=== PATIENT | female | born 1955 | race African-American/Black ===

== ENCOUNTER 2016-12-08 13:40 | Observation (INO) ==
--- NOTE | 2016-12-08 13:58 | Emergency Department Note ---
Disposition Clinical Impression: Right sided weakness CVA (cerebral vascular accident) Qualifiers: CVA mechanism: unspecified Qualified Code(s): I63.9 - Cerebral infarction, unspecified HTN (hypertension) Qualifiers: Hypertension type: unspecified secondary hypertension Qualified Code(s): I15.9 - Secondary hypertension, unspecified Disposition: Admitted As Inpatient Condition: Fair Neuro HPI - General Chief Complaint: ED Neuro Symptoms/Deficit Stated Complaint: neuro symptoms Source: patient, family Mode of arrival: ambulatory Limitations: no limitations Nursing Notes Reviewed: Yes Vital Signs Reviewed: Yes - History of Present Illness HPI Narrative: 61-year-old female history of CVA in the [place] in the past presents for evaluation of strokelike symptoms. Patient's symptoms in the past right-sided weakness and numbness. Patient presented with recurrent symptoms. Patient states that she was well approximately a couple days ago but has worsening neurologic symptoms over the past several hours. Noted to have right foot numbness two days ago. Notes that she started to have some right sided arm and leg weakness that began about 9:00 in worsened since noon. Patient also notes decreased sensation in the right side. Patient also has some mild dysarthria which is new and facial asymmetry. Patient denies any chest pain or fevers. Patient states the last time she was not given any thrombolytics and was evaluated at [facility]. Patient states that her stroke last time was related to her blood pressure. - Related Data Home Medications: Home Medications Medication Instructions Recorded Confirmed Acetaminophen [Tylenol Arthritis] 650 mg PO Q6H PRN 05/30/16 12/08/16 Albuterol Sulfate [Proair Hfa] 2 puff IH Q4H PRN 05/30/16 12/08/16 Atorvastatin Calcium [Lipitor] 80 mg PO DAILY 05/30/16 12/08/16 Cholecalciferol (D-3) [Vitamin D] 1,000 unit PO DAILY 05/30/16 12/08/16 Citalopram Hydrobromide 40 mg PO DAILY 05/30/16 12/08/16 [Citalopram HBr] Clopidogrel [Plavix] 75 mg PO DAILY 05/30/16 12/08/16 Ergocalciferol (VITAMIN D2) 50,000 unit PO 2XW 05/30/16 12/08/16 [Vitamin D2] Fluticasone Propionate Nasal 2 spray NS DAILY 05/30/16 12/08/16 [Flonase] Hydrocodone/Acetaminophen [[place] 1 tab PO Q6H PRN 05/30/16 12/08/16 5-325 Tablet] Loratadine [Allergy Relief] 10 mg PO DAILY 05/30/16 12/08/16 Montelukast [Singulair] 10 mg PO DAILY 05/30/16 12/08/16 NIFEdipine [Nifedipine ER] 90 mg PO DAILY 05/30/16 12/08/16 Nebivolol [Bystolic] 5 mg PO DAILY 05/30/16 12/08/16 Polyethylene Glycol 3350 [MiraLAX] 17 gm PO DAILY PRN 05/30/16 12/08/16 Amitriptyline [Elavil] 25 mg PO HS 12/08/16 12/08/16 Polyvinyl Alcohol [Artificial 1 drop OP Q4H PRN 12/08/16 12/08/16 Tears] Sennosides/Docusate Sodium [Senna 1 each PO BID PRN 12/08/16 12/08/16 Plus] cloNIDine HCl [CloNIDine HCl] 0.1 mg PO DAILY PRN 12/08/16 12/08/16 traZODone [TraZODone] 50 mg PO HS PRN 12/08/16 12/08/16 Allergies/Adverse Reactions: Allergies Allergy/AdvReac Type Severity Reaction Status Date / Time latex Allergy Rash Verified 12/08/16 14:42 Penicillins Allergy Rash Verified 12/08/16 14:22 prednisone Allergy See Verified 12/08/16 14:22 Comments sulfur dioxide Allergy See Verified 12/08/16 14:22 Comments aspirin AdvReac See Verified 12/08/16 14:42 Comments spironolactone AdvReac Hypertensio Verified 12/08/16 14:42 n Constitutional: Reports: as per HPI. Denies: fever Eyes: Reports: as per HPI ENT ED: Reports: as per HPI Cardiovascular: Reports: as per HPI. Denies: chest pain Respiratory: Reports: as per HPI. Denies: cough Gastrointestinal: Reports: as per HPI. Denies: abdominal pain Genitourinary: Reports: as per HPI Musculoskeletal: Reports: as per HPI Integumentary: Reports: as per HPI Neurological: Reports: as per HPI, weakness, numbness Psychiatric: Reports: as per HPI Endocrine: Reports: as per HPI Hematological/Lymphatic: Reports: as per HPI Past Medical History - Past Medical History Medical history: Reports: TIA Surgical history: Reports: , cholecystectomy, hysterectomy Psychiatric history: Reports: no psych history - Social History Smoking Status: Never smoker Smokeless Tobacco Status: No Alcohol use: Reports: none Drug use: Reports: none Physical Exam - General Limitations: no limitations General appearance: alert, in no apparent distress - Head Head exam: atraumatic, normocephalic, normal inspection - Eye Eye exam: Present: normal appearance, PERRL, EOMI - ENT ENT exam: normal exam, normal oropharynx, mucous membranes moist - Neck Neck exam: Present: normal inspection, full ROM, trachea midline - Chest Chest inspection: Present: normal inspection, symmetric chest wall rise - Respiratory Respiratory exam: Present: normal lung sounds bilaterally. Absent: respiratory distress - Cardiovascular Cardiovascular exam: Present: regular rate, normal rhythm - Abdominal Exam Abdominal exam: Present: soft, Non-Tender. Absent: tenderness, distention, guarding, rebound, rigidity - Extremities Exam Extremities exam: Present: normal inspection. Absent: pedal edema - Back Exam Back exam: Present: normal inspection - Neurological Exam Neurological exam: Present: alert, oriented X3 - Expanded Neurological Exam Patient oriented to: Present: person, place, time Cranial nerves: EOM function (II, III, IV, ): Normal, facial sensation (V): Abnormal Right, facial palsy (VII): Abnormal Right, spinal accessory function ( XI): Normal, tongue deviation (XII): Normal Cerebellar function: finger to nose: Normal Motor strength - LUE: 5/5 Motor strength - RUE: 4/5 Motor strength - LLE: 5/5 Motor strength - RLE: 4/5 Upper motor neuron exam: pronator drift: Present of right Coma Scale Verbal Response: Oriented - Psychiatric Psychiatric exam: Present: normal affect, normal mood Course - Reevaluation(s) Reevaluation #1: Stroke alert called due to the persistent symptoms and worsening symptoms. Time: 13:59 Reevaluation #2: Patient is updated on plan of care. Patient agrees for inpatient admission. He does state that she has a G6PD and does not take NSAIDs. Patient refused the aspirin. Patient states she is on Plavix. Patient states that her symptoms of leg weakness have been improving. Time: 15:22 - Consultations Consultation #1: Spoke with Neurology at [facility]. Dr Mercado States that the patient is not a thrombolytic candidate. Recommended continued workup allow for permissive hypertension. Time: 14:16 Vital Signs Temperature 98.1 F 12/08/16 13:45 Pulse Rate 74 12/08/16 13:45 Respiratory Rate 18 12/08/16 13:45 Blood Pressure 160/93 12/08/16 13:45 O2 Sat by Pulse Oximetry 99 12/08/16 13:45 Temperature 98.1 F 12/08/16 13:45 Pulse Rate 74 12/08/16 15:15 Respiratory Rate 16 12/08/16 15:15 Blood Pressure 179/104 12/08/16 15:15 O2 Sat by Pulse Oximetry 98 12/08/16 15:15 Oxygen Delivery Oxygen Delivery Room Air Neuro Symptoms/Deficit - MDM Narrative Medical decision making narrative: 61-year-old female persons for evaluation of strokelike symptoms. Patient did have a history of CVA with similar presentation. Patient symptoms consist of right arm weakness right leg weakness as well as decreased sensation to her right face and arm and leg. Patient had an age score of 6. Stroke alert was called due to the rapid progression of the patient's symptoms earlier today. Patient states that she was last well couple days ago and since then has had progression of symptoms. Patient's CT scan shows no acute abnormalities. Patient was offered an aspirin but refused to her G6PD. States that she is on Plavix. No other anticoagulation. Patient's last stroke was a couple years ago [facility]. She was also hypertensive upon arrival. Patient's blood pressure gradually improved during her emergency department stay without any intervention. Spoke with the neurology at [facility] who recommended continue stroke workup and allow for permissive hypertension. Patient was updated on plan of care. Patient agrees to inpatient evaluation and treatment. During her ED course the patient noted that her right leg strength was improving. All questions were answered at time of disposition. Patient will be admitted to the hospital service for further intervention and monitoring. - Lab Data Lab results reviewed: Yes I reviewed the patient's lab results. Result diagrams: 12/08/16 14:04 12/08/16 14:04 Lab Results 12/08/16 12/08/16 12/08/16 Range/Units 13:48 14:04 14:04 WBC 10.9 (4.3-11.1) K/mcL RBC 3.55 L (3.82-4.97) M/mcL Hgb 10.5 L (11.5-15.4) g/dL Hct 32.8 L (35.3-44.9) % MCV 92.4 (83.0-100.0) fL MCH 29.6 (28.0-33.3) pg MCHC 32.0 (31.6-35.5) g/dL RDW 12.6 (11.5-14.5) % Plt Count 389 (140-400) K/mcL MPV 9.3 L (9.4-12.4) fL Immature Gran % 0.2 (0-4) % Seg Neutrophils % 58.1 % Lymphocytes % 33.3 % Monocytes % 5.9 % Eosinophils % 2.1 % Basophils % 0.4 % Neutrophils # 6.3 (1.6-8.9) K/mcL Lymphocytes # 3.6 (0.6-4.6) K/mcL Monocytes # 0.6 (0.0-1.3) K/mcL Eosinophils # 0.2 (0.0-0.6) K/mcL Basophils # 0.0 (0.0-0.2) K/mcL PT 10.2 (9.4-12.1) Seconds INR 1.0 APTT 32.6 (26.0-36.0) Seconds Sodium (136-145) mEq/L Potassium (3.5-4.5) mEq/L Chloride (98-109) mEq/L Carbon Dioxide (19-29) mEq/L BUN (7-20) mg/dL Creatinine (0.57-1.11) mg/dL Est GFR ( Amer) (> 60) Est GFR (Non-Af Amer) (> 60) BUN/Creatinine Ratio (6-26) Glucose (70-99) mg/dL POC Glucose 103 H (58-89) Calculated Osmolality (280-300) Calcium (8.6-10.8) mg/dL Troponin I (0-0.03) ng/mL 12/08/16 12/08/16 Range/Units 14:04 14:04 WBC (4.3-11.1) K/mcL RBC (3.82-4.97) M/mcL Hgb (11.5-15.4) g/dL Hct (35.3-44.9) % MCV (83.0-100.0) fL MCH (28.0-33.3) pg MCHC (31.6-35.5) g/dL RDW (11.5-14.5) % Plt Count (140-400) K/mcL MPV (9.4-12.4) fL Immature Gran % (0-4) % Seg Neutrophils % % Lymphocytes % % Monocytes % % Eosinophils % % Basophils % % Neutrophils # (1.6-8.9) K/mcL Lymphocytes # (0.6-4.6) K/mcL Monocytes # (0.0-1.3) K/mcL Eosinophils # (0.0-0.6) K/mcL Basophils # (0.0-0.2) K/mcL PT (9.4-12.1) Seconds INR APTT (26.0-36.0) Seconds Sodium 144 (136-145) mEq/L Potassium 4.7 H (3.5-4.5) mEq/L Chloride 113 H (98-109) mEq/L Carbon Dioxide 24 (19-29) mEq/L BUN 24 H (7-20) mg/dL Creatinine 2.33 H (0.57-1.11) mg/dL Est GFR ( Amer) 26 L (> 60) Est GFR (Non-Af Amer) 21 L (> 60) BUN/Creatinine Ratio 10 (6-26) Glucose 94 (70-99) mg/dL POC Glucose (58-89) Calculated Osmolality 302 H (280-300) Calcium 9.5 (8.6-10.8) mg/dL Troponin I 0.01 (0-0.03) ng/mL - Radiology Data Radiology results reviewed: Yes I reviewed the patient's radiology results. Head CT 12/08/16 13:55 IMPRESSION: No acute intracranial abnormality. Findings were discussed with Dr. Patricio Hernandez of the [facility] emergency department at 2:21 pm on 12/08/2016. D/ / Yamil Orellana MD / Yamil Orellana MD Interpreting Provider: Yamil Orellana MD Chest X-Ray 12/08/16 13:56 IMPRESSION: Cardiomegaly without evidence of acute cardiopulmonary process. D/ / 12/08/2016 15:21:38 Oliver Garvin MD / [facility] Interpreting Provider: Oliver Garvin MD - EKG Data EKG attestation: Yes I reviewed and interpreted this EKG. EKG shows normal: sinus rhythm Rate: normal Rhythm: NSR [place]/QRS: normal P Waves: LAE Q waves: v1 Interpretation: no acute changes NIH Stroke Scale - Level of Consciousness LOC: Alert - LOC Questions LOC Questions: Answers both correctly - LOC Commands LOC Commands: Performs both correctly - Best Gaze Best Gaze: Normal - Visual Visual: No visual loss - Facial Palsy Facial Palsy: Minor asymmetry on smiling, flattened nasolabial fold - Motor Arms Motor Arm-Left: No drift for 10 seconds Motor Arm-Right: Drift, does NOT hit bed - Motor Legs Motor Leg-Left: No drift for 5 seconds Motor Leg-Right: Drift, does NOT hit bed - Limb Ataxia Limb Ataxia: Present in ONE limb - Sensory Sensory: Mild to moderate loss, "not as sharp" - Best Language Best Language: No aphasia - Dysarthria Dysarthria: Mild, slurs some words - Extinction and Inattention Extinction and Inattention: Normal - NIHSS Total Score NIHSS Total Score: 6 TPA Checklist - Source Information Source: Patient - Eligibilty for IV tPA 1. LKW equal to or less than 4.5 hours be before treatment: No 2. Clinical diagnosis of ischemic stroke causing deficit: Yes 3. Age 18 years or older: Yes - LKW: 3-4.5 hrs Add. Contraindications Patient/family understanding: The patient/family members have been counseled and understood the risk, benefit , and alternatives of treatment. Critical Care Time Critical Care Time: Yes Total Critical Care Time: 35 Attestation: Critical care time managing patient's stroke symptoms is 35 minutes. S.B.A.R. - S.B.A.R. Situation: Demographics, MOA Background: Presenting Complaint, Relevant PMH, Meds, & Allergies Assessment: Vital Signs, Course and respsone to treatment, Patient/Family Expectation Recommendation: Barrier(s) to disposition, Recommendation based on pending studies, treatments, or consults Brynn Report Given to: Dr. Sherita Swain Repor Time: 15:38 Attestation Statement - Attestation Attestation: Patient was seen with resident physician. I reviewed the history, physical, assessment and plan, and agree with the findings. I also personally evaluated this patient and had [id number] time with this patient. 61-year-old female presents to the emergency department with worsening neurologic symptoms. Patient was seen by PCP or Center to the emergency department with need for evaluation for potential stroke. Patient and her states symptoms started approximately 2 days ago but at 9 AM the symptoms worsen somewhat progressively. This is approximately 4 hours prior to her arrival in the emergency department. Symptoms include weakness in the right upper and lower extremities some of which is new some of which is from prior stroke. Increasing numbness on the right side and increasing facial droop on the left side. Patient also notes that she has had decreased ability to speak especially since 9 AM today. says this is definitely unusual for her. She denies other symptoms at this time. She did have significant hypertension at her family doctor's office. On examination vital signs were stable without significant hypertension. ENT pupils are equal and reactive. Patient does have some facial droop on the left side but can move that area. Tongue is midline. Some decreased sensation when touching the face on the right side. Heart is regular rhythm and rate. Lungs are clear abdomen is soft and nontender. Extremities unremarkable. Neurologically patient has some drift on the right upper and lower extremities. There is weakness on that side. It is difficult to determine if this is new or old. GCS score of 6 on arrival. ED course a stroke alert was called because of the worsening of her symptoms at [address] of the head revealed no acute abnormalities. Consultation with tele- stroke neurologist confirm that the patient was not a candidate for TPA and suggested admission here at [facility]. Labs also were essentially unremarkable. We will notify hospitalist and need for admission. Agree with resident physician assessment and plan. Critical care time for this patient 35 minutes.
[2016-12-08 14:08] LABS: Basophils % 0.4 %; Eosinophils # 0.2 K/mcL (0.0-0.6); Eosinophils % 2.1 %; Hematocrit 32.8 % (35.3-44.9); Hemoglobin 10.5 g/dL (11.5-15.4); Immature Granulocytes % 0.2 % (0-4); Lymphocytes # 3.6 K/mcL (0.6-4.6); Lymphocytes % 33.3 %; Mean Corpuscular Hemoglobin 29.6 pg (28.0-33.3); Mean Corpuscular Volume 92.4 fL (83.0-100.0); Mean Platelet Volume 9.3 fL (9.4-12.4); Monocytes # 0.6 K/mcL (0.0-1.3); Monocytes % 5.9 %; Neutrophils # 6.3 K/mcL (1.6-8.9); Platelet Count 389 K/mcL (140-400); Red Blood Count 3.55 M/mcL (3.82-4.97); Red Cell Distribution Width 12.6 % (11.5-14.5); Segmented Neutrophils % 58.1 %
[2016-12-08 14:18] LABS: Activated Partial Thrombo Time 32.6 Seconds (26.0-36.0)
[2016-12-08 14:21] LABS: Calcium 9.5 mg/dL (8.6-10.8); Potassium 4.7 mEq/L (3.5-4.5)
[2016-12-08] MEDS ORDERED: Aspirin 81 MG TAB.CHEW PO ONE (14:21)
[2016-12-08 14:31] LABS: Prothrombin Time 10.2 Seconds (9.4-12.1)
[2016-12-08] MEDS ORDERED: Acetaminophen 325 MG TABLET PO PRN (16:57)
[2016-12-08] MEDS ORDERED: Naloxone 0.4 MG/ML INJ IVP PRN (16:57)
[2016-12-08] MEDS ORDERED: traZODone 50 MG TABLET PO PRN (17:00)
[2016-12-08] MEDS ORDERED: *HR* HYDROcodone/Acet 5/325 mg TABLET PO PRN (17:00)
--- NOTE | 2016-12-08 17:18 | Internal Med History&Physical ---
<Jennifer Goldman M - Last Filed: 12/08/16 18:02> Date of Encounter: 12/08/16 Time of Encounter: 17:08 Assessment and Plan (1) CVA (cerebral vascular accident) Current visit: Yes Status: Suspected CVA vs TIA. Patient presented with right sided weakness and numbness, but now reports she is back to her baseline. CT of the head shows no acute intracranial abnormality. EKG shows normal sinus rhythm wiht no acute ischemic changes. Troponin normal at 0.01. Patient reports allergy to aspirin due to G6PD deficiency and so did not take 325mg of aspirin. continuous bus monitor MRI head/brain echocardiogram carotid dopplers Lipid panel in the morning. continue home dose of plavix and statin permissive hypertension Consult to neurology. Qualifiers: CVA mechanism: unspecified Qualified Code(s): I63.9 - Cerebral infarction, unspecified (2) HTN (hypertension) Current visit: Yes Status: Acute Patient's blood pressures have been running 170s-190s/90s-100s. Goal blood pressure 160-190 systolic. She takes nifedipine and Nebivolol at home, with clonidine PRN for blood pressure over 160 systolic. Restart home medications tomorrow. Hydralazine PRN for SBP > 220 or DBP > 120 Qualifiers: Hypertension type: essential hypertension Qualified Code(s): I10 - Essential (primary) hypertension (3) Chronic kidney disease Current visit: Yes Status: Acute Patient's creatinine 2.33, up slightly from previous level of 2.09. She reports her kidney disease is secondary to hypertension and she follows with [facility] [place]. Avoid NSAIDs and nephrotoxins. Qualifiers: Chronic kidney disease stage: stage 4 (severe) Qualified Code(s): N18.4 - Chronic kidney disease, stage 4 (severe) (4) Sleep apnea Current visit: Yes Status: Acute Respiratory therapy consulted for CPAP Qualifiers: Sleep apnea type: unspecified type Qualified Code(s): G47.30 - Sleep apnea , unspecified (5) Upper respiratory infection Current visit: Yes Status: Acute Patient reporting sinus pressure, congestion and cough. Lungs are clear to auscultation and CXR showed no acute cardiopulmonary process. Saline nasal spray PRN Mucinex BID duoneb QID PRN Qualifiers: URI type: unspecified viral URI Qualified Code(s): J06.9 - Acute upper respiratory infection, unspecified; B97.89 - Other viral agents as the cause of diseases classified elsewhere (6) DVT prophylaxis Current visit: Yes Status: Acute anti-embolic stockings heparin 5000u SQ TID Internal Medicine - H&P: HPI Chief complaint: right sided numbness and weakness Admitted From: Emergency Dept Plans for Post Hospital Care: Home History of present illness: Ms. Orellana is a 61 year old female with history of hypertension, hyperlipidemia, lupus, G6PD deficiency, asthma, chronic kidney disease, CVA in 2014 with right- sided residual presented to the emergency department today with complaints of right-sided numbness. She reports that when she woke up this morning at about 9 AM she felt like her right leg was not working in her right arm felt numb, she was able to move them, but not as well as her baseline, she also felt numb and decreased sensation in the right arm and the right leg. In addition to this she had some right-sided facial numbness and her speech was slurred according to her . She denied any headache, lightheadedness, chest pain, palpitations, shortness of breath. Denies any nausea, abdominal pain, diarrhea. She denies any fever, chills, sweats. She reports current upper respiratory infection with sinus pressure and cough. Evaluation in the emergency department included a CT of her head which showed no acute intracranial abnormality. Chest x-ray showed cardiomegaly without acute cardiopulmonary process. EKG showed normal sinus rhythm with no acute ST changes. Troponin was 0.01. BUN and creatinine were elevated at 24 and 2.33 respectively but this is consistent with her baseline CKD. Her symptoms persisted in the emergency department, and they contacted the stroke team at [facility] for consultation, they determined patient was not a candidate for TPA as she was outside of the timeframe. On my assessment, patient reports her symptoms have resolved, and she has returned to her baseline level of function and sensation. Patient was alert and oriented, in no acute distress. Heart had regular rate and rhythm, lungs are clear bilaterally to auscultation. Cranial nerves are intact, tongue was midline, no pronator drift, no leg drift. Patient does have some decreased sensation in her right lower extremity, she reports this is her baseline from her previous stroke. Strength is equal in bilateral upper extremities. Past Med Surg Social Fam HX - Past Medical History Medical history: asthma, CVA, GERD, hyperlipidemia, hypertension, renal disease , TIA, other (lupus) Psychiatric history: no psych history - Past Surgical History Surgical History: , cholecystectomy, hysterectomy, knee replacement, orthopedic, other (shoulder) - Social History Smoking Status: Never smoker Smokeless Tobacco Status: No Alcohol use: none Drug use: none - Family History Mother Living Status: Age at : 77 Cause of : [place], CVA Hx Family Cardiac Disorders: Yes Father Living Status: Age at : 91 Hx Family Cardiac Disorders: Yes Hx Family Endocrine Disorder: Yes (diabetes) Internal Medicine - H&P: Meds Acetaminophen [Tylenol Arthritis] 650 mg PO Q6H PRN 05/30/16 [History] Albuterol Sulfate [Proair Hfa] 2 puff IH Q4H PRN 05/30/16 [History] Atorvastatin Calcium [Lipitor] 80 mg PO DAILY 05/30/16 [History] Cholecalciferol (D-3) [Vitamin D] 1,000 unit PO DAILY 05/30/16 [History] Citalopram Hydrobromide [Citalopram HBr] 40 mg PO DAILY 05/30/16 [History] Clopidogrel [Plavix] 75 mg PO DAILY 05/30/16 [History] Ergocalciferol (VITAMIN D2) [Vitamin D2] 50,000 unit PO 2XW 05/30/16 [History] Fluticasone Propionate Nasal [Flonase] 2 spray NS DAILY 05/30/16 [History] Hydrocodone/Acetaminophen [Coffeen 5-325 Tablet] 1 tab PO Q6H PRN 05/30/16 [ History] Loratadine [Allergy Relief] 10 mg PO DAILY 05/30/16 [History] Montelukast [Singulair] 10 mg PO DAILY 05/30/16 [History] NIFEdipine [Nifedipine ER] 90 mg PO DAILY 05/30/16 [History] Nebivolol [Bystolic] 5 mg PO DAILY 05/30/16 [History] Polyethylene Glycol 3350 [MiraLAX] 17 gm PO DAILY PRN 05/30/16 [History] Amitriptyline [Elavil] 25 mg PO HS 12/08/16 [History] Polyvinyl Alcohol [Artificial Tears] 1 drop OP Q4H PRN 12/08/16 [History] Sennosides/Docusate Sodium [Senna Plus] 1 each PO BID PRN 12/08/16 [History] cloNIDine HCl [CloNIDine HCl] 0.1 mg PO DAILY PRN 12/08/16 [History] traZODone [TraZODone] 50 mg PO HS PRN 12/08/16 [History] Allergies latex Allergy (Verified 12/08/16 14:42) Rash Penicillins Allergy (Verified 12/08/16 14:22) Rash prednisone Allergy (Verified 12/08/16 14:22) See Comments Pt states it "makes me extremely crazy" sulfur dioxide Allergy (Verified 12/08/16 14:22) See Comments Pt stated she is "allergic to sulfur" and that it breaks her out in a rash. aspirin Adverse Reaction (Verified 12/08/16 14:42) See Comments Patient has deficiency spironolactone Adverse Reaction (Verified 12/08/16 14:42) Hypertension All Systems PM: A 10-system review of systems was performed and is negative for pertinent findings except as documented above in the HPI. - Constitutional Constitutional: no chills, no fever(s), no night sweats - EENT Eyes: no change in vision, no discharge, no pain, no photophobia Ears: no ear discharge, no ear pain, no tinnitus Nose, mouth and throat: nasal congestion, sinus pressure, no dysphagia, no nasal discharge, no neck pain, no sore throat - Cardiovascular Cardiovascular ROS IM: no chest pain, no diaphoresis, no dyspnea, no lightheadedness, no palpitations, no syncope - Respiratory Respiratory: cough, no dyspnea, no wheezing, no excessive phlegm production - Gastrointestinal Gastrointestinal: no abdominal pain, no diarrhea, no hematemesis, no hematochezia, no melena, no nausea, no vomiting - Genitourinary Genitourinary: no change in urinary stream, no dysuria, no flank pain, no hematuria - Musculoskeletal Musculoskeletal ROS IM: numbness (Right side), no tingling - Integumentary Integumentary IM: no rash, no unusual bruising - Neurological Neurological ROS: focal weakness (right side), numbness (right side), no confusion, no convulsions, no tingling, no tremor(s) - Hematologic/Lymphatic Hematologic/Lymphatic: no easy bruising - Constitutional Vitals: Temp Pulse Resp BP Pulse Ox 98.0 F 81 18 192/98 99 12/08/16 17:07 12/08/16 17:07 12/08/16 17:07 12/08/16 17:07 12/08/16 17:07 General appearance: Present: A&O X 3, pleasant, no acute distress - Head Head exam: Present: atraumatic, normocephalic - Eye Eye exam: Present: PERRL, conjuntiva pink, sclera anicteric Pupils: Present: PERRL - Neck Neck exam general surgery: Present: supple, trachea midline. Absent: lymphadenopathy - Respiratory Respiratory exam: Present: CTAB. Absent: accessory muscle use, rales, rhonchi, wheezes - Cardiovascular Cardiovascular exam: Present: RRR, +S1, +S2. Absent: diastolic murmur, gallop, rubs, systolic murmur - GI/Abdominal GI/Abdominal exam: Present: normal bowel sounds, soft, no peritoneal signs. Absent: distended, tenderness - Extremities Exam Extremities exam: Present: warm, radial pulses palpable and symetrical. Absent : calf tenderness, cyanotic, pedal edema - Neurological Exam Neurological exam: Present: CN II-XII intact, motor sensory deficit, oriented X3 , facial droop (left sided). Absent: pronater drift, speech deficit - Expanded Neurological Exam Patient oriented to: Present: person, place, time Speech: Present: fluid speech Cranial Nerves: EOM's intact PM: Normal, gag reflex PM: Normal, nystagmus PM: Normal, tongue deviation PM: Normal Cerebellar function: finger to nose: Normal Sensory exam: LE 2 point discrimination: Abnormal Right, lower extremity pin prick: Abnormal Right (decreased sensation in RLE), lower extremity temperature : Normal, UE 2 point discrimination: Normal, upper extremity pin prick: Normal Neuro motor strength exam: LUE: 5, RUE: 5 - Skin Skin exam: Present: dry, intact Internal Med - H&P Results - Labs CBC & Chem 7: 12/08/16 14:04 12/08/16 14:04 Labs: All Lab Results (24 Hours) 12/08/16 12/08/16 12/08/16 Range/Units 13:48 14:04 14:04 WBC 10.9 (4.3-11.1) K/mcL RBC 3.55 L (3.82-4.97) M/mcL Hgb 10.5 L (11.5-15.4) g/dL Hct 32.8 L (35.3-44.9) % MCV 92.4 (83.0-100.0) fL MCH 29.6 (28.0-33.3) pg MCHC 32.0 (31.6-35.5) g/dL RDW 12.6 (11.5-14.5) % Plt Count 389 (140-400) K/mcL MPV 9.3 L (9.4-12.4) fL Immature Gran % 0.2 (0-4) % Seg Neutrophils % 58.1 % Lymphocytes % 33.3 % Monocytes % 5.9 % Eosinophils % 2.1 % Basophils % 0.4 % Neutrophils # 6.3 (1.6-8.9) K/mcL Lymphocytes # 3.6 (0.6-4.6) K/mcL Monocytes # 0.6 (0.0-1.3) K/mcL Eosinophils # 0.2 (0.0-0.6) K/mcL Basophils # 0.0 (0.0-0.2) K/mcL PT 10.2 (9.4-12.1) Seconds INR 1.0 APTT 32.6 (26.0-36.0) Seconds Sodium (136-145) mEq/L Potassium (3.5-4.5) mEq/L Chloride (98-109) mEq/L Carbon Dioxide (19-29) mEq/L BUN (7-20) mg/dL Creatinine (0.57-1.11) mg/dL Est GFR ( Amer) (> 60) Est GFR (Non-Af Amer) (> 60) BUN/Creatinine Ratio (6-26) Glucose (70-99) mg/dL POC Glucose 103 H (58-89) Calculated Osmolality (280-300) Calcium (8.6-10.8) mg/dL Troponin I (0-0.03) ng/mL 12/08/16 12/08/16 Range/Units 14:04 14:04 WBC (4.3-11.1) K/mcL RBC (3.82-4.97) M/mcL Hgb (11.5-15.4) g/dL Hct (35.3-44.9) % MCV (83.0-100.0) fL MCH (28.0-33.3) pg MCHC (31.6-35.5) g/dL RDW (11.5-14.5) % Plt Count (140-400) K/mcL MPV (9.4-12.4) fL Immature Gran % (0-4) % Seg Neutrophils % % Lymphocytes % % Monocytes % % Eosinophils % % Basophils % % Neutrophils # (1.6-8.9) K/mcL Lymphocytes # (0.6-4.6) K/mcL Monocytes # (0.0-1.3) K/mcL Eosinophils # (0.0-0.6) K/mcL Basophils # (0.0-0.2) K/mcL PT (9.4-12.1) Seconds INR APTT (26.0-36.0) Seconds Sodium 144 (136-145) mEq/L Potassium 4.7 H (3.5-4.5) mEq/L Chloride 113 H (98-109) mEq/L Carbon Dioxide 24 (19-29) mEq/L BUN 24 H (7-20) mg/dL Creatinine 2.33 H (0.57-1.11) mg/dL Est GFR ( Amer) 26 L (> 60) Est GFR (Non-Af Amer) 21 L (> 60) BUN/Creatinine Ratio 10 (6-26) Glucose 94 (70-99) mg/dL POC Glucose (58-89) Calculated Osmolality 302 H (280-300) Calcium 9.5 (8.6-10.8) mg/dL Troponin I 0.01 (0-0.03) ng/mL - Diagnostic Studies Chest x-ray Additional comments: Chest X-Ray 12/08/16 13:56 IMPRESSION: Cardiomegaly without evidence of acute cardiopulmonary process. D/ / 12/08/2016 15:21:38 Oliver Garvin MD / bcarter Interpreting Provider: Oliver Garvin MD CT scan - head Additional comments: Head CT 12/08/16 13:55 IMPRESSION: No acute intracranial abnormality. Findings were discussed with Dr. Patricio Hernandez of the [place] emergency department at 2:21 pm on 12/08/2016. D/ / Yamil Orellana MD / Yamil Orellana MD Interpreting Provider: Yamil Orellana MD <Jefe Magallon - Last Filed: 12/08/16 18:41> Date of Encounter: 12/08/16 Internal Medicine - H&P: HPI History of present illness: Ms. Orellana is a 61 year old female All Systems PM: A 10-system review of systems was performed and is negative for pertinent findings except as documented above in the HPI. - Constitutional Vitals: Temp Pulse Resp BP Pulse Ox 98.0 F 81 18 192/98 99 12/08/16 17:07 12/08/16 17:07 12/08/16 17:07 12/08/16 17:07 12/08/16 17:07 Internal Med - H&P Results - Labs CBC & Chem 7: 12/08/16 14:04 12/08/16 14:04 - Attending Attestation I examined this patient and my medical decision-making was reviewed with Ms. Goldman. I agree with the documented findings, disposition and treatment plan as described except to the extent set forth below. Briefly, 61-year-old female with a history of cerebrovascular accident in the past who is on Plavix and not on aspirin due to G6PD deficiency presented to the emergency room due to sudden onset weakness on the right side with drooping of the face. Patient states that since 4 PM today, her symptoms are back to baseline and she only has residual deficits from her prior stroke. On exam, clear without bilaterally. Minimal droop the face. Power 5/5 upper extremities bilaterally. Power 4/5 in the right lower expedient 5/5 in the left lower extremities. Laboratory data reviewed. EKG personally reviewed. 1. CVA versus TIA-placed under observation for now. MRI. Telemetry. Continue Plavix and high-dose statin. Patient may benefit from Crestor. Patient instructed to discuss with primary care physician. Neurology consult. Physical therapy, occupational therapy and speech therapy consults. 2. G6PD deficiency. ROCKY MarroquinBS
[2016-12-08] MEDS ORDERED: Ipratropium/Albuterol Neb 3 ML IH PRN (17:58)
[2016-12-08] MEDS ORDERED: Saline Nasal Spray 44 ML BOTTLE NS PRN (17:58)
[2016-12-09 05:24] LABS: Basophils % 0.4 %; Eosinophils % 2.5 %; Hematocrit 30.5 % (35.3-44.9); Hemoglobin 9.8 g/dL (11.5-15.4); Immature Granulocytes % 0.4 % (0-4); Lymphocytes % 37.6 %; Mean Corpuscular HGB Conc 32.1 g/dL (31.6-35.5); Mean Corpuscular Hemoglobin 29.6 pg (28.0-33.3); Mean Corpuscular Volume 92.1 fL (83.0-100.0); Mean Platelet Volume 10.3 fL (9.4-12.4); Monocytes % 6.7 %; Platelet Count 335 K/mcL (140-400); Red Blood Count 3.31 M/mcL (3.82-4.97); Red Cell Distribution Width 12.8 % (11.5-14.5); Segmented Neutrophils % 52.4 %
[2016-12-09 05:25] LABS: Eosinophils # 0.3 K/mcL (0.0-0.6); Lymphocytes # 4.1 K/mcL (0.6-4.6); Monocytes # 0.7 K/mcL (0.0-1.3); Neutrophils # 5.8 K/mcL (1.6-8.9)
[2016-12-09 05:45] LABS: Calcium 8.9 mg/dL (8.6-10.8); Potassium 4.4 mEq/L (3.5-4.5)
[2016-12-09] MEDS ORDERED: Loratadine 10 MG TABLET PO SCH (09:00)
--- NOTE | 2016-12-09 09:52 | Carotid Imaging Report ---
Carotid Duplex Patient Name:Maggie Orellana Order Number:[id number] Procedure Date:12/08/2016 Date:8Age:61 yrs Gender:Female Lt BP:192 / 98 mmHg Rt.BP:176 / 100 mmHgHeart Rate: Location:[facility] Room #: 3B12 Hand Roller Engraver:Rosmery Nunez Referring MD:Jennifer Goldman CNP food and beverage outlets manager:Matt Dimas MD Reading MD:Mg Wiley MD Primary Indications:TIA Risk Factors Yes/No Hypertension Yes Hypercholesterolemia Yes Hx of TIA Yes Hx of CVA Yes Impressions: Findings: Bilateral carotid system is essentially normal. Recommendations: After imaging the patient returned to their room. Findings Carotid Duplex: Right: The right proximal common carotid artery has a PSV of 94 cm/s and a EDV of 17 cm/s. The right mid common carotid artery has a PSV of 71 cm/s and a EDV of 16 cm/s. The right distal common carotid artery has a PSV of 61 cm/s and a EDV of 14 cm/s. The right bifurcation has a PSV of 66 cm/s and a EDV of 12 cm/s. The right proximal internal carotid artery has a PSV of 49 cm/s and a EDV of 16 cm/s. The right mid internal carotid artery has a PSV of 58 cm/s and a EDV of 17 cm/s. The right distal internal carotid artery has a PSV of 63 cm/s and a EDV of 21 cm/s. The right eca has a PSV of 68 cm/s and a EDV of 9 cm/s. The right vertebral artery has a PSV of 24 cm/s and a EDV of 6 cm/s. Left: The left proximal common carotid artery has a PSV of 110 cm/s and a EDV of 23 cm/s. The left mid common carotid artery has a PSV of 103 cm/s and a EDV of 24 cm/s. The left distal common carotid artery has a PSV of 91 cm/s and a EDV of 18 cm/s. The left bifurcation has a PSV of 52 cm/s and a EDV of 14 cm/s. The left proximal internal carotid artery has a PSV of 41 cm/s and a EDV of 14 cm/s. The left mid internal carotid artery has a PSV of 61 cm/s and a EDV of 23 cm/s. The left distal internal carotid artery has a PSV of 73 cm/s and a EDV of 29 cm/s. The left eca has a PSV of 66 cm/s and a EDV of 18 cm/s. The left vertebral artery has a PSV of 37 cm/s and a EDV of 11 cm/s. Prior Study: No prior study available for comparison. Carotid Results Right PSV EDV Assessment Proximal CCA 94 17 Normal Mid CCA 71 16 Normal Distal CCA 61 14 Normal Bifurcation 66 12 Normal Proximal ICA 49 16 Normal Mid ICA 58 17 Normal Distal ICA 63 21 Normal ECA 68 9 Normal Vertebral Artery 24 6 Normal Left PSV EDV Assessment Proximal CCA 110 23 Normal Mid CCA 103 24 Normal Distal CCA 91 18 Normal Bifurcation 52 14 Normal Proximal ICA 41 14 Normal Mid ICA 61 23 Normal Distal ICA 73 29 Normal ECA 66 18 Normal Vertebral Artery 37 11 Normal Ratio's Right ICA/CCA Ratio: 0.89 ICA/CCA Values: 63/71 Left ICA/CCA Ratio: 0.71 ICA/CCA Values: 73/103 Updated by Mg Wiley MD on 12/09/2016 9:47:04 AM electronically signed on 12/09/2016 9:47:17 AM with status of Final
--- NOTE | 2016-12-09 11:18 | ECHO - Doppler Report ---
Echo with Saline Contrast Name: Maggie Orellana Date of Study: 12/08/2016 Date: 1955 Ht: 67.0 in Medical Record#: [id number] Age: 61 Wt: 253.0 lb Gender: Female BSA: 2.23 Order #: [id number] Location: [facility] Room #: 3B12 Reading Physician: Yanique Mike DO Auger Supervisor: Rosmery Nunez Ordering Physician: Jennifer Goldman CNP Primary Physician: Matt Dimas MD Indications: Transient Ischemic Attack Impressions: LVEF 65%. Moderate concentric hypertrophy of the left ventricle. There is evidence of mild diastolic dysfunction of the left ventricle. Normal right ventricular size and function. No significant valvular dysfunction. No pulmonary hypertension. No PFO with saline contrast. Left Ventricular Wall Motion: Rest Echo Findings All wall segments showed normal motion. Findings: Study Quality * Technically adequate exam. ECG Findings * Normal sinus rhythm. Left Ventricle * Moderate concentric left ventricular hypertrophy. * Mild left ventricular diastolic dysfunction. * LVEF 65%. Aorta * Normally sized aortic root. Left Atrium * Normal left atrial size. Mitral Valve * Normal mitral valve structure. * No mitral stenosis. * Trivial mitral regurgitation. Aortic Valve * Aortic valve not well visualized. * Trace aortic regurgitation. * No aortic stenosis. Tricuspid Valve * Tricuspid valve not well visualized. * No tricuspid regurgitation. * Estimated RA pressure is 3 mmHg. Pulmonic Valve * Pulmonic valve is not well visualized. * No pulmonic stenosis. * No pulmonic regurgitation. Pulmonary Artery * Pulmonary artery not well visualized. Right Ventricle * Normal right ventricular structure and function. Right Atrium * Right atrium is not well visualized. Interatrial Septum * No evidence of PFO with agitated saline contrast. IVC * Normal IVC dimensions and inspiratory collapse. History Hypertension Hypercholesteremia Family History of CAD Measurements: BP: 192/ 98 2D Normal Values RVIDd: 3.20 cm <2.7 cm IVSd: 1.50 cm 0.6 - 1.0 cm LVIDd: 4.70 cm 3.7 - 5.6 cm LVPWd: 1.40 cm 0.6 - 1.1 cm LVIDs: 2.40 cm 1.5 - 3.6 cm AO: 2.70 cm < 4.0 cm LA: 3.90 cm 2.0 - 4.0cm %FS: 48.90 cm >25 % LA volume: 69 Mitral Valve Pressure Time:63.00 msec Valve Area:3.49 cm2 Peak E:.77 m/sec Peak A:1.14 m/sec E/A Ratio:0.7 Peak E' Lat Kamari:8.77 cm/s Peak E' Med Kamari:7.02 cm/s E/E' Lat Ratio:8.8 E/E' Med Ratio:10.9 Updated by Yanique Mike on 12/09/2016 11:12:36 AM electronically signed on 12/09/2016 11:13:42 AM with status of Final Wall Motion Pena: 1=Normal, 2=Hypokinesis, 3=Akinesis, 4=Dyskinesis, 5=Aneurysmal, 6=Hyperkinetic, X=Not Visualized (Blank)=Missing
--- NOTE | 2016-12-09 17:20 | Electrocardiograph Report ---
[place] [address] Test Date: 2016-12-08 Pat Name: Maggie Orellana Department: 104 Room: 3B12 Gender: F Interface Control Officer: : 1955 Requested By: Patricio Hernandez Order Number: [id number] Reading MD: Micaela Lewis Measurements Intervals [place] Rate: 77 P: 14 DE: 207 QRS: 21 QRSD: 109 T: 11 QT: 397 QTc: 428 Interpretive Statements SINUS RHYTHM POSSIBLE LEFT ATRIAL ENLARGEMENT Electronically Signed On 12-09-2016 17:18:53 EDT by Micaela Lewis
--- NOTE | 2016-12-09 17:50 | Internal Med Progress Note ---
Date of Encounter: 12/09/16 Time of Encounter: 09:05 - Subjective Interval history: Patient is alert and oriented this morning. She was seen and assessed at about 9:05 AM. She says she was seeing her primary care physician for URI symptoms. She also reports right foot numbness that began 3 days prior to arrival. She said that her right side became numb and she had right facial droop. Her speech was slurred and she had no other symptoms. - Constitutional Vitals: Temp Pulse Resp BP Pulse Ox 99.0 F 85 14 174/89 94 12/09/16 15:53 12/09/16 15:53 12/09/16 15:53 12/09/16 15:53 12/09/16 15:53 General appearance: Present: A&O X 3, pleasant, no acute distress Internal Medicine: Result - Labs CBC & Chem 7: 12/09/16 03:46 12/09/16 03:46 Labs: Short CBC 12/09/16 Range/Units 03:46 WBC 11.0 (4.3-11.1) K/mcL Hgb 9.8 L (11.5-15.4) g/dL Hct 30.5 L (35.3-44.9) % Plt Count 335 (140-400) K/mcL Neutrophils # 5.8 (1.6-8.9) K/mcL BMP 12/09/16 03:46 Sodium 141 Potassium 4.4 Chloride 111 H Carbon Dioxide 22 BUN 23 H Creatinine 2.36 H Glucose 95 Calcium 8.9 - ABG Interpretation ABG results: PT/INR, D-dimer PT 10.2 Seconds (9.4-12.1) 12/08/16 14:04 - Impressions Impressions Brain MRI 12/08/16 17:04 IMPRESSION: 1. Mild motion artifact. 2. No acute intracranial abnormality. D/ / Mike Fraga MD / Mike Fraga MD Interpreting Provider: Mike Fraga MD Consult Discharge Plan - Plan Referrals: Matt Dimas MD [Primary Care Provider] - 12/16/16 1:15 pm
--- NOTE | 2016-12-09 19:10 | Neurology - Consult Note ---
Date of Encounter: 12/09/16 Time of Encounter: 19:05 Assessment and Plan (1) Transient ischemic attack Current Visit: Yes Status: Acute I believe that she will experienced a transient ischemic attack secondary to malignant hypertension. She likely experienced of vasospasm in the lenticulostriate arteries which caused her symptoms of worsening hypoesthesia and weakness on the right side. Her symptoms now have fully resolved, and her MRI scan reveals no evidence of acute ischemia. 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 Carotid duplex Doppler studies were normal. Echocardiogram was normal. At this juncture the most important factor is to aggressively manage her hypertension. Really she should maintain the "the Plavix as well as ongoing statin therapy. At this point I do not believe that she needs any additional therapeutics or testing. She may be discharged home discretion to follow up with her primary care provider for aggressive management of her stroke risk factors. The documentation in the history of HPI and plan were at least partially created by [employer] voice recognition technology by Dr. Stover. Errors in grammar, wording or other phrases may exist. If errors are found after the documentation signed, they will be addressed individually in the addendum section of this document when appropriate. Qualifiers: Transient cerebral ischemia type: other Qualified Code(s): G45.8 - Other transient cerebral ischemic attacks and related syndromes History of Present Illness HPI: Ms. Orellana is a 61 year old female with a prior history of hypertension hyperlipidemia lupus and chronic kidney disease is being seen for neurologic evaluation secondary to symptoms of transient ischemia. 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 Apparently she awakened on the morning of admission about 9:00 and felt that there was something different about her right arm and leg. She states that she is able to move them however as time went on she felt weakness in this area as well. The weakness persisted for several hours and her strength has returned back to baseline. She denies any speech or swallowing difficulty. Her blood pressure however has been markedly elevated as high as 201/102. 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 Carotid duplex Doppler studies were essentially normal. An echocardiogram revealed some left ventricular hypertrophy but no evidence of valvular disease, PFO or vegetations. She currently takes Plavix at home. She is also on atorvastatin. Apparently she has a long history of refractory hypertension. She was assessed by the [facility]'s stroke team via the robot. She was not deemed a suitable candidate secondary to the time window had elapsed. Past Med Surg Social Fam HX - Past Medical History Medical history: asthma, CVA, GERD, hyperlipidemia, hypertension, renal disease , TIA, other (lupus) Psychiatric history: no psych history - Past Surgical History Surgical History: , cholecystectomy, hysterectomy, knee replacement, orthopedic, other (shoulder) - Social History Smoking Status: Never smoker Smokeless Tobacco Status: No Alcohol use: none Drug use: none - Family History Mother Hx Family Cardiac Disorders: Yes Hx Family Neurologic Disorders: Yes (CVA) Father Hx Family Cardiac Disorders: Yes (HTN, CHF) Hx Family Endocrine Disorder: Yes (DM) Medications and Allergies Acetaminophen [Tylenol Arthritis] 650 mg PO Q6H PRN 05/30/16 [History] Albuterol Sulfate [Proair Hfa] 2 puff IH Q4H PRN 05/30/16 [History] Atorvastatin Calcium [Lipitor] 80 mg PO DAILY 05/30/16 [History] Cholecalciferol (D-3) [Vitamin D] 1,000 unit PO DAILY 05/30/16 [History] Citalopram Hydrobromide [Citalopram HBr] 40 mg PO DAILY 05/30/16 [History] Clopidogrel [Plavix] 75 mg PO DAILY 05/30/16 [History] Ergocalciferol (VITAMIN D2) [Vitamin D2] 50,000 unit PO 2XW 05/30/16 [History] Fluticasone Propionate Nasal [Flonase] 2 spray NS DAILY 05/30/16 [History] Hydrocodone/Acetaminophen [Finley 5-325 Tablet] 1 tab PO Q6H PRN 05/30/16 [ History] Loratadine [Allergy Relief] 10 mg PO DAILY 05/30/16 [History] Montelukast [Singulair] 10 mg PO DAILY 05/30/16 [History] NIFEdipine [Nifedipine ER] 90 mg PO DAILY 05/30/16 [History] Nebivolol [Bystolic] 5 mg PO DAILY 05/30/16 [History] Polyethylene Glycol 3350 [MiraLAX] 17 gm PO DAILY PRN 05/30/16 [History] Amitriptyline [Elavil] 25 mg PO HS 12/08/16 [History] Polyvinyl Alcohol [Artificial Tears] 1 drop OP Q4H PRN 12/08/16 [History] Sennosides/Docusate Sodium [Senna Plus] 1 each PO BID PRN 12/08/16 [History] cloNIDine HCl [CloNIDine HCl] 0.1 mg PO DAILY PRN 12/08/16 [History] traZODone [TraZODone] 50 mg PO HS PRN 12/08/16 [History] Allergies latex Allergy (Verified 12/08/16 14:42) Rash Penicillins Allergy (Verified 12/08/16 14:22) Rash prednisone Allergy (Verified 12/08/16 14:22) See Comments Pt states it "makes me extremely crazy" sulfur dioxide Allergy (Verified 12/08/16 14:22) See Comments Pt stated she is "allergic to sulfur" and that it breaks her out in a rash. aspirin Adverse Reaction (Verified 12/08/16 14:42) See Comments Patient has deficiency spironolactone Adverse Reaction (Verified 12/08/16 14:42) Hypertension All Systems: A 10-system review of systems was performed and is negative for pertinent findings except as documented above in the HPI. Review of Systems: 10 point review of systems is consistent with a history of present illness and otherwise negative. Physical Examination - Vital Signs Vital Signs: Initial Vital Signs Temp Pulse Resp BP Pulse Ox 98.1 F 74 18 160/93 99 12/08/16 13:45 12/08/16 13:45 12/08/16 13:45 12/08/16 13:45 12/08/16 13:45 - Neurologic Sensorimotor examination: other (She does have residual hemihypesthesia of the right arm and leg.) Detailed motor examination: full strength in all major muscle groups Motor examination - right side: 5/5: deltoids, biceps, triceps, wrist flexion, wrist extension, plant changer, hip flexors, tibialis Anterior, quadriceps, toe extension (EHL), plantarflexion Motor examination - left side: 5/5: deltoids, biceps, triceps, wrist flexion, wrist extension, hip flexors, plant changer, quadriceps, tibialis Anterior, toe extension (EHL), plantarflexion Detailed sensory examination: other (Right hemihypesthesia consistent with previous left lateral medullary infarct.) Reflex and gait examination: intact Mental Status Examination: awake, alert, oriented to person, oriented to place, oriented to time, follows commands appropriately, answers questions appropriately, no agnosia, no aphasia, no aproxia Cranial nerve examination: PERRL, EOMI, visual weems intact, corneal reflexes brisk symmetrically, sensory to face intact, mastication intact, no facial asymmetry is present, no dysarthria, hearing is intact symmetrically, soft palate elevates bilaterally upon phonation, gag reflex intact, flexes SCM and trapezius muscles symmetrically with full power, tongue protrudes midline, no atrophy or facial fasiculations present Cerebellar examination: no dysmetria, performs finger to nose and heel to adams symmetrically without ataxia, no gait ataxia, no truncal ataxia, no difficulty with rapid alternating movements Results - Laboratory Findings CBC and BMP: 12/09/16 03:46 12/09/16 03:46 Abnormal lab findings: Abnormal lab results RBC 3.31 M/mcL (3.82-4.97) L 12/09/16 03:46 Hgb 9.8 g/dL (11.5-15.4) L 12/09/16 03:46 Hct 30.5 % (35.3-44.9) L 12/09/16 03:46 Chloride 111 mEq/L (98-109) H 12/09/16 03:46 BUN 23 mg/dL (7-20) H 12/09/16 03:46 Creatinine 2.36 mg/dL (0.57-1.11) H 12/09/16 03:46 Est GFR ( Amer) 26 (> 60) L 12/09/16 03:46 Est GFR (Non-Af Amer) 21 (> 60) L 12/09/16 03:46 POC Glucose 103 (58-89) H 12/08/16 13:48 Triglycerides 194 mg/dL (< 150) H 12/09/16 03:46 VLDL Cholesterol, Calc 39 mg/dL (< 31) H 12/09/16 03:46 HDL Cholesterol 27 mg/dL (40-59) L 12/09/16 03:46 Cholesterol/HDL Ratio 5.0 (0-4.9) H 12/09/16 03:46 Consult Discharge Plan - Plan Referrals: Matt Dimas MD [Primary Care Provider] - 12/16/16 1:15 pm
--- NOTE | 2016-12-09 19:14 | Discharge Summary ---
Date of Encounter: 12/09/16 Time of Encounter: 09:05 - Discharge Diagnosis (1) Transient ischemic attack Priority: Primary Status: Acute Comments: Patient began having right foot numbness 3 days prior to admission. He said that she has had this before, so she did not pay much attention to it. The day of admission she awakened with right sided numbness and hand and arm, right- sided facial droop, and has been reports slurred speech as well. Carotids were essentially negative, as was MRI. She does have uncontrolled hypertension. She is very close to goal, 160s over 90s. Patient was seen by neurology. Symptoms have resolved at this time. 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 Patient will maintain her statin and Plavix. Patient needs more aggressive treatment of hypertension. I will increase her by systolic by 2.5 mg by mouth daily. Qualifiers: Transient cerebral ischemia type: other Qualified Code(s): G45.8 - Other transient cerebral ischemic attacks and related syndromes (2) HTN (hypertension) Priority: Secondary Status: Chronic Comments: Chronic. Uncontrolled. Increasing by systolic by 2.5 mg by mouth daily. Systolic is 170s, diastolic is 90s. Pulse is in the mid 80s. Patient will need medication adjustment and evaluation by primary care. Qualifiers: Hypertension type: essential hypertension Qualified Code(s): I10 - Essential (primary) hypertension (3) Right sided weakness Priority: Secondary Status: Acute Comments: Resolved. Patient states that she has returned to baseline. Clips are strong and equal bilaterally. Foot press/pull also strong and equal bilaterally. (4) Chronic kidney disease Priority: Secondary Status: Chronic Comments: Creatinine 2.36, BUN 23, GFR 21. Follow-up with nephrology as scheduled and avoid nephrotoxins. Qualifiers: Chronic kidney disease stage: stage 4 (severe) Qualified Code(s): N18.4 - Chronic kidney disease, stage 4 (severe) (5) DVT prophylaxis Priority: Secondary Status: Acute - Discharge Medications Prescriptions: Nebivolol [Bystolic] 2.5 mg PO DAILY #15 tablet Home Medications: Acetaminophen [Tylenol Arthritis] 650 mg PO Q6H PRN 05/30/16 [History] Albuterol Sulfate [Proair Hfa] 2 puff IH Q4H PRN 05/30/16 [History] Atorvastatin Calcium [Lipitor] 80 mg PO DAILY 05/30/16 [History] Cholecalciferol (D-3) [Vitamin D] 1,000 unit PO DAILY 05/30/16 [History] Citalopram Hydrobromide [Citalopram HBr] 40 mg PO DAILY 05/30/16 [History] Clopidogrel [Plavix] 75 mg PO DAILY 05/30/16 [History] Ergocalciferol (VITAMIN D2) [Vitamin D2] 50,000 unit PO 2XW 05/30/16 [History] Fluticasone Propionate Nasal [Flonase] 2 spray NS DAILY 05/30/16 [History] Hydrocodone/Acetaminophen [Cecil 5-325 Tablet] 1 tab PO Q6H PRN 05/30/16 [ History] Loratadine [Allergy Relief] 10 mg PO DAILY 05/30/16 [History] Montelukast [Singulair] 10 mg PO DAILY 05/30/16 [History] NIFEdipine [Nifedipine ER] 90 mg PO DAILY 05/30/16 [History] Polyethylene Glycol 3350 [MiraLAX] 17 gm PO DAILY PRN 05/30/16 [History] Amitriptyline [Elavil] 25 mg PO HS 12/08/16 [History] Polyvinyl Alcohol [Artificial Tears] 1 drop OP Q4H PRN 12/08/16 [History] Sennosides/Docusate Sodium [Senna Plus] 1 each PO BID PRN 12/08/16 [History] cloNIDine HCl [CloNIDine HCl] 0.1 mg PO DAILY PRN 12/08/16 [History] traZODone [TraZODone] 50 mg PO HS PRN 12/08/16 [History] Nebivolol [Bystolic] 2.5 mg PO DAILY #15 tablet 12/09/16 [Rx] Allergies/Adverse Reactions: Allergies latex Allergy (Verified 12/08/16 14:42) Rash Penicillins Allergy (Verified 12/08/16 14:22) Rash prednisone Allergy (Verified 12/08/16 14:22) See Comments Pt states it "makes me extremely crazy" sulfur dioxide Allergy (Verified 12/08/16 14:22) See Comments Pt stated she is "allergic to sulfur" and that it breaks her out in a rash. aspirin Adverse Reaction (Verified 12/08/16 14:42) See Comments Patient has deficiency spironolactone Adverse Reaction (Verified 12/08/16 14:42) Hypertension Procedures/tests Complete & Pending: Procedures Performed prior 72 hours Category Date Time Status MR head/brain wo con [MR] Routine MRI 12/08/16 17:04 Completed EV carotid duplex imaging BI Routine Y 12/08/16 17:04 Completed EV echocardiogram Routine Y 12/08/16 17:04 Completed Date of admission: 12/08/16 15:55 Primary care physician: Matt Dimas MD Consults: 12/08/16 16:59 Consult to Occupational Therapy [CONS] Routine Comment: Evaluate, develop and implement POC Reason for Consult: TIA Consult to Physical Therapy [CONS] Routine Comment: Evaluate, develop and implement POC Reason for Consult: TIA 12/08/16 17:30 Consult to Neurology [CONS] Routine Consulting Provider: Neurology [facility] Reason for Consult: TIA with history of CVA in 2014 Call Completed: No Discharging clinician: Heidi Chen Anticipated date of discharge: 12/09/16 - Patient Status Disposition: Home, Self-Care Functional capacity at discharge: independent ambulation Overall status at discharge: patient is progressing back to baseline - Discharge Instructions Follow Up With: Matt Dimas MD [Primary Care Provider] - 12/16/16 1:15 pm Additional Instructions: Please continue taking your Plavix and statin, as well as the rest of your medications. Follow up with Dr. Dimas in the next week or so for a hospital follow up visit. You do not need to follow up with neurology in the office. Please return to the ER for any new or worsening symptoms or for any concerns that you may have. - Diet and Activity Activity: increase activity as tolerated Diet: advance to your usual diet Interval History: Patient was seen and assessed this morning at 9:05 AM. She said that she has been having URI symptoms for the past few days and was going to Dr. Dimas for these symptoms. She began having right foot numbness 3 days prior to this, however she said sometimes this happens that she did not pay Attention to it. She did have right-sided numbness beginning yesterday and right facial droop. Her reports that her speech was slurred. She denies any other symptoms. She did follow-up with Dr. Dimas's office yesterday and was told to come to the emergency department for evaluation. She was evaluated by [facility] but the stroke camera in the emergency department. She was admitted for continued evaluation. Carotid Dopplers were essentially normal. MRI of the head showed no acute intracranial abnormality. Echocardiogram showed LVEF of 65%, moderate concentric hypertrophy of left ventricle. Evidence of mild diastolic dysfunction, no significant valvular dysfunction and no pulmonary hypertension. There is no PFO with saline contrast. Patient has been evaluated by neurology and cleared for discharge. Hospital course: Ms. Orellana is a 61 year old female - Time Spent with Patient Total time spent providing and/or coordinating discharge services: Less than 30 minutes - Constitutional Vitals: Temp Pulse Resp BP Pulse Ox 99.0 F 85 14 174/89 94 12/09/16 15:53 12/09/16 15:53 12/09/16 15:53 12/09/16 15:53 12/09/16 15:53 General appearance: Present: A&O X 3, pleasant, no acute distress, answers questions appropriately - Head Head exam: Present: normal inspection - Eye Eye exam: Present: EOMI, normal appearance, PERRL, conjuntiva pink. Absent: nystagmus - ENT ENT exam: Present: mucous membranes moist, normal exam - Neck Neck exam general surgery: Present: full ROM, normal inspection. Absent: lymphadenopathy, tenderness - Respiratory Respiratory exam: Present: CTAB. Absent: respiratory distress, rhonchi, stridor - Cardiovascular Cardiovascular exam: Present: RRR, +S1, +S2. Absent: clicks, diastolic murmur, gallop, systolic murmur - Extremities Exam Extremities exam: Present: normal inspection, tenderness, warm. Absent: mottling, pedal edema - Neurological Exam Neurological exam: Present: alert, motor sensory deficit, oriented X3
[2016-12-09 19:41] VITALS: BP 188/93
== END 2016-12-09 20:25 | disposition home or self-care (01) ==
LOC: EMEROO 13:40 → 3BNU 13:40
PROVIDERS: ADMIT Nurse Practitioner Family; ATTEND Nurse Practitioner Family

== ENCOUNTER 2019-01-10 11:33 | Inpatient (IN) ==
--- NOTE | 2019-01-10 12:50 | Emergency Department Note ---
Disposition Clinical Impression: Weakness Disposition: Admitted As Inpatient Condition: Fair Time of Disposition: 16:17 General Adult HPI - General Chief complaint: ED Neuro Symptoms/Deficit Stated complaint: admission Time Seen by Provider: 01/10/19 11:51 - History of Present Illness HPI Narrative: Ms. Orellana is a 63-year-old female presented to the ED complaining of global weakness. Her son is at bedside and reports that on 01/04/19 she started having global weakness and yesterday had dysarthria. He reports that she had difficulty comprehending. He does have previous history of CVAs and currently on home dialysis. He reports she has been taking her dialysis as scheduled which is daily. Patient is awake, alert oriented 3 but mental status is waxing and waning. He is not complaining of any specific symptoms. Reports overall weakness. Her son reports that her gait is intact. He also reports that she has had a previous right sided weakness involving her upper extremity and eyes. She is not complaining of fever, chills, nausea, emesis or chest pain. Pain Scale: 0 - Related Data Home Medications Medication Instructions Recorded Confirmed Acetaminophen [Acetaminophen ER] 650 mg PO Q6H PRN 01/29/18 01/10/19 Amitriptyline HCl 50 mg PO HS 01/29/18 01/11/19 Atorvastatin [Lipitor] 80 mg PO DAILY 01/29/18 01/11/19 Clopidogrel [Plavix] 75 mg PO DAILY 01/29/18 01/11/19 Cyanocobalamin (B-12) [Vitamin B12] 1,000 mcg PO DAILY 01/29/18 01/11/19 Famotidine [Pepcid] 40 mg PO BID 01/29/18 01/11/19 Ferrous Sulfate [Iron] 325 mg PO DAILY 01/29/18 01/11/19 Fexofenadine HCl 180 mg PO DAILY PRN 01/29/18 01/11/19 Fluticasone Propionate Nasal 2 spray NS BID 01/29/18 01/11/19 [Flonase] Folic Acid 1 mg PO DAILY 01/29/18 01/11/19 Nebivolol HCl [Bystolic] 10 mg PO BID 01/29/18 01/11/19 Sodium Bicarbonate 650 mg PO BID 01/29/18 01/11/19 Calcitriol 0.5 mcg PO BID 09/01/18 01/11/19 Ergocalciferol (VITAMIN D2) 50,000 unit PO 3XW 09/01/18 01/11/19 [Vitamin D2] Gabapentin [Neurontin] 200 mg PO HS 09/01/18 01/11/19 Mirtazapine [Remeron] 15 mg PO HS 09/01/18 01/10/19 Artificial Tears SOLN [Akwa Tears] 1 drop BOTH EYES HS 01/10/19 01/11/19 Calcium Acetate 667 mg PO TID 01/10/19 Cinacalcet HCl [Sensipar] 60 mg PO HS 01/10/19 01/11/19 Darbepoetin Noe in Polysorbat 40 mcg IJ Q2W 01/10/19 [Aranesp] Doxycycline Hyclate [Vibramycin] 100 mg PO BID 01/10/19 01/11/19 Gentamicin Sulfate Cream 1 appl TP AD 01/10/19 01/11/19 [Gentamicin Sulfate] Lactulose [Enulose] 10 gm PO DAILY PRN 01/10/19 01/11/19 Melatonin [Melatin] 3 mg PO HS PRN 01/10/19 01/11/19 NIFEdipine [Nifedipine ER] 90 mg PO DAILY 01/10/19 01/11/19 Psyllium [Metamucil Fiber Singles 28 mg PO TID PRN 01/10/19 01/11/19 Packet] Albuterol Sulfate [Proair 2 puff PO Q6H PRN 01/11/19 01/11/19 Respiclick] Citalopram Hydrobromide 40 mg PO QPM 01/11/19 01/11/19 [Citalopram HBr] Losartan Potassium 50 mg PO BID 01/11/19 01/11/19 Montelukast [Singulair] 10 mg PO QPM 01/11/19 01/11/19 Ondansetron HCl 4 mg PO Q8H PRN 01/11/19 01/11/19 Pantoprazole Sodium [Protonix] 40 mg PO DAILY 01/11/19 01/11/19 Sennosides/Docusate Sodium 1 tab PO QPM PRN 01/11/19 01/11/19 [Docusate Sodium-Sennosides Tab] Sevelamer [Renvela] 800 mg PO TID 01/11/19 01/11/19 Triamcinolone Acetonide 1 appl TP BID 01/11/19 01/11/19 cloNIDine HCl [CloNIDine HCl] 0.1 mg PO DAILY PRN 01/11/19 01/11/19 Allergies Allergy/AdvReac Type Severity Reaction Status Date / Time latex Allergy Rash Verified 01/10/19 11:36 Penicillins Allergy Rash Verified 01/10/19 11:36 prednisone Allergy "CRAZY" Verified 01/10/19 11:36 sulfur dioxide Allergy Rash Verified 01/10/19 11:36 aspirin AdvReac See Verified 01/10/19 11:36 Comments spironolactone AdvReac Hypertensio Verified 01/10/19 11:36 n All systems ED: reviewed and negative except as stated. Review of Systems: As Per HPI Constitutional: Denies: fever, chills Eyes: Denies: eye pain, vision change ENT ED: Denies: ear pain, congestion, dysphagia Cardiovascular: Denies: chest pain Respiratory: Denies: cough, dyspnea Gastrointestinal: Denies: abdominal pain, nausea Genitourinary: Denies: dysuria Neurological: Reports: weakness (Global), other (Difficulty with speech). Denies: abnormal gait Past Medical History - Past Medical History Medical history: Reports: asthma, CVA, GERD, hyperlipidemia, hypertension, renal disease, TIA, other Surgical history: Reports: , cholecystectomy, hysterectomy, orthopedic, other, other, arthroscopy Psychiatric history: Reports: no psych history TELEPHONE CLEANER history: Reports: no TELEPHONE CLEANER history - Social History Smoking Status: Never smoker Smokeless Tobacco Status: No Alcohol use: Reports: none Drug use: Reports: none Physical Exam - Head Head exam: atraumatic, normocephalic - Eye Eye exam: Present: normal appearance. Absent: EOMI, scleral icterus - ENT ENT exam: normal exam, mucous membranes moist - Neck Neck exam: Present: normal inspection - Chest Chest inspection: Present: normal inspection, symmetric chest wall rise - Respiratory Respiratory exam: Present: normal lung sounds bilaterally. Absent: respiratory distress, wheezes - Cardiovascular Cardiovascular exam: Present: regular rate, normal rhythm, +S1, +S2 - Abdominal Exam Abdominal exam: Present: soft, Non-Tender. Absent: guarding, rigidity - Extremities Exam Extremities exam: Present: normal inspection. Absent: pedal edema - Neurological Exam Neurological exam: Present: alert, oriented X3, other (Strength 3 out of 5 right upper extremity. Difficulty with extraocular movement of right eye. It shows sensation intact. Uvula midline, tongue midline.). Absent: motor sensory deficit - Psychiatric Psychiatric exam: Present: flat affect - Skin Skin exam: Present: warm, dry, intact Course Vital Signs Temperature 98.3 F 01/10/19 11:35 Pulse Rate 80 01/10/19 11:35 Respiratory Rate 18 01/10/19 11:35 Blood Pressure 138/75 01/10/19 11:35 O2 Sat by Pulse Oximetry 96 01/10/19 11:35 Temperature 98.3 F 01/10/19 11:44 Pulse Rate 74 01/10/19 14:20 Respiratory Rate 18 01/10/19 14:20 Blood Pressure 123/63 01/10/19 14:20 O2 Sat by Pulse Oximetry 97 01/10/19 14:20 Oxygen Delivery Oxygen Delivery Room Air Medical Decision Making - MDM Narrative Medical decision making narrative: Esteban is a 63-year-old female presented to the ED by her son due to dysarthria. He reports a dysarthria started yesterday. He is also reporting global weakness in her ongoing for the past week. She has ESRD and reports she has not missed any of her dialysis appointments. Labs show elevated white blood count. CT of the head is within normal limits. Spoke with admitting hospitalist who will accept this patient. Reexamine the patient and she is awake alert oriented 3. [address] Christine Mota's [facility] about possible need for dialysis tonight and Svetlana reported that she will relay this message to Dr. King. 1610 - Medical Records Medical records reviewed: Yes I reviewed the patient's medical records. - Lab Data Lab results reviewed: Yes I reviewed the patient's lab results. Result diagrams: 01/11/19 05:26 01/11/19 05:26 Lab Results 01/10/19 01/10/19 01/10/19 Range/Units 11:51 11:51 11:52 WBC 15.1 H (4.3-11.1) K/mcL RBC 2.49 L (3.82-4.97) M/mcL Hgb 7.9 L (11.5-15.4) g/dL Hct 26.1 L (35.3-44.9) % MCV 104.8 H (83.0-100.0) fL MCH 31.7 (28.0-33.3) pg MCHC 30.3 L (31.6-35.5) g/dL RDW 13.0 (11.5-14.5) % Plt Count 382 (140-400) K/mcL MPV 10.1 (9.4-12.4) fL Sodium 144 (136-145) mEq/L Potassium 3.9 (3.5-5.1) mEq/L Chloride 102 (98-107) mEq/L Carbon Dioxide 25 (23-29) mEq/L BUN 54 H (8-23) mg/dL Creatinine 12.51 H (0.60-1.20) mg/dL Est GFR ( Amer) 4 L (> 60) Est GFR (Non-Af Amer) 3 L (> 60) BUN/Creatinine Ratio 4 L (6-26) Glucose 119 H (70-105) mg/dL POC Glucose 121 H (70-99) mg/dL Calculated Osmolality 314 H (280-300) Calcium 9.4 (8.6-10.3) mg/dL Troponin I 0.03 (< 0.04) ng/mL - Radiology Data Radiology results reviewed: Yes I reviewed the patient's radiology results. - EKG Data EKG #1 EKG attestation: Yes I reviewed and interpreted this EKG. EKG results narrative: Normal sinus rhythm. No acute injury pattern. Intervals unremarkable. EKG shows normal: sinus rhythm Attestation Statement - Attestation Attestation: Dr. Oh note: Patient seen in conjunction with internal medicine DR Bernadette Russell; please see her charting for complete documentation. Spent [id number] time with the patient and I agree with patient's treatment and disposition. 2 days of a vague presentation including worsening right-sided weakness from baseline due to prior CVA, worsening slurred speech from baseline. And a unclear history of intermittent gait disturbance and ataxia. Right facial weakness appreciated today is now at baseline according to patient and family. Also increased fatig ue. Imaging unremarkable. Patient reports compliance with all of her medications including blood thinners from prior stroke. Family and patient report she has also had lower blood pressure. No fever no vomiting or diarrhea. No injury. Admitted for altered mental status and new focal neurological symptoms. CT scan results and blood work has been reviewed.
[2019-01-10 12:53] LABS: Hematocrit 26.1 % (35.3-44.9); Hemoglobin 7.9 g/dL (11.5-15.4); Mean Corpuscular HGB Conc 30.3 g/dL (31.6-35.5); Mean Corpuscular Hemoglobin 31.7 pg (28.0-33.3); Mean Corpuscular Volume 104.8 fL (83.0-100.0); Mean Platelet Volume 10.1 fL (9.4-12.4); Platelet Count 382 K/mcL (140-400); Red Blood Count 2.49 M/mcL (3.82-4.97); White Blood Count 15.1 K/mcL (4.3-11.1)
[2019-01-10 12:57] LABS: Calcium 9.4 mg/dL (8.6-10.3); Potassium 3.9 mEq/L (3.5-5.1); Troponin I 0.03 ng/mL (< 0.04)
[2019-01-10] MEDS ORDERED: Naloxone 0.4 MG/ML INJ IVP PRN (16:47)
[2019-01-10] MEDS ORDERED: Ondansetron 4 MG/2 ML VIAL IVP PRN (16:47)
--- NOTE | 2019-01-10 16:50 | Internal Med History&Physical ---
<Georgiana Martin - Last Filed: 01/10/19 16:29> Date of Encounter: 01/10/19 Time of Encounter: 16:29 Internal Medicine - H&P: HPI Chief complaint: fatigue History of present illness: Ms. Orellana is a 63 year old female with PMHx of CVA, HTN, ESERD on peritoneal dialysis at home, sleep apnea. Patient arrived to the ED with chief complaint of fatigue that started a few days ago. She states that her normal systolic blood pressure normally runs 160s and when it goes below this, she becomes weak and fatigued. She also states that when she stands up from a seated position, she gets extremely dizzy. She also reports feeling very dehydrated. She is chronically on peritoneal dialysis but has not noticed any signs of infection at the dialysis site. she also denies any abdominal pain or pain upon palpation. she denies nausea, vomiting, diarrhea, fevers, chills, chest pain, shortness of breath. patient also complains of slurred speech since yesterday. Of note, she does have history of CVAs with multiple TIAs. She also complains of ataxia and significant dizziness when standing up. Past Med Surg Social Fam HX - Past Medical History Medical history: asthma, CVA, GERD, hyperlipidemia, hypertension, renal disease, TIA, other Additional medical history: anemia, heart murmur/irreg heart-beat, lupus, sleep apnea, fatty liver, vitamin D deficiency Psychiatric history: no psych history - Past Surgical History Surgical History: , cholecystectomy, hysterectomy, orthopedic, other, other, arthroscopy Additional surgical history: knee scope, tonselectomy, Left shoulder surgery - Social History Smoking Status: Never smoker Smokeless Tobacco Status: No Alcohol use: none Drug use: none - Family History Mother Living Status: Hx Family Cardiac Disorders: Yes Hx Family Neurologic Disorders: Yes (CVA) Father Hx Family Cardiac Disorders: Yes (HTN, CHF) Hx Family Endocrine Disorder: Yes (DM) Internal Medicine - H&P: Meds Acetaminophen [Acetaminophen ER] 650 mg PO Q6H PRN 01/29/18 [History] Amitriptyline HCl 50 mg PO HS 01/29/18 [History] Atorvastatin [Lipitor] 80 mg PO DAILY 01/29/18 [History] Clopidogrel [Plavix] 75 mg PO DAILY 01/29/18 [History] Cyanocobalamin (B-12) [Vitamin B12] 1,000 mcg PO DAILY 01/29/18 [History] Famotidine [Pepcid] 40 mg PO BID 01/29/18 [History] Ferrous Sulfate [Iron] 325 mg PO DAILY 01/29/18 [History] Fexofenadine HCl 180 mg PO DAILY PRN 01/29/18 [History] Fluticasone Propionate Nasal [Flonase] 2 spray NS BID 01/29/18 [History] Folic Acid 1 mg PO DAILY 01/29/18 [History] Nebivolol HCl [Bystolic] 10 mg PO BID 01/29/18 [History] Sodium Bicarbonate 650 mg PO BID 01/29/18 [History] Calcitriol 0.5 mcg PO BID 09/01/18 [History] Ergocalciferol (VITAMIN D2) [Vitamin D2] 50,000 unit PO 3XW 09/01/18 [History] Gabapentin [Neurontin] 200 mg PO HS 09/01/18 [History] Mirtazapine [Remeron] 15 mg PO HS 09/01/18 [History] Artificial Tears SOLN [Akwa Tears] 1 drop BOTH EYES HS 01/10/19 [History] Calcium Acetate 667 mg PO TID 01/10/19 [History] Cinacalcet HCl [Sensipar] 60 mg PO HS 01/10/19 [History] Darbepoetin Noe in Polysorbat [Aranesp] 40 mcg IJ Q2W 01/10/19 [History] Doxycycline Hyclate [Vibramycin] 100 mg PO BID 01/10/19 [History] Gentamicin Sulfate Cream [Gentamicin Sulfate] 1 appl TP AD 01/10/19 [History] Lactulose [Enulose] 10 gm PO DAILY PRN 01/10/19 [History] Melatonin [Melatin] 3 mg PO HS PRN 01/10/19 [History] NIFEdipine [Nifedipine ER] 90 mg PO DAILY 01/10/19 [History] Psyllium [Metamucil Fiber Singles Packet] 28 mg PO TID PRN 01/10/19 [History] Albuterol Sulfate [Proair Respiclick] 2 puff PO Q6H PRN 01/11/19 [History] Citalopram Hydrobromide [Citalopram HBr] 40 mg PO QPM 01/11/19 [History] Losartan Potassium 50 mg PO BID 01/11/19 [History] Montelukast [Singulair] 10 mg PO QPM 01/11/19 [History] Ondansetron HCl 4 mg PO Q8H PRN 01/11/19 [History] Pantoprazole Sodium [Protonix] 40 mg PO DAILY 01/11/19 [History] Sennosides/Docusate Sodium [Docusate Sodium-Sennosides Tab] 1 tab PO QPM PRN 01/11/19 [History] Sevelamer [Renvela] 800 mg PO TID 01/11/19 [History] Triamcinolone Acetonide 1 appl TP BID 01/11/19 [History] cloNIDine HCl [CloNIDine HCl] 0.1 mg PO DAILY PRN 01/11/19 [History] Allergy/AdvReac Type Severity Reaction Status Date / Time latex Allergy Rash Verified 01/10/19 11:36 Penicillins Allergy Rash Verified 01/10/19 11:36 prednisone Allergy "CRAZY" Verified 01/10/19 11:36 sulfur dioxide Allergy Rash Verified 01/10/19 11:36 aspirin AdvReac See Verified 01/10/19 11:36 Comments spironolactone AdvReac Hypertensio Verified 01/10/19 11:36 n All Systems PM: A 10-system review of systems was performed and is negative for pertinent findings except as documented above in the HPI. - Constitutional Constitutional: as per HPI - EENT Eyes: as per HPI Ears: as per HPI Nose, mouth and throat: as per HPI - Breasts Breasts: as per HPI - Cardiovascular Cardiovascular ROS IM: as per HPI - Respiratory Respiratory: as per HPI - Gastrointestinal Gastrointestinal: as per HPI - Genitourinary Genitourinary: as per HPI Menstruation: as per HPI - Musculoskeletal Musculoskeletal ROS IM: as per HPI - Integumentary Integumentary IM: as per HPI - Neurological Neurological ROS: as per HPI - Psychiatric Psychiatric: as per HPI - Endocrine Endocrine IM: as per HPI - Hematologic/Lymphatic Hematologic/Lymphatic: as per HPI - Allergic/Immunologic Allergic/Immunologic: as per HPI - Constitutional Vitals: Temp Pulse Resp BP Pulse Ox 98.3 F 74 18 123/63 97 01/10/19 11:44 01/10/19 14:20 01/10/19 14:20 01/10/19 14:20 01/10/19 14:20 General appearance: Present: A&O X 3, pleasant, no acute distress, answers questions appropriately Exam: alert and oriented x3, pleasant, no acute distress - Head Head exam: Present: atraumatic, normocephalic - Neck Neck exam general surgery: Present: supple, trachea midline - Respiratory Respiratory exam: Present: CTAB - Cardiovascular Cardiovascular exam: Present: RRR, +S1, +S2. Absent: systolic murmur - GI/Abdominal GI/Abdominal exam: Present: normal bowel sounds, soft. Absent: distended, tenderness - Extremities Exam Extremities exam: Absent: cyanotic, pedal edema - Neurological Exam Neurological exam: Present: alert, oriented X3, no focal deficits, strengths equal and symetr throughout - Psychiatric Psychiatric exam: Present: normal affect, normal mood - Skin Skin exam: Present: intact Internal Med - H&P Results - Labs CBC & Chem 7: 01/10/19 11:51 01/10/19 11:51 Labs: Short CBC 01/10/19 Range/Units 11:51 WBC 15.1 H (4.3-11.1) K/mcL Hgb 7.9 L (11.5-15.4) g/dL Hct 26.1 L (35.3-44.9) % Plt Count 382 (140-400) K/mcL BMP 01/10/19 11:51 Sodium 144 Potassium 3.9 Chloride 102 Carbon Dioxide 25 BUN 54 H Creatinine 12.51 H Glucose 119 H Calcium 9.4 Cardiac Enzymes 01/10/19 Range/Units 11:51 Troponin I 0.03 (< 0.04) ng/mL - Impressions ITS Impressions Head CT 01/10/19 12:35 IMPRESSION: No acute intracranial abnormality. D/ / Abhay Thompson MD / Abhay Thompson MD Interpreting Provider: Abhay Thompson MD Chest X-Ray 01/10/19 15:52 IMPRESSION: No acute findings. D/ / 01/10/2019 16:07:22 Sukhwinder Washington MD / jacques Interpreting Provider: Sukhwinder Washington MD - Assessment and Plan (1) Leukocytosis Current Visit: No Status: Acute Assessment and plan: persistent low grade fever for 5 days no source of infection found peritonitis less likely, as exit site is clean as per . CXR unremarkable. Plan: blood cultures x2 UA with urine culture via straight cath pending vancomycin, cefepime day 1 until source of infection found. Qualifiers: Leukocytosis type: unspecified Qualified Code(s): D72.829 - Elevated white blood cell count, unspecified (2) Slurred speech Current Visit: Yes Status: Acute Assessment and plan: patient complains of slurred speech, ataxia since yesterday. history of multiple TIAs head CT unremarkable. plan: obtain brain MRI (3) HTN (hypertension) Current Visit: No Status: Chronic Assessment and plan: continue home meds Qualifiers: Hypertension type: essential hypertension Qualified Code(s): I10 - Essential (primary) hypertension (4) Sleep apnea Current Visit: No Status: Chronic Qualifiers: Sleep apnea type: unspecified type Qualified Code(s): G47.30 - Sleep apnea, unspecified (5) ESRD on peritoneal dialysis Current Visit: No Status: Chronic (6) Hyperlipidemia Current Visit: Yes Status: Acute Assessment and plan: continue atorvastatin Qualifiers: Hyperlipidemia type: unspecified Qualified Code(s): E78.5 - Hyperlipidemia, unspecified (7) DVT prophylaxis Current Visit: No Status: Acute Assessment and plan: heparin SQ - Time Spent With Patient Total time spent is greater than 50% in coordination of care (as documented) at patient's floor/unit and/or counseling patient: <Celia Milton Lor - Last Filed: 01/11/19 11:46> Date of Encounter: 01/10/19 Internal Medicine - H&P: HPI History of present illness: Ms. Orellana is a 63 year old female All Systems PM: A 10-system review of systems was performed and is negative for pertinent findings except as documented above in the HPI. - Constitutional Vitals: Temp Pulse Resp BP Pulse Ox 98.3 F 78 16 103/64 94 01/11/19 11:27 01/11/19 11:27 01/11/19 11:27 01/11/19 11:27 01/11/19 11:27 Internal Med - H&P Results - Labs CBC & Chem 7: 01/11/19 05:26 01/11/19 05:26 Labs: Short CBC 01/10/19 01/11/19 Range/Units 11:51 05:26 WBC 15.1 H 14.3 H (4.3-11.1) K/mcL Hgb 7.9 L 6.9 L (11.5-15.4) g/dL Hct 26.1 L 22.7 L (35.3-44.9) % Plt Count 382 352 (140-400) K/mcL Neutrophils # 10.6 H (1.6-8.9) K/mcL BMP 01/10/19 01/11/19 11:51 05:26 Sodium 144 144 Potassium 3.9 3.6 Chloride 102 103 Carbon Dioxide 25 23 BUN 54 H 55 H Creatinine 12.51 H 12.61 H Glucose 119 H 143 H Calcium 9.4 8.9 Cardiac Enzymes 01/10/19 Range/Units 11:51 Troponin I 0.03 (< 0.04) ng/mL Liver Function 01/11/19 Range/Units 05:26 Total Bilirubin 0.6 (0.3-1.0) mg/dL AST 14 (13-39) Units/L ALT 10 (7-52) Units/L Alkaline Phosphatase 98 (34-104) Units/L Albumin 3.6 (3.5-5.7) g/dL Urine 01/10/19 Range/Units 22:30 Urine Color Yellow (Yellow) Urine Clarity Cloudy A (Clear) Urine pH 5.5 (5.0-8.0) pH Units Ur Specific [place] 1.018 (1.010-1.025) Urine Protein 100 H (Neg-Trace) mg/dL Urine Glucose (UA) Normal (Normal) mg/dL - Impressions ITS Impressions Head CT 01/10/19 12:35 IMPRESSION: No acute intracranial abnormality. D/ / Abhay Thompson MD / Abhay Thompson MD Interpreting Provider: Abhay Thompson MD Chest X-Ray 01/10/19 15:52 IMPRESSION: No acute findings. D/ / 01/10/2019 16:07:22 Sukhwinder Washington MD / jacques Interpreting Provider: Sukhwinder Washington MD Brain MRI 01/10/19 17:28 IMPRESSION: No acute infarct. Otherwise unremarkable brain MRI. D/ / Boby Fernandez MD / Boby Fernandez MD Interpreting Provider: Boby Fernandez MD - Time Spent With Patient Total time spent is greater than 50% in coordination of care (as documented) at patient's floor/unit and/or counseling patient: - Attending Attestation I have personally seen, examined, and been fully involved in the management of this patient with the resident. I confirm the history, exam, assessment, and p saul discussed with Dr. fisher.
[2019-01-10] MEDS ORDERED: Lactulose Oral Soln 20 GM/30 ML UDC PO PRN (17:00)
[2019-01-10] MEDS ORDERED: 0.9 % Sodium Chloride 1,000 ML IVC SCH (17:00)
[2019-01-10] MEDS ORDERED: Vancomycin 1,750 MG in 0.9 % Sodium Chloride 250 ML IVPB SCH (18:00)
[2019-01-10] MEDS ORDERED: Cefepime HCl 1,000 MG in 0.9 % Sodium Chloride Mini Bag 100 ML IVPB SCH (18:00)
[2019-01-10] MEDS: *HR* Heparin 5,000 UNIT/ML VIAL SQ SCH (19:03)
[2019-01-10] MEDS ORDERED: Perit. Dialysis with Dex 2.5 % 12,000 ML PERITONEAL SCH (21:00)
[2019-01-10] MEDS: Gabapentin 100 MG CAPSULE PO SCH (22:33)
[2019-01-10] MEDS: Melatonin 3 MG TABLET PO PRN (22:33)
[2019-01-10] MEDS: Famotidine 20 MG TABLET PO SCH (22:33)
[2019-01-10] MEDS: Mirtazapine 15 MG TABLET PO SCH (22:33)
[2019-01-10] MEDS: Artificial Tears SOLN 15 ML BOTTLE BOTH EYES SCH (22:33)
[2019-01-10 22:51] LABS: Bilirubin,Urine Negative (Negative); Blood,Urine Trace (Negative); Clarity,Urine Cloudy (Clear); Color,Urine Yellow (Yellow); Glucose,Urine (UA) Normal (Normal); Ketones,Urine Negative (Negative); Leukocyte Esterase,Urine Trace (Negative); Nitrite,Urine Negative (Negative); PH,Urine 5.5 pH Units (5.0-8.0); Protein,Urine 100 mg/dL (Neg-Trace); Specific Gravity,Urine 1.018 (1.010-1.025); Urobilinogen,Urine Normal (Normal)
[2019-01-10 22:53] LABS: Bacteria,Urine Few per hpf (None-Few); Hyaline Casts,Urine None Seen per lpf (None-Few); RBC,Urine 0-3 per hpf (0-3); Squamous Epithelial Cell,Urine Many per lpf (None-Few)
[2019-01-10] MEDS: Perit. Dialysis with Dex 2.5 % 12,000 ML PERITONEAL SCH (23:38)
[2019-01-11] MEDS: *HR* Heparin 5,000 UNIT/ML VIAL SQ SCH ×2 (06:07→17:20)
[2019-01-11 06:26] LABS: Basophils % 0.2 %; Eosinophils # 0.3 K/mcL (0.0-0.6); Eosinophils % 2.2 %; Hematocrit 22.7 % (35.3-44.9); Hemoglobin 6.9 g/dL (11.5-15.4); Lymphocytes # 2.5 K/mcL (0.6-4.6); Lymphocytes % 17.7 %; Mean Corpuscular HGB Conc 30.4 g/dL (31.6-35.5); Mean Corpuscular Hemoglobin 31.7 pg (28.0-33.3); Mean Corpuscular Volume 104.1 fL (83.0-100.0); Mean Platelet Volume 10.1 fL (9.4-12.4); Monocytes # 0.7 K/mcL (0.0-1.3); Monocytes % 4.7 %; Neutrophils # 10.6 K/mcL (1.6-8.9); Platelet Count 352 K/mcL (140-400); Red Blood Count 2.18 M/mcL (3.82-4.97); Segmented Neutrophils % 74.2 %; White Blood Count 14.3 K/mcL (4.3-11.1)
[2019-01-11 06:37] LABS: Prothrombin Time 11.9 Seconds (9.4-12.1)
[2019-01-11 06:40] LABS: Activated Partial Thrombo Time 30.2 Seconds (26.0-36.0)
[2019-01-11 06:47] LABS: Albumin 3.6 g/dL (3.5-5.7); Albumin/Globulin Ratio 1.2 (1.1-2.2); Bilirubin,Total 0.6 mg/dL (0.3-1.0); Calcium 8.9 mg/dL (8.6-10.3); Chol/HDL Ratio 5.5 (0-4.9); Globulin 2.9 g/dL (2.4-3.5); Magnesium 1.4 mg/dL (1.6-2.6); Phosphorous 7.4 mg/dL (2.7-4.5); Potassium 3.6 mEq/L (3.5-5.1); Total Protein 6.5 g/dL (6.4-8.9)
[2019-01-11] MEDS: cloNIDine HCl 0.1 MG TABLET PO SCH (08:44)
[2019-01-11] MEDS: Famotidine 20 MG TABLET PO SCH ×2 (08:44→22:22)
[2019-01-11] MEDS: Folic Acid 1 MG TABLET PO SCH (08:44)
[2019-01-11] MEDS: Cefepime HCl 1,000 MG in Water for inj. (sterile) 10 ML IVP SCH (08:45)
[2019-01-11] MEDS: Cyanocobalamin (B-12) 1,000 MCG TABLET PO SCH (08:45)
--- NOTE | 2019-01-11 14:33 | Internal Med Progress Note ---
Hospitalist Progress Note - Encounter Date of Encounter: 01/11/19 Time of Encounter: 14:19 - Subjective Interval History: patient is doing ok, afebrile, denies abdominal pain, disucsse about Hb 6.9, patient feels well, does not think she need blood transfusion, she would like her box spring maker to make decide fro blood transfusion. - Exam Vitals: Temp Pulse Resp BP Pulse Ox 98.3 F 78 16 103/64 94 01/11/19 11:27 01/11/19 11:27 01/11/19 11:27 01/11/19 11:27 01/11/19 11:27 Exam: CONSTITUTIONAL: Patient appears as an age appropriate [female] well developed, in no acute distress. EYES Clear sclerae, bilateral pupils are equal, reactive to light and accommodat ion. Extraocular movements are intact RESPIRATORY: No accessory muscle use, bilateral clear to auscultation, no wheezing, no crackles/rales. CARDIOVASCULAR: Regular heart rate, normal S1 and S2, no murmurs GASTROINTESTINAL: bowel sounds present, soft, no tenderness. No hepatosplenomegaly. No bilateral CVA tenderness MUSCULOSKELETAL: Joints in normal range of motion, no clubbing, no edema, no cyanosis. Bilateral peripheral pulses 2+ LYMPHATIC no lymphadenopathy in neck, groin and axilla bilaterally, no thyromegaly. NEUROLOGIC: CN II to XII are grossly intact, no focal neurological deficit. Deep tendon reflexes 2+ bilaterally. Normal light touch sensation to upper and lower extremity PSYCHIATRIC: Oriented x3, with good insight, mood is euthymic. No hallucinations or delusions. SKIN: Skin warm and dry, no rashes, no open wound. DVT Prophylaxis: Heparin subcutaneous - Summary of Assessment and Plan Summary of Assessment and Plan: (1) Leukocytosis Current Visit: No Status: Acute Assessment and plan: persistent low grade fever for 5 days no source of infection found peritonitis less likely, as exit site is clean as per . CXR unremarkable. Plan: blood cultures x2 UA with urine culture via straight cath wbc 5-15, few bacteria continue vancomycin, cefepime pending nephrology consult Qualifiers: Leukocytosis type: unspecified Qualified Code(s): D72.829 - Elevated white blood cell count, unspecified (2) Slurred speech Current Visit: Yes Status: Acute Assessment and plan: patient complains of slurred speech, ataxia since yesterday. history of multiple TIAs head CT unremarkable. MRI is negative (3) HTN (hypertension) Current Visit: No Status: Chronic Assessment and plan: continue home meds Qualifiers: Hypertension type: essential hypertension Qualified Code(s): I10 - Essential (primary) hypertension (4) Sleep apnea Current Visit: No Status: Chronic Qualifiers: Sleep apnea type: unspecified type Qualified Code(s): G47.30 - Sleep apnea, unspecified (5) ESRD on peritoneal dialysis Current Visit: No Status: Chronic (6) Hyperlipidemia Current Visit: Yes Status: Acute Assessment and plan: continue atorvastatin Qualifiers: Hyperlipidemia type: unspecified Qualified Code(s): E78.5 - Hyperlipidemia, unspecified (7) anemia of ESRD, Hb 6.9, patient wants to talk to the nephrology to decide for blood transfusion DVT prophylaxis Current Visit: No Status: Acute Assessment and plan: heparin SQ pending nephrology consult - Time Spent with Patient Total time spent is greater than 50% in coordination of care (as documented) at patient's floor/unit and/or counseling patient: 25 - 35 minutes Plan of Care Discussed with: patient Internal Medicine: Result - Labs CBC & Chem 7: 01/11/19 05:26 01/11/19 05:26 Labs: Short CBC 01/11/19 Range/Units 05:26 WBC 14.3 H (4.3-11.1) K/mcL Hgb 6.9 L (11.5-15.4) g/dL Hct 22.7 L (35.3-44.9) % Plt Count 352 (140-400) K/mcL Neutrophils # 10.6 H (1.6-8.9) K/mcL BMP 01/11/19 05:26 Sodium 144 Potassium 3.6 Chloride 103 Carbon Dioxide 23 BUN 55 H Creatinine 12.61 H Glucose 143 H Calcium 8.9 Liver Function 01/11/19 Range/Units 05:26 Total Bilirubin 0.6 (0.3-1.0) mg/dL AST 14 (13-39) Units/L ALT 10 (7-52) Units/L Alkaline Phosphatase 98 (34-104) Units/L Albumin 3.6 (3.5-5.7) g/dL Urine 01/10/19 Range/Units 22:30 Urine Color Yellow (Yellow) Urine Clarity Cloudy A (Clear) Urine pH 5.5 (5.0-8.0) pH Units Ur Specific [place] 1.018 (1.010-1.025) Urine Protein 100 H (Neg-Trace) mg/dL Urine Glucose (UA) Normal (Normal) mg/dL - ABG Interpretation ABG results: PT/INR, D-dimer PT 11.9 Seconds (9.4-12.1) 01/11/19 05:26 - Impressions Impressions Chest X-Ray 01/10/19 15:52 IMPRESSION: No acute findings. D/ / 01/10/2019 16:07:22 Sukhwinder Washington MD / jacques Interpreting Provider: Sukhwinder Washington MD Brain MRI 01/10/19 17:28 IMPRESSION: No acute infarct. Otherwise unremarkable brain MRI. D/ / Boby Fernandez MD / Boby Fernandez MD Interpreting Provider: Boby Fernandez MD Consult Discharge Plan - Plan Referrals: Matt Dimas MD [Primary Care Provider] -
--- NOTE | 2019-01-11 15:25 | Nephrology Consult Note ---
Date of Encounter: 01/11/19 Time of Encounter: 13:00 Assessment and Plan (1) ESRD on peritoneal dialysis Current Visit: No Status: Chronic Continue PD regimen with cycler nightly 2liters with 4 fills over 8hrs Will use 1.5% dianeal tonight instead of 2.5% to maintain even fluid balance Resume binders with meals Lytes stable Renal diet advised (2) Weakness Current Visit: Yes Status: Acute Etiology unclear but might be multifactorial from possible infection likely viral and anemia Will check viral panel Blood cultures pending Peritonitis unlikely (3) Leukocytosis Current Visit: No Status: Acute As above Qualifiers: Leukocytosis type: unspecified Qualified Code(s): D72.829 - Elevated white blood cell count, unspecified (4) Anemia Current Visit: No Status: Chronic Hgb noted at 6.9, etiology unclear as pt receives EPO and iv iron regularly with last hgb noted at 8.5 this month a drop from previous of 10 and iron studies and vitamin B12 WNL. May need workup Might benefit from transfusion pRBCs Continue aranesp for now Qualifiers: Anemia type: due to chronic kidney disease Chronic kidney disease stage: on chronic dialysis Qualified Code(s): N18.6 - End stage renal disease; D63.1 - Anemia in chronic kidney disease; Z99.2 - Dependence on renal dialysis History of Present Illness - Reason for Consult Consult date: 01/11/19 end stage renal disease Requesting physician: Bernadette Russell - History of Present Illness 63 y o AAfemale with PMH of GERD, CVA, HTN, hgih chol and ESRD on HD admitted with generalized weakness and slurred speech. CT head negative. Renal consulted for ESRD management. Pt seen and examined with son at bedside. Pt also reports her BP dropping to 110s systolic when typically around 150s systolic. Denies fevers/chills. No N/V/D Past Med Surg Social Fam HX - Past Medical History Medical history: asthma, CVA, GERD, hyperlipidemia, hypertension, renal disease, TIA, other Additional medical history: anemia, heart murmur/irreg heart-beat, lupus, sleep apnea, fatty liver, vitamin D deficiency Psychiatric history: no psych history - Past Surgical History Surgical History: , cholecystectomy, hysterectomy, orthopedic, other, other, arthroscopy Additional surgical history: knee scope, tonselectomy, Left shoulder surgery - Social History Smoking Status: Never smoker Smokeless Tobacco Status: No Alcohol use: none Drug use: none - Family History Mother Living Status: Hx Family Cardiac Disorders: Yes Hx Family Neurologic Disorders: Yes (CVA) Father Hx Family Cardiac Disorders: Yes (HTN, CHF) Hx Family Endocrine Disorder: Yes (DM) Medications and Allergies Acetaminophen [Acetaminophen ER] 650 mg PO Q6H PRN 01/29/18 [History] Amitriptyline HCl 50 mg PO HS 01/29/18 [History] Atorvastatin [Lipitor] 80 mg PO DAILY 01/29/18 [History] Clopidogrel [Plavix] 75 mg PO DAILY 01/29/18 [History] Cyanocobalamin (B-12) [Vitamin B12] 1,000 mcg PO DAILY 01/29/18 [History] Famotidine [Pepcid] 40 mg PO BID 01/29/18 [History] Ferrous Sulfate [Iron] 325 mg PO DAILY 01/29/18 [History] Fexofenadine HCl 180 mg PO DAILY PRN 01/29/18 [History] Fluticasone Propionate Nasal [Flonase] 2 spray NS BID 01/29/18 [History] Folic Acid 1 mg PO DAILY 01/29/18 [History] Nebivolol HCl [Bystolic] 10 mg PO BID 01/29/18 [History] Sodium Bicarbonate 650 mg PO BID 01/29/18 [History] Calcitriol 0.5 mcg PO BID 09/01/18 [History] Ergocalciferol (VITAMIN D2) [Vitamin D2] 50,000 unit PO 3XW 09/01/18 [History] Gabapentin [Neurontin] 200 mg PO HS 09/01/18 [History] Mirtazapine [Remeron] 15 mg PO HS 09/01/18 [History] Artificial Tears SOLN [Akwa Tears] 1 drop BOTH EYES HS 01/10/19 [History] Calcium Acetate 667 mg PO TIDWM 01/10/19 [History] Cinacalcet HCl [Sensipar] 60 mg PO HS 01/10/19 [History] Darbepoetin Noe in Polysorbat [Aranesp] 40 mcg IJ Q2W 01/10/19 [History] Doxycycline Hyclate [Vibramycin] 100 mg PO BID 01/10/19 [History] Gentamicin Sulfate Cream [Gentamicin Sulfate] 1 appl TP AD 01/10/19 [History] Lactulose [Enulose] 10 gm PO DAILY PRN 01/10/19 [History] Melatonin [Melatin] 3 mg PO HS PRN 01/10/19 [History] NIFEdipine [Nifedipine ER] 90 mg PO DAILY 01/10/19 [History] Psyllium [Metamucil Fiber Singles Packet] 28 mg PO TID PRN 01/10/19 [History] Albuterol Sulfate [Proair Respiclick] 2 puff PO Q6H PRN 01/11/19 [History] Citalopram Hydrobromide [Citalopram HBr] 40 mg PO QPM 01/11/19 [History] Losartan Potassium 50 mg PO BID 01/11/19 [History] Montelukast [Singulair] 10 mg PO QPM 01/11/19 [History] Ondansetron HCl 4 mg PO Q8H PRN 01/11/19 [History] Pantoprazole Sodium [Protonix] 40 mg PO DAILY 01/11/19 [History] Sennosides/Docusate Sodium [Docusate Sodium-Sennosides Tab] 1 tab PO QPM PRN 01/11/19 [History] Sevelamer [Renvela] 800 mg PO 1200 01/11/19 [History] Triamcinolone Acetonide 1 appl TP BID 01/11/19 [History] cloNIDine HCl [CloNIDine HCl] 0.1 mg PO DAILY PRN 01/11/19 [History] Allergy/AdvReac Type Severity Reaction Status Date / Time latex Allergy Rash Verified 01/10/19 11:36 Penicillins Allergy Rash Verified 01/10/19 11:36 prednisone Allergy "CRAZY" Verified 01/10/19 11:36 sulfur dioxide Allergy Rash Verified 01/10/19 11:36 aspirin AdvReac See Verified 01/10/19 11:36 Comments spironolactone AdvReac Hypertensio Verified 01/10/19 11:36 n Review of Systems All Systems review (narrative): The rest of the systems are negative Constitutional: chills (denies), fever(s) (denies), weakness (admits) Cardiovascular: chest pain (denies), leg edema (denies), lightheadedness ( admits) Respiratory: dyspnea (denies) Exam - Vital Signs Vital signs: Initial Vital Signs Temp Pulse Resp BP Pulse Ox 98.3 F 80 18 138/75 96 01/10/19 11:35 01/10/19 11:35 01/10/19 11:35 01/10/19 11:35 01/10/19 11:35 Vital Signs - Last 8 Hours Temp Pulse Resp BP Pulse Ox 01/11/19 11:27 98.3 F 78 16 103/64 94 01/11/19 10:15 98.4 F 15 139/80 Intake and Output 01/10/19 01/11/19 01/11/19 23:59 07:59 15:59 Intake Total 100 / 100 600 / 600 Balance 100 / 100 600 / 600 Intake: IV Fluids 100 / 100 Maxipime 1,000 MG In 0.9 % 100 / 100 Sodium Chloride (Mini-Bag +) 100 ML @ 200 mls/hr IVPB Q24H N[facility] Rx#:[id number] Oral 600 / 600 Other: Meal Lunch Percent of Meal Consumed 50% # Voids 1 Weight 110.7 kg - General Appearance General appearance: chronically ill, fatigue EENT: ATNC, mucous membranes moist Neck: no JVD, supple Respiratory: clear Cardiology: no edema, normal S1, normal S2 - Dialysis Access Dialysis Vascular Access: Arteriovenous Fistula thrill: Yes bruit: Yes Gastrointestinal: no tenderness, no guarding Integumentary: warm and dry Neurologic: no focal deficit Musculoskeletal: no deformities Psychiatric: mood/affect appropriate, cooperative Results - Lab Results 01/13/19 05:19 01/13/19 05:19 Most recent lab results 01/11/19 05:26 Calcium 8.9 Phosphorus 7.4 H Magnesium 1.4 L Consult Discharge Plan - Plan Referrals: Matt Dimas MD [Primary Care Provider] -
[2019-01-11 16:29] LABS: Influenza A PCR Negative (Negative); Influenza B PCR Negative (Negative); Resp. Syncytial Virus PCR Negative (Negative)
[2019-01-11] MEDS: Gentamicin Oint 15 GM TUBE TP SCH (17:21)
[2019-01-11] MEDS ORDERED: Perit. Dialysis with Dex 1.5 % 12,000 ML PERITONEAL ONE (19:00)
[2019-01-11] MEDS ORDERED: Perit. Dialysis with Dex 2.5 % 12,000 ML PERITONEAL ONE (19:00)
[2019-01-11] MEDS: Melatonin 3 MG TABLET PO PRN (22:21)
[2019-01-11] MEDS: Gabapentin 100 MG CAPSULE PO SCH (22:21)
[2019-01-11] MEDS: Mirtazapine 15 MG TABLET PO SCH (22:21)
[2019-01-11] MEDS: Artificial Tears SOLN 15 ML BOTTLE BOTH EYES SCH (22:22)
[2019-01-12] MEDS: *HR* Heparin 5,000 UNIT/ML VIAL SQ SCH ×2 (05:22→17:56)
[2019-01-12 08:03] LABS: Basophils % 0.3 %; Eosinophils # 0.3 K/mcL (0.0-0.6); Eosinophils % 2.6 %; Hematocrit 21.1 % (35.3-44.9); Hemoglobin 6.4 g/dL (11.5-15.4); Immature Granulocytes % 1.3 % (0-4); Lymphocytes # 3.2 K/mcL (0.6-4.6); Lymphocytes % 23.9 %; Mean Corpuscular HGB Conc 30.3 g/dL (31.6-35.5); Mean Corpuscular Hemoglobin 31.8 pg (28.0-33.3); Mean Platelet Volume 10.1 fL (9.4-12.4); Monocytes # 0.6 K/mcL (0.0-1.3); Monocytes % 4.4 %; Platelet Count 321 K/mcL (140-400); Red Blood Count 2.01 M/mcL (3.82-4.97); Red Cell Distribution Width 12.7 % (11.5-14.5); Segmented Neutrophils % 67.5 %; White Blood Count 13.3 K/mcL (4.3-11.1)
[2019-01-12 08:23] LABS: Albumin 3.4 g/dL (3.5-5.7); Albumin/Globulin Ratio 1.2 (1.1-2.2); Bilirubin,Direct 0.1 mg/dL (0.0-0.2); Bilirubin,Indirect 0.3 mg/dL (0.0-1.2); Bilirubin,Total 0.4 mg/dL (0.3-1.0); Calcium 8.8 mg/dL (8.6-10.3); Globulin 2.8 g/dL (2.4-3.5); Potassium 3.5 mEq/L (3.5-5.1); Total Protein 6.2 g/dL (6.4-8.9)
[2019-01-12] MEDS: Famotidine 20 MG TABLET PO SCH ×2 (09:21→21:27)
[2019-01-12] MEDS: Folic Acid 1 MG TABLET PO SCH (09:22)
[2019-01-12] MEDS: cloNIDine HCl 0.1 MG TABLET PO SCH (09:22)
[2019-01-12] MEDS: Cyanocobalamin (B-12) 1,000 MCG TABLET PO SCH (09:22)
[2019-01-12] MEDS: Gentamicin Oint 15 GM TUBE TP SCH (09:22)
--- NOTE | 2019-01-12 12:50 | Electrocardiograph Report ---
[facility] Test Date: 2019-01-10 Pat Name: Maggie Orellana Department: EXAM27 Room: 2A Gender: F [employer]: : 1955 Requested By: Aashish Oh Order Number: [id number] Reading MD: Matt Dimas Measurements Intervals [place] Rate: 78 P: 47 CO: 209 QRS: 39 QRSD: 118 T: 19 QT: 459 QTc: 523 Interpretive Statements Sinus rhythm Nonspecific intraventricular conduction delay Electronically Signed On 01-12-2019 12:49:04 EDT by Matt Dimas
[2019-01-12 14:00] LABS: Adenovirus Not Detected (Not Detect); Coronavirus 229E Not Detected (Not Detect); Coronavirus HKU1 Not Detected (Not Detect); Coronavirus NL63 Not Detected (Not Detect); Coronavirus OC43 Not Detected (Not Detect); Human Metapneumovirus Not Detected (Not Detect); Human Rhinovirus/Enterovirus Not Detected (Not Detect); Influenza A Subtype 2009 H1 Not Detected (Not Detect); Influenza A Untypeable Not Detected (Not Detect); Influenza B Not Detected (Not Detect)
[2019-01-12 14:01] LABS: Bordetella Pertussis Not Detected (Not Detect); Chlamydophila pneumoniae Not Detected (Not Detect); Mycoplasma pneumoniae Not Detected (Not Detect); Parainfluenza Virus 1 Not Detected (Not Detect); Parainfluenza Virus 2 Not Detected (Not Detect); Parainfluenza Virus 3 Not Detected (Not Detect); Parainfluenza Virus 4 Not Detected (Not Detect); Respiratory Syncytial Virus Not Detected (Not Detect)
[2019-01-12] MEDS ORDERED: 0.9 % Sodium Chloride 250 ML ONE ×2 (14:02→17:36)
--- NOTE | 2019-01-12 15:27 | Internal Med Progress Note ---
Hospitalist Progress Note - Encounter Date of Encounter: 01/12/19 Time of Encounter: 15:25 - Subjective Interval History: I have seen and evaluated the patient at bedside. patient reports generalized weakness. denies productive cough, nausea or vomiting. denies abdominal pain. - Exam Vitals: Temp Pulse Resp BP Pulse Ox 98.1 F 82 18 133/74 95 01/12/19 14:45 01/12/19 14:45 01/12/19 14:45 01/12/19 14:45 01/12/19 14:45 Exam: Vitals: Reviewed General: Alert and oriented x4. In mild distress due to abdominal pain Cardiovascular: RRR, normal S1 & S2, no rubs, murmurs or gallops. Lungs: CTA b/l, no wheezes or crackles. Abdomen: Obese, soft, non-tender, no rigidity. Extremities: No edema Neurological: No focal neurological abnormalities Rest of the physical exam is non contributory - Assessment and Plan (1) Anemia Current Visit: No Status: Chronic Assessment and Plan: macrocytic. b12 and folate level wnl less than a month ago. unclear etiology possible AOD. patient will be transfused 2 units of PRBCs recheck H&H 1 hour post transfusion FOBT ordered GI consulted for anemia work up continue Darbepoetin and ferrous sulfate. (2) Hyperlipidemia Current Visit: Yes Status: Chronic Assessment and Plan: On atorvastatin 80 mg by mouth daily. (3) Weakness Current Visit: Yes Status: Acute Assessment and Plan: possible secondary to anemia. daily PT/OT patient will be transfused 2 units of PRBCs (4) Leukocytosis Current Visit: No Status: Acute Assessment and Plan: unclear etiology. chest x-ray, ua: unremarkable. procalcitonin ordered continue empiric broad spectrum IV antibiotics coverage. patient on cefepime 1gm/IV Q48hrs and vancomycin per pharmacy protocol blood culture: no growth to date. (5) CVA (cerebral vascular accident) Current Visit: No Status: Chronic Assessment and Plan: Continue clopidogrel 75mg/PO daily (6) ESRD on peritoneal dialysis Current Visit: No Status: Chronic Assessment and Plan: renal replacement therapy per nephrology recommendations (7) HTN (hypertension) Current Visit: No Status: Chronic Assessment and Plan: Blood pressure is well controlled on clonidine, losartan. DVT Prophylaxis: On heparin subcutaneous. - Summary of Assessment and Plan Summary of Assessment and Plan: Patient to remain in the hospital due to anemia requiring blood transfusion. - Time Spent with Patient Total time spent is greater than 50% in coordination of care (as documented) at patient's floor/unit and/or counseling patient: Greater than 35 minutes (40) Plan of Care Discussed with: patient (her son and the nurse.) Internal Medicine: Result - Labs CBC & Chem 7: 01/12/19 06:30 01/12/19 06:30 Labs: Short CBC 01/12/19 Range/Units 06:30 WBC 13.3 H (4.3-11.1) K/mcL Hgb 6.4 L (11.5-15.4) g/dL Hct 21.1 L (35.3-44.9) % Plt Count 321 (140-400) K/mcL Neutrophils # 9.0 H (1.6-8.9) K/mcL BMP 01/12/19 06:30 Sodium 143 Potassium 3.5 Chloride 102 Carbon Dioxide 26 BUN 59 H Creatinine 13.18 H Glucose 116 H Calcium 8.8 Liver Function 01/12/19 Range/Units 06:30 Total Bilirubin 0.4 (0.3-1.0) mg/dL Direct Bilirubin 0.1 (0.0-0.2) mg/dL AST 15 (13-39) Units/L ALT 9 (7-52) Units/L Alkaline Phosphatase 93 (34-104) Units/L Albumin 3.4 L (3.5-5.7) g/dL - ABG Interpretation ABG results: PT/INR, D-dimer PT 11.9 Seconds (9.4-12.1) 01/11/19 05:26 - Impressions Impressions Hip X-Ray 01/12/19 12:41 IMPRESSION: 1. No acute abnormality. D/ / Chriss Guy MD / Chriss Guy MD Interpreting Provider: Chriss Guy MD Consult Discharge Plan - Plan Referrals: Matt Dimas MD [Primary Care Provider] - (1) Anemia Qualifiers: Anemia type: due to chronic kidney disease Chronic kidney disease stage: on chronic dialysis Qualified Code(s): N18.6 - End stage renal disease; D63.1 - Anemia in chronic kidney disease; Z99.2 - Dependence on renal dialysis (2) Hyperlipidemia Qualifiers: Hyperlipidemia type: unspecified Qualified Code(s): E78.5 - Hyperlipidemia, unspecified (4) Leukocytosis Qualifiers: Leukocytosis type: unspecified Qualified Code(s): D72.829 - Elevated white blood cell count, unspecified (5) CVA (cerebral vascular accident) Qualifiers: CVA mechanism: unspecified Qualified Code(s): I63.9 - Cerebral infarction, unspecified (7) HTN (hypertension) Qualifiers: Hypertension type: essential hypertension Qualified Code(s): I10 - Essential (primary) hypertension
--- NOTE | 2019-01-12 19:06 | Nephrology Progress Note ---
Date of Encounter: 01/12/19 Time of Encounter: 12:00 - Assessment and Plan (1) ESRD on peritoneal dialysis Current Visit: No Status: Chronic Continue PD regimen with cycler nightly 2liters with 4 fills over 8hrs Will continue to use 1.5% dianeal instead of 2.5% to maintain even fluid balance Continue binders with meals Lytes stable Continue renal diet (2) Weakness Current Visit: Yes Status: Acute Likely multifactorial with possible infection and anemia Per primary (3) Leukocytosis Current Visit: No Status: Acute Continue abx coverage pending blood and urine cultures Resp viral panel pending Qualifiers: Leukocytosis type: unspecified Qualified Code(s): D72.829 - Elevated white blood cell count, unspecified (4) Anemia Current Visit: No Status: Chronic Hgb noted worse at 6.4, etiology unclear as pt receives EPO and iv iron regularly with last hgb noted at 8.5 this month a drop from previous of 10.3 and iron studies and vitamin B12 WNL. May need workup Agree with transfusion 2units pRBCs, pt now agrees Continue aranesp for now Qualifiers: Anemia type: due to chronic kidney disease Chronic kidney disease stage: on chronic dialysis Qualified Code(s): N18.6 - End stage renal disease; D63.1 - Anemia in chronic kidney disease; Z99.2 - Dependence on renal dialysis Subjective Interval history: Pt seen and examined with son at bedside with no new compalints, agreed to proceed with transfusion pRBCs after lenghty discussion and assurance. Objective - Vital Signs Vital signs: Vital Signs Temp Pulse Resp BP Pulse Ox 01/12/19 18:48 99.6 F 80 18 127/76 96 01/12/19 18:05 98 F 81 18 128/73 95 01/12/19 17:51 98 F 80 18 143/81 95 01/12/19 16:35 98.1 F 80 18 145/82 95 01/12/19 15:26 98.1 F 80 18 145/82 95 01/12/19 14:45 98.1 F 82 18 133/74 95 01/12/19 14:30 98.1 F 81 18 179/70 94 01/12/19 11:35 98.2 F 81 18 117/69 92 01/12/19 09:00 98.2 F 15 121/67 01/12/19 06:55 98.4 F 89 16 116/74 92 01/12/19 04:20 98.6 F 85 16 113/62 91 01/11/19 23:41 99.5 F 90 16 122/69 93 01/11/19 20:41 99.6 F 17 172/73 Intake and Output 01/12/19 01/12/19 01/12/19 07:59 15:59 23:59 Intake Total 0 / 350 350 / 350 Balance 0 / 350 350 / 350 Intake: Blood Product 0 / 350 350 / 350 Rbcs Leuko Poor As-1 Unit 0 / 350 350 / 350 [id number] [id number] Leuko Poor As-3 Ph Unit 0 / 0 [id number] Other: Meal Lunch Dinner Percent of Meal Consumed 75% 100% - General Appearance General appearance: Present: chronically ill, fatigue EENT: Present: ATNC, mucous membranes moist Neck: Present: no JVD, supple Respiratory: Present: clear (ant bilat) Cardiology: Present: no edema, normal S1, normal S2 Additional Comments: PD catheter exit site with no drainage, NT Gastrointestinal: Present: no tenderness, no guarding Integumentary: Present: warm and dry Neurologic: Present: no focal deficit Musculoskeletal: Present: no deformities Psychiatric: Present: mood/affect appropriate, cooperative - Lab 01/12/19 06:30 01/12/19 06:30 Most recent lab results 01/12/19 06:30 Calcium 8.8 Consult Discharge Plan - Plan Referrals: Matt Dimas MD [Primary Care Provider] -
[2019-01-12] MEDS ORDERED: Perit. Dialysis with Dex 1.5 % 12,000 ML PERITONEAL ONE (20:37)
[2019-01-12] MEDS: Gabapentin 100 MG CAPSULE PO SCH (21:27)
[2019-01-12] MEDS: Mirtazapine 15 MG TABLET PO SCH (21:27)
[2019-01-12] MEDS: Artificial Tears SOLN 15 ML BOTTLE BOTH EYES SCH (21:28)
[2019-01-13] MEDS: *HR* Heparin 5,000 UNIT/ML VIAL SQ SCH ×2 (04:54→16:22)
[2019-01-13 05:47] LABS: Basophils # 0.1 K/mcL (0.0-0.2); Basophils % 0.4 %; Eosinophils # 0.4 K/mcL (0.0-0.6); Eosinophils % 2.8 %; Hematocrit 27.4 % (35.3-44.9); Immature Granulocytes % 1.5 % (0-4); Lymphocytes # 3.6 K/mcL (0.6-4.6); Lymphocytes % 23.7 %; Mean Corpuscular HGB Conc 31.4 g/dL (31.6-35.5); Mean Platelet Volume 9.8 fL (9.4-12.4); Monocytes # 0.8 K/mcL (0.0-1.3); Monocytes % 5.1 %; Platelet Count 303 K/mcL (140-400); Red Blood Count 2.77 M/mcL (3.82-4.97); Red Cell Distribution Width 14.7 % (11.5-14.5); Segmented Neutrophils % 66.5 %
[2019-01-13 05:53] LABS: Hemoglobin 8.6 g/dL (11.5-15.4); Mean Corpuscular Volume 98.9 fL (83.0-100.0)
[2019-01-13 06:07] LABS: Calcium 8.6 mg/dL (8.6-10.3); Magnesium 1.5 mg/dL (1.6-2.6); Phosphorous 7.4 mg/dL (2.7-4.5); Potassium 3.4 mEq/L (3.5-5.1)
[2019-01-13] MEDS ORDERED: Isovue-370 500 ML BOTTLE IVP ONE (07:40)
[2019-01-13] MEDS: Folic Acid 1 MG TABLET PO SCH (08:08)
[2019-01-13] MEDS: Cyanocobalamin (B-12) 1,000 MCG TABLET PO SCH (08:08)
[2019-01-13] MEDS: Famotidine 20 MG TABLET PO SCH ×2 (08:08→21:42)
[2019-01-13] MEDS: Gentamicin Oint 15 GM TUBE TP SCH (08:09)
[2019-01-13] MEDS: cloNIDine HCl 0.1 MG TABLET PO SCH (08:09)
[2019-01-13] MEDS: Cefepime HCl 1,000 MG in Water for inj. (sterile) 10 ML IVP SCH (08:13)
--- NOTE | 2019-01-13 10:53 | Gastroenterology Consult Note ---
<Boby Zhang Chely - Last Filed: 01/13/19 10:50> Date of Encounter: 01/13/19 Time of Encounter: 09:15 - Assessment and plan (1) Anemia Current Visit: No Status: Chronic Assessment and plan: On admission Hgb 7.9 which dropped to 6.4 yesterday. Hgb 8.6 today after 2 units PRBC. Continue to monitor CBC and transfuse PRBC as needed. Plan for EGD and colonoscopy tomorrow. Clear liquid diet today, no red or purple. NPO at midnight. If unable tolerate NuLytely please use MiraLAX prep. If not clear by 6 AM, give 2 tap water enemas. Qualifiers: Anemia type: due to chronic kidney disease Chronic kidney disease stage: on chronic dialysis Qualified Code(s): N18.6 - End stage renal disease; D63.1 - Anemia in chronic kidney disease; Z99.2 - Dependence on renal dialysis (2) ESRD on peritoneal dialysis Current Visit: No Status: Chronic Assessment and plan: Management per Nephrology. (3) Slurred speech Current Visit: Yes Status: Acute Assessment and plan: CT of the head and MRI brain were both unremarkable. Management per primary team. - Time Spent With Patient Total time spent is greater than 50% in coordination of care (as documented) at patient's floor/unit and/or counseling patient: GI History of Present Illness - Data of Consult Patient: known to practice within the last 3 years Consult date: 01/13/19 Requesting Physician: Celia Milton - Consult Narrative Reason for consult: Anemia History of present illness: Ms. Orellana is a 63 year old female with PMHx of CVA, HTN, ESRD on peritoneal dialysis, TIA who presented to the ED with complaints of fatigue which started a few days prior to admission. She complained of dizziness when standing up from a seated position as well as feeling dehydrated. She denied fever, chest pain, shortness of breath, abdominal pain, nausea, vomiting melena, or hematochezia. She did complain of slurred speech on admission CT of the head and MRI brain were both unremarkable. We were consulted to evaluate her anemia. On admission Hgb 7.9 which dropped to 6.4 yesterday. Hgb 8.6 today after 2 units PRBC. Procedures: EGD 05/30/2016 Dr. Chi: Medium amount of food (residue) in stomach, questionable gastroparesis, mcwilliams pH with DeMeester score 5.9. NSAIDs: None Anticoagulation: Plavix Past Med Surg Social Fam HX - Past Medical History Medical history: asthma, CVA, GERD, hyperlipidemia, hypertension, renal disease, TIA, other Additional medical history: anemia, heart murmur/irreg heart-beat, lupus, sleep apnea, fatty liver, vitamin D deficiency Psychiatric history: no psych history - Past Surgical History Surgical History: , cholecystectomy, hysterectomy, orthopedic, other, other, arthroscopy Additional surgical history: knee scope, tonselectomy, Left shoulder surgery - Social History Smoking Status: Never smoker Smokeless Tobacco Status: No Alcohol use: none Drug use: none - Family History Mother Living Status: Hx Family Cardiac Disorders: Yes Hx Family Neurologic Disorders: Yes (CVA) Father Hx Family Cardiac Disorders: Yes (HTN, CHF) Hx Family Endocrine Disorder: Yes (DM) - Gastrointestinal Gastrointestinal: Present: as per HPI - Constitutional Constitutional: as per HPI - EENT Eyes: as per HPI Ears: Present: as per HPI Nose, mouth and throat: Present: as per HPI - Cardiovascular Cardiovascular ROS: Present: as per HPI - Respiratory Respiratory IM: Present: as per HPI - Genitourinary Genitourinary: Absent: change in color, Urinary frequency - Neurological ROS Neurological GI: Present: as per HPI - Hematologic/Lymphatic Hematologic/Lymphatic pediatric: Present: as per HPI - Musculoskeletal Musculoskeletal ROS GI: Present: as per HPI - Integumentary Integumentary GI: Present: as per HPI - Psychiatric ROS Psychiatric GI: Present: as per HPI - Endocrine Endocrine IM: Present: as per HPI - Constitutional Vitals: Temp Pulse Resp BP Pulse Ox 98.5 F 84 16 134/78 91 01/13/19 07:57 01/13/19 07:24 01/13/19 07:57 01/13/19 07:57 01/13/19 07:24 General appearance: Present: cooperative, A&O X 3, no acute distress, answers questions appropriately - Head Head exam: Present: atraumatic, normocephalic - Eye Eye exam: Present: normal appearance, sclera anicteric - ENT ENT exam: Present: mucous membranes moist - Neck Neck exam general surgery: Present: normal inspection, trachea midline - Respiratory Respiratory exam: Present: CTAB. Absent: rales, rhonchi, wheezes - Cardiovascular Cardiovascular exam: Present: RRR, +S1, +S2 - GI/Abdominal GI/Abdominal exam: Present: soft, no peritoneal signs. Absent: distended, firm, guarding, tenderness - Rectal Rectal exam: Present: deferred - Extremities Exam Extremities exam: Present: warm - Neurological Exam Neurological exam: Present: no focal deficits - Psychiatric Psychiatric exam: Present: normal affect, normal mood - Skin Skin exam: Present: dry, intact, normal color, warm Results - Labs CBC & Chem 7: 01/13/19 05:19 01/13/19 05:19 Labs: Last Result 01/13/19 05:19 Calcium 8.6 Entire Visit 01/13/19 05:19 Hgb 8.6 L D Hct 27.4 L - ABG ABG results: PT/INR, D-dimer PT 11.9 Seconds (9.4-12.1) 01/11/19 05:26 - Impressions Impressions Hip X-Ray 01/12/19 12:41 IMPRESSION: 1. No acute abnormality. D/ / Chriss Guy MD / Chriss Guy MD Interpreting Provider: Chriss Guy MD Consult Discharge Plan - Plan Referrals: Matt Dimas MD [Primary Care Provider] - <HarshDyllanNate - Last Filed: 01/17/19 03:53> Date of Encounter: 01/13/19 - Time Spent With Patient Total time spent is greater than 50% in coordination of care (as documented) at patient's floor/unit and/or counseling patient: GI History of Present Illness - Data of Consult Requesting Physician: Lul Cornell MD - Consult Narrative History of present illness: Ms. Orellana is a 63 year old female - Constitutional Vitals: Temp Pulse Resp BP Pulse Ox 99 F 85 20 146/79 94 01/17/19 03:43 01/17/19 03:43 01/17/19 03:43 01/17/19 03:43 01/17/19 03:43 Results - Labs CBC & Chem 7: 01/16/19 03:38 01/16/19 03:38 Labs: Last Result 01/16/19 15:30 Ferritin 754 H Entire Visit 01/16/19 15:30 Ferritin 754 H - ABG ABG results: ABG ABG pH 7.38 pH Units (7.32-7.45) 01/13/19 14:21 ABG pCO2 38 mmHg (35-45) 01/13/19 14:21 ABG pO2 76 mmHg (85-104) L 01/13/19 14:21 ABG O2 Saturation 95 % (95-98) 01/13/19 14:21 PT/INR, D-dimer PT 11.9 Seconds (9.4-12.1) 01/11/19 05:26 - Attending Attestation Patient admitted with severe anemia. Transfused with 2 units of packed cells. Plan EGD and colonoscopy as above I have personally performed a face to face evaluation on this patient. I have reviewed and agree with the care plan. History and Exam by me shows:
--- NOTE | 2019-01-13 12:30 | Internal Med Progress Note ---
Hospitalist Progress Note - Encounter Date of Encounter: 01/13/19 Time of Encounter: 12:29 - Subjective Interval History: I have seen and evaluated the patient at bedside. Patient reports still having generalized weakness, denies nausea, or vomiting. Denies chest pain. - Exam Vitals: Temp Pulse Resp BP Pulse Ox 97.8 F 82 17 112/67 94 01/13/19 11:31 01/13/19 11:31 01/13/19 11:31 01/13/19 11:31 01/13/19 11:31 Exam: Vitals: Reviewed General: Alert and oriented x4. In mild distress due to generalized weakness Cardiovascular: RRR, normal S1 & S2, no rubs, murmurs or gallops. Lungs: CTA b/l, no wheezes or crackles. Abdomen: Obese, soft, non-tender, no rigidity. NABS in all 4 quadrants Extremities: No edema Neurological: No focal neurological abnormalities Rest of the physical exam is non contributory - Assessment and Plan (1) Anemia Current Visit: No Status: Chronic Assessment and Plan: H&H stable. s/p 2 units of PRBCs transfused. scheduled for EGD and colonoscopy tomorrow (2) Hyperlipidemia Current Visit: Yes Status: Chronic Assessment and Plan: Continue atorvastatin 80 mg by mouth daily. (3) Weakness Current Visit: Yes Status: Acute Assessment and Plan: Daily PT/OT. (4) Leukocytosis Current Visit: No Status: Acute Assessment and Plan: Neutrophil predominant, slightly elevated pro calcitonin. Unclear etiology, no clear source of infection. Plan Continue broad-spectrum IV antibiotics Peripheral smear ordered Abdomen and pelvis CT. ID [employer] ax consultant, recommendation appreciated. (5) CVA (cerebral vascular accident) Current Visit: No Status: Chronic Assessment and Plan: Continue clopidogrel 75mg/PO daily (6) ESRD on peritoneal dialysis Current Visit: No Status: Chronic Assessment and Plan: renal replacement therapy per nephrology recommendations. Fluid restriction to 1.5 L a day. (7) HTN (hypertension) Current Visit: No Status: Chronic Assessment and Plan: Blood pressures well controlled. Patient is on losartan 50 mg by mouth daily and clonidine 0.1 mg by mouth daily. DVT Prophylaxis: On heparin subcutaneous. - Summary of Assessment and Plan Summary of Assessment and Plan: Patient to remain in the hospital due to generalized weakness, leukocytosis, and anemia. Scheduled for EGD and colonoscopy tomorrow. - Time Spent with Patient Total time spent is greater than 50% in coordination of care (as documented) at patient's floor/unit and/or counseling patient: Greater than 35 minutes (40) Plan of Care Discussed with: patient (and the nurse) Internal Medicine: Result - Labs CBC & Chem 7: 01/13/19 05:19 01/13/19 05:19 Labs: Short CBC 01/13/19 Range/Units 05:19 WBC 15.0 H (4.3-11.1) K/mcL Hgb 8.6 L D (11.5-15.4) g/dL Hct 27.4 L (35.3-44.9) % Plt Count 303 (140-400) K/mcL Neutrophils # 10.0 H (1.6-8.9) K/mcL BMP 01/13/19 05:19 Sodium 143 Potassium 3.4 L Chloride 103 Carbon Dioxide 22 L BUN 59 H Creatinine 12.76 H Glucose 106 H Calcium 8.6 - ABG Interpretation ABG results: PT/INR, D-dimer PT 11.9 Seconds (9.4-12.1) 01/11/19 05:26 - Impressions Impressions Hip X-Ray 01/12/19 12:41 IMPRESSION: 1. No acute abnormality. D/ / Chriss Guy MD / Chriss Guy MD Interpreting Provider: Chriss Guy MD Abdomen/Pelvis CT 01/13/19 11:00 IMPRESSION: No basilar infiltrate, or acute inflammatory process seen in the abdomen or pelvis. No loculated appearing fluid collection seen to suggest an abscess. Peritoneal catheter in place, with a small amount of abdominopelvic ascites as noted on the previous examination as well. Other stable findings as above. D/ / Oliver Butler MD / Oliver Butelr MD Interpreting Provider: Oliver Butler MD Consult Discharge Plan - Plan Referrals: Matt Dimas MD [Primary Care Provider] - ____ (1) Anemia Qualifiers: Anemia type: due to chronic kidney disease Chronic kidney disease stage: on chronic dialysis Qualified Code(s): N18.6 - End stage renal disease; D63.1 - Anemia in chronic kidney disease; Z99.2 - Dependence on renal dialysis (2) Hyperlipidemia Qualifiers: Hyperlipidemia type: unspecified Qualified Code(s): E78.5 - Hyperlipidemia, unspecified (4) Leukocytosis Qualifiers: Leukocytosis type: unspecified Qualified Code(s): D72.829 - Elevated white blood cell count, unspecified (5) CVA (cerebral vascular accident) Qualifiers: CVA mechanism: unspecified Qualified Code(s): I63.9 - Cerebral infarction, unspecified (7) HTN (hypertension) Qualifiers: Hypertension type: essential hypertension Qualified Code(s): I10 - Essential (primary) hypertension
[2019-01-13 14:25] LABS: ABG Base Excess -2 mEq/L (-2 to 3); ABG HCO3 23 mEq/L (21-27); ABG Oxygen Saturation 95 % (95-98); ABG PCO2 38 mmHg (35-45); ABG PH 7.38 pH Units (7.32-7.45); ABG PO2 76 mmHg (85-104); ABG TCO2 24 mEq/L (20-26)
[2019-01-13] MEDS ORDERED: SODIUM CHLORIDE/NAHCO3/KCL/PEG 4,000 ML SOLN.RECON PO ONE (17:00)
[2019-01-13] MEDS ORDERED: Perit. Dialysis with Dex 1.5 % 12,000 ML PERITONEAL ONE (19:00)
--- NOTE | 2019-01-13 19:00 | Nephrology Progress Note ---
Date of Encounter: 01/13/19 Time of Encounter: 12:00 - Assessment and Plan (1) ESRD on peritoneal dialysis Current Visit: No Status: Chronic Continue PD regimen with cycler nightly 2liters with 4 fills over 8hrs Will continue to use 1.5% dianeal instead of 2.5% to maintain even fluid balance Continue binders with meals Lytes stable except potassium mildly low and magnesium, will replete Continue renal diet (2) Weakness Current Visit: Yes Status: Acute Likely multifactorial with possible infection and anemia Per primary. Will hold gabapentin for now (3) Leukocytosis Current Visit: No Status: Acute Continue abx coverage; blood and urine cultures negative to date Resp viral panel negative Qualifiers: Leukocytosis type: unspecified Qualified Code(s): D72.829 - Elevated white blood cell count, unspecified (4) Anemia Current Visit: No Status: Chronic Hgb improved at 8.6, after transfusion with 2units pRBCs yesterday Continue aranesp for now Qualifiers: Anemia type: due to chronic kidney disease Chronic kidney disease stage: on chronic dialysis Qualified Code(s): N18.6 - End stage renal disease; D63.1 - Anemia in chronic kidney disease; Z99.2 - Dependence on renal dialysis Subjective Interval history: Pt seen and examined very lethargic today, sleeping and hard to awaken as she falls back asleep. Objective - Vital Signs Vital signs: Vital Signs Temp Pulse Resp BP Pulse Ox 01/13/19 15:56 98.5 F 81 17 143/75 97 01/13/19 11:31 97.8 F 82 17 112/67 94 01/13/19 07:57 98.5 F 16 134/78 01/13/19 07:24 98.5 F 84 18 134/78 91 01/13/19 04:02 98.2 F 97 18 123/79 92 01/12/19 23:50 99.7 F H 86 18 123/67 93 01/12/19 22:46 99.6 F 15 165/74 01/12/19 19:56 99.4 F 80 18 152/74 98 Intake and Output 01/13/19 01/13/19 01/13/19 07:59 15:59 23:59 Output Total 0 / 0 Balance 0 / 0 Output: Urine 0 / 0 - General Appearance General appearance: Present: chronically ill, fatigue EENT: Present: ATNC, mucous membranes moist Neck: Present: no JVD, supple Respiratory: Present: clear Cardiology: Present: no edema, normal S1, normal S2 Additional Comments: PD exit site; clear Gastrointestinal: Present: no tenderness, no guarding Integumentary: Present: warm and dry Neurologic: Present: no focal deficit Musculoskeletal: Present: no deformities Psychiatric: Present: mood/affect appropriate - Lab 01/13/19 05:19 01/13/19 05:19 Most recent lab results 01/13/19 14:21 ABG pH 7.38 ABG pCO2 38 ABG pO2 76 L ABG HCO3 23 ABG O2 Saturation 95 Consult Discharge Plan - Plan Referrals: Matt Dimas MD [Primary Care Provider] -
--- NOTE | 2019-01-13 20:36 | Anesthesia Evaluation PreOp ---
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: CVA, TIA Other Medical History: Hepatic, Renal (ESRD on HD, last dialysis yesterday) Anesthesia History: Past Anesthesia, Problems Alcohol Use: none Drug use: none Medications and Allergies Acetaminophen [Acetaminophen ER] 650 mg PO Q6H PRN 01/29/18 [History] Amitriptyline HCl 50 mg PO HS 01/29/18 [History] Atorvastatin [Lipitor] 80 mg PO DAILY 01/29/18 [History] Clopidogrel [Plavix] 75 mg PO DAILY 01/29/18 [History] Cyanocobalamin (B-12) [Vitamin B12] 1,000 mcg PO DAILY 01/29/18 [History] Famotidine [Pepcid] 40 mg PO BID 01/29/18 [History] Ferrous Sulfate [Iron] 325 mg PO DAILY 01/29/18 [History] Fexofenadine HCl 180 mg PO DAILY PRN 01/29/18 [History] Fluticasone Propionate Nasal [Flonase] 2 spray NS BID 01/29/18 [History] Folic Acid 1 mg PO DAILY 01/29/18 [History] Nebivolol HCl [Bystolic] 10 mg PO BID 01/29/18 [History] Sodium Bicarbonate 650 mg PO BID 01/29/18 [History] Calcitriol 0.5 mcg PO BID 09/01/18 [History] Ergocalciferol (VITAMIN D2) [Vitamin D2] 50,000 unit PO 3XW 09/01/18 [History] Gabapentin [Neurontin] 200 mg PO HS 09/01/18 [History] Mirtazapine [Remeron] 15 mg PO HS 09/01/18 [History] Artificial Tears SOLN [Akwa Tears] 1 drop BOTH EYES HS 01/10/19 [History] Calcium Acetate 667 mg PO TIDWM 01/10/19 [History] Cinacalcet HCl [Sensipar] 60 mg PO HS 01/10/19 [History] Darbepoetin Noe in Polysorbat [Aranesp] 40 mcg IJ Q2W 01/10/19 [History] Doxycycline Hyclate [Vibramycin] 100 mg PO BID 01/10/19 [History] Gentamicin Sulfate Cream [Gentamicin Sulfate] 1 appl TP AD 01/10/19 [History] Lactulose [Enulose] 10 gm PO DAILY PRN 01/10/19 [History] Melatonin [Melatin] 3 mg PO HS PRN 01/10/19 [History] NIFEdipine [Nifedipine ER] 90 mg PO DAILY 01/10/19 [History] Psyllium [Metamucil Fiber Singles Packet] 28 mg PO TID PRN 01/10/19 [History] Albuterol Sulfate [Proair Respiclick] 2 puff PO Q6H PRN 01/11/19 [History] Citalopram Hydrobromide [Citalopram HBr] 40 mg PO QPM 01/11/19 [History] Losartan Potassium 50 mg PO BID 01/11/19 [History] Montelukast [Singulair] 10 mg PO QPM 01/11/19 [History] Ondansetron HCl 4 mg PO Q8H PRN 01/11/19 [History] Pantoprazole Sodium [Protonix] 40 mg PO DAILY 01/11/19 [History] Sennosides/Docusate Sodium [Docusate Sodium-Sennosides Tab] 1 tab PO QPM PRN 01/11/19 [History] Sevelamer [Renvela] 800 mg PO 1200 01/11/19 [History] Triamcinolone Acetonide 1 appl TP BID 01/11/19 [History] cloNIDine HCl [CloNIDine HCl] 0.1 mg PO DAILY PRN 01/11/19 [History] Allergy/AdvReac Type Severity Reaction Status Date / Time latex Allergy Rash Verified 01/10/19 11:36 Penicillins Allergy Rash Verified 01/10/19 11:36 prednisone Allergy "CRAZY" Verified 01/10/19 11:36 sulfur dioxide Allergy Rash Verified 01/10/19 11:36 aspirin AdvReac See Verified 01/10/19 11:36 Comments spironolactone AdvReac Hypertensio Verified 01/10/19 11:36 n - Meds/Allergy Pre-op Review Medications Reviewed: Yes Allergies Reviewed: Yes Beta Blockers on Current Med List: No Anesthesia Results - Labs 01/13/19 05:19 01/13/19 05:19 - Imaging EKG: report reviewed Anesthesia Exam Vital Signs/O2 Sat, Most Current Temp Pulse Resp BP Pulse Ox 98.2 F 80 16 159/89 90 01/14/19 04:03 01/14/19 08:14 01/14/19 08:14 01/14/19 08:14 01/14/19 08:14 Weight: 111kg NPO (# of Hours): >8 - HEENT Pupil (Motor): Pupils equal, EOMI - PS[employer]CHOLOGIST [employer] LOC: Oriented PSYCHOLOGIST [employer] Motor: Normal LUE, Normal RLE (weakness), Normal LLE, Deficit RUE (weakness), Deficit Face (slight right facial droop) PS[employer]CHOLOG[employer] Sensory: Normal: RUE, LUE, RLE, LLE, Face - Cardiac Rhythm: Regular Murmur: None - Pulmonary Breath Sounds: bilateral Clear Respiratory Effort: Symmetrical Anesthesia Assess/Plan ASA Score: 4 Level of consciousness: Cooperative, Oriented Anesthetic Plan: General, MAC (plan b) Autologous Blood: Yes Monitoring Plan: Standard Monitors <Darin Santos - Last Filed: 01/14/19 17:34> Date of Encounter: 01/14/19 Time of Encounter: 20:34 - Past History Planned Operation: EGD/Colonoscopy Cardiac History: Denies any Significant Hx (- Past History Planned Operation: Laprascopic peritoneal dialysis catheter Cardiac History: HTN, Hyperlipidemia, Other (Anemia of chronic disease, vertebral and basilar Art. 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 D. Def., [place] BMI- 40.3) Anesthesia History: Past Anesthesia (c/s, CHANG, GB, L. Shoulder, tubal, Knee sx, T&A, EGD,), Problems (PONV) : No Alcohol Use: none Drug use: none), HTN, Hyperlipidemia, Other (Anemia of chronic disease, vertebral and basilar Art. 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 D. Def.) Anesthesia History: Past Anesthesia (c/s, CHANG, GB, L. Shoulder, tubal, Knee sx, T&A, EGD, Laprascopic peritoneal dialysis catheter), Problems (PONV) : No Alcohol Use: none Drug use: none - Meds/Allergy Pre-op Review Medications Reviewed: Yes Allergies Reviewed: Yes Beta Blockers on Current Med List: No Anesthesia Results - Labs 01/14/19 12:11 01/14/19 11:39 - Imaging EKG: report reviewed (Sinus rhythm Nonspecific intraventricular conduction delay Electronically Signed On 01-12-2019 12:49:04 EDT by Matt Dimas) Additional studies: Echo with Saline Contrast Name: Maggie Orellana Date of Study: 12/08/2016 Impressions: LVEF 65%. Moderate concentric hypertrophy of the left ventricle. There is evidence of mild diastolic dysfunction of the left ventricle. Normal right ventricular size and function. No significant valvular dysfunction. No pulmonary hypertension. No PFO with saline contrast. Anesthesia Exam Vital Signs/O2 Sat, Most Current Temp Pulse Resp BP Pulse Ox 98.5 F 75 18 141/74 96 01/13/19 18:59 01/13/19 18:59 01/13/19 18:59 01/13/19 18:59 01/13/19 18:59 - HEENT Pupil (Motor): Pupils equal, EOMI Mallampati: IV Teeth: Poor dentition Oral Opening: Greater than 3 - PSYCHOLOGIST [employer] LOC: Oriented PSYCHOLOGIST [employer] Motor: Normal RUE, Normal LUE, Normal RLE, Normal LLE, Normal Face PSYCHOLOGIST [employer] Sensory: Normal: RUE, LUE, RLE, LLE, Face - Cardiac Rhythm: Regular Murmur: None JVD: No Carotid Bruit: No - Pulmonary Breath Sounds: bilateral Clear Respiratory Effort: Symmetrical Anesthesia Assess/Plan ASA Score: 4 Anesthetic Plan: MAC Autologous Blood: Yes Monitoring Plan: Standard Monitors Recovery Plan: Other
[2019-01-13] MEDS: Mirtazapine 15 MG TABLET PO SCH (21:39)
[2019-01-13] MEDS: Gabapentin 100 MG CAPSULE PO SCH (21:40)
[2019-01-13] MEDS: Artificial Tears SOLN 15 ML BOTTLE BOTH EYES SCH (21:42)
[2019-01-14] MEDS: *HR* Heparin 5,000 UNIT/ML VIAL SQ SCH ×2 (05:50→17:32)
[2019-01-14] MEDS ORDERED: Lidocaine -MPF 2% 2 ML VIAL ONE (06:36)
[2019-01-14] MEDS ORDERED: Propofol 500 MG/50 ML INFUS..BTL ONE ×2 (06:36→08:40)
--- NOTE | 2019-01-14 10:48 | Anesthesia Evaluation Post Op ---
Date of Encounter: 01/14/19 Time of Encounter: 10:47 - Vital Signs Vital Signs: Vital Signs/O2 Sat, Most Current Temp Pulse Resp BP Pulse Ox 98.3 F 80 16 159/89 90 01/14/19 08:00 01/14/19 08:14 01/14/19 08:14 01/14/19 08:14 01/14/19 08:14 - Lungs Lungs: Clear Ascult./Percussion - Airway Airway: Non-obstructed - Cardiovascular Regular Rate - Mental Status Mental Status: Baseline Status - Pain Pain Scale: 0 Pain Scale used: Numeric (1 - 10) - Nausea Vomiting Nausea Vomiting: Not Present - Hydration Hydration: NPO - Discharge PostOp Status: Transfer Patient to floor
[2019-01-14 12:16] LABS: Calcium 8.7 mg/dL (8.6-10.3); Magnesium 1.6 mg/dL (1.6-2.6); Phosphorous 7.7 mg/dL (2.7-4.5); Potassium 3.9 mEq/L (3.5-5.1)
[2019-01-14] MEDS: cloNIDine HCl 0.1 MG TABLET PO SCH (12:28)
[2019-01-14 12:29] LABS: Basophils # 0.1 K/mcL (0.0-0.2); Basophils % 0.4 %; Eosinophils # 0.4 K/mcL (0.0-0.6); Eosinophils % 2.6 %; Hematocrit 27.6 % (35.3-44.9); Hemoglobin 8.8 g/dL (11.5-15.4); Immature Granulocytes % 1.5 % (0-4); Lymphocytes # 2.8 K/mcL (0.6-4.6); Lymphocytes % 17.5 %; Mean Corpuscular HGB Conc 31.9 g/dL (31.6-35.5); Mean Corpuscular Hemoglobin 31.5 pg (28.0-33.3); Mean Corpuscular Volume 98.9 fL (83.0-100.0); Mean Platelet Volume 10.2 fL (9.4-12.4); Monocytes # 0.9 K/mcL (0.0-1.3); Monocytes % 5.9 %; Neutrophils # 11.5 K/mcL (1.6-8.9); Platelet Count 256 K/mcL (140-400); Red Blood Count 2.79 M/mcL (3.82-4.97); Red Cell Distribution Width 14.4 % (11.5-14.5); Segmented Neutrophils % 72.1 %
--- NOTE | 2019-01-14 12:42 | Nephrology Progress Note ---
Date of Encounter: 01/14/19 Time of Encounter: 09:15 - Assessment and Plan (1) ESRD on peritoneal dialysis Current Visit: No Status: Chronic ESRD on PD. I'll continue PD tonight Anemia: her spouse asked for IV iron, which she has not had at the [facility] HD unit for quite some time, he said. (2) Leukocytosis Current Visit: No Status: Acute She needs PD fluid cell count/diff and culture. I noticed that these studies have not been checked yet and peritonitis is in the differential diagnosis. Qualifiers: Leukocytosis type: lymphocytosis Qualified Code(s): D72.820 - Lymphocytosis (symptomatic) (3) Anemia Current Visit: No Status: Chronic Goal Hgb is 10-11 and I rec continue SAGAR. Appreciate the GI work up Qualifiers: Anemia type: due to chronic kidney disease Chronic kidney disease stage: on chronic dialysis Qualified Code(s): N18.6 - End stage renal disease; D63.1 - Anemia in chronic kidney disease; Z99.2 - Dependence on renal dialysis (4) Weakness Current Visit: Yes Status: Acute As per primary Subjective Principal diagnosis: ESRD on PD Interval history: The patient was seen and examined earlier today. She was sleeping and postop from endoscopy. Her spouse was present, and he reported that her PD fluid has been very clear, and they have not been worried about problems with exchanges with the cycler during this hospitalization or over the last few weeks. Objective - Vital Signs Vital signs: Vital Signs Temp Pulse Resp BP Pulse Ox 01/14/19 12:27 97.9 F 74 18 124/60 92 01/14/19 08:14 80 16 159/89 90 01/14/19 08:00 98.3 F 18 141/77 01/14/19 04:03 98.2 F 59 18 103/63 97 01/14/19 00:12 98.1 F 84 19 173/96 98 01/13/19 20:30 98.2 F 18 149/77 01/13/19 18:59 98.5 F 75 18 141/74 96 01/13/19 15:56 98.5 F 81 17 143/75 97 Intake and Output 01/13/19 01/14/19 01/14/19 23:59 07:59 15:59 Output Total 200 / 200 Balance -200 / -200 Output: Urine 200 / 200 Other: Stool Consistency loose Stool Color Yellow # Voids 1 # Bowel Movements 1 2 Weight 111.4 kg Blood Glucose* 89 72 Patient Weight 01/14/19 23:59 Weight 111.4 kg - General Appearance General appearance: Present: well-developed, well-nourished, appears started age EENT: Present: ATNC, PERRL Neck: Present: supple Respiratory: Present: clear Cardiology: Present: edema (trace ankle edema bilaterally), normal S1, normal S2 Additional Comments: PD catheter in LLQ Gastrointestinal: Present: normoactive bowel sounds, no tenderness, no guarding Neurologic: Present: no focal deficit, no asterixis, alert and oriented x3 Musculoskeletal: Present: no cyanosis, no clubbing Psychiatric: Present: mood/affect appropriate, cooperative - Lab 01/15/19 06:32 01/15/19 06:32 Most recent lab results 01/14/19 11:39 Calcium 8.7 Phosphorus 7.7 H Magnesium 1.6 Consult Discharge Plan - Plan Referrals: Matt Dimas MD [Primary Care Provider] -
[2019-01-14] MEDS ORDERED: Ferumoxytol 510 MG in 0.9 % Sodium Chloride 100 ML IVPB ONE (12:45)
--- NOTE | 2019-01-14 13:28 | Internal Med Progress Note ---
Hospitalist Progress Note - Encounter Date of Encounter: 01/14/19 Time of Encounter: 13:25 - Subjective Interval History: I have seen and evaluated the patient at bedside. Patient report feeling better today but she is still weak. as per patient at bedside the patient BP usually runs in the 160s and when the BP is the low 120s the patient cannot "function". patient denies chest pain, nausea or vomiting. - Exam Vitals: Temp Pulse Resp BP Pulse Ox 97.9 F 74 18 124/60 92 01/14/19 12:27 01/14/19 12:27 01/14/19 12:27 01/14/19 12:01/14/19 12:27 Exam: Vitals: Reviewed General: Alert and oriented x4. still reporting mild distress due to generalized weakness Cardiovascular: RRR, normal S1 & S2, no rubs, murmurs or gallops. Lungs: CTA b/l, no wheezes or crackles. Abdomen: Obese, soft, non-tender, no rigidity. NABS in all 4 quadrants Extremities: No edema Neurological: No focal neurological abnormalities Rest of the physical exam is non contributory - Assessment and Plan (1) Leukocytosis Current Visit: No Status: Acute Assessment and Plan: Unclear etiology. Patient with chronic leukocytosis. Heme/oncology has been consulted. Infection disease consulted. Recommendation appreciated. Discontinue vancomycin. Continue cefepime 1 g IV every 48 hours. Peritoneal dialysis fluid will be sent for analysis. peripheral smear pending LDH ordered (2) Anemia Current Visit: No Status: Chronic Assessment and Plan: H&H stable. s/p 2 units of PRBCs transfused. s/p EGD: Normal esophagus, small hiatal hernia, gastritis. colonoscopy: Nonbleeding internal hemorrhoids. One 4 mm polyps in the cecum. will continue to monitor H&H and transfuse per protocol Continue Darbepoetin On folic acid and B12 replacement. (3) Hyperlipidemia Current Visit: Yes Status: Chronic Assessment and Plan: On atorvastatin 80 mg by mouth daily. (4) Weakness Current Visit: Yes Status: Acute Assessment and Plan: Continue daily PT/OT. (5) CVA (cerebral vascular accident) Current Visit: No Status: Chronic Assessment and Plan: On clopidogrel 75mg/PO daily (6) ESRD on peritoneal dialysis Current Visit: No Status: Chronic Assessment and Plan: renal replacement therapy per nephrology recommendations. Fluid restriction to 1.5 L a day. Avoid nephrotoxic medication On sodium bicarbonate 650mg/PO BID. (7) HTN (hypertension) Current Visit: No Status: Chronic Assessment and Plan: Patient on clonidine and complaining of generalized weakness. Discontinue clonidine. We will monitor blood pressure. Continue losartan 50 mg by mouth daily. DVT Prophylaxis: Continue heparin subcutaneous. - Summary of Assessment and Plan Summary of Assessment and Plan: Patient to remain in the hospital due to leukocytosis, unclear etiology. Hematology and infectious disease consulted. - Time Spent with Patient Total time spent is greater than 50% in coordination of care (as documented) at patient's floor/unit and/or counseling patient: Greater than 35 minutes (40) Plan of Care Discussed with: patient (her and the nurse) Internal Medicine: Result - Labs CBC & Chem 7: 01/14/19 12:11 01/14/19 11:39 Labs: Short CBC 01/14/19 Range/Units 12:11 WBC 16.0 H (4.3-11.1) K/mcL Hgb 8.8 L (11.5-15.4) g/dL Hct 27.6 L (35.3-44.9) % Plt Count 256 (140-400) K/mcL Neutrophils # 11.5 H (1.6-8.9) K/mcL BMP 01/14/19 11:39 Sodium 142 Potassium 3.9 Chloride 104 Carbon Dioxide 22 L BUN 54 H Creatinine 11.89 H Glucose 83 Calcium 8.7 - ABG Interpretation ABG results: ABG ABG pH 7.38 pH Units (7.32-7.45) 01/13/19 14:21 ABG pCO2 38 mmHg (35-45) 01/13/19 14:21 ABG pO2 76 mmHg (85-104) L 01/13/19 14:21 ABG O2 Saturation 95 % (95-98) 01/13/19 14:21 PT/INR, D-dimer PT 11.9 Seconds (9.4-12.1) 01/11/19 05:26 Consult Discharge Plan - Plan Referrals: Matt Dimas MD [Primary Care Provider] - (1) Leukocytosis Qualifiers: Leukocytosis type: unspecified Qualified Code(s): D72.829 - Elevated white blood cell count, unspecified (2) Anemia Qualifiers: Anemia type: due to chronic kidney disease Chronic kidney disease stage: on chronic dialysis Qualified Code(s): N18.6 - End stage renal disease; D63.1 - Anemia in chronic kidney disease; Z99.2 - Dependence on renal dialysis (3) Hyperlipidemia Qualifiers: Hyperlipidemia type: unspecified Qualified Code(s): E78.5 - Hyperlipidemia, unspecified (5) CVA (cerebral vascular accident) Qualifiers: CVA mechanism: unspecified Qualified Code(s): I63.9 - Cerebral infarction, unspecified (7) HTN (hypertension) Qualifiers: Hypertension type: essential hypertension Qualified Code(s): I10 - Essential (primary) hypertension
[2019-01-14] MEDS: Famotidine 20 MG TABLET PO SCH ×2 (13:34→21:22)
[2019-01-14] MEDS: Cyanocobalamin (B-12) 1,000 MCG TABLET PO SCH (13:35)
[2019-01-14] MEDS: Magnesium Oxide 400 MG TABLET PO SCH (13:35)
[2019-01-14] MEDS: Folic Acid 1 MG TABLET PO SCH (13:36)
[2019-01-14] MEDS: Gentamicin Oint 15 GM TUBE TP SCH (13:43)
--- NOTE | 2019-01-14 15:27 | Infectious Disease Consult ---
Infectious Disease-Consult - Encounter Date/Time Date of Encounter: 01/14/19 Time of Encounter: 15:03 - Data of Consult Patient: new to practice Reason for consult: Leukocytosis. Elevated pro calcitonin. No clear source of infection. Consult date: 01/14/19 Requesting Physician: Lul Cornell MD Primary Care Provider: Matt Dimas MD - HPI HPI: Patient is a 63-year-old woman who is admitted to [facility] on 01/10/2019 with fatigue, we are consulted on 01/14/2019 for persistent leukocytosis with infection. Patient is a 63 year old female with PMHx of CVA, HTN, ESERD on peritoneal dialysis at home, sleep apnea. Patient arrived to the ED with chief complaint of fatigue that started a few days prior to admission. Patient tells me that she was in the usual state of health until a few days prior to admission when she was feeling weak and tired and under the weather. She states that the Thursday and Thursday prior to admission she had nausea and vomting and diarrhea. She denied any headache, no URI symptoms. no sinus pressure no sore throat no tooth ache. Patient denies any chest pain or shortness of breath. No cough or sputum production. Patient denied any abdominal pain or tenderness. She continues to produce urine and she denied any urinary symptoms. No rash and no joint pain. Since admission, patient has been afebrile with a MAXIMUM TEMPERATURE of 99.7, no tachycardia and no tachypnea. Presenting WBC was 15.1 with normal differential peripheral smear from January 13 is pending. BUN 54 creatinine 12.5. Keep in mind that the patient's is on dialysis. Lactic acid 1.8. Pro- calcitonin 0.72. A urinalysis was also obtained. Patient had influenza A PCR influenza P PCR RSV PCR and respiratory infectious panel. Blood cultures 2 were obtained on 01/10/2019 and they were both negative. Urine culture was clear. Patient also has a respiratory viral culture obtained from 01/11/2019. During the hospital stay we also had a CT head which showed no acute intracranial abnormalities. A chest x-ray which showed no acute findings. A brain MRI which shows no acute infarct an unremarkable brain MRI. No mention of any sinusitis. An abdominal CT with no IV no oral contrast was read as no basilar infiltrate or acute inflammatory process seen in the abdomen or pelvis. No loculated-appearing fluid collection seen suggest an abscess. Peritoneal catheter in place. Small amount of abdominopelvic ascites is noted on the previous examination as well. Patient was started on empiric vancomycin and cefepime. We are asked to evaluate the patient's make further recommendations. Currently patient laying in bed. Pleasant, calm and does not appear ill. ROS as above. Patient denies any abdominal pain but when i pressed on her abdomen specially the LUQ and LLQ she had tenderness and rebound. She had clear peritoneal signs. There was no erythema or drainage around PD catheter. - ROS Review of Systems: 10 point review of systems done, negative other for what mentioned in history of present illness. - Results CBC & Chem 7: 01/15/19 06:32 01/15/19 06:32 - Exam Vitals: Temp Pulse Resp BP Pulse Ox 97.9 F 74 18 124/60 92 01/14/19 12:27 01/14/19 12:27 01/14/19 12:27 01/14/19 12:27 01/14/19 12:27 Exam: GENERAL: Laying in bed, appears comfortable. HEAD: Normocephalic atraumatic EYES: PERRLA, EOMI, no conjunctival hemorrhage, sclera anicteric ENT: Mucous membranes moist, no oral thrush NECK: Supple. No meningeal signs. No masses LUNGS: Chest expanding symmetrically. Lungs sounds audible both lung weems. No wheezing, no rhonchi CV: RRR, S1S2, ABDOMEN: Soft, PD cath inplace with no signs of infection. tenderness and rebound tenderness LUQ and LLQ EXTREMITY: Adequate perfusion. No joint effusion. SKIN: Normal color. No rash. NEURO: Awake alert oriented 3. No obvious focal deficit PSYCH: Calm and appropriate. No agitation. Acetaminophen [Acetaminophen ER] 650 mg PO Q6H PRN 01/29/18 [History] Amitriptyline HCl 50 mg PO HS 01/29/18 [History] Atorvastatin [Lipitor] 80 mg PO DAILY 01/29/18 [History] Clopidogrel [Plavix] 75 mg PO DAILY 01/29/18 [History] Cyanocobalamin (B-12) [Vitamin B12] 1,000 mcg PO DAILY 01/29/18 [History] Famotidine [Pepcid] 40 mg PO BID 01/29/18 [History] Ferrous Sulfate [Iron] 325 mg PO DAILY 01/29/18 [History] Fexofenadine HCl 180 mg PO DAILY PRN 01/29/18 [History] Fluticasone Propionate Nasal [Flonase] 2 spray NS BID 01/29/18 [History] Folic Acid 1 mg PO DAILY 01/29/18 [History] Nebivolol HCl [Bystolic] 10 mg PO BID 01/29/18 [History] Sodium Bicarbonate 650 mg PO BID 01/29/18 [History] Calcitriol 0.5 mcg PO BID 09/01/18 [History] Ergocalciferol (VITAMIN D2) [Vitamin D2] 50,000 unit PO 3XW 09/01/18 [History] Gabapentin [Neurontin] 200 mg PO HS 09/01/18 [History] Mirtazapine [Remeron] 15 mg PO HS 09/01/18 [History] Artificial Tears SOLN [Akwa Tears] 1 drop BOTH EYES HS 01/10/19 [History] Calcium Acetate 667 mg PO TIDWM 01/10/19 [History] Cinacalcet HCl [Sensipar] 60 mg PO HS 01/10/19 [History] Darbepoetin Noe in Polysorbat [Aranesp] 40 mcg IJ Q2W 01/10/19 [History] Doxycycline Hyclate [Vibramycin] 100 mg PO BID 01/10/19 [History] Gentamicin Sulfate Cream [Gentamicin Sulfate] 1 appl TP AD 01/10/19 [History] Lactulose [Enulose] 10 gm PO DAILY PRN 01/10/19 [History] Melatonin [Melatin] 3 mg PO HS PRN 01/10/19 [History] NIFEdipine [Nifedipine ER] 90 mg PO DAILY 01/10/19 [History] Psyllium [Metamucil Fiber Singles Packet] 28 mg PO TID PRN 01/10/19 [History] Albuterol Sulfate [Proair Respiclick] 2 puff PO Q6H PRN 01/11/19 [History] Citalopram Hydrobromide [Citalopram HBr] 40 mg PO QPM 01/11/19 [History] Losartan Potassium 50 mg PO BID 01/11/19 [History] Montelukast [Singulair] 10 mg PO QPM 01/11/19 [History] Ondansetron HCl 4 mg PO Q8H PRN 01/11/19 [History] Pantoprazole Sodium [Protonix] 40 mg PO DAILY 01/11/19 [History] Sennosides/Docusate Sodium [Docusate Sodium-Sennosides Tab] 1 tab PO QPM PRN 01/11/19 [History] Sevelamer [Renvela] 800 mg PO 1200 01/11/19 [History] Triamcinolone Acetonide 1 appl TP BID 01/11/19 [History] cloNIDine HCl [CloNIDine HCl] 0.1 mg PO DAILY PRN 01/11/19 [History] Allergy/AdvReac Type Severity Reaction Status Date / Time latex Allergy Rash Verified 01/10/19 11:36 Penicillins Allergy Rash Verified 01/10/19 11:36 prednisone Allergy "CRAZY" Verified 01/10/19 11:36 sulfur dioxide Allergy Rash Verified 01/10/19 11:36 aspirin AdvReac See Verified 01/10/19 11:36 Comments spironolactone AdvReac Hypertensio Verified 01/10/19 11:36 n - Assessment and Plan (1) Nausea and vomiting Current Visit: Yes Status: Acute resolved likley due to PD related SBP Qualifiers: Vomiting type: unspecified Vomiting Intractability: unspecified Qualified Code(s): R11.2 - Nausea with vomiting, unspecified SNOMED Code(s): 78479405 (2) H/O: CVA (cerebrovascular accident) Current Visit: Yes Status: Acute SNOMED Code(s): 583821667 (3) Leukocytosis Current Visit: No Status: Acute likely secondary to SBP Qualifiers: Leukocytosis type: lymphocytosis Qualified Code(s): D72.820 - Lymphocytosis (symptomatic) SNOMED Code(s): 982431772, 228542940 (4) Abdominal pain Current Visit: No Status: Acute prior to admission she had N&V denies any abdominal pain but clearly present on palpation with tenderness and significant rebound LUQ and LLQ concern for SBP I believe Dr. Pride recommended PD dialysate to be send for cell count, gram stain and cultures If it hasn't been sent, please send one stat. start cefepime and vancomcyin in the mean time Will d/w hospitalist team Qualifiers: Abdominal location: lower abdomen, unspecified Qualified Code(s): R10.30 - Lower abdominal pain, unspecified SNOMED Code(s): 36515047 (5) ESRD on peritoneal dialysis Current Visit: No Status: Chronic SNOMED Code(s): 439669777 Past Med Surg Social Fam HX - Past Medical History Medical history: asthma, CVA, GERD, hyperlipidemia, hypertension, renal disease, TIA, other Additional medical history: anemia, heart murmur/irreg heart-beat, lupus, sleep apnea, fatty liver, vitamin D deficiency Psychiatric history: no psych history - Past Surgical History Surgical History: , cholecystectomy, hysterectomy, orthopedic, other, other, arthroscopy Additional surgical history: knee scope, tonselectomy, Left shoulder surgery - Social History Smoking Status: Never smoker Smokeless Tobacco Status: No Alcohol use: none Drug use: none - Family History Mother Living Status: Hx Family Cardiac Disorders: Yes Hx Family Neurologic Disorders: Yes (CVA) Father Hx Family Cardiac Disorders: Yes (HTN, CHF) Hx Family Endocrine Disorder: Yes (DM) Consult Discharge Plan - Plan Referrals: Matt Dimas MD [Primary Care Provider] -
--- NOTE | 2019-01-14 16:12 | Oncology Inp Consult Note ---
<Celestine Orellana Jr - Last Filed: 01/14/19 17:12> Date of Encounter: 01/14/19 Time of Encounter: 15:55 Assessment and Plan (1) Leukocytosis Status: Acute Assessment and plan: Patient last seen in clinic on 02/01/[address] Nolasco. At that time, she had mild lymphocytosis with lymphocyte count of 4000. A peripheral smear was negative. The patient had elevated Light chain at 13, but serum protein electrophoresis was negative for monoclonal protein. [place] light chain elevation most likely to CKD The patient was supposed to have a 24-hour urine test for Bence-Stover protein, but, this was never completed, and she did not come to her 3 month follow up. Also, Tommie 2 mutation and BCR/ABL was negative for bone marrow involvement from testing we did in December 2017. After assessing patient, she complained of some possible chronic sinus infections and she complained about some numbness and inflammation in her sinus cavities. We have done a complete workup previously, from our perspective, the patient needs a 24-hour urine for Bence Stover protein. We will check for any monoclonal proteins. Plan: 1. We will recheck BCR/ABL with a Bence Stover protein. We will order today. This can take up to a week for the test results once the sample was submitted. 2. Peripheral smear for pathologist to review, also several days for results From our perspective the patient can be discharged once medically stable, and follow-up with Dr. Nolasco in 4 weeks for further review of test results and recheck of complete blood count and differentials. Dr. Macie Lerma assessed patient with me today. Qualifiers: Leukocytosis type: lymphocytosis Qualified Code(s): D72.820 - Lymphocytosis (symptomatic) - Data of Consult Patient: known to practice within the last 3 years Consult date: 01/14/19 Requesting Physician: Lul Cornell MD Primary Care Provider: Matt Dimas MD - Consult Narrative Reason for consult: leukocytosis History of present illness: The patient is a 63-year-old Afro-[place] female, and previous patient at [facility] with Dr. Goodman julianne Nolasco with a history of chronic leukocytosis. Persistent leukocytosis since July 2017. Mostly neutrophils which range between 10-15,000. This has come down. On 01/06/2018 total white count slightly elevated at 13,002. Normal at 7900. Lymphocytes high normal at 4000. Hemoglobin 8.1 MCV 94 and platelets 360 Last IV iron with Dr Pierson several years ago at the cancer center, but, has taken oral iron Chronic kidney disease stage IV secondary to hypertensive nephropathy. She is on peritoneal dialysis nightly under Dr Fitzgerald at [facility]. Past Med Surg Social Fam HX - Past Medical History Medical history: asthma, CVA, GERD, hyperlipidemia, hypertension, renal disease, TIA, other Additional medical history: anemia, heart murmur/irreg heart-beat, lupus, sleep apnea, fatty liver, vitamin D deficiency, leukocytocis Psychiatric history: no psych history - Past Surgical History Surgical History: , cholecystectomy, hysterectomy, orthopedic, other, other, arthroscopy Additional surgical history: knee scope, tonselectomy, Left shoulder surgery - Social History Smoking Status: Never smoker Smokeless Tobacco Status: No Alcohol use: none Drug use: none - Family History Mother Living Status: Hx Family Cardiac Disorders: Yes Hx Family Neurologic Disorders: Yes (CVA) Father Hx Family Cardiac Disorders: Yes (HTN, CHF) Hx Family Endocrine Disorder: Yes (DM) Medications and Allergies Acetaminophen [Acetaminophen ER] 650 mg PO Q6H PRN 01/29/18 [History] Amitriptyline HCl 50 mg PO HS 01/29/18 [History] Atorvastatin [Lipitor] 80 mg PO DAILY 01/29/18 [History] Clopidogrel [Plavix] 75 mg PO DAILY 01/29/18 [History] Cyanocobalamin (B-12) [Vitamin B12] 1,000 mcg PO DAILY 01/29/18 [History] Famotidine [Pepcid] 40 mg PO BID 01/29/18 [History] Ferrous Sulfate [Iron] 325 mg PO DAILY 01/29/18 [History] Fexofenadine HCl 180 mg PO DAILY PRN 01/29/18 [History] Fluticasone Propionate Nasal [Flonase] 2 spray NS BID 01/29/18 [History] Folic Acid 1 mg PO DAILY 01/29/18 [History] Nebivolol HCl [Bystolic] 10 mg PO BID 01/29/18 [History] Sodium Bicarbonate 650 mg PO BID 01/29/18 [History] Calcitriol 0.5 mcg PO BID 09/01/18 [History] Ergocalciferol (VITAMIN D2) [Vitamin D2] 50,000 unit PO 3XW 09/01/18 [History] Gabapentin [Neurontin] 200 mg PO HS 09/01/18 [History] Mirtazapine [Remeron] 15 mg PO HS 09/01/18 [History] Artificial Tears SOLN [Akwa Tears] 1 drop BOTH EYES HS 01/10/19 [History] Calcium Acetate 667 mg PO TIDWM 01/10/19 [History] Cinacalcet HCl [Sensipar] 60 mg PO HS 01/10/19 [History] Darbepoetin Noe in Polysorbat [Aranesp] 40 mcg IJ Q2W 01/10/19 [History] Doxycycline Hyclate [Vibramycin] 100 mg PO BID 01/10/19 [History] Gentamicin Sulfate Cream [Gentamicin Sulfate] 1 appl TP AD 01/10/19 [History] Lactulose [Enulose] 10 gm PO DAILY PRN 01/10/19 [History] Melatonin [Melatin] 3 mg PO HS PRN 01/10/19 [History] NIFEdipine [Nifedipine ER] 90 mg PO DAILY 01/10/19 [History] Psyllium [Metamucil Fiber Singles Packet] 28 mg PO TID PRN 01/10/19 [History] Albuterol Sulfate [Proair Respiclick] 2 puff PO Q6H PRN 01/11/19 [History] Citalopram Hydrobromide [Citalopram HBr] 40 mg PO QPM 01/11/19 [History] Losartan Potassium 50 mg PO BID 01/11/19 [History] Montelukast [Singulair] 10 mg PO QPM 01/11/19 [History] Ondansetron HCl 4 mg PO Q8H PRN 01/11/19 [History] Pantoprazole Sodium [Protonix] 40 mg PO DAILY 01/11/19 [History] Sennosides/Docusate Sodium [Docusate Sodium-Sennosides Tab] 1 tab PO QPM PRN 01/11/19 [History] Sevelamer [Renvela] 800 mg PO 1200 01/11/19 [History] Triamcinolone Acetonide 1 appl TP BID 01/11/19 [History] cloNIDine HCl [CloNIDine HCl] 0.1 mg PO DAILY PRN 01/11/19 [History] Allergy/AdvReac Type Severity Reaction Status Date / Time latex Allergy Rash Verified 01/10/19 11:36 Penicillins Allergy Rash Verified 01/10/19 11:36 prednisone Allergy "CRAZY" Verified 01/10/19 11:36 sulfur dioxide Allergy Rash Verified 01/10/19 11:36 aspirin AdvReac See Verified 01/10/19 11:36 Comments spironolactone AdvReac Hypertensio Verified 01/10/19 11:36 n Respiratory: Present: as per HPI Oncology - Exam - Constitutional General appearance: cooperative, no acute distress - Head Head exam: Present: normal inspection, normocephalic - Eye Pupils: Present: PERRL - ENT ENT exam: Present: mucous membranes moist - Neck Neck exam: Present: full ROM - Respiratory Respiratory exam: Present: CTAB - Cardiovascular Cardiovascular exam: Present: RRR - GI/Abdominal GI/Abdominal exam: Present: soft - Extremities Exam Extremities exam: Present: full ROM - Neurological Exam Neurological exam: Present: alert, CN II-XII intact, no focal deficits - Psychiatric Psychiatric exam: Present: normal affect, normal mood - Skin Skin exam: Present: dry, intact Consult Discharge Plan - Plan Referrals: Matt Dimas MD [Primary Care Provider] - <Janina Lerma - Last Filed: 01/14/19 21:41> Date of Encounter: 01/14/19 - Data of Consult Requesting Physician: Lul Cornell MD Primary Care Provider: Matt Dimas MD - Consult Narrative History of present illness: Patient with chronic leukocytosis, seen and examined likely thought to be reactive prior workup has been negative. Lab works slightly increased from baseline. We will obtain additional lab works including review of peripheral smear by pathology BCR ABL, protein electrophoresis light chains and follow patient in the clinic once discharged. Plan reviewed with housestaff, patient bedside - Attending Attestation I examined this patient and my medical decision-making was reviewed with the Advanced Practice Nurse, Jose M Orellana. I agree with the documented findings, disposition and treatment plan as described except to the extent set forth below. Inpatient Charges Provider: Dr. Macie Lerma Consult - Inpatient: [id number]
[2019-01-14] MEDS ORDERED: Perit. Dialysis with Dex 1.5 % 12,000 ML PERITONEAL ONE (19:00)
[2019-01-14] MEDS: Perit. Dialysis with Dex 1.5 % 6,000 ML PERITONEAL SCH ×2 (19:31→23:06)
[2019-01-14] MEDS: Mirtazapine 15 MG TABLET PO SCH (21:21)
[2019-01-14] MEDS: Artificial Tears SOLN 15 ML BOTTLE BOTH EYES SCH (21:21)
[2019-01-14] MEDS: Perit. Dialysis with Dex 2.5 % 12,000 ML PERITONEAL SCH ×2 (23:16→23:17)
[2019-01-15] MEDS: Perit. Dialysis with Dex 1.5 % 6,000 ML PERITONEAL SCH (05:27)
[2019-01-15] MEDS: *HR* Heparin 5,000 UNIT/ML VIAL SQ SCH ×2 (05:52→18:17)
[2019-01-15 07:19] LABS: Basophils % 0.3 %; Eosinophils # 0.4 K/mcL (0.0-0.6); Eosinophils % 3.1 %; Hematocrit 25.2 % (35.3-44.9); Hemoglobin 7.9 g/dL (11.5-15.4); Immature Granulocytes % 1.1 % (0-4); Lymphocytes # 2.7 K/mcL (0.6-4.6); Lymphocytes % 20.7 %; Mean Corpuscular HGB Conc 31.3 g/dL (31.6-35.5); Mean Corpuscular Hemoglobin 31.2 pg (28.0-33.3); Mean Corpuscular Volume 99.6 fL (83.0-100.0); Mean Platelet Volume 9.9 fL (9.4-12.4); Monocytes # 0.7 K/mcL (0.0-1.3); Monocytes % 5.5 %; Neutrophils # 9.1 K/mcL (1.6-8.9); Platelet Count 306 K/mcL (140-400); Red Blood Count 2.53 M/mcL (3.82-4.97); Red Cell Distribution Width 14.4 % (11.5-14.5); Segmented Neutrophils % 69.3 %; White Blood Count 13.1 K/mcL (4.3-11.1)
[2019-01-15 07:40] LABS: Calcium 8.9 mg/dL (8.6-10.3); Magnesium 1.7 mg/dL (1.6-2.6); Phosphorous 7.2 mg/dL (2.7-4.5); Potassium 3.9 mEq/L (3.5-5.1)
[2019-01-15] MEDS: Cefepime HCl 1,000 MG in Water for inj. (sterile) 10 ML IVP SCH (09:11)
[2019-01-15] MEDS: Cyanocobalamin (B-12) 1,000 MCG TABLET PO SCH (09:13)
[2019-01-15] MEDS: Magnesium Oxide 400 MG TABLET PO SCH (09:13)
[2019-01-15] MEDS: Folic Acid 1 MG TABLET PO SCH (09:13)
[2019-01-15] MEDS: Famotidine 20 MG TABLET PO SCH ×2 (09:13→21:31)
[2019-01-15] MEDS: Gentamicin Oint 15 GM TUBE TP SCH (09:14)
[2019-01-15 09:54] LABS: RBC,Peritoneal Fluid < 0.002 M/mcL
--- NOTE | 2019-01-15 10:11 | Nephrology Progress Note ---
Date of Encounter: 01/15/19 Time of Encounter: 08:30 - Assessment and Plan (1) ESRD on peritoneal dialysis Current Visit: No Status: Chronic ESRD on PD, and I have ordered for PD to continue. PD fluid studies have been ordered. (2) Leukocytosis Current Visit: No Status: Acute She needs PD fluid cell count/diff and culture. I noticed that these studies have not been checked yet and peritonitis is in the differential diagnosis. Qualifiers: Leukocytosis type: lymphocytosis Qualified Code(s): D72.820 - Lymphocytosis (symptomatic) (3) Anemia Current Visit: No Status: Chronic Goal Hgb is 10-11 and I rec continue SAGAR. Appreciate the GI work up Qualifiers: Anemia type: due to chronic kidney disease Chronic kidney disease stage: on chronic dialysis Qualified Code(s): N18.6 - End stage renal disease; D63.1 - Anemia in chronic kidney disease; Z99.2 - Dependence on renal dialysis (4) Weakness Current Visit: Yes Status: Acute As per primary Subjective Principal diagnosis: ESRD on PD with leukocytosis Interval history: The patient was seen and examined earlier today. She reported still feeling somewhat tired, but was able to have breakfast, she affirmed. She did not report vomiting or diarrhea, though did report some mild nausea. She said her PD cycler exchanges went well last night and this morning. She does not have abdominal pain during the PD dwelling or draining steps. Objective - Vital Signs Vital signs: Vital Signs Temp Pulse Resp BP Pulse Ox 01/15/19 07:30 97.8 F 18 127/70 01/15/19 07:09 97.8 F 104 19 127/74 93 01/15/19 04:34 98.1 F 80 17 137/77 93 01/15/19 00:24 98.9 F 90 17 136/76 92 01/14/19 20:45 99 F 18 134/74 01/14/19 19:47 94 01/14/19 19:05 99 F 82 18 144/78 94 01/14/19 16:13 99.6 F 84 18 150/62 96 01/14/19 12:27 97.9 F 74 18 124/60 92 Intake and Output 01/14/19 01/15/19 01/15/19 23:59 07:59 15:59 Intake Total 480 / 480 0 / 0 Output Total 0 / 200 0 / 0 Balance 480 / 280 0 / 0 Intake: Oral 480 / 480 0 / 0 Output: Urine 0 / 200 0 / 0 Other: # Voids 1 - General Appearance Exam: General appearance: Present: well-developed, well-nourished, appears started age, appears fatigued EENT: Present: ATNC, PERRL Neck: Present: supple Respiratory: Present: clear Cardiology: Present: edema (trace ankle edema bilaterally), normal S1, normal S2 Additional Comments: PD catheter in LLQ Gastrointestinal: Present: normoactive bowel sounds, no tenderness, no guarding Neurologic: Present: no focal deficit, no asterixis, alert and oriented x3 Musculoskeletal: Present: no cyanosis, no clubbing Psychiatric: Present: mood/affect appropriate, cooperative - Lab 01/15/19 06:32 01/15/19 06:32 Most recent lab results 01/15/19 06:32 Calcium 8.9 Phosphorus 7.2 H Magnesium 1.7 Consult Discharge Plan - Plan Referrals: Matt Dimas MD [Primary Care Provider] -
[2019-01-15 11:44] LABS: Appearance of Peritoneal Fl CLEAR (Clear)
[2019-01-15] MEDS ORDERED: Vancomycin 1,750 MG in 0.9 % Sodium Chloride 250 ML IVPB SCH (12:00)
--- NOTE | 2019-01-15 12:56 | Internal Med Progress Note ---
Hospitalist Progress Note - Encounter Date of Encounter: 01/15/19 Time of Encounter: 12:54 - Subjective Interval History: I have seen and evaluated the patient at bedside. patient report feeling better and stated when her BP is in the 110-120 range she always feels weak and starts having stroke like symptoms. denies abdominal pain, nausea or vomiting. - Exam Vitals: Temp Pulse Resp BP Pulse Ox 98.5 F 84 18 155/79 94 01/15/19 11:30 01/15/19 11:30 01/15/19 11:30 01/15/19 11:30 01/15/19 11:30 Exam: Vitals: Reviewed General: Alert and oriented x4. No distress Cardiovascular: RRR, normal S1 & S2, no rubs, murmurs or gallops. Lungs: CTA b/l, no wheezes or crackles. Abdomen: Obese, soft, mild tenderness to deep palpation in LUQ, no rigidity or guarding. NABS in all 4 quadrants Extremities: No edema Neurological: No focal neurological abnormalities Rest of the physical exam is non contributory - Assessment and Plan (1) Leukocytosis Current Visit: No Status: Acute Assessment and Plan: Unclear etiology. Continue cefepime 1 g IV every 48 hours. discussed with ID and recommended to resume vancomycin per pharmacy protocol Peritoneal dialysis fluid: cell count <10 Neutrophils peritoneal fuild culture sent, will follow . peripheral smear: Anemia, granulocytosis, adequate platelets. (2) Anemia Current Visit: No Status: Chronic Assessment and Plan: H&H stable. s/p 2 units of PRBCs transfused. s/p EGD: Normal esophagus, small hiatal hernia, gastritis. colonoscopy: Nonbleeding internal hemorrhoids. One 4 mm polyps in the cecum. Plan continue to monitor H&H and transfuse per protocol on Darbepoetin, and folic acid, B12 replacement. (3) Hyperlipidemia Current Visit: Yes Status: Chronic Assessment and Plan: On atorvastatin 80 mg by mouth daily. (4) Weakness Current Visit: Yes Status: Acute Assessment and Plan: Continue with daily PT/OT. (5) CVA (cerebral vascular accident) Current Visit: No Status: Chronic Assessment and Plan: On clopidogrel 75mg/PO daily (6) ESRD on peritoneal dialysis Current Visit: No Status: Chronic Assessment and Plan: renal replacement therapy per nephrology recommendations. Fluid restriction to 1.5 L a day. Avoid nephrotoxic medication. On sodium bicarbonate 650mg/PO BID. (7) HTN (hypertension) Current Visit: No Status: Chronic Assessment and Plan: Blood pressure well controlled. Continue losartan 50 mg by mouth daily. DVT Prophylaxis: On heparin subcutaneous - Summary of Assessment and Plan Summary of Assessment and Plan: Patient to remain in the hospital due to leukocytosis, pending peritoneal fluid cultures. - Time Spent with Patient Total time spent is greater than 50% in coordination of care (as documented) at patient's floor/unit and/or counseling patient: Greater than 35 minutes (40) Plan of Care Discussed with: patient (and the nurse) Internal Medicine: Result - Labs CBC & Chem 7: 01/15/19 06:32 01/15/19 06:32 Labs: Short CBC 01/15/19 Range/Units 06:32 WBC 13.1 H (4.3-11.1) K/mcL Hgb 7.9 L (11.5-15.4) g/dL Hct 25.2 L (35.3-44.9) % Plt Count 306 (140-400) K/mcL Neutrophils # 9.1 H (1.6-8.9) K/mcL BMP 01/15/19 06:32 Sodium 144 Potassium 3.9 Chloride 102 Carbon Dioxide 24 BUN 53 H Creatinine 11.96 H Glucose 115 H Calcium 8.9 - ABG Interpretation ABG results: ABG ABG pH 7.38 pH Units (7.32-7.45) 01/13/19 14:21 ABG pCO2 38 mmHg (35-45) 01/13/19 14:21 ABG pO2 76 mmHg (85-104) L 01/13/19 14:21 ABG O2 Saturation 95 % (95-98) 01/13/19 14:21 PT/INR, D-dimer PT 11.9 Seconds (9.4-12.1) 01/11/19 05:26 Consult Discharge Plan - Plan Referrals: Matt Dimas MD [Primary Care Provider] - (1) Leukocytosis Qualifiers: Leukocytosis type: lymphocytosis Qualified Code(s): D72.820 - Lymphocytosis (symptomatic) (2) Anemia Qualifiers: Anemia type: due to chronic kidney disease Chronic kidney disease stage: on chronic dialysis Qualified Code(s): N18.6 - End stage renal disease; D63.1 - Anemia in chronic kidney disease; Z99.2 - Dependence on renal dialysis (3) Hyperlipidemia Qualifiers: Hyperlipidemia type: unspecified Qualified Code(s): E78.5 - Hyperlipidemia, unspecified (5) CVA (cerebral vascular accident) Qualifiers: CVA mechanism: unspecified Qualified Code(s): I63.9 - Cerebral infarction, unspecified (7) HTN (hypertension) Qualifiers: Hypertension type: essential hypertension Qualified Code(s): I10 - Essential (primary) hypertension
[2019-01-15] MEDS: Cholecalciferol (D-3) 1,000 UNIT TABLET PO SCH (13:47)
[2019-01-15] MEDS ORDERED: Vancomycin 500 MG in 0.9 % Sodium Chloride Mini Bag 100 ML IVPB ONE (14:00)
[2019-01-15 14:11] LABS: Basophils,Peritoneal Fluid 0 %; Eosinophils,Peritoneal Fluid 0 %
[2019-01-15] MEDS: Perit. Dialysis with Dex 1.5 % 12,000 ML PERITONEAL SCH (20:30)
[2019-01-15] MEDS: Artificial Tears SOLN 15 ML BOTTLE BOTH EYES SCH (21:30)
[2019-01-15] MEDS: Mirtazapine 15 MG TABLET PO SCH (21:32)
[2019-01-16 04:10] LABS: Basophils # 0.1 K/mcL (0.0-0.2); Basophils % 0.4 %; Eosinophils # 0.4 K/mcL (0.0-0.6); Eosinophils % 3.3 %; Hematocrit 26.2 % (35.3-44.9); Hemoglobin 8.1 g/dL (11.5-15.4); Immature Granulocytes % 1.3 % (0-4); Lymphocytes # 2.9 K/mcL (0.6-4.6); Lymphocytes % 22.2 %; Mean Corpuscular HGB Conc 30.9 g/dL (31.6-35.5); Mean Corpuscular Hemoglobin 31.3 pg (28.0-33.3); Mean Corpuscular Volume 101.2 fL (83.0-100.0); Mean Platelet Volume 9.8 fL (9.4-12.4); Monocytes # 0.7 K/mcL (0.0-1.3); Monocytes % 5.8 %; Neutrophils # 8.6 K/mcL (1.6-8.9); Platelet Count 312 K/mcL (140-400); Red Blood Count 2.59 M/mcL (3.82-4.97); Red Cell Distribution Width 13.8 % (11.5-14.5); White Blood Count 12.9 K/mcL (4.3-11.1)
[2019-01-16 04:29] LABS: Magnesium 1.8 mg/dL (1.6-2.6); Phosphorous 6.2 mg/dL (2.7-4.5); Potassium 3.7 mEq/L (3.5-5.1)
[2019-01-16] MEDS: *HR* Heparin 5,000 UNIT/ML VIAL SQ SCH ×2 (05:42→16:34)
[2019-01-16] MEDS: Perit. Dialysis with Dex 1.5 % 6,000 ML PERITONEAL SCH ×2 (07:43→07:44)
[2019-01-16] MEDS: Cyanocobalamin (B-12) 1,000 MCG TABLET PO SCH (08:48)
[2019-01-16] MEDS: Cholecalciferol (D-3) 1,000 UNIT TABLET PO SCH (08:48)
[2019-01-16] MEDS: Folic Acid 1 MG TABLET PO SCH (08:48)
[2019-01-16] MEDS: Famotidine 20 MG TABLET PO SCH ×2 (08:48→22:08)
[2019-01-16] MEDS: Magnesium Oxide 400 MG TABLET PO SCH (08:48)
[2019-01-16] MEDS: Gentamicin Oint 15 GM TUBE TP SCH (08:49)
[2019-01-16] MEDS: Perit. Dialysis with Dex 1.5 % 12,000 ML PERITONEAL SCH (08:49)
--- NOTE | 2019-01-16 09:50 | Nephrology Progress Note ---
Date of Encounter: 01/16/19 Time of Encounter: 08:15 - Assessment and Plan (1) ESRD on peritoneal dialysis Current Visit: No Status: Chronic ESRD on PD, and I have ordered for PD to continue. PD fluid studies demonstrated 42.9 WBCs, and typically peritonitis would have >100, so I do not suspect peritonitis. I reviewed her physical exam, vital signs and lab trends, other progress notes and imaging, which required complex evaluation and management and medical decision making to composer ongoing PD orders. Continue to follow a renal protective strategy for an ESRD patient as per normal protocol: i.e., Renal dosing, strict I's and O's, avoidance of nephrotoxic agents, and daily weights. Thank you (2) Leukocytosis Current Visit: No Status: Acute Slowly trending better, and the cell count with differential was not consistent with peritonitis (see above). The PD fluid culture was listed no growth to date. Qualifiers: Leukocytosis type: lymphocytosis Qualified Code(s): D72.820 - Lymphocytosis (symptomatic) (3) Anemia Current Visit: No Status: Chronic Goal Hgb is 10-11 and I rec continue SAGAR. Appreciate the GI work up Qualifiers: Anemia type: due to chronic kidney disease Chronic kidney disease stage: on chronic dialysis Qualified Code(s): N18.6 - End stage renal disease; D63.1 - Anemia in chronic kidney disease; Z99.2 - Dependence on renal dialysis (4) Weakness Current Visit: Yes Status: Acute Subjective Principal diagnosis: ESRD on PD with leukocytosis Interval history: The patient was seen and examined. She did not affirm any new major complaints, and said that the PD draining well this morning. She voiced that she has a reduced appetite, but no active nausea, vomiting or diarrhea. Objective - Vital Signs Vital signs: Vital Signs Temp Pulse Resp BP Pulse Ox 01/16/19 07:25 98.5 F 84 18 120/52 94 01/16/19 07:10 98.5 F 18 120/52 01/16/19 04:51 98.7 F 87 15 121/79 92 01/15/19 23:55 99.4 F 86 18 149/89 93 01/15/19 20:30 99.1 F 16 150/79 01/15/19 11:30 98.5 F 84 18 155/79 94 Intake and Output 06/01/16/19 01/16/19 23:59 07:59 15:59 Intake Total 200 / 440 240 / 240 Output Total 254 / 254 Balance 200 / 440 -254 / -14 240 / -14 Intake: Oral 200 / 440 240 / 240 Output: Urine 0 / 0 Total Peritoneal Dialysis (PD) 127 / 127 Output Peritoneal Dialysis (PD) Net 127 / 127 Fluid Removed Other: Meal Breakfast Percent of Meal Consumed 95% - General Appearance Exam: General appearance: Present: well-developed, obese, well-nourished, appears started age, appears fatigued EENT: Present: ATNC, PERRL Neck: Present: supple Respiratory: Present: clear Cardiology: Present: edema (trace ankle edema bilaterally), normal S1, normal S2 Additional Comments: PD catheter in LLQ without surrounding tenderness to palpation Gastrointestinal: Present: normoactive bowel sounds, no tenderness, no guarding Neurologic: Present: no focal deficit, no asterixis, alert and oriented x3 Musculoskeletal: Present: no cyanosis, no clubbing Psychiatric: Present: mood/affect appropriate, cooperative - Lab 01/16/19 03:38 01/16/19 03:38 Most recent lab results 01/16/19 03:38 Calcium 9.0 Phosphorus 6.2 H Magnesium 1.8 Consult Discharge Plan - Plan Referrals: Matt Dimas MD [Primary Care Provider] -
--- NOTE | 2019-01-16 11:09 | Internal Med Progress Note ---
Hospitalist Progress Note - Encounter Date of Encounter: 01/16/19 Time of Encounter: 11:06 - Subjective Interval History: I have seen and evaluated the patient at bedside. patient reports she is feeling much better today, has been walking around her room with no issues. denies abdominal pain, nausea or vomiting. denies chest pain. - Exam Vitals: Temp Pulse Resp BP Pulse Ox 98.5 F 84 18 120/52 94 01/16/19 07:25 01/16/19 07:25 01/16/19 07:25 01/16/19 07:25 01/16/19 07:25 Exam: Vitals: Reviewed General: Alert and oriented x4. No distress Cardiovascular: RRR, normal S1 & S2, no rubs, murmurs or gallops. Lungs: CTA b/l, no wheezes or crackles. Abdomen: Obese, soft, no tenderness to deep or superficial palpation, no rigidity or guarding. NABS in all 4 quadrants Extremities: No edema Neurological: No focal neurological abnormalities Rest of the physical exam is non contributory - Assessment and Plan (1) Leukocytosis Current Visit: No Status: Acute Assessment and Plan: Unclear etiology. Trending down Plan On cefepime 1 g IV every 48 hours. continue vancomycin per pharmacy protocol Peritoneal dialysis fluid: cell count <10 Neutrophils peritoneal fuild culture: no bacteria observed preliminary report peripheral smear: Anemia, granulocytosis, adequate platelets. ID recommendations appreciated (2) Anemia Current Visit: No Status: Chronic Assessment and Plan: H&H stable. s/p 2 units of PRBCs transfused. s/p EGD: Normal esophagus, small hiatal hernia, gastritis. colonoscopy: Nonbleeding internal hemorrhoids. One 4 mm polyps in the cecum. Plan Monitor H&H and transfuse per protocol continue Darbepoetin, and folic acid, B12 replacement. (3) Hyperlipidemia Current Visit: Yes Status: Chronic Assessment and Plan: continue atorvastatin 80 mg by mouth daily. (4) Weakness Current Visit: Yes Status: Acute Assessment and Plan: patient reports feeling stronger. continue daily PT/OT (5) CVA (cerebral vascular accident) Current Visit: No Status: Chronic Assessment and Plan: On clopidogrel 75mg/PO daily (6) ESRD on peritoneal dialysis Current Visit: No Status: Chronic Assessment and Plan: renal replacement therapy per nephrology recommendations. Fluid restriction to 1.5 L a day. Avoid nephrotoxic medication. continue sodium bicarbonate 650mg/PO BID. (7) HTN (hypertension) Current Visit: No Status: Chronic Assessment and Plan: Blood pressure well controlled. decrease losartan to 25mg by mouth daily, patient reports when her BP is in the low 120s she does not have any energy DVT Prophylaxis: On heparin SubQ - Summary of Assessment and Plan Summary of Assessment and Plan: patient to remain in the hospital for 1 more day. potential discharge tomorrow - Time Spent with Patient Total time spent is greater than 50% in coordination of care (as documented) at patient's floor/unit and/or counseling patient: Plan of Care Discussed with: patient (and the nurse) Internal Medicine: Result - Labs CBC & Chem 7: 01/16/19 03:38 01/16/19 03:38 Labs: Short CBC 01/16/19 Range/Units 03:38 WBC 12.9 H (4.3-11.1) K/mcL Hgb 8.1 L (11.5-15.4) g/dL Hct 26.2 L (35.3-44.9) % Plt Count 312 (140-400) K/mcL Neutrophils # 8.6 (1.6-8.9) K/mcL BMP 01/16/19 03:38 Sodium 142 Potassium 3.7 Chloride 105 Carbon Dioxide 23 BUN 52 H Creatinine 11.55 H Glucose 133 H Calcium 9.0 - ABG Interpretation ABG results: ABG ABG pH 7.38 pH Units (7.32-7.45) 01/13/19 14:21 ABG pCO2 38 mmHg (35-45) 01/13/19 14:21 ABG pO2 76 mmHg (85-104) L 01/13/19 14:21 ABG O2 Saturation 95 % (95-98) 01/13/19 14:21 PT/INR, D-dimer PT 11.9 Seconds (9.4-12.1) 01/11/19 05:26 Consult Discharge Plan - Plan Referrals: Matt Dimas MD [Primary Care Provider] - (1) Leukocytosis Qualifiers: Leukocytosis type: lymphocytosis Qualified Code(s): D72.820 - Lymphocytosis (symptomatic) (2) Anemia Qualifiers: Anemia type: due to chronic kidney disease Chronic kidney disease stage: on chronic dialysis Qualified Code(s): N18.6 - End stage renal disease; D63.1 - Anemia in chronic kidney disease; Z99.2 - Dependence on renal dialysis (3) Hyperlipidemia Qualifiers: Hyperlipidemia type: unspecified Qualified Code(s): E78.5 - Hyperlipidemia, unspecified (5) CVA (cerebral vascular accident) Qualifiers: CVA mechanism: unspecified Qualified Code(s): I63.9 - Cerebral infarction, unspecified (7) HTN (hypertension) Qualifiers: Hypertension type: essential hypertension Qualified Code(s): I10 - Essential (primary) hypertension
--- NOTE | 2019-01-16 15:08 | Oncology Inp Progress Note ---
Date of Encounter: 01/16/19 Time of Encounter: 12:00 (1) Leukocytosis Current Visit: No Status: Acute Assessment and plan: Improving to baseline. Additioanl labs ordered, to be followed as an outpatient. Qualifiers: Leukocytosis type: lymphocytosis Qualified Code(s): D72.820 - Lymphocytosis (symptomatic) (2) Anemia Current Visit: No Status: Chronic Assessment and plan: Rpt labs --ferritin ordered. On darbepoetin. Hx CKD Paraproteinemia-cr stable labs. Results discussed with patient. F/u with heme as outpatient Qualifiers: Anemia type: due to chronic kidney disease Chronic kidney disease stage: on chronic dialysis Qualified Code(s): N18.6 - End stage renal disease; D63.1 - Anemia in chronic kidney disease; Z99.2 - Dependence on renal dialysis Oncology: Subj Interval history: BP controlled, walking around inside the room, vision-not able to read cleraly, no HAs - Constitutional General appearance: no acute distress - Head Head exam: Present: atraumatic, normal inspection - ENT ENT exam: Present: mucous membranes moist - Respiratory Respiratory exam: Present: CTAB - Cardiovascular Cardiovascular exam: Present: +S1, +S2, systolic murmur Oncology: Obj Data - Labs CBC & Chem 7: 01/16/19 03:38 01/16/19 03:38 Consult Discharge Plan - Plan Referrals: Matt Dimas MD [Primary Care Provider] - Inpatient Charges Provider: Dr. Macie Lerma Follow up - Inpatient: [id number]
[2019-01-16 21:23] LABS: Urine Collection Volume RANDOM mL
[2019-01-16] MEDS: Artificial Tears SOLN 15 ML BOTTLE BOTH EYES SCH (22:00)
[2019-01-16] MEDS: Mirtazapine 15 MG TABLET PO SCH (22:06)
[2019-01-16] MEDS: Melatonin 3 MG TABLET PO PRN (22:06)
[2019-01-17 03:57] LABS: Basophils # 0.1 K/mcL (0.0-0.2); Basophils % 0.4 %; Eosinophils # 0.5 K/mcL (0.0-0.6); Eosinophils % 3.2 %; Immature Granulocytes % 1.3 % (0-4); Lymphocytes # 3.1 K/mcL (0.6-4.6); Lymphocytes % 21.5 %; Mean Corpuscular HGB Conc 30.8 g/dL (31.6-35.5); Mean Corpuscular Volume 100.8 fL (83.0-100.0); Mean Platelet Volume 9.9 fL (9.4-12.4); Monocytes # 0.8 K/mcL (0.0-1.3); Monocytes % 5.7 %; Neutrophils # 9.8 K/mcL (1.6-8.9); Nucleated Red Blood Cells 0.1 /100 WBC (0); Platelet Count 317 K/mcL (140-400); Red Blood Count 2.58 M/mcL (3.82-4.97); Red Cell Distribution Width 13.9 % (11.5-14.5); Segmented Neutrophils % 67.9 %; White Blood Count 14.4 K/mcL (4.3-11.1)
[2019-01-17 04:15] LABS: Magnesium 1.8 mg/dL (1.6-2.6)
[2019-01-17 04:17] LABS: Albumin 3.4 g/dL (3.5-5.7); Calcium 9.2 mg/dL (8.6-10.3); Potassium 3.7 mEq/L (3.5-5.1)
[2019-01-17] MEDS: *HR* Heparin 5,000 UNIT/ML VIAL SQ SCH (05:28)
[2019-01-17] MEDS: Famotidine 20 MG TABLET PO SCH (07:55)
[2019-01-17] MEDS: Magnesium Oxide 400 MG TABLET PO SCH (07:57)
[2019-01-17] MEDS: Folic Acid 1 MG TABLET PO SCH (07:57)
[2019-01-17] MEDS: Cyanocobalamin (B-12) 1,000 MCG TABLET PO SCH (07:58)
[2019-01-17] MEDS: Cholecalciferol (D-3) 1,000 UNIT TABLET PO SCH (07:58)
[2019-01-17] MEDS: Cefepime HCl 1,000 MG in Water for inj. (sterile) 10 ML IVP SCH (07:58)
--- NOTE | 2019-01-17 09:31 | Nephrology Progress Note ---
Date of Encounter: 01/17/19 Time of Encounter: 07:25 - Assessment and Plan (1) ESRD on peritoneal dialysis Current Visit: No Status: Chronic ESRD on PD, and I reviewed her physical exam, vital signs and lab trends, other progress notes and imaging, which required complex evaluation and management and medical decision making to composer ongoing PD orders. PD fluid studies demonstrated 42.9 WBCs, and typically peritonitis would have >100, so I do not suspect peritonitis. I answered all of her questions. I recommend continuing to follow a renal protective strategy for an ESRD patient as per normal protocol: i.e., Renal dosing, strict I's and O's, avoidance of nephrotoxic agents, and daily weights. Thank you (2) Leukocytosis Current Visit: No Status: Acute The peritoneal fluid was not consistent with peritonitis. She had already been on antibiotics, but the WBC count in the PD fluid was less than 100. Qualifiers: Leukocytosis type: lymphocytosis Qualified Code(s): D72.820 - Lymphocytosis (symptomatic) (3) Anemia Current Visit: No Status: Chronic Goal Hgb is 10-11 and I rec continue SAGAR. Appreciate the GI work up Qualifiers: Anemia type: due to chronic kidney disease Chronic kidney disease stage: on chronic dialysis Qualified Code(s): N18.6 - End stage renal disease; D63.1 - Anemia in chronic kidney disease; Z99.2 - Dependence on renal dialysis (4) Weakness Current Visit: Yes Status: Acute As per primary Subjective Principal diagnosis: ESRD on PD with leukocytosis Interval history: The patient was seen and examined earlier today, and she did not affirm complaints with PD cycling. She reported very minimal nausea if any. She did not affirm having vomiting or diarrhea or any chest pain. No family members are present in the room during my exam. Objective - Vital Signs Vital signs: Vital Signs Temp Pulse Resp BP Pulse Ox 01/17/19 07:46 98.1 F 75 19 151/82 93 01/17/19 03:43 99 F 85 20 146/79 94 01/17/19 00:32 98.2 F 80 20 148/78 94 01/16/19 20:14 98.9 F 87 20 167/89 93 01/16/19 19:10 99.0 F 18 145/79 01/16/19 15:51 99.0 F 83 18 145/79 94 01/16/19 11:37 99.7 F H 88 18 144/74 94 Intake and Output 01/16/19 01/17/19 01/17/19 23:59 07:59 15:59 Intake Total 0 / 360 120 / 120 Output Total 0 / 454 400 / 400 0 / 400 Balance 0 / -94 -400 / -280 120 / -280 Intake: Oral 0 / 360 120 / 120 Output: Urine 0 / 200 400 / 400 0 / 400 Other: Meal Breakfast Percent of Meal Consumed 50% # Bowel Movements 0 - General Appearance General appearance: Present: well-developed, well-nourished, appears started age, obese, fatigue EENT: Present: ATNC, PERRL, mucous membranes moist Neck: Present: supple Respiratory: Present: clear Cardiology: Present: holosystolic murmur, no edema, regular rate, regular rhythm, normal S1, normal S2 Additional Comments: PD catheter in the LLQ and no tenderness to palpation Gastrointestinal: Present: normoactive bowel sounds, no guarding, obese Integumentary: Present: warm and dry Neurologic: Present: no focal deficit, no asterixis, alert and oriented x3 Musculoskeletal: Present: no deformities, no erythema, no clubbing Psychiatric: Present: mood/affect appropriate, cooperative - Lab 01/17/19 03:24 01/17/19 03:24 Most recent lab results 01/17/19 01/17/19 03:24 03:24 Calcium 9.2 Phosphorus 6.0 H Magnesium 1.8 Consult Discharge Plan - Plan Referrals: Matt Dimas MD [Primary Care Provider] -
[2019-01-17] MEDS: Perit. Dialysis with Dex 1.5 % 12,000 ML PERITONEAL SCH (10:54)
[2019-01-17] MEDS: Gentamicin Oint 15 GM TUBE TP SCH (10:54)
[2019-01-17 11:04] VITALS: BP 124/73
--- NOTE | 2019-01-17 11:54 | Discharge Summary ---
Orders not resulted at time of discharge: Pending orders 01/11/19 15:35 Viral Culture,Respiratory [RM] Routine 01/14/19 09:50 Surgical Pathology [PTH] Routine 01/14/19 14:11 Culture,Body Fluid [RM] Routine 01/14/19 16:41 BCR-ABL1t(9;22)Diag,Rflx Quant Routine 01/18/19 04:00 Basic Metabolic Panel AM 0400 CBC [Complete Blood Count] [HEME] AM 0400 01/19/19 04:00 Basic Metabolic Panel AM 0400 CBC [Complete Blood Count] [HEME] AM 0400 01/20/19 04:00 Basic Metabolic Panel AM 0400 CBC [Complete Blood Count] [HEME] AM 0400 01/21/19 04:00 Basic Metabolic Panel AM 0400 CBC [Complete Blood Count] [HEME] AM 0400 Date of Encounter: 01/17/19 Time of Encounter: 11:49 - Discharge Diagnosis (1) Leukocytosis Priority: Primary Status: Acute Qualifiers: Leukocytosis type: lymphocytosis Qualified Code(s): D72.820 - Lymphocytosis (symptomatic) (2) Anemia Priority: Primary Status: Chronic Qualifiers: Anemia type: due to chronic kidney disease Chronic kidney disease stage: on chronic dialysis Qualified Code(s): N18.6 - End stage renal disease; D63.1 - Anemia in chronic kidney disease; Z99.2 - Dependence on renal dialysis (3) Hyperlipidemia Priority: Secondary Status: Chronic Qualifiers: Hyperlipidemia type: unspecified Qualified Code(s): E78.5 - Hyperlipidemia, unspecified (4) Weakness Priority: Primary Status: Acute (5) CVA (cerebral vascular accident) Priority: Secondary Status: Chronic Qualifiers: CVA mechanism: unspecified Qualified Code(s): I63.9 - Cerebral infarction, unspecified (6) ESRD on peritoneal dialysis Priority: Secondary Status: Chronic (7) HTN (hypertension) Priority: Secondary Status: Chronic Qualifiers: Hypertension type: essential hypertension Qualified Code(s): I10 - Essential (primary) hypertension Hospital course: Ms. Orellana is a 63 year old female PMHx of CVA, HTN, ESERD on peritoneal dialysis at home, sleep apnea. Patient arrived to the ED with chief complaint of fatigue that started a few days ago. patient was admitted to the hospital due to generalized weakness, there was a MRI of the brain was done as patient reported stroke like symptoms: unremarkable. Patient found to have significant anemia and was transfused 2 units of PRBCs, underwent and EGD and a colonoscopy: with no abnormal findings. Patient was found to have a leukocytosis and referred LUQ abdominal pain, there was a concern for a possible SBP and patient was covered with empiric broad spectrum IV antibiotics. peritoneal fluid analysis: no bacteria seem. a CT abd/pelvis: unremarkable. Hem&onc was consulted and recommended outpatient follow up. Patient is hemodynamically stable to be discharged home. PT/OT evaluated the patient and recommended SNF but patient refused and preferred to go home with home health. - Time Spent with Patient Total time spent providing and/or coordinating discharge services: Time spent: Greater than 30 minutes (40) - Discharge Medications Prescriptions: New Cefdinir [Omnicef] 300 mg PO BID 3 Days #6 capsule Continued Atorvastatin [Lipitor] 80 mg PO DAILY Folic Acid 1 mg PO DAILY Cyanocobalamin (B-12) [Vitamin B12] 1,000 mcg PO DAILY Clopidogrel [Plavix] 75 mg PO DAILY Sodium Bicarbonate 650 mg PO BID Nebivolol HCl [Bystolic] 10 mg PO BID Fluticasone Propionate Nasal [Flonase] 2 spray NS BID Fexofenadine HCl 180 mg PO DAILY PRN PRN Reason: Allergy Symptoms Ferrous Sulfate [Iron] 325 mg PO DAILY Famotidine [Pepcid] 40 mg PO BID Amitriptyline HCl 50 mg PO HS Acetaminophen [Acetaminophen ER] 650 mg PO Q6H PRN PRN Reason: Pain Calcitriol 0.5 mcg PO BID Ergocalciferol (VITAMIN D2) [Vitamin D2] 50,000 unit PO 3XW Gabapentin [Neurontin] 200 mg PO HS Mirtazapine [Remeron] 15 mg PO HS Calcium Acetate 667 mg PO TIDWM Artificial Tears SOLN [Akwa Tears] 1 drop BOTH EYES HS Darbepoetin Noe in Polysorbat [Aranesp] 40 mcg IJ Q2W Gentamicin Sulfate Cream [Garamycin] 1 appl TP AD Lactulose [Enulose] 10 gm PO DAILY PRN PRN Reason: unkown NIFEdipine [Nifedipine ER] 90 mg PO DAILY Melatonin [Melatin] 3 mg PO HS PRN PRN Reason: Sleep Psyllium [Metamucil Fiber Singles Packet] 28 mg PO TID PRN PRN Reason: Constipation Cinacalcet HCl [Sensipar] 60 mg PO HS Albuterol Sulfate [Proair Respiclick] 2 puff PO Q6H PRN PRN Reason: Shortness Of Breath Citalopram Hydrobromide [Citalopram HBr] 40 mg PO QPM Losartan Potassium 50 mg PO BID Montelukast [Singulair] 10 mg PO QPM Ondansetron HCl 4 mg PO Q8H PRN PRN Reason: Nausea Pantoprazole Sodium [Protonix] 40 mg PO DAILY Sennosides/Docusate Sodium [Docusate Sodium-Sennosides Tab] 1 tab PO QPM PRN PRN Reason: Constipation Sevelamer [Renvela] 800 mg PO 1200 Triamcinolone Acetonide 1 appl TP BID Doxycycline Hyclate [Vibramycin] 100 mg PO BID 3 Days #6 capsule Discontinued cloNIDine HCl [CloNIDine HCl] 0.1 mg PO DAILY PRN PRN Reason: FOR BP >180/90 Home Medications: Acetaminophen [Acetaminophen ER] 650 mg PO Q6H PRN 01/29/18 [History] Amitriptyline HCl 50 mg PO HS 01/29/18 [History] Atorvastatin [Lipitor] 80 mg PO DAILY 01/29/18 [History] Clopidogrel [Plavix] 75 mg PO DAILY 01/29/18 [History] Cyanocobalamin (B-12) [Vitamin B12] 1,000 mcg PO DAILY 01/29/18 [History] Famotidine [Pepcid] 40 mg PO BID 01/29/18 [History] Ferrous Sulfate [Iron] 325 mg PO DAILY 01/29/18 [History] Fexofenadine HCl 180 mg PO DAILY PRN 01/29/18 [History] Fluticasone Propionate Nasal [Flonase] 2 spray NS BID 01/29/18 [History] Folic Acid 1 mg PO DAILY 01/29/18 [History] Nebivolol HCl [Bystolic] 10 mg PO BID 01/29/18 [History] Sodium Bicarbonate 650 mg PO BID 01/29/18 [History] Calcitriol 0.5 mcg PO BID 09/01/18 [History] Ergocalciferol (VITAMIN D2) [Vitamin D2] 50,000 unit PO 3XW 09/01/18 [History] Gabapentin [Neurontin] 200 mg PO HS 09/01/18 [History] Mirtazapine [Remeron] 15 mg PO HS 09/01/18 [History] Artificial Tears SOLN [Akwa Tears] 1 drop BOTH EYES HS 01/10/19 [History] Calcium Acetate 667 mg PO TIDWM 01/10/19 [History] Cinacalcet HCl [Sensipar] 60 mg PO HS 01/10/19 [History] Darbepoetin Noe in Polysorbat [Aranesp] 40 mcg IJ Q2W 01/10/19 [History] Gentamicin Sulfate Cream [Garamycin] 1 appl TP AD 01/10/19 [History] Lactulose [Enulose] 10 gm PO DAILY PRN 01/10/19 [History] Melatonin [Melatin] 3 mg PO HS PRN 01/10/19 [History] NIFEdipine [Nifedipine ER] 90 mg PO DAILY 01/10/19 [History] Psyllium [Metamucil Fiber Singles Packet] 28 mg PO TID PRN 01/10/19 [History] Albuterol Sulfate [Proair Respiclick] 2 puff PO Q6H PRN 01/11/19 [History] Citalopram Hydrobromide [Citalopram HBr] 40 mg PO QPM 01/11/19 [History] Losartan Potassium 50 mg PO BID 01/11/19 [History] Montelukast [Singulair] 10 mg PO QPM 01/11/19 [History] Ondansetron HCl 4 mg PO Q8H PRN 01/11/19 [History] Pantoprazole Sodium [Protonix] 40 mg PO DAILY 01/11/19 [History] Sennosides/Docusate Sodium [Docusate Sodium-Sennosides Tab] 1 tab PO QPM PRN 0 01/11/19 [History] Sevelamer [Renvela] 800 mg PO 1200 01/11/19 [History] Triamcinolone Acetonide 1 appl TP BID 01/11/19 [History] Cefdinir [Omnicef] 300 mg PO BID 3 Days #6 capsule 01/17/19 [Rx] Doxycycline Hyclate [Vibramycin] 100 mg PO BID 3 Days #6 capsule 01/17/19 [Rx] Allergies/Adverse Reactions: Allergy/AdvReac Type Severity Reaction Status Date / Time latex Allergy Rash Verified 01/10/19 11:36 Penicillins Allergy Rash Verified 01/10/19 11:36 prednisone Allergy "CRAZY" Verified 01/10/19 11:36 sulfur dioxide Allergy Rash Verified 01/10/19 11:36 aspirin AdvReac See Verified 01/10/19 11:36 Comments spironolactone AdvReac Hypertensio Verified 01/10/19 11:36 n Date of admission: 01/15/19 18:24 Primary care physician: Matt Dimas MD Consults: 01/10/19 16:39 Consult to Nephrology [CONS] Stat Consulting Provider: Kidney Angie/PROSPER/[place]/SELWYN Reason for Consult: On peritoneal dialysis at home. Spoke with Svetlana about this patient. Call Completed: Yes 01/10/19 21:00 Consult to Dialysis [CONS] ONCE 01/11/19 09:38 Consult to Nurse Navigator [CONS] Routine Comment: pd 01/11/19 13:45 Consult to Dialysis [CONS] ONCE 01/12/19 13:20 Consult to Gastroenterology [CONS] Routine Consulting Provider: Gastroenterology Angie Reason for Consult: anemia work up Call Completed: No 01/12/19 15:28 Consult to Occupational Therapy [CONS] Routine Comment: Evaluate, develop and implement POC Reason for Consult: generalized weakness Does patient have active BEDREST order?: No Is patient medically & hemodynamically stable?: Yes Consult to Physical Therapy [CONS] Routine Comment: Evaluate, develop and implement POC Reason for Consult: generalized weakness Does patient have active BEDREST order?: No Is patient medically & hemodynamically stable?: Yes 01/12/19 20:45 Consult to Dialysis [CONS] ONCE 01/13/19 12:16 Consult to Infectious Diseases [CONS] Routine Consulting Provider: Infectious Disease Angie Reason for Consult: leukocytosis. elevated procal. no clear source of infection Call Completed: No 01/13/19 16:45 Consult to Dialysis [CONS] ONCE 01/14/19 09:42 Consult to Delicatessen Slicer [CONS] Routine Reason for SW Consult: pt needs swing 01/14/19 12:45 Consult to Dialysis [CONS] ONCE 01/14/19 13:26 Consult to Oncology Hematology [CONS] Routine Consulting Provider: Nic Romano Reason for Consult: chronic leukocytosis Call Completed: Yes 01/15/19 07:45 Consult to Dialysis [CONS] DAILY 01/16/19 07:45 Consult to Dialysis [CONS] DAILY 01/17/19 07:45 Consult to Dialysis [CONS] DAILY 01/18/19 07:45 Consult to Dialysis [CONS] DAILY 01/19/19 07:45 Consult to Dialysis [CONS] DAILY 01/20/19 07:45 Consult to Dialysis [CONS] DAILY - Constitutional Vitals: Temp Pulse Resp BP Pulse Ox 98.3 F 79 19 124/73 93 01/17/19 11:03 01/17/19 11:03 01/17/19 11:03 01/17/19 11:03 01/17/19 11:03 General appearance: Present: A&O X 3, pleasant, no acute distress, answers questions appropriately Exam: Vitals: Reviewed General: Alert and oriented x4. No distress Cardiovascular: RRR, normal S1 & S2, no rubs, murmurs or gallops. Lungs: CTA b/l, no wheezes or crackles. Abdomen: Obese, soft, no tenderness to deep or superficial palpation, no rigidity or guarding. NABS in all 4 quadrants Extremities: No edema Neurological: No focal neurological abnormalities Rest of the physical exam is non contributory - Patient Status Disposition: Home Health Service Condition: Good Functional capacity at discharge: independent ambulation Overall status at discharge: patient is progressing back to baseline - Discharge Instructions Follow Up With: Matt Dimas MD [Primary Care Provider] - - Diet and Activity Activity: as per physical therapy, resume usual activities as tolerated Diet: advance to your usual diet, diabetic diet
--- NOTE | 2019-01-17 12:00 | Physician Discharge Referral ---
Home Health/Hosp Referral Info Transfer to: Home Health - Diagnosis (1) Leukocytosis Priority: Primary Status: Acute (2) Anemia Priority: Secondary Status: Chronic (3) Hyperlipidemia Priority: Secondary Status: Chronic (4) Weakness Priority: Secondary Status: Acute (5) CVA (cerebral vascular accident) Priority: Secondary Status: Chronic (6) ESRD on peritoneal dialysis Priority: Secondary Status: Chronic (7) HTN (hypertension) Priority: Secondary Status: Chronic - Respiratory Orders None Smoking Cessation: Smoking cessation has been advised. For more information, call the [place] Tobacco Quit Line at 7-184-FQHE-NOW. - Diet/Nutrition Diet/Nutrition Orders: Regular - Activity Activity Orders: Ambulate - Services Needed Following services are medically necessary services: Home Health Aide, Physical Therapy, Occupational Therapy - Transfer Medications Prescriptions: Cefdinir [Omnicef] 300 mg PO BID 3 Days #6 capsule Doxycycline Hyclate [Vibramycin] 100 mg PO BID 3 Days #6 capsule Home Medications: Acetaminophen [Acetaminophen ER] 650 mg PO Q6H PRN 01/29/18 [History] Amitriptyline HCl 50 mg PO HS 01/29/18 [History] Atorvastatin [Lipitor] 80 mg PO DAILY 01/29/18 [History] Clopidogrel [Plavix] 75 mg PO DAILY 01/29/18 [History] Cyanocobalamin (B-12) [Vitamin B12] 1,000 mcg PO DAILY 01/29/18 [History] Famotidine [Pepcid] 40 mg PO BID 01/29/18 [History] Ferrous Sulfate [Iron] 325 mg PO DAILY 01/29/18 [History] Fexofenadine HCl 180 mg PO DAILY PRN 01/29/18 [History] Fluticasone Propionate Nasal [Flonase] 2 spray NS BID 01/29/18 [History] Folic Acid 1 mg PO DAILY 01/29/18 [History] Nebivolol HCl [Bystolic] 10 mg PO BID 01/29/18 [History] Sodium Bicarbonate 650 mg PO BID 01/29/18 [History] Calcitriol 0.5 mcg PO BID 09/01/18 [History] Ergocalciferol (VITAMIN D2) [Vitamin D2] 50,000 unit PO 3XW 09/01/18 [History] Gabapentin [Neurontin] 200 mg PO HS 09/01/18 [History] Mirtazapine [Remeron] 15 mg PO HS 09/01/18 [History] Artificial Tears SOLN [Akwa Tears] 1 drop BOTH EYES HS 01/10/19 [History] Calcium Acetate 667 mg PO TIDWM 01/10/19 [History] Cinacalcet HCl [Sensipar] 60 mg PO HS 01/10/19 [History] Darbepoetin Noe in Polysorbat [Aranesp] 40 mcg IJ Q2W 01/10/19 [History] Gentamicin Sulfate Cream [Garamycin] 1 appl TP AD 01/10/19 [History] Lactulose [Enulose] 10 gm PO DAILY PRN 01/10/19 [History] Melatonin [Melatin] 3 mg PO HS PRN 01/10/19 [History] NIFEdipine [Nifedipine ER] 90 mg PO DAILY 01/10/19 [History] Psyllium [Metamucil Fiber Singles Packet] 28 mg PO TID PRN 01/10/19 [History] Albuterol Sulfate [Proair Respiclick] 2 puff PO Q6H PRN 01/11/19 [History] Citalopram Hydrobromide [Citalopram HBr] 40 mg PO QPM 01/11/19 [History] Losartan Potassium 50 mg PO BID 01/11/19 [History] Montelukast [Singulair] 10 mg PO QPM 01/11/19 [History] Ondansetron HCl 4 mg PO Q8H PRN 01/11/19 [History] Pantoprazole Sodium [Protonix] 40 mg PO DAILY 01/11/19 [History] Sennosides/Docusate Sodium [Docusate Sodium-Sennosides Tab] 1 tab PO QPM PRN 01/11/19 [History] Sevelamer [Renvela] 800 mg PO 1200 01/11/19 [History] Triamcinolone Acetonide 1 appl TP BID 01/11/19 [History] Cefdinir [Omnicef] 300 mg PO BID 3 Days #6 capsule 01/17/19 [Rx] Doxycycline Hyclate [Vibramycin] 100 mg PO BID 3 Days #6 capsule 01/17/19 [Rx] Allergies/Adverse Reactions: Allergy/AdvReac Type Severity Reaction Status Date / Time latex Allergy Rash Verified 01/10/19 11:36 Penicillins Allergy Rash Verified 01/10/19 11:36 prednisone Allergy "CRAZY" Verified 01/10/19 11:36 sulfur dioxide Allergy Rash Verified 01/10/19 11:36 aspirin AdvReac See Verified 01/10/19 11:36 Comments spironolactone AdvReac Hypertensio Verified 01/10/19 11:36 n Certification: Further, I certify that my clinical findings support that this patient is homebound (i.e. absences from home require considerable and taxing effort and are for medical reasons or tenriism services or infrequently or short duration when for other reasons) because: Homebound Reason: Patient requires assistance of a person or device to safely leave home Attestation: My signature below is to certify that this patient is under my care and that I, or nurse practitioner, or a physician's insurance administrative assistant working with me, has a [id number] encounter with this patient.
[2019-01-17] MEDS ORDERED: Aminoglycoside Consult 1 EACH MC ONE (15:40)
[2019-01-18 14:42] LABS: BCR-ABL1 Specimen Source NOT SPECIFIED
== END 2019-01-17 15:41 | disposition home health service (06) | DRG 377 ==
LOC: 2ANU 11:33 → EMEROOARM 11:33 → SUATTDRO 17:10 → 2ANU 18:18
PROVIDERS: ADMIT Internal Medicine Nephrology; ATTEND Internal Medicine
PROC: ENDOEBX (2019-01-14 08:50)

== ENCOUNTER 2019-01-24 12:02 | Observation (INO) ==
--- NOTE | 2019-01-24 13:01 | Emergency Department Note ---
Disposition Clinical Impression: Chronic anemia, TIA (transient ischemic attack), Peritoneal dialysis catheter in place Altered mental status Qualifiers: Altered mental status type: unspecified Qualified Code(s): R41.82 - Altered mental status, unspecified Disposition: Admitted As Inpatient Condition: Fair Time of Disposition: 18:00 General Adult HPI - General Chief complaint: ED General Medical Stated complaint: "blood pressure issue,fever" Time Seen by Provider: 01/24/19 12:58 Nursing Notes Reviewed: Yes Vital Signs Reviewed: Yes - History of Present Illness Pain Scale: 0 - Related Data Home Medications Medication Instructions Recorded Confirmed Acetaminophen [Acetaminophen ER] 650 mg PO Q6H PRN 01/29/18 01/24/19 Amitriptyline HCl 50 mg PO HS 01/29/18 01/24/19 Atorvastatin [Lipitor] 80 mg PO DAILY 01/29/18 01/24/19 Clopidogrel [Plavix] 75 mg PO DAILY 01/29/18 01/24/19 Cyanocobalamin (B-12) [Vitamin B12] 1,000 mcg PO DAILY 01/29/18 01/24/19 Famotidine [Pepcid] 40 mg PO BID 01/29/18 01/24/19 Ferrous Sulfate [Iron] 325 mg PO DAILY 01/29/18 01/24/19 Fexofenadine HCl 180 mg PO DAILY PRN 01/29/18 01/24/19 Fluticasone Propionate Nasal 2 spray NS BID 01/29/18 01/24/19 [Flonase] Folic Acid 1 mg PO DAILY 01/29/18 01/24/19 Nebivolol HCl [Bystolic] 10 mg PO BID 01/29/18 01/24/19 Sodium Bicarbonate 650 mg PO BID 01/29/18 01/24/19 Calcitriol 0.5 mcg PO BID 09/01/18 01/24/19 Mirtazapine [Remeron] 15 mg PO HS 09/01/18 01/24/19 Artificial Tears SOLN [Akwa Tears] 1 drop BOTH EYES HS PRN 01/10/19 01/24/19 Calcium Acetate 667 mg PO TIDWM 01/10/19 01/24/19 Cinacalcet HCl [Sensipar] 60 mg PO HS 01/10/19 01/24/19 Lactulose [Enulose] 10 gm PO DAILY PRN 01/10/19 01/24/19 Melatonin [Melatin] 3 mg PO HS PRN 01/10/19 01/24/19 NIFEdipine [Nifedipine ER] 90 mg PO DAILY 01/10/19 01/24/19 Psyllium [Metamucil Fiber Singles 1 packet PO TID PRN 01/10/19 01/24/19 Packet] Albuterol Sulfate [Proair 2 puff PO Q6H PRN 01/11/19 01/24/19 Respiclick] Citalopram Hydrobromide 40 mg PO QPM 01/11/19 01/24/19 [Citalopram HBr] Losartan Potassium 50 mg PO BID 01/11/19 01/24/19 Montelukast [Singulair] 10 mg PO QPM 01/11/19 01/24/19 Pantoprazole Sodium [Protonix] 40 mg PO DAILY 01/11/19 01/24/19 Sennosides/Docusate Sodium 1 tab PO QPM PRN 01/11/19 01/24/19 [Docusate Sodium-Sennosides Tab] Sevelamer [Renvela] 800 mg PO 1200 01/11/19 01/24/19 Triamcinolone Acetonide 1 appl TP BID 01/11/19 01/24/19 Allergies Allergy/AdvReac Type Severity Reaction Status Date / Time latex Allergy Rash Verified 01/24/19 10:49 Penicillins Allergy Rash Verified 01/24/19 10:49 prednisone Allergy "CRAZY" Verified 01/24/19 10:49 sulfur dioxide Allergy Rash Verified 01/24/19 10:49 aspirin AdvReac See Verified 01/24/19 10:49 Comments spironolactone AdvReac Hypertensio Verified 01/24/19 10:49 n Past Medical History - Past Medical History Medical history: Reports: asthma, CVA, GERD, hyperlipidemia, hypertension, renal disease, TIA, other Surgical history: Reports: , cholecystectomy, hysterectomy, orthopedic, other, other, arthroscopy Psychiatric history: Reports: no psych history BLOOD BANK TECHNICIAN history: Reports: no BLOOD BANK TECHNICIAN history - Social History Smoking Status: Never smoker Smokeless Tobacco Status: No Alcohol use: Reports: none Drug use: Reports: none Course Vital Signs Temperature 98.6 F 01/24/19 12:27 Pulse Rate 71 01/24/19 12:27 Respiratory Rate 18 01/24/19 12:27 Blood Pressure 134/77 01/24/19 12:27 O2 Sat by Pulse Oximetry 100 01/24/19 12:27 Temperature 98.6 F 01/24/19 12:54 Pulse Rate 73 01/24/19 16:40 Respiratory Rate 11 01/24/19 17:20 Blood Pressure 129/70 01/24/19 17:20 O2 Sat by Pulse Oximetry 97 01/24/19 16:40 Oxygen Delivery Oxygen Delivery Room Air Medical Decision Making - MDM Narrative Medical decision making narrative: Head CT 01/24/19 13:01 IMPRESSION: No acute intracranial abnormality. Findings were discussed with Dr. Wilburn on 01/24/2019 at 1:15 p.m.. D/ / Alyssa Chew MD / Alyssa Chew MD Interpreting Provider: Alyssa Chew MD Chest X-Ray 01/24/19 13:02 IMPRESSION: No acute cardiopulmonary process. D/ / Boby Martinez MD / Boby Martinez MD Interpreting Provider: Boby Martinez MD 1400 hrs.: CT shows nothing acute. X-ray is nonacute. Spoke with tele-neurolog y at [facility], they feel that this does not need to be transferred to them. She is outside the window for TPA or intervention. Going to keep her here. Once her labs are back we will discuss with hospitalist and neurology. They are in agreement with plan. 1620 hrs.: Speaking with hospitalist now for admission. - Lab Data Result diagrams: 01/24/19 12:58 01/24/19 12:58 Lab Results 01/24/19 01/24/19 01/24/19 Range/Units 12:58 12:58 12:58 WBC 11.2 H (4.3-11.1) K/mcL RBC 2.81 L (3.82-4.97) M/mcL Hgb 8.7 L (11.5-15.4) g/dL Hct 29.2 L (35.3-44.9) % MCV 103.9 H (83.0-100.0) fL MCH 31.0 (28.0-33.3) pg MCHC 29.8 L (31.6-35.5) g/dL RDW 14.8 H (11.5-14.5) % Plt Count 327 (140-400) K/mcL MPV 9.8 (9.4-12.4) fL PT 11.3 (9.4-12.1) Seconds INR 1.0 APTT 23.3 L (26.0-36.0) Seconds Sodium 145 (136-145) mEq/L Potassium 4.1 (3.5-5.1) mEq/L Chloride 106 (98-107) mEq/L Carbon Dioxide 29 (23-29) mEq/L BUN 43 H (8-23) mg/dL Creatinine 12.12 H (0.60-1.20) mg/dL Est GFR ( Amer) 4 L (> 60) Est GFR (Non-Af Amer) 3 L (> 60) BUN/Creatinine Ratio 4 L (6-26) Glucose 104 (70-105) mg/dL POC Glucose (70-99) mg/dL Calculated Osmolality 311 H (280-300) Calcium 8.7 (8.6-10.3) mg/dL Troponin I < 0.03 (< 0.04) ng/mL Urine Color (Yellow) Urine Clarity (Clear) Urine pH (5.0-8.0) pH Units Ur Specific [place] (1.010-1.025) Urine Protein (Neg-Trace) mg/dL Urine Glucose (UA) (Normal) mg/dL Urine Ketones (Negative) mg/dL Urine Blood (Negative) Urine Nitrite (Negative) Urine Bilirubin (Negative) Urine Urobilinogen (Normal) mg/dL Ur Leukocyte Esterase (Negative) Urine Microscopic RBC (0-3) per hpf Urine Microscopic WBC (0-3) per hpf Ur Squamous Epith Cells (None-Few) per lpf Ur Renal Epithelial Cell (None-Few) per hpf Amorphous Sediment (Few) Urine Bacteria (None-Few) per hpf Ur Culture Indicated? (NO) Urine Sodium mEq/L 01/24/19 01/24/19 01/24/19 Range/Units 13:11 14:33 14:44 WBC (4.3-11.1) K/mcL RBC (3.82-4.97) M/mcL Hgb (11.5-15.4) g/dL Hct (35.3-44.9) % MCV (83.0-100.0) fL MCH (28.0-33.3) pg MCHC (31.6-35.5) g/dL RDW (11.5-14.5) % Plt Count (140-400) K/mcL MPV (9.4-12.4) fL PT (9.4-12.1) Seconds INR APTT (26.0-36.0) Seconds Sodium (136-145) mEq/L Potassium (3.5-5.1) mEq/L Chloride (98-107) mEq/L Carbon Dioxide (23-29) mEq/L BUN (8-23) mg/dL Creatinine (0.60-1.20) mg/dL Est GFR ( Amer) (> 60) Est GFR (Non-Af Amer) (> 60) BUN/Creatinine Ratio (6-26) Glucose (70-105) mg/dL POC Glucose 91 (70-99) mg/dL Calculated Osmolality (280-300) Calcium (8.6-10.3) mg/dL Troponin I (< 0.04) ng/mL Urine Color Yellow (Yellow) Urine Clarity Cloudy A (Clear) Urine pH 6.0 (5.0-8.0) pH Units Ur Specific [place] 1.020 (1.010-1.025) Urine Protein 100 H (Neg-Trace) mg/dL Urine Glucose (UA) Normal (Normal) mg/dL Urine Ketones Negative (Negative) mg/dL Urine Blood Small H (Negative) Urine Nitrite Negative (Negative) Urine Bilirubin Negative (Negative) Urine Urobilinogen Normal (Normal) mg/dL Ur Leukocyte Esterase Small H (Negative) Urine Microscopic RBC 0-3 (0-3) per hpf Urine Microscopic WBC 5-15 H (0-3) per hpf Ur Squamous Epith Cells Many H (None-Few) per lpf Ur Renal Epithelial Cell Few (None-Few) per hpf Amorphous Sediment Many H (Few) Urine Bacteria None Seen (None-Few) per hpf Ur Culture Indicated? YES A (NO) Urine Sodium < 10.0 mEq/L Attestation Statement - Attestation Attestation: This documentation is done with the assistance of Stefan dictation. Despite efforts made to ensure accuracy, there may be inaccuracies in shot peen operator or spelling and typographical errors. I examined this patient and my medical decision-making was reviewed with the Resident Physician. I agree with the documented findings, disposition and treatment plan as described except to the extent set forth below. Patient was seen and evaluated by Dr. Wilburn and myself, I agree with his evaluation and management plan, I supervised the care the patient throughout her stay. Patient presents with EMS and family. She started having worsening symptoms or symmetric previous stroke with right-sided facial droop and weakness. That is or runny o'clock last night she is also having some cough and fevers with yellow sputum. He did come in this morning her symptoms are still persistent. Rented still call her as a stroke alert as she is within 24 hours of symptom onset, however she is otherwise give TPA. We will also do a workup for infection. She does not meet SIRS criteria at this point. Most likely she will need ad mission. I reviewed the residents documentation and agree with the residents assessment and plan of care. I have personally had face to face time with the patient. (Brief History, Brief Exam, and MDM) I personally supervised and was present for the duarte/critical portions of the following procedures completed by the resident: EKG was read and interpreted by the ER resident, under my supervision, I agree with her interpretation.
[2019-01-24 13:08] LABS: Hematocrit 29.2 % (35.3-44.9); Hemoglobin 8.7 g/dL (11.5-15.4); Mean Corpuscular HGB Conc 29.8 g/dL (31.6-35.5); Mean Corpuscular Volume 103.9 fL (83.0-100.0); Mean Platelet Volume 9.8 fL (9.4-12.4); Platelet Count 327 K/mcL (140-400); Red Blood Count 2.81 M/mcL (3.82-4.97); Red Cell Distribution Width 14.8 % (11.5-14.5); White Blood Count 11.2 K/mcL (4.3-11.1)
[2019-01-24 13:16] LABS: Prothrombin Time 11.3 Seconds (9.4-12.1)
[2019-01-24 13:19] LABS: Activated Partial Thrombo Time 23.3 Seconds (26.0-36.0)
[2019-01-24 13:29] LABS: BUN/Creatinine Ratio 4 (6-26); Blood Urea Nitrogen 43 mg/dL (8-23); Calcium 8.7 mg/dL (8.6-10.3); Carbon Dioxide 29 mEq/L (23-29); Chloride 106 mEq/L (98-107); Glucose 104 mg/dL (70-105); Osmolality,Calculated 311 (280-300); Potassium 4.1 mEq/L (3.5-5.1); Sodium 145 mEq/L (136-145); Troponin I < 0.03 ng/mL (< 0.04); eGFR For African Americans 4 (> 60); eGFR For Non-African Americans 3 (> 60)
[2019-01-24] MEDS ORDERED: Isovue-370 500 ML BOTTLE IVP ONE (13:43)
--- NOTE | 2019-01-24 14:02 | Emergency Department Note ---
Disposition Clinical Impression: Chronic anemia, TIA (transient ischemic attack), Peritoneal dialysis catheter in place Altered mental status Qualifiers: Altered mental status type: unspecified Qualified Code(s): R41.82 - Altered mental status, unspecified Disposition: Admitted As Inpatient Condition: Fair Time of Disposition: 16:21 General Adult HPI - General Chief complaint: ED Neuro Symptoms/Deficit Stated complaint: "blood pressure issue,fever" Time Seen by Provider: 01/24/19 12:58 Source: patient, family Mode of arrival: EMS Limitations: no limitations Nursing Notes Reviewed: Yes Vital Signs Reviewed: Yes - History of Present Illness HPI Narrative: Patient is a 63-year-old female with PMHx of peritoneal dialysis, and CVA in 2015 and TIAs, presenting to the ED for evaluation of right-sided facial droop and slurred speech that started at 20:00 last night. Patient states patient has had fever as well that she has been drowsy. Her temperature was 101. States this morning she had exacerbation of her right-sided facial droop. She and slurred speech. He states that she is also been drowsy however she is typically drowsy when her systolic blood pressure is less than 160 so this is not a new finding for her. He states that she has had a cough recently that appears to be productive over the past 3 days. Pain Scale: 0 - Related Data Home Medications Medication Instructions Recorded Confirmed Acetaminophen [Acetaminophen ER] 650 mg PO Q6H PRN 01/29/18 01/24/19 Amitriptyline HCl 50 mg PO HS 01/29/18 01/24/19 Atorvastatin [Lipitor] 80 mg PO DAILY 01/29/18 01/24/19 Clopidogrel [Plavix] 75 mg PO DAILY 01/29/18 01/24/19 Cyanocobalamin (B-12) [Vitamin B12] 1,000 mcg PO DAILY 01/29/18 01/24/19 Famotidine [Pepcid] 40 mg PO BID 01/29/18 01/24/19 Ferrous Sulfate [Iron] 325 mg PO DAILY 01/29/18 01/24/19 Fexofenadine HCl 180 mg PO DAILY PRN 01/29/18 01/24/19 Fluticasone Propionate Nasal 2 spray NS BID 01/29/18 01/24/19 [Flonase] Folic Acid 1 mg PO DAILY 01/29/18 01/24/19 Nebivolol HCl [Bystolic] 10 mg PO BID 01/29/18 01/24/19 Sodium Bicarbonate 650 mg PO BID 01/29/18 01/24/19 Calcitriol 0.5 mcg PO BID 09/01/18 01/24/19 Mirtazapine [Remeron] 15 mg PO HS 09/01/18 01/24/19 Artificial Tears SOLN [Akwa Tears] 1 drop BOTH EYES HS PRN 01/10/19 01/24/19 Calcium Acetate 667 mg PO TIDWM 01/10/19 01/24/19 Cinacalcet HCl [Sensipar] 60 mg PO HS 01/10/19 01/24/19 Lactulose [Enulose] 10 gm PO DAILY PRN 01/10/19 01/24/19 Melatonin [Melatin] 3 mg PO HS PRN 01/10/19 01/24/19 NIFEdipine [Nifedipine ER] 90 mg PO DAILY 01/10/19 01/24/19 Psyllium [Metamucil Fiber Singles 1 packet PO TID PRN 01/10/19 01/24/19 Packet] Albuterol Sulfate [Proair 2 puff PO Q6H PRN 01/11/19 01/24/19 Respiclick] Citalopram Hydrobromide 40 mg PO QPM 01/11/19 01/24/19 [Citalopram HBr] Losartan Potassium 50 mg PO BID 01/11/19 01/24/19 Montelukast [Singulair] 10 mg PO QPM 01/11/19 01/24/19 Pantoprazole Sodium [Protonix] 40 mg PO DAILY 01/11/19 01/24/19 Sennosides/Docusate Sodium 1 tab PO QPM PRN 01/11/19 01/24/19 [Docusate Sodium-Sennosides Tab] Sevelamer [Renvela] 800 mg PO 1200 01/11/19 01/24/19 Triamcinolone Acetonide 1 appl TP BID 01/11/19 01/24/19 Allergies Allergy/AdvReac Type Severity Reaction Status Date / Time latex Allergy Rash Verified 01/24/19 10:49 Penicillins Allergy Rash Verified 01/24/19 10:49 prednisone Allergy "CRAZY" Verified 01/24/19 10:49 sulfur dioxide Allergy Rash Verified 01/24/19 10:49 aspirin AdvReac See Verified 01/24/19 10:49 Comments spironolactone AdvReac Hypertensio Verified 01/24/19 10:49 n All systems ED: reviewed and negative except as stated. Review of Systems: As Per HPI Constitutional: Reports: fever, chills, weakness Cardiovascular: Denies: chest pain, palpitations, dyspnea on exertion, edema, syncope, paroxysmal nocturnal dyspnea Respiratory: Reports: cough, sputum production. Denies: dyspnea, wheezes Gastrointestinal: Denies: abdominal pain, nausea, vomiting, diarrhea Genitourinary: Denies: urgency, dysuria, frequency Musculoskeletal: Denies: back pain, neck pain Integumentary: Denies: rash Neurological: Denies: headache, weakness, numbness, paresthesias, confusion Psychiatric: Denies: anxiety, depression Past Medical History - Past Medical History Attestation: Yes The following information was validated with the patient. Medical history: Reports: hypertension Surgical history: Reports: , cholecystectomy, hysterectomy, orthopedic, other, other, arthroscopy Psychiatric history: Reports: no psych history DOT COMPLIANCE COORDINATOR history: Reports: no DOT COMPLIANCE COORDINATOR history - Social History Smoking Status: Never smoker Smokeless Tobacco Status: No Alcohol use: Reports: none Drug use: Reports: none Physical Exam - General Limitations: no limitations General appearance: other (drowsy but arousable and answers questions approriately) - Head Head exam: atraumatic, normocephalic, normal inspection - Eye Eye exam: Present: normal appearance, PERRL, EOMI. Absent: miosis, mydriasis - ENT ENT exam: normal exam, normal oropharynx, mucous membranes moist - Neck Neck exam: Present: normal inspection, full ROM, trachea midline - Chest Chest inspection: Present: normal inspection, symmetric chest wall rise. Absent: tenderness - Respiratory Respiratory exam: Present: normal lung sounds bilaterally. Absent: respiratory distress, wheezes - Cardiovascular Cardiovascular exam: Present: regular rate, normal rhythm, normal heart sounds, +S1, +S2 - Abdominal Exam Abdominal exam: Present: soft, Non-Tender, other (abdominal peritoneal dialysis catheter present with no surrounding erythema or induration. ). Absent: tenderness, distention, guarding, rebound, rigidity - Extremities Exam Extremities exam: Present: normal inspection, full ROM. Absent: tenderness, pedal edema - Back Exam Back exam: Present: normal inspection, full ROM. Absent: tenderness, CVA tenderness (R), CVA tenderness (L) - Neurological Exam Neurological exam: Present: alert, oriented X3 - Expanded Neurological Exam Patient oriented to: Present: person, place, time Speech: Present: expressive aphasia Cranial nerves: EOM function (II, III, IV, ): Normal, facial sensation (V): Normal, facial palsy (VII): Abnormal Right, gag reflex (IX): Normal, spinal accessory function (XI): Normal, tongue deviation (XII): Normal Cerebellar function: finger to nose: Normal, heel to adams: Normal Cerebellar function: normal gait Motor strength - LUE: 5/5 Motor strength - RUE: 5/5 Motor strength - LLE: 5/5 Motor strength - RLE: 5/5 Sensory exam upper extremity: light touch: Normal Sensory exam lower extremity: light touch: Normal Coma Scale Eye Opening: Spontaneous Coma Scale Motor Response: Obeys Commands Coma Scale Verbal Response: Oriented Coma Scale Total: 15 - Psychiatric Psychiatric exam: Present: normal affect, normal mood - Skin Skin exam: Present: warm, dry, intact, normal color Course Course Narrative: Patient NIHSS Score is 3. Stroke alert was called given patient's symptom onset of 8 clock p.m. yesterday evening less than 24 hours. [facility] tele-stroke was not indicated given that she is out of the window of TPA. I spoke directly with the neurologist at [facility] they recommended with her current symptoms and presentation further evaluation at our facility no need for transfer at this time. The patient's head CT was unremarkable. The patient's lab work showed a hemoglobin of 8.7 which appears to be chronic. Urinalysis was negative for infection. Patient resolution of stroke like exacerbation while in the ED and return to her baseline. Given the normal imaging at this time we searched for an alternative source of the patient's exacerbation of chronic stroke symptoms such as infection which did not appear to be coming from the urine or the chest x-ray. Discussed with the hospitalist plan to the patient at this time. Discussed consideration of obtaining a sample of peritoneal fluid from the patient's peritoneal dialysis catheter, however Dr. King recommends one of their speciali sts obtain the sample today when she undergoes peritoneal dialysis. Discussed admission with the hospitalist and they agree to accept the patient. Vital Signs Temperature 98.6 F 01/24/19 12:27 Pulse Rate 71 01/24/19 12:27 Respiratory Rate 18 01/24/19 12:27 Blood Pressure 134/77 01/24/19 12:27 O2 Sat by Pulse Oximetry 100 01/24/19 12:27 Temperature 98.6 F 01/24/19 12:54 Pulse Rate 73 01/24/19 16:40 Respiratory Rate 11 01/24/19 17:20 Blood Pressure 129/70 01/24/19 17:20 O2 Sat by Pulse Oximetry 97 01/24/19 16:40 Oxygen Delivery Oxygen Delivery Room Air Medical Decision Making - Medical Records Medical records reviewed: Yes I reviewed the patient's medical records. - Lab Data Lab results reviewed: Yes I reviewed the patient's lab results. Result diagrams: 01/24/19 12:58 01/24/19 12:58 Lab Results 01/24/19 01/24/19 01/24/19 Range/Units 12:58 12:58 12:58 WBC 11.2 H (4.3-11.1) K/mcL RBC 2.81 L (3.82-4.97) M/mcL Hgb 8.7 L (11.5-15.4) g/dL Hct 29.2 L (35.3-44.9) % MCV 103.9 H (83.0-100.0) fL MCH 31.0 (28.0-33.3) pg MCHC 29.8 L (31.6-35.5) g/dL RDW 14.8 H (11.5-14.5) % Plt Count 327 (140-400) K/mcL MPV 9.8 (9.4-12.4) fL PT 11.3 (9.4-12.1) Seconds INR 1.0 APTT 23.3 L (26.0-36.0) Seconds Sodium 145 (136-145) mEq/L Potassium 4.1 (3.5-5.1) mEq/L Chloride 106 (98-107) mEq/L Carbon Dioxide 29 (23-29) mEq/L BUN 43 H (8-23) mg/dL Creatinine 12.12 H (0.60-1.20) mg/dL Est GFR ( Amer) 4 L (> 60) Est GFR (Non-Af Amer) 3 L (> 60) BUN/Creatinine Ratio 4 L (6-26) Glucose 104 (70-105) mg/dL POC Glucose (70-99) mg/dL Calculated Osmolality 311 H (280-300) Calcium 8.7 (8.6-10.3) mg/dL Troponin I < 0.03 (< 0.04) ng/mL Urine Color (Yellow) Urine Clarity (Clear) Urine pH (5.0-8.0) pH Units Ur Specific [place] (1.010-1.025) Urine Protein (Neg-Trace) mg/dL Urine Glucose (UA) (Normal) mg/dL Urine Ketones (Negative) mg/dL Urine Blood (Negative) Urine Nitrite (Negative) Urine Bilirubin (Negative) Urine Urobilinogen (Normal) mg/dL Ur Leukocyte Esterase (Negative) Urine Microscopic RBC (0-3) per hpf Urine Microscopic WBC (0-3) per hpf Ur Squamous Epith Cells (None-Few) per lpf Ur Renal Epithelial Cell (None-Few) per hpf Amorphous Sediment (Few) Urine Bacteria (None-Few) per hpf Ur Culture Indicated? (NO) Urine Sodium mEq/L 01/24/19 01/24/19 01/24/19 Range/Units 13:11 14:33 14:44 WBC (4.3-11.1) K/mcL RBC (3.82-4.97) M/mcL Hgb (11.5-15.4) g/dL Hct (35.3-44.9) % MCV (83.0-100.0) fL MCH (28.0-33.3) pg MCHC (31.6-35.5) g/dL RDW (11.5-14.5) % Plt Count (140-400) K/mcL MPV (9.4-12.4) fL PT (9.4-12.1) Seconds INR APTT (26.0-36.0) Seconds Sodium (136-145) mEq/L Potassium (3.5-5.1) mEq/L Chloride (98-107) mEq/L Carbon Dioxide (23-29) mEq/L BUN (8-23) mg/dL Creatinine (0.60-1.20) mg/dL Est GFR ( Amer) (> 60) Est GFR (Non-Af Amer) (> 60) BUN/Creatinine Ratio (6-26) Glucose (70-105) mg/dL POC Glucose 91 (70-99) mg/dL Calculated Osmolality (280-300) Calcium (8.6-10.3) mg/dL Troponin I (< 0.04) ng/mL Urine Color Yellow (Yellow) Urine Clarity Cloudy A (Clear) Urine pH 6.0 (5.0-8.0) pH Units Ur Specific [place] 1.020 (1.010-1.025) Urine Protein 100 H (Neg-Trace) mg/dL Urine Glucose (UA) Normal (Normal) mg/dL Urine Ketones Negative (Negative) mg/dL Urine Blood Small H (Negative) Urine Nitrite Negative (Negative) Urine Bilirubin Negative (Negative) Urine Urobilinogen Normal (Normal) mg/dL Ur Leukocyte Esterase Small H (Negative) Urine Microscopic RBC 0-3 (0-3) per hpf Urine Microscopic WBC 5-15 H (0-3) per hpf Ur Squamous Epith Cells Many H (None-Few) per lpf Ur Renal Epithelial Cell Few (None-Few) per hpf Amorphous Sediment Many H (Few) Urine Bacteria None Seen (None-Few) per hpf Ur Culture Indicated? YES A (NO) Urine Sodium < 10.0 mEq/L - Radiology Data Radiology results reviewed: Yes I reviewed the patient's radiology results. Head CT 01/24/19 13:01 IMPRESSION: No acute intracranial abnormality. Findings were discussed with Dr. Wilburn on 01/24/2019 at 1:15 p.m. D/ / 01/24/2019 14:18:46 Alyssa Chew MD / [email or web address] Interpreting Provider: Alyssa Chew MD Chest X-Ray 01/24/19 13:02 IMPRESSION: No acute cardiopulmonary process. D/ / Boby Martinez MD / Boby Martinez MD Interpreting Provider: Boby Martinez MD Head CTA 01/24/19 13:43 IMPRESSION: No high-grade stenosis or focal occlusion involving the intracranial vasculature. No evidence of intracranial aneurysm. Please note that CTA neck was not obtained. D/ / 01/24/2019 15:36:26 Abhay Thompson MD / [facility] Interpreting Provider: Abhay Thompson MD - EKG Data EKG #1 EKG attestation: Yes I reviewed and interpreted this EKG. EKG results narrative: EKG done at 13:15 shows sinus rhythm at a rate of 71 bpm. Normal axis. Intervals within normal. No signs of ST elevation, ST depression or Q waves present. Unchanged from prior EKG done on January 102017
[2019-01-24] MEDS ORDERED: Insulin Human Regular 10 UNIT in 0.9 % Sodium Chloride 10 ML IV ONE (14:06)
--- NOTE | 2019-01-24 14:46 | Nephrology Consult Note ---
Date of Encounter: 01/24/19 Time of Encounter: 14:39 History of Present Illness - Reason for Consult Consult date: 01/24/19 end stage renal disease - Chief Complaint r/o stroke - History of Present Illness Ms. Orellana is a 63 year old female with extensive medical history. PMH: asthma, CVA, GERD, hyperlipidemia, hypertension, ESRD with nightly PD exchanges. She has recently been admitted to hospital and was treated for leukocytosis. She was discharged home with PO antibiotics. Peritoneal fluid had no growth last stay. She denies any infectious symptoms with PD exchanges and PD cath site. Denies chest pain, is a little short of breath. Admits to nausea, vomiting and diarrhea since being discharged from the hospital. She admits to 3-4 loose watery stools. Denies mucus or blood in stool. She was at an outpatient hematology appointment and was advised to go to ED for stroke like symptoms. She is also coughing up white tenacious sputum. She lives at home with . Denies any etoh, tobacco, or illicit drug use. Denies any FH of PD or other kidney diseases. Past Med Surg Social Fam HX - Past Medical History Medical history: hypertension Additional medical history: anemia, heart murmur/irreg heart-beat, lupus, sleep apnea, fatty liver, vitamin D deficiency, leukocytocis Psychiatric history: no psych history - Past Surgical History Surgical History: , cholecystectomy, hysterectomy, orthopedic, other, other, arthroscopy Additional surgical history: knee scope, tonselectomy, Left shoulder surgery - Social History Smoking Status: Never smoker Smokeless Tobacco Status: No Alcohol use: none Drug use: none - Family History Mother Living Status: Hx Family Cardiac Disorders: Yes Hx Family Neurologic Disorders: Yes (CVA) Father Hx Family Cardiac Disorders: Yes (HTN, CHF) Hx Family Endocrine Disorder: Yes (DM) Medications and Allergies Acetaminophen [Acetaminophen ER] 650 mg PO Q6H PRN 01/29/18 [History] Amitriptyline HCl 50 mg PO HS 01/29/18 [History] Atorvastatin [Lipitor] 80 mg PO DAILY 01/29/18 [History] Clopidogrel [Plavix] 75 mg PO DAILY 01/29/18 [History] Cyanocobalamin (B-12) [Vitamin B12] 1,000 mcg PO DAILY 01/29/18 [History] Famotidine [Pepcid] 40 mg PO BID 01/29/18 [History] Ferrous Sulfate [Iron] 325 mg PO DAILY 01/29/18 [History] Fexofenadine HCl 180 mg PO DAILY PRN 01/29/18 [History] Fluticasone Propionate Nasal [Flonase] 2 spray NS BID 01/29/18 [History] Folic Acid 1 mg PO DAILY 01/29/18 [History] Nebivolol HCl [Bystolic] 10 mg PO BID 01/29/18 [History] Sodium Bicarbonate 650 mg PO BID 01/29/18 [History] Calcitriol 0.5 mcg PO BID 09/01/18 [History] Mirtazapine [Remeron] 15 mg PO HS 09/01/18 [History] Artificial Tears SOLN [Akwa Tears] 1 drop BOTH EYES HS PRN 01/10/19 [History] Calcium Acetate 667 mg PO TIDWM 01/10/19 [History] Cinacalcet HCl [Sensipar] 60 mg PO HS 01/10/19 [History] Lactulose [Enulose] 10 gm PO DAILY PRN 01/10/19 [History] Melatonin [Melatin] 3 mg PO HS PRN 01/10/19 [History] NIFEdipine [Nifedipine ER] 90 mg PO DAILY 01/10/19 [History] Psyllium [Metamucil Fiber Singles Packet] 1 packet PO TID PRN 01/10/19 [History] Albuterol Sulfate [Proair Respiclick] 2 puff PO Q6H PRN 01/11/19 [History] Citalopram Hydrobromide [Citalopram HBr] 40 mg PO QPM 01/11/19 [History] Losartan Potassium 50 mg PO BID 01/11/19 [History] Montelukast [Singulair] 10 mg PO QPM 01/11/19 [History] Pantoprazole Sodium [Protonix] 40 mg PO DAILY 01/11/19 [History] Sennosides/Docusate Sodium [Docusate Sodium-Sennosides Tab] 1 tab PO QPM PRN 01/11/19 [History] Sevelamer [Renvela] 800 mg PO 1200 01/11/19 [History] Triamcinolone Acetonide 1 appl TP BID 01/11/19 [History] Allergy/AdvReac Type Severity Reaction Status Date / Time latex Allergy Rash Verified 01/24/19 10:49 Penicillins Allergy Rash Verified 01/24/19 10:49 prednisone Allergy "CRAZY" Verified 01/24/19 10:49 sulfur dioxide Allergy Rash Verified 01/24/19 10:49 aspirin AdvReac See Verified 01/24/19 10:49 Comments spironolactone AdvReac Hypertensio Verified 01/24/19 10:49 n Review of Systems All Systems review (narrative): The remainder of the systems are negative. Constitutional: fatigue, no chills, no fever(s) Eyes: bilateral: blurred vision, diplopia Cardiovascular: dyspnea, no chest pain, no edema Respiratory: no hemoptysis Gastrointestinal: diarrhea, loose stools, nausea, vomiting, no abdominal pain, no melena Genitourinary Female: no flank pain, no urinary frequency, no urinary hesitancy, no urinary urgency Neurological: focal weakness Exam - Vital Signs Vital signs: Initial Vital Signs Temp Pulse Resp BP Pulse Ox 98.6 F 71 18 134/77 100 01/24/19 12:27 01/24/19 12:27 01/24/19 12:27 01/24/19 12:27 01/24/19 12:27 Vital Signs - Last 8 Hours Temp Pulse Resp BP Pulse Ox 01/24/19 13:40 72 18 140/76 01/24/19 13:25 71 16 142/78 01/24/19 13:21 73 18 142/78 98 01/24/19 13:10 97 01/24/19 12:54 98.6 F 71 18 134/77 100 01/24/19 12:27 98.6 F 71 18 134/77 100 Intake and Output 01/23/19 01/24/19 01/24/19 23:59 07:59 15:59 Other: Weight 129.727 kg Blood Glucose* 91 Patient Weight 01/24/19 23:59 Weight 129.727 kg - General Appearance General appearance: well-developed, well-nourished EENT: ATNC, hearing intact, vision intact Neck: supple Respiratory: clear Cardiology: normal S1, normal S2 - Dialysis Access Additional Comments: PD site C/D/I Gastrointestinal: normoactive bowel sounds, no tenderness, no guarding Integumentary: no rash, warm and dry Neurologic: facial droop Additional Comments: right side Musculoskeletal: no deformities, no erythema Psychiatric: mood/affect appropriate, cooperative Results - Lab Results 01/24/19 12:58 01/24/19 12:58 Most recent lab results 01/24/19 12:58 Calcium 8.7 Consult Discharge Plan - Plan Referrals: Matt Dimas MD [Primary Care Provider] -
[2019-01-24 14:57] LABS: Bilirubin,Urine Negative (Negative); Blood,Urine Small (Negative); Clarity,Urine Cloudy (Clear); Color,Urine Yellow (Yellow); Glucose,Urine (UA) Normal (Normal); Ketones,Urine Negative (Negative); Leukocyte Esterase,Urine Small (Negative); Nitrite,Urine Negative (Negative); Protein,Urine 100 mg/dL (Neg-Trace); Urobilinogen,Urine Normal (Normal)
[2019-01-24 15:00] LABS: Bacteria,Urine None Seen per hpf (None-Few); Squamous Epithelial Cell,Urine Many per lpf (None-Few)
[2019-01-24 15:11] LABS: Amorphous Sediment,Urine Many (Few)
[2019-01-24 15:12] LABS: RBC,Urine 0-3 per hpf (0-3)
[2019-01-24 15:13] LABS: Renal Epithelial Cells,Urine Few per hpf (None-Few)
[2019-01-24] MEDS ORDERED: 0.9 % Sodium Chloride 1,000 ML IVC ONE (15:43)
[2019-01-24] MEDS ORDERED: Cefepime HCl 2,000 MG in Water for inj. (sterile) 20 ML IVP STA (15:54)
[2019-01-24] MEDS ORDERED: Naloxone 0.4 MG/ML INJ IVP PRN (17:40)
[2019-01-24] MEDS ORDERED: Ondansetron 4 MG/2 ML VIAL IVP PRN (17:40)
[2019-01-24] MEDS ORDERED: Sennosides/Docusate Sodium TABLET PO PRN (17:42)
[2019-01-24] MEDS ORDERED: Melatonin 3 MG TABLET PO PRN (17:42)
[2019-01-24] MEDS ORDERED: Acetaminophen 325 MG TABLET PO PRN (17:42)
[2019-01-24] MEDS ORDERED: Lactulose Oral Soln 20 GM/30 ML UDC PO PRN (17:42)
[2019-01-24] MEDS ORDERED: Loratadine 10 MG TABLET PO PRN (17:42)
[2019-01-24] MEDS ORDERED: Artificial Tears SOLN 15 ML BOTTLE BOTH EYES PRN (17:42)
[2019-01-24] MEDS ORDERED: Psyllium 1 PACKET POWD.PACK PO PRN (17:42)
--- NOTE | 2019-01-24 18:10 | Internal Med History&Physical ---
Date of Encounter: 01/24/19 Time of Encounter: 17:30 Internal Medicine - H&P: HPI Chief complaint: R facial weakness and fever. Admitted From: Emergency Dept Plans for Post Hospital Care: Home History of present illness: Ms. Orellana is a 63 year old female with renal failure on peritoneal dialysis presented to ED with worsening R facial weakness and fever. She is placed in observation. Ms Orellana was recently discharged on 01/17. She was admitted for stroke symptoms and had negative MRI. At that time there was concern for SBP and she was treated with abx. She was discharged and initially did OK but then began to g et more tired and weak. Last evening she had a fever to 101 and was more fatigued. She has been coughing more and is bring up white/yellow sputum. No abd pain. No CP. She has been more somnolent but says this is due to her SBP being under 160. No diarrhea. No other symptoms per . At this time she is somnolent but can answer my questions some. Denies pain or dyspnea currently. Feels thirsty. Past Med Surg Social Fam HX - Past Medical History Attestation: Yes The following information was validated with the patient. Source: obtained from family Medical history: hypertension Additional medical history: anemia, heart murmur/irreg heart-beat, lupus, sleep apnea, fatty liver, vitamin D deficiency, leukocytocis Psychiatric history: no psych history - Past Surgical History Surgical History: , cholecystectomy, hysterectomy, orthopedic, other, other, arthroscopy Additional surgical history: knee scope, tonselectomy, Left shoulder surgery - Social History Smoking Status: Never smoker Smokeless Tobacco Status: No Alcohol use: none Drug use: none Current living situation: With Family Activity Level: Independent ambulation - Family History Mother Living Status: Hx Family Cardiac Disorders: Yes Hx Family Neurologic Disorders: Yes (CVA) Father Hx Family Cardiac Disorders: Yes (HTN, CHF) Hx Family Endocrine Disorder: Yes (DM) Internal Medicine - H&P: Meds Acetaminophen [Acetaminophen ER] 650 mg PO Q6H PRN 01/29/18 [History] Amitriptyline HCl 50 mg PO HS 01/29/18 [History] Atorvastatin [Lipitor] 80 mg PO DAILY 01/29/18 [History] Clopidogrel [Plavix] 75 mg PO DAILY 01/29/18 [History] Cyanocobalamin (B-12) [Vitamin B12] 1,000 mcg PO DAILY 01/29/18 [History] Famotidine [Pepcid] 40 mg PO BID 01/29/18 [History] Ferrous Sulfate [Iron] 325 mg PO DAILY 01/29/18 [History] Fexofenadine HCl 180 mg PO DAILY PRN 01/29/18 [History] Fluticasone Propionate Nasal [Flonase] 2 spray NS BID 01/29/18 [History] Folic Acid 1 mg PO DAILY 01/29/18 [History] Nebivolol HCl [Bystolic] 10 mg PO BID 01/29/18 [History] Sodium Bicarbonate 650 mg PO BID 01/29/18 [History] Calcitriol 0.5 mcg PO BID 09/01/18 [History] Mirtazapine [Remeron] 15 mg PO HS 09/01/18 [History] Artificial Tears SOLN [Akwa Tears] 1 drop BOTH EYES HS PRN 01/10/19 [History] Calcium Acetate 667 mg PO TIDWM 01/10/19 [History] Cinacalcet HCl [Sensipar] 60 mg PO HS 01/10/19 [History] Lactulose [Enulose] 10 gm PO DAILY PRN 01/10/19 [History] Melatonin [Melatin] 3 mg PO HS PRN 01/10/19 [History] NIFEdipine [Nifedipine ER] 90 mg PO DAILY 01/10/19 [History] Psyllium [Metamucil Fiber Singles Packet] 1 packet PO TID PRN 01/10/19 [History] Albuterol Sulfate [Proair Respiclick] 2 puff PO Q6H PRN 01/11/19 [History] Citalopram Hydrobromide [Citalopram HBr] 40 mg PO QPM 01/11/19 [History] Losartan Potassium 50 mg PO BID 01/11/19 [History] Montelukast [Singulair] 10 mg PO QPM 01/11/19 [History] Pantoprazole Sodium [Protonix] 40 mg PO DAILY 01/11/19 [History] Sennosides/Docusate Sodium [Docusate Sodium-Sennosides Tab] 1 tab PO QPM PRN 01/11/19 [History] Sevelamer [Renvela] 800 mg PO 1200 01/11/19 [History] Triamcinolone Acetonide 1 appl TP BID 01/11/19 [History] Allergy/AdvReac Type Severity Reaction Status Date / Time latex Allergy Rash Verified 01/24/19 10:49 Penicillins Allergy Rash Verified 01/24/19 10:49 prednisone Allergy "CRAZY" Verified 01/24/19 10:49 sulfur dioxide Allergy Rash Verified 01/24/19 10:49 aspirin AdvReac See Verified 01/24/19 10:49 Comments spironolactone AdvReac Hypertensio Verified 01/24/19 10:49 n All Systems PM: A 10-system review of systems was performed and is negative for pertinent findings except as documented above in the HPI. - Constitutional Constitutional: fatigue, lethargy, malaise, weakness - EENT Eyes: no blurry vision, no loss of vision Ears: no decreased hearing Nose, mouth and throat: dry mouth, no mouth pain, no sinus pain, no sore throat - Cardiovascular Cardiovascular ROS IM: dyspnea, no chest pain, no dyspnea on exertion, no edema, no lightheadedness, no palpitations, no paroxysmal nocturnal dyspnea - Respiratory Respiratory: dyspnea, chest congestion, excessive phlegm production, change in phlegm color, no cough, no wheezing, no snoring - Gastrointestinal Gastrointestinal: no abdominal pain, no diarrhea, no nausea, no vomiting - Genitourinary Genitourinary: no difficulty voiding, no urinary frequency Menstruation: post menopausal - Musculoskeletal Musculoskeletal ROS IM: arthralgias, myalgias - Integumentary Integumentary IM: no rash - Neurological Neurological ROS: no dizziness, no numbness, no vertigo - Endocrine Endocrine IM: no excessive sweating - Hematologic/Lymphatic Hematologic/Lymphatic: no easy bleeding - Allergic/Immunologic Allergic/Immunologic: no itchy eyes - Constitutional Vitals: Temp Pulse Resp BP Pulse Ox 98.6 F 73 11 129/70 97 01/24/19 12:54 01/24/19 16:40 01/24/19 17:20 01/24/19 17:20 01/24/19 16:40 General appearance: Present: A&O X 3 (Somnolent but arouses to my questions.) Exam: See below - Head Head exam: Present: atraumatic, normocephalic - Eye Eye exam: Present: EOMI, conjuntiva pink - ENT ENT exam: Present: mucous membranes dry - Neck Neck exam general surgery: Present: supple. Absent: nuchal rigidity - Respiratory Respiratory exam: Present: decreased breath sounds, CTAB. Absent: rales, rhonchi, wheezes - Cardiovascular Cardiovascular exam: Present: RRR. Absent: tachycardia Additional comments: Difficult to hear well. - GI/Abdominal GI/Abdominal exam: Present: hypoactive bowel sounds, normal bowel sounds, soft. Absent: tenderness - Extremities Exam Extremities exam: Present: pedal edema, warm. Absent: tenderness - Neurological Exam Neurological exam: Present: alert, oriented X3, strengths equal and symetr throughout, facial droop - Skin Skin exam: Present: dry, warm. Absent: erythema, rash Internal Med - H&P Results - Labs CBC & Chem 7: 01/24/19 12:58 01/24/19 12:58 Labs: Short CBC 01/24/19 Range/Units 12:58 WBC 11.2 H (4.3-11.1) K/mcL Hgb 8.7 L (11.5-15.4) g/dL Hct 29.2 L (35.3-44.9) % Plt Count 327 (140-400) K/mcL BMP 01/24/19 12:58 Sodium 145 Potassium 4.1 Chloride 106 Carbon Dioxide 29 BUN 43 H Creatinine 12.12 H Glucose 104 Calcium 8.7 Cardiac Enzymes 01/24/19 Range/Units 12:58 Troponin I < 0.03 (< 0.04) ng/mL Urine 01/24/19 Range/Units 14:44 Urine Color Yellow (Yellow) Urine Clarity Cloudy A (Clear) Urine pH 6.0 (5.0-8.0) pH Units Ur Specific [place] 1.020 (1.010-1.025) Urine Protein 100 H (Neg-Trace) mg/dL Urine Glucose (UA) Normal (Normal) mg/dL - Impressions ITS Impressions Head CT 01/24/19 13:01 IMPRESSION: No acute intracranial abnormality. Findings were discussed with Dr. Wilburn on 01/24/2019 at 1:15 p.m. D/ / 01/24/2019 14:18:46 Alyssa Chew MD / [facility] Interpreting Provider: Alyssa Chew MD Chest X-Ray 01/24/19 13:02 IMPRESSION: No acute cardiopulmonary process. D/ / Boby Martinez MD / Boby Martinez MD Interpreting Provider: Boby Martinez MD Head CTA 01/24/19 13:43 IMPRESSION: No high-grade stenosis or focal occlusion involving the intracranial vasculature. No evidence of intracranial aneurysm. Please note that CTA neck was not obtained. D/ / 01/24/2019 15:36:26 Abhay Thompson MD / nate Interpreting Provider: Abhay Thompson MD - Assessment and Plan (1) Acute metabolic encephalopathy Current Visit: Yes Status: Acute Assessment and plan: Pt presented to ED with somnolence - feels this is due to her SBP being less than 160. Monitor on tele. Supportive care. She has been coughing more - will cover for nosocomial infection at this time. (2) TIA (transient ischemic attack) Current Visit: Yes Status: Suspected Assessment and plan: Pt presented to ED with worsening R facial droop - has prior hx of CVA Stroke alert in ED - no transfer. Consider neurology consult in AM - second admit for these symptoms in under a month. Continue home meds - allergic to ASA but is on Plavix. (3) Pneumonia Current Visit: Yes Status: Suspected Assessment and plan: Pt recently admitted and discharged on 01/17. Has developed cough and sputum production. CXR in ED negative - pt very dry. Will continue abx ordered at this point and repeat CXR in next day or two. Qualifiers: Pneumonia type: due to other aerobic Gram-negative bacteria Laterality: unspecified laterality Lung location: unspecified part of lung Qualified Code(s): J15.6 - Pneumonia due to other Gram-negative bacteria (4) Anemia Current Visit: No Status: Chronic Assessment and plan: H/H currently at baseline Qualifiers: Anemia type: due to chronic kidney disease Chronic kidney disease stage: on chronic dialysis Qualified Code(s): N18.6 - End stage renal disease; D63.1 - Anemia in chronic kidney disease; Z99.2 - Dependence on renal dialysis (5) ESRD on peritoneal dialysis Current Visit: No Status: Chronic Assessment and plan: Appreciate renal service assistance. (6) HTN (hypertension) Current Visit: No Status: Chronic Assessment and plan: Pt has hx of HTN. SBP normally over 160. attributes somnolence to lower SBP. Continue home meds for now. Qualifiers: Hypertension type: essential hypertension Qualified Code(s): I10 - Essential (primary) hypertension (7) Sleep apnea Current Visit: No Status: Chronic Assessment and plan: Home treatment. Qualifiers: Sleep apnea type: obstructive Qualified Code(s): G47.33 - Obstructive sleep apnea (adult) (pediatric) (8) Morbid obesity with BMI of 40.0-44.9, adult Current Visit: Yes Status: Chronic - Time Spent With Patient Total time spent is greater than 50% in coordination of care (as documented) at patient's floor/unit and/or counseling patient:
[2019-01-24] MEDS ORDERED: Perit. Dialysis with Dex 2.5 % 12,000 ML PERITONEAL ONE (19:00)
[2019-01-24] MEDS: Mirtazapine 15 MG TABLET PO SCH (21:02)
[2019-01-24] MEDS: Famotidine 20 MG TABLET PO SCH (21:03)
[2019-01-24] MEDS: Fluticasone Propionate Nasal 50 MCG/SPRAY BOTTLE NS SCH (21:18)
[2019-01-25 03:30] LABS: Hematocrit 26.8 % (35.3-44.9); Hemoglobin 7.9 g/dL (11.5-15.4); Mean Corpuscular HGB Conc 29.5 g/dL (31.6-35.5); Mean Corpuscular Hemoglobin 30.6 pg (28.0-33.3); Mean Corpuscular Volume 103.9 fL (83.0-100.0); Mean Platelet Volume 10.1 fL (9.4-12.4); Platelet Count 299 K/mcL (140-400); Red Blood Count 2.58 M/mcL (3.82-4.97); Red Cell Distribution Width 14.9 % (11.5-14.5); White Blood Count 10.6 K/mcL (4.3-11.1)
[2019-01-25 03:51] LABS: Calcium 8.1 mg/dL (8.6-10.3); Magnesium 1.5 mg/dL (1.6-2.6); Potassium 3.8 mEq/L (3.5-5.1)
[2019-01-25 04:02] LABS: Thyroid Stimulating Hormone 2.396 mcIU/mL (0.340-5.600)
--- NOTE | 2019-01-25 07:58 | Internal Med Progress Note ---
<Wesly Banerjee - Last Filed: 01/25/19 17:00> Hospitalist Progress Note - Encounter Date of Encounter: 01/25/19 - Exam Vitals: Temp Pulse Resp BP Pulse Ox 98.9 F 77 16 114/67 93 01/25/19 15:48 01/25/19 15:48 01/25/19 15:48 01/25/19 15:48 01/25/19 15:48 - Assessment and Plan (1) Acute metabolic encephalopathy Current Visit: Yes Status: Acute (2) TIA (transient ischemic attack) Current Visit: Yes Status: Suspected (3) Pneumonia Current Visit: Yes Status: Suspected (4) Anemia Current Visit: No Status: Chronic (5) ESRD on peritoneal dialysis Current Visit: No Status: Chronic (6) HTN (hypertension) Current Visit: No Status: Chronic (7) Sleep apnea Current Visit: No Status: Chronic (8) Morbid obesity with BMI of 40.0-44.9, adult Current Visit: Yes Status: Chronic - Time Spent with Patient Total time spent is greater than 50% in coordination of care (as documented) at patient's floor/unit and/or counseling patient: Internal Medicine: Result - Labs CBC & Chem 7: 01/25/19 02:30 01/25/19 02:30 Labs: Short CBC 01/25/19 Range/Units 02:30 WBC 10.6 (4.3-11.1) K/mcL Hgb 7.9 L (11.5-15.4) g/dL Hct 26.8 L (35.3-44.9) % Plt Count 299 (140-400) K/mcL BMP 01/25/19 02:30 Sodium 144 Potassium 3.8 Chloride 108 H Carbon Dioxide 23 BUN 43 H Creatinine 12.08 H Glucose 126 H Calcium 8.1 L - ABG Interpretation ABG results: PT/INR, D-dimer PT 11.3 Seconds (9.4-12.1) 01/24/19 12:58 Consult Discharge Plan - Plan Referrals: Matt Dimas MD [Primary Care Provider] - 01/31/19 1:00 pm (Abi will be with Glo Love CNP) - Attending Attestation I examined this patient and my medical decision-making was reviewed with the Resident Physician on 01/25/19. I agree with the documented findings, disposition and treatment plan as described except to the extent set forth below. Ms Orellana is currently admitted for TIA and fever with concern for respiratory infection. She remains moderate to high risk due to potential for worsening neuro status. Ms Orellana is awake and alert today. She still has R facial droop and dysarthria. SBP 153 now. No CP or SOB. No further fever. Heart not tachy. No wheeze. Will ask neuro to see regarding any further work up. Nephro for PD. May need PT and OT. <Golden Ferrell - Last Filed: 01/25/19 19:30> Hospitalist Progress Note - Encounter Date of Encounter: 01/25/19 Time of Encounter: 10:00 - Subjective Interval History: Course: Patient found to have stroke like symptoms at outpatient hematology appointment and was advised to go to ED (per nephro note). Discharge from here on 01/17/19 for stroke symptoms and had negative MRI at that time. She was treated with antibiotics 2/2 supected SBP. 01/24/19: Patient brought to ED. They note the reason as being R facial droop and slurred speach beginning 20:00 01/23/19. states she has been more somnolent. fever of 101 on 01/23/19 and admits to symptoms of coughing more and bringing up white/yellow sputum. Admitted for Acute metabolic encephalopathy and placed on obs. electrolytes and glucose were normal at that time and have remained WNL. Head CT, Head CTA unremarkable. Today: Patient exteremly somnolent. falls asleep between questions. seems slightly confused but throuhgout visit. mumbling so difficult to obtain a history 2/2 both of these things. not in the room. Today's history unlikely reliable. States she feels the same as yesterday. Says she is here because there is "something just in my head" but did not know what it was. States this was not normal for her. confirms she has had stroke in the past. - Exam Vitals: Temp Pulse Resp BP Pulse Ox 99.2 F 74 16 135/73 90 01/25/19 03:17 01/25/19 03:17 01/25/19 03:17 01/25/19 03:17 01/25/19 03:17 Exam: General: vitals noted. no acute distress. very somnolent. hard to ask questions. Skin: no obvious rash eyes: no icterus. moist conjunctivae. ENT: oropharynx moist. tongue without lesions. Neck: nontender without lymphadenopathy or thyromegaly cardio: mitral post not heard. RRR. 3/6 systolic murmur heard best over pulmonic and radiates to L carotid bruit. resp: CTA upper anteriorly. non-labored breathing. GI: obese. bowel sounds present. nontender to palpation. no rebound tenderness or fluid wave. no jaundice. extremities: no appreciable edema. no clubbing neuro: CN 2-12 intact. some trouble following commands. sensation to light touch upper and lower ext. intact grossly. strenght upper and lower ext. intact grossly. finger to nose test was equal bilaterally but very poor performance. some mild facial droop on the L but this may be normal for the patient. CN VII tests showed symmetry. brachioradialis reflex at least intact on the R. di fficult to asses on L 2/2 IV. did not assess patellar reflex. psych: seems confused. alert and oriented to person and time. Could not decifer her answer when asked where she was "[employer]" is what it sounded like. - Assessment and Plan (1) Altered mental status Current Visit: Yes Status: Acute Assessment and Plan: -etiology remains unknown -increased somnolence per -gluocose and electrolytes WNL -concern of stroke by family in the afternoon resulted in repeat exam and blood pressure medication adjustments. repeat exam (not the one in this note from the morning) found potentially new ocular gaze deficit that was also noted by the neurology team as below. -ocular muscle neuro deficits found on neurologist exam and some weakness as well. they suspect brainstem stroke. -SIRS criteria not met so doubt infectious -CT and CTA head negative. -neurology recommends full stroke workup -b/l carotid U/S, TTE, MRI w/o contrast -cont. plavix and statin (2) TIA (transient ischemic attack) Current Visit: Yes Status: Suspected Assessment and Plan: -conisder 2/2 embolus vs thromobotic -hx of CVA in 2015 and residual R sided weakness -history of HLipidemia, HTN - states increased somnolence, slurred speech, and R sided facial droop -heart was RRR so doubt afib as cause -no evidence seen on CT, CTA on 01/24/19 -workup as above (3) SBP (spontaneous bacterial peritonitis) Current Visit: Yes Status: Acute Assessment and Plan: -suspected 2/2 concern at last hospital visit discharged 01/17 and reports of home fever and deconditioning/AMS recently. -on nightly peritoneal dialysis -afebrile, no tachypnea or tachycardia, white count WNL -received total 6 days of treatment with ceftriaxone and cefdinir last stay and after discharge. -will continue to monitor for signs of infection (4) HTN (hypertension) Current Visit: No Status: Chronic Assessment and Plan: -chronic - states her mentation worsens when below 140-160 -afternoon readings systolic near 115. -Losartan changed to 25 bid. -continue metoprolol 50 mg bid -continue nifedipine 90mg -ordered vital checks every 2 hours -continue to monitor closely (5) Chronic anemia Current Visit: Yes Status: Acute Assessment and Plan: -likely mixed as renal disease but MCV elevated -ESRD on nightly Peritoneal dialysis *check B12 and folate levels -continue to monitor for signs of bleed (6) ESRD on peritoneal dialysis Current Visit: Yes Status: Acute Assessment and Plan: -chronic -continue nightly dialysis -monitoring for SBP (7) Low T4 Current Visit: Yes Status: Acute Assessment and Plan: -consider 2/2 hypothyroid syndrome (yan's vs other autoimmune disease) (hx of SLE) -would expect TSH to increase 2/2 low t4 but not appropriately compensating -proptosis on exam -TSH WNL at 2.396. -free T4 low at 0.6 -outpatient workup warranted - Time Spent with Patient Total time spent is greater than 50% in coordination of care (as documented) at patient's floor/unit and/or counseling patient: Internal Medicine: Result - Labs CBC & Chem 7: 01/25/19 02:30 01/25/19 02:30 Labs: Short CBC 01/24/19 01/25/19 Range/Units 12:58 02:30 WBC 11.2 H 10.6 (4.3-11.1) K/mcL Hgb 8.7 L 7.9 L (11.5-15.4) g/dL Hct 29.2 L 26.8 L (35.3-44.9) % Plt Count 327 299 (140-400) K/mcL BMP 07/08/19 07/09/19 12:58 02:30 Sodium 145 144 Potassium 4.1 3.8 Chloride 106 108 H Carbon Dioxide 29 23 BUN 43 H 43 H Creatinine 12.12 H 12.08 H Glucose 104 126 H Calcium 8.7 8.1 L Cardiac Enzymes 01/24/19 Range/Units 12:58 Troponin I < 0.03 (< 0.04) ng/mL Urine 01/24/19 Range/Units 14:44 Urine Color Yellow (Yellow) Urine Clarity Cloudy A (Clear) Urine pH 6.0 (5.0-8.0) pH Units Ur Specific [place] 1.020 (1.010-1.025) Urine Protein 100 H (Neg-Trace) mg/dL Urine Glucose (UA) Normal (Normal) mg/dL - ABG Interpretation ABG results: PT/INR, D-dimer PT 11.3 Seconds (9.4-12.1) 01/24/19 12:58 - Impressions Impressions Head CT 01/24/19 13:01 IMPRESSION: No acute intracranial abnormality. Findings were discussed with Dr. Wilburn on 01/24/2019 at 1:15 p.m. D/ / 01/24/2019 14:18:46 Alyssa Chew MD / [email or web address] Interpreting Provider: Alyssa Chew MD Chest X-Ray 01/24/19 13:02 IMPRESSION: No acute cardiopulmonary process. D/ / Boby Martinez MD / Boby Martinez MD Interpreting Provider: Boby Martinez MD Head CTA 01/24/19 13:43 IMPRESSION: No high-grade stenosis or focal occlusion involving the intracranial vasculature. No evidence of intracranial aneurysm. Please note that CTA neck was not obtained. D/ / 01/24/2019 15:36:26 Abhay Thompson MD / nate Interpreting Provider: Abhay Thompson MD <Wesly Banerjee - Last Filed: 01/25/19 17:00> (3) Pneumonia Qualifiers: Pneumonia type: due to other aerobic Gram-negative bacteria Laterality: unspecified laterality Lung location: unspecified part of lung Qualified Code(s): J15.6 - Pneumonia due to other Gram-negative bacteria (4) Anemia Qualifiers: Anemia type: due to chronic kidney disease Chronic kidney disease stage: on chronic dialysis Qualified Code(s): N18.6 - End stage renal disease; D63.1 - Anemia in chronic kidney disease; Z99.2 - Dependence on renal dialysis (6) HTN (hypertension) Qualifiers: Hypertension type: essential hypertension Qualified Code(s): I10 - Essential (primary) hypertension (7) Sleep apnea Qualifiers: Sleep apnea type: obstructive Qualified Code(s): G47.33 - Obstructive sleep apnea (adult) (pediatric) <Golden Ferrell - Last Filed: 01/25/19 19:30> (1) Altered mental status Qualifiers: Altered mental status type: unspecified Qualified Code(s): R41.82 - Altered mental status, unspecified (4) HTN (hypertension) Qualifiers: Hypertension type: essential hypertension Qualified Code(s): I10 - Essential (primary) hypertension
[2019-01-25] MEDS: NIFEdipine XL (24 HR) 30 MG TAB.ER.24 PO SCH (08:29)
[2019-01-25] MEDS: Famotidine 20 MG TABLET PO SCH (08:30)
[2019-01-25] MEDS: Calcium Acetate 667 MG CAPSULE PO SCH ×3 (08:30→17:55)
--- NOTE | 2019-01-25 12:48 | Neurology - Consult Note ---
<Otilio Gomez - Last Filed: 01/25/19 17:56> Date of Encounter: 01/25/19 Time of Encounter: 12:45 Assessment and Plan (1) CVA (cerebral vascular accident) Current Visit: No Status: Suspected Neuro c/s to evaluate cause of right facial droop, slurred speech and left eye diplopia; concerns for CVA Sx onset yesterday morning and resolved in the ED. However, sx returned this morning CT head unremarkable CTA head unremarkable Risk factors include HTN, HLD, Obesity, CVA, TIA's NIH of 3 The neurological exam finds right facial droop, slurred speech, left eye diplopia and decreased occular motility with difficulty abducting the left eye f ully. She also has some RUE, RLE weakness and hyperreflexia in the right patella with brisk bilateral bicep, tricep, brachial radialis, and Achilles. These findings are concerning for a central etiology if the brainstem and we will proceed with a CVA w/u as such. However the ddx also includes cranial neuropathy. Further recommendations will depend upon workup findings PLAN: -MRI head/brain without contrast -BL Carotid doppler -TTE now -Continue Plavix and statin agent -Neuro exam per protocol -NIHSS now -Dysphagia screening now -neurology will follow Qualifiers: CVA mechanism: unspecified Qualified Code(s): I63.9 - Cerebral infarction, unspecified History of Present Illness Chief complaint: right facial droop, slurred speech, weakness and left eye diplopia HPI: Ms. Orellana is a 63 year old female with a PMH of HTN, HLD, CVA, TIA's ESRD who is PD dependent and chronic leukocytosis of unknown etiology. She presents to [facility] with stroke-like sx. She states that yesterday morning she developed a sudden onset of right-sided facial droop, slurred speech and left eye vertical diplopia. She notes that these sx persisted yesterday afternoon when she went to see her book cleaner. D/t the ongoing sx her book cleaner suggested she go to the ED for further evaluation with concerns for CVA. The patient states that her sx resolved while in the ED and she completely returned to her normal baseline. However, this morning the right facial droop, slurred speech and diplopia returned and she is now having weakness BLE weakness beyond her baseline chronic leg weakness. She denies any prodrome of sx, denies any headache, nuchal ridigity, parasthesias, dysphagia, N/V/D, chest pain, dyspnea or palpitations. She admits to an ongoing low-grade fever and cough with white/yellow sputum prior to admission, however, she is afebrile now and without cough. She also admits to malaise and fatigue. CT head was negative for an acute intracranial abnormality, the CTA of the head showed no high-grade stenosis or focal occlusion involving the intracranial vasculature and no evidence of intrancranial aneurysm. CXR was also unremarkable. Labs reveal a stable chronic anemia and ESRD with a serum creatinine of 12.08 which appears to have been elevated for approximately 1-month. Otherwise she is afebrile and is having labile BP with SBP ranging from the 113's to 170's. Past Med Surg Social Fam HX - Past Medical History Medical history: hypertension Additional medical history: anemia, heart murmur/irreg heart-beat, lupus, sleep apnea, fatty liver, vitamin D deficiency, leukocytocis Psychiatric history: no psych history - Past Surgical History Surgical History: , cholecystectomy, hysterectomy, orthopedic, other, other, arthroscopy Additional surgical history: knee scope, tonselectomy, Left shoulder surgery - Social History Smoking Status: Never smoker Smokeless Tobacco Status: No Alcohol use: none Drug use: none - Family History Mother Living Status: Hx Family Cardiac Disorders: Yes Hx Family Neurologic Disorders: Yes (CVA) Father Hx Family Cardiac Disorders: Yes (HTN, CHF) Hx Family Endocrine Disorder: Yes (DM) Medications and Allergies Acetaminophen [Acetaminophen ER] 650 mg PO Q6H PRN 01/29/18 [History] Amitriptyline HCl 50 mg PO HS 01/29/18 [History] Atorvastatin [Lipitor] 80 mg PO DAILY 01/29/18 [History] Clopidogrel [Plavix] 75 mg PO DAILY 01/29/18 [History] Cyanocobalamin (B-12) [Vitamin B12] 1,000 mcg PO DAILY 01/29/18 [History] Famotidine [Pepcid] 40 mg PO BID 01/29/18 [History] Ferrous Sulfate [Iron] 325 mg PO DAILY 01/29/18 [History] Fexofenadine HCl 180 mg PO DAILY PRN 01/29/18 [History] Fluticasone Propionate Nasal [Flonase] 2 spray NS BID 01/29/18 [History] Folic Acid 1 mg PO DAILY 01/29/18 [History] Nebivolol HCl [Bystolic] 10 mg PO BID 01/29/18 [History] Sodium Bicarbonate 650 mg PO BID 01/29/18 [History] Calcitriol 0.5 mcg PO BID 09/01/18 [History] Mirtazapine [Remeron] 15 mg PO HS 09/01/18 [History] Artificial Tears SOLN [Akwa Tears] 1 drop BOTH EYES HS PRN 01/10/19 [History] Calcium Acetate 667 mg PO TIDWM 01/10/19 [History] Cinacalcet HCl [Sensipar] 60 mg PO HS 01/10/19 [History] Lactulose [Enulose] 10 gm PO DAILY PRN 01/10/19 [History] Melatonin [Melatin] 3 mg PO HS PRN 01/10/19 [History] NIFEdipine [Nifedipine ER] 90 mg PO DAILY 01/10/19 [History] Psyllium [Metamucil Fiber Singles Packet] 1 packet PO TID PRN 01/10/19 [History] Albuterol Sulfate [Proair Respiclick] 2 puff PO Q6H PRN 01/11/19 [History] Citalopram Hydrobromide [Citalopram HBr] 40 mg PO QPM 01/11/19 [History] Losartan Potassium 50 mg PO BID 01/11/19 [History] Montelukast [Singulair] 10 mg PO QPM 01/11/19 [History] Pantoprazole Sodium [Protonix] 40 mg PO DAILY 01/11/19 [History] Sennosides/Docusate Sodium [Docusate Sodium-Sennosides Tab] 1 tab PO QPM PRN 01/11/19 [History] Sevelamer [Renvela] 800 mg PO 1200 01/11/19 [History] Triamcinolone Acetonide 1 appl TP BID 01/11/19 [History] Allergy/AdvReac Type Severity Reaction Status Date / Time latex Allergy Rash Verified 01/24/19 10:49 Penicillins Allergy Rash Verified 01/24/19 10:49 prednisone Allergy "CRAZY" Verified 01/24/19 10:49 sulfur dioxide Allergy Rash Verified 01/24/19 10:49 aspirin AdvReac See Verified 01/24/19 10:49 Comments spironolactone AdvReac Hypertensio Verified 01/24/19 10:49 n All Systems: The remainder of the systems were reviewed and are negative Review of Systems: REVIEW OF SYSTEMS GENERAL:Positive- subjective fevers, weakness, fatigue and malaise NEUROLOGIC: Negative for any, facial asymmetry, dysphagia, dysarthria, hemiparesis, hemisensory deficits, vertigo, ataxia, seizures, paralysis, tingling, numbness, unilateral weakness or numbness/tingling Positive- left eye diplopia, right facial droop, slurred speech HEENT: Negative for any head trauma, neck trauma, neck stiffness, photophobia, phonophobia, tinnitus CARDIAC: Negative for any chest pain, dyspnea on exertion, peripheral edema, or palpitations GASTROINTESTINAL: Negative for any abdominal pain, nausea, vomiting, diarrhea GENITOURINARY: Negative for any dysuria, hematuria, incontinence. ENDOCRINE: Thyroid trouble, heat/cold intolerance, excessive sweating MUSCULOSKELETAL: Positive- limitations to activity tolerance, b/l leg weakness Physical Examination - Vital Signs Vital Signs: Initial Vital Signs Temp Pulse Resp BP Pulse Ox 98.6 F 71 18 134/77 100 01/24/19 12:27 01/24/19 12:27 01/24/19 12:27 01/24/19 12:27 01/24/19 12:27 - Exam Exam: Examination: General Examination: *CONSTITUTIONAL: Alert and oriented x3, no acute distress *GENERAL APPEARANCE OF PATIENT generally will appearing elderly obese female *EYES: pupils equal, round, reactive to light and accommodation, c onjunctiva clear without masses or ulcerations, fundi normal. *CARDIOVASCULAR: no peripheral edema, distal temperature normal, dorsalis pedis pulses normal. Refer to vital signs * MUSCULOSKELETAL: *GAIT AND STATION: deferred d/t falls risk *ASSESSMENT OF MUSCLE STRENGTH IN THE UPPER AND LOWER EXTREMITIES rightl deltoid, bicep, tricep, paper grader strength 4/5, left deltoid, bicep, tricep and paper grader strength 5/5. B/L hip flexors ,anterior tibialis, dorsoflexion of the foot 4/5 and the right leg appears externally rotated *MUSCLE TONE IN THE UPPER AND LOWER EXTREMITIES normal. No abnormal movements, fasciculations or atrophy identified. Neurological: *ORIENTATION to person, situation, time and place *LANGUAGE AND FUNCTION no significant aphasia. Slurred speech noted *ATTENTION AND CONCENTRATION are normal *LANGUAGE FUNCTION no significant aphasia but does have slurred speech *FUND OF KNOWLEDGE aware of current events, past history, vocabulary *MENTAL attention span and concentration normal. *CN II optic fundi were normal, no papilledema noted. *CN III,IV, PERRLA, extraocular eye movements were full in the right eye but was limited in the left eye with limitation with abduction, no nystagmus and no ptosis noted. *CN V shows normal sensation but asymmetrically with right facial droop noted. *CN VII shows mild asymmetry with facial movement with decreased movement along left facial nerve while smiling *CN VIII shows no significant hearing loss on exam *CN IX-Xpalate elevated symmetrically *CN XI normal strength in the sternocleidomastoid muscles, symmetrical shoulder shrugging. *CN XII tongue protruded in the midline, with normal strength and movement. *SENSORY EXAMINATION light touch intact *REFLEXES: DTR B/L bicep, brachioradialis and tricep are brisk and 4/4, The right patella and achilles appear cloniform. The left patella and achilles are brisk and 4/4 *CEREBELLAR TESTING normal finger to nose, heel/knee/adams *PAIN LEVEL 0/10 Results - Laboratory Findings CBC and BMP: 01/25/19 02:30 01/25/19 02:30 Abnormal lab findings: Abnormal lab results WBC 11.2 K/mcL (4.3-11.1) H 01/24/19 12:58 RBC 2.58 M/mcL (3.82-4.97) L 01/25/19 02:30 Hgb 7.9 g/dL (11.5-15.4) L 01/25/19 02:30 Hct 26.8 % (35.3-44.9) L 01/25/19 02:30 MCV 103.9 fL (83.0-100.0) H 01/25/19 02:30 MCHC 29.5 g/dL (31.6-35.5) L 01/25/19 02:30 RDW 14.9 % (11.5-14.5) H 01/25/19 02:30 APTT 23.3 Seconds (26.0-36.0) L 01/24/19 12:58 Chloride 108 mEq/L (98-107) H 01/25/19 02:30 BUN 43 mg/dL (8-23) H 01/25/19 02:30 12.08 mg/dL (0.60-1.20) H 01/25/19 02:30 Est GFR ( Amer) 4 (> 60) L 01/25/19 02:30 Est GFR (Non-Af Amer) 3 (> 60) L 01/25/19 02:30 4 (6-26) L 01/25/19 02:30 Glucose 126 mg/dL (70-105) H 01/25/19 02:30 310 (280-300) H 01/25/19 02:30 Calcium 8.1 mg/dL (8.6-10.3) L 01/25/19 02:30 Magnesium 1.5 mg/dL (1.6-2.6) L 01/25/19 02:30 Free T4 0.60 ng/dl (0.70-2.00) L 01/25/19 02:30 Cloudy (Clear) A 01/24/19 14:44 100 mg/dL (Neg-Trace) H 01/24/19 14:44 Small (Negative) H 01/24/19 14:44 Ur Leukocyte Esterase Small (Negative) H 01/24/19 14:44 5-15 per hpf (0-3) H 01/24/19 14:44 Ur Squamous Epith Cells Many per lpf (None-Few) H 01/24/19 14:44 Amorphous Sediment Many (Few) H 01/24/19 14:44 Ur Culture Indicated? YES (NO) A 01/24/19 14:44 - Diagnostic Findings Additional findings: CT/CT angio head IMPRESSION: No high-grade stenosis or focal occlusion involving the intracranial vasculature. No evidence of intracranial aneurysm. Please note that CTA neck was not obtained. CT/CT stroke alert head wo con IMPRESSION: No acute intracranial abnormality. Consult Discharge Plan - Plan Referrals: Matt Dimas MD [Primary Care Provider] - 01/31/19 1:00 pm (Abi will be with Glo Love CNP) <Boby Stover Filed: 01/25/19 18:33> Date of Encounter: 01/25/19 Assessment and Plan (1) CVA (cerebral vascular accident) Current Visit: No Status: Suspected I have personally performed a [id number] assessment of the patient and have reviewed the PA/SHELL TRIM OPERATOR note. My impressions are as follows: I agree with the neurologic assessment and plan as an invite a CMP above. I am suspicious of an acute process involving the left brainstem perhaps the stacey. She has acute onset left facial droop along with difficulty with lateral gaze involving the left eye. This would localize to the abducens nerve and abducens nuclei. She also has hyperreflexia involving the right patella along with right upper and right lower extremity weakness. MRI scan of the brain is yet pending. If the MRI scan is negative, then I would recommend considering inflammatory neuropathy, and nutritional factors. I will sign out to Otilio and Dr. Austin to follow tomorrow. Qualifiers: CVA mechanism: unspecified Qualified Code(s): I63.9 - Cerebral infarction, unspecified History of Present Illness HPI: Chart was reviewed, the patient was seen and examined independently. The case was discussed with the DIRECTOR OF CAREER SERVICES. I agree with his documentation of the history of present illness as stated above. MRI scan of the brain is still pending at this time. All Systems: The remainder of the systems were reviewed and are negative Review of Systems: The balance of the systems review is negative. Physical Examination - Vital Signs Vital Signs: Initial Vital Signs Temp Pulse Resp BP Pulse Ox 98.6 F 71 18 134/77 100 01/24/19 12:27 01/24/19 12:27 01/24/19 12:27 01/24/19 12:27 01/24/19 12:27 - Exam Exam: I have personally performed a [id number] assessment of the patient and have reviewed the PA/SHELL TRIM OPERATOR note. My impressions are as follows: I agree with the neurologic examination as documented above. Results - Laboratory Findings CBC and BMP: 01/25/19 02:30 01/25/19 02:30 Abnormal lab findings: Abnormal lab results WBC 11.2 K/mcL (4.3-11.1) H 01/24/19 12:58 RBC 2.58 M/mcL (3.82-4.97) L 01/25/19 02:30 Hgb 7.9 g/dL (11.5-15.4) L 01/25/19 02:30 Hct 26.8 % (35.3-44.9) L 01/25/19 02:30 MCV 103.9 fL (83.0-100.0) H 01/25/19 02:30 MCHC 29.5 g/dL (31.6-35.5) L 01/25/19 02:30 RDW 14.9 % (11.5-14.5) H 01/25/19 02:30 APTT 23.3 Seconds (26.0-36.0) L 01/24/19 12:58 Chloride 108 mEq/L (98-107) H 01/25/19 02:30 BUN 43 mg/dL (8-23) H 01/25/19 02:30 12.08 mg/dL (0.60-1.20) H 01/25/19 02:30 Est GFR ( Amer) 4 (> 60) L 01/25/19 02:30 Est GFR (Non-Af Amer) 3 (> 60) L 01/25/19 02:30 4 (6-26) L 01/25/19 02:30 Glucose 126 mg/dL (70-105) H 01/25/19 02:30 310 (280-300) H 01/25/19 02:30 Calcium 8.1 mg/dL (8.6-10.3) L 01/25/19 02:30 Magnesium 1.5 mg/dL (1.6-2.6) L 01/25/19 02:30 Free T4 0.60 ng/dl (0.70-2.00) L 01/25/19 02:30 Cloudy (Clear) A 01/24/19 14:44 100 mg/dL (Neg-Trace) H 01/24/19 14:44 Small (Negative) H 01/24/19 14:44 Ur Leukocyte Esterase Small (Negative) H 01/24/19 14:44 5-15 per hpf (0-3) H 01/24/19 14:44 Ur Squamous Epith Cells Many per lpf (None-Few) H 01/24/19 14:44 Amorphous Sediment Many (Few) H 01/24/19 14:44 Ur Culture Indicated? YES (NO) A 01/24/19 14:44
[2019-01-25] MEDS: Fluticasone Propionate Nasal 50 MCG/SPRAY BOTTLE NS SCH ×2 (12:56→21:04)
--- NOTE | 2019-01-25 13:25 | Nephrology Progress Note ---
Date of Encounter: 01/25/19 Time of Encounter: 13:22 - Assessment and Plan (1) ESRD on peritoneal dialysis Current Visit: Yes Status: Acute Patient does nightly changes for approximately 8 hours. Denies any cloudy fluid exchanges or redness or drainage around insertion site. Continue PD in hospital. Strict I&O. Void nephrotoxins and renal dose all medications. (2) Chronic anemia Current Visit: Yes Status: Acute Hemoglobin is 7.9 today. Will defer transfusions to primary team. (3) Peritoneal dialysis catheter in place Current Visit: Yes Status: Acute Gentamicin ointment ordered. Cath care to be completed by [facility] dialysis nurses. (4) TIA (transient ischemic attack) Current Visit: Yes Status: Suspected Per neurology. Subjective Principal diagnosis: fever Interval history: Patient seen and evaluated. Denies any chest pain or shortness of breath. Denies any nausea vomiting or diarrhea. Admits to feeling overall fatigued, still complains of diplopia, and right-sided facial droop. Objective - Vital Signs Vital signs: Vital Signs Temp Pulse Resp BP Pulse Ox 01/25/19 10:55 77 16 113/73 92 01/25/19 08:00 98.4 F 16 152/81 01/25/19 07:58 98.4 F 72 16 152/81 90 01/25/19 03:17 99.2 F 74 16 135/73 90 01/24/19 23:37 99.1 F 81 16 175/77 90 01/24/19 20:24 99.4 F 15 176/82 01/24/19 20:22 99.3 F 78 14 156/75 95 01/24/19 17:20 11 129/70 01/24/19 16:40 73 11 141/72 97 01/24/19 15:34 73 11 138/74 95 01/24/19 14:45 73 18 144/82 98 01/24/19 13:40 72 18 140/76 01/24/19 13:25 71 16 142/78 Intake and Output 01/24/19 01/25/19 01/25/19 23:59 07:59 15:59 Intake Total 1000 / 1120 120 / 1120 Output Total 949 / 949 Balance 1000 / 171 -829 / 171 Intake: IV Fluids 1000 / 1000 0.9 % Sodium Chloride 1,000 ML 1000 / 1000 @ 999 mls/hr IVC .Q1H1M ONE Rx# :[id number] Oral 120 / 120 Output: Urine 150 / 150 Peritoneal Dialysis (PD) Net 799 / 799 Fluid Removed Other: Meal Breakfast Percent of Meal Consumed 40% Weight 118.5 kg Patient Weight 01/25/19 23:59 Weight 118.5 kg - General Appearance General appearance: Present: well-developed, well-nourished EENT: Present: ATNC, hearing intact, vision intact Neck: Present: supple Respiratory: Present: clear Cardiology: Present: no edema, normal S1, normal S2 Additional Comments: PD catheter dressing clean dry and intact. Gastrointestinal: Present: normoactive bowel sounds, no tenderness, no guarding Integumentary: Present: no rash, warm and dry Neurologic: Present: alert and oriented x3 Musculoskeletal: Present: no deformities, no erythema Psychiatric: Present: mood/affect appropriate, cooperative - Lab 01/25/19 02:30 01/25/19 02:30 Most recent lab results 01/25/19 01/25/19 02:30 02:30 Calcium 8.1 L Magnesium 1.5 L Consult Discharge Plan - Plan Referrals: Matt Dimas MD [Primary Care Provider] - 01/31/19 1:00 pm (Abi will be with Glo Love CNP)
[2019-01-25] MEDS: Gentamicin Oint 15 GM TUBE TP SCH ×2 (16:11→21:04)
[2019-01-25] MEDS ORDERED: Ringers Solution, Lactated 500 ML IVC ONE (17:06)
[2019-01-25] MEDS ORDERED: Perit. Dialysis with Dex 1.5 % 12,000 ML PERITONEAL ONE (19:30)
[2019-01-25] MEDS ORDERED: Perflutren Lipid Microsphere 1.3 ML in 0.9 % Sodium Chloride 8.7 ML IVP ONE (20:14)
[2019-01-25] MEDS: Mirtazapine 15 MG TABLET PO SCH (21:03)
[2019-01-26 04:03] LABS: Hemoglobin 7.9 g/dL (11.5-15.4); Mean Corpuscular HGB Conc 30.4 g/dL (31.6-35.5); Mean Corpuscular Hemoglobin 31.1 pg (28.0-33.3); Mean Corpuscular Volume 102.4 fL (83.0-100.0); Mean Platelet Volume 9.8 fL (9.4-12.4); Platelet Count 281 K/mcL (140-400); Red Blood Count 2.54 M/mcL (3.82-4.97); Red Cell Distribution Width 14.4 % (11.5-14.5); White Blood Count 11.4 K/mcL (4.3-11.1)
[2019-01-26 04:20] LABS: Calcium 8.1 mg/dL (8.6-10.3); Potassium 3.6 mEq/L (3.5-5.1)
[2019-01-26 04:46] LABS: Folate 8.4 ng/mL (3.0-16.0)
[2019-01-26] MEDS: Gentamicin Oint 15 GM TUBE TP SCH ×2 (07:30→20:28)
--- NOTE | 2019-01-26 09:14 | Internal Med Progress Note ---
<Corrie Montana - Last Filed: 01/26/19 15:47> Hospitalist Progress Note - Encounter Date of Encounter: 01/26/19 - Exam Vitals: Temp Pulse Resp BP Pulse Ox 98.6 F 69 16 120/71 91 01/26/19 11:44 01/26/19 11:44 01/26/19 11:44 01/26/19 11:44 01/26/19 11:44 - Assessment and Plan (1) HTN (hypertension) Current Visit: No Status: Chronic (2) Sleep apnea Current Visit: No Status: Chronic (3) Anemia Current Visit: No Status: Chronic (4) ESRD on peritoneal dialysis Current Visit: No Status: Chronic (5) TIA (transient ischemic attack) Current Visit: Yes Status: Suspected (6) Acute metabolic encephalopathy Current Visit: Yes Status: Acute (7) Pneumonia Current Visit: Yes Status: Suspected (8) Morbid obesity with BMI of 40.0-44.9, adult Current Visit: Yes Status: Chronic - Time Spent with Patient Total time spent is greater than 50% in coordination of care (as documented) at patient's floor/unit and/or counseling patient: Internal Medicine: Result - Labs CBC & Chem 7: 01/26/19 03:28 01/26/19 03:28 Labs: Short CBC 01/26/19 Range/Units 03:28 WBC 11.4 H (4.3-11.1) K/mcL Hgb 7.9 L (11.5-15.4) g/dL Hct 26.0 L (35.3-44.9) % Plt Count 281 (140-400) K/mcL BMP 01/26/19 03:28 Sodium 142 Potassium 3.6 Chloride 105 Carbon Dioxide 25 BUN 45 H Creatinine 11.86 H Glucose 99 Calcium 8.1 L - ABG Interpretation ABG results: PT/INR, D-dimer PT 11.3 Seconds (9.4-12.1) 01/24/19 12:58 - Impressions Impressions Head CTA 01/24/19 13:43 IMPRESSION: 1. No high-grade stenosis or focal occlusion involving intracranial vasculature. No evidence of intracranial aneurysm. 2. Please also refer to separate report for noncontrast CT head. 3. Please note that CTA neck was not obtained. D/ / 01/24/2019 15:36:26 Abhay Thompson MD / nate Interpreting Provider: Abhay Thompson MD Echocardiogram 01/25/19 16:24 Impressions: LVEF 60-65%. Normal LV chamber size, wall thickness and function. Mild left ventricular diastolic dysfunction. Normal right ventricular structure and function. No evidence of a PFO with agitated saline contrast. No evidence of pulmonary hypertension. No significant valvular dysfunction. Left Ventricular Wall Motion: Rest Echo Findings All wall segments showed normal motion. Findings: Study Quality * Technically adequate exam. ECG Findings * Normal sinus rhythm. Left Ventricle * LVEF 60-65%. * Normal LV chamber size, wall thickness and function. * Mild left ventricular diastolic dysfunction. Right Ventricle * Normal right ventricular structure and function. Left Atrium * Mildly dilated left atrium. Right Atrium * Normal right atrial size. Interatrial Septum * No evidence of a PFO with agitated saline contrast. Aortic Valve * Aortic valve not well visualized. * Grossly, the leaflets appear sclerotic. * No aortic regurgitation. * No significant aortic stenosis. Mean gradient 7 mmHg. Mitral Valve * Normal mitral valve structure and function. * No mitral stenosis. * No mitral regurgitation. Tricuspid Valve * Normal tricuspid valve structure and function. * Trace tricuspid regurgitation. * No evidence of pulmonary hypertension. Pulmonic Valve * Pulmonic valve is not well visualized. * No pulmonic regurgitation. Aorta * Normally sized aortic root. Pericardium * There is a trivial pericardial effusion present. IVC * Normal IVC dimensions and inspiratory collapse. Pulmonary Artery * Normal visualized portions of the main pulmonary artery. Brain MRI 01/26/19 16:23 IMPRESSION: No acute intracranial abnormality. No acute infarct. D/ / Swapnil Shelley MD / Swapnil Shelley MD Interpreting Provider: Swapnil Shelley MD Consult Discharge Plan - Plan Referrals: Matt Dimas MD [Primary Care Provider] - 01/31/19 1:00 pm (Abi will be with Glo Love CNP) - Attending Attestation I examined this patient and my medical decision-making was reviewed with the Resident Physician Dr Ferrell. I agree with the documented findings, disposition and treatment plan as described except to the extent set forth below. Ms Orellana is being observed for dysarthria and facial droop Awake, RN at bedside, she denies any new neuro changes, feeling overall tired, no fevers or chills, cough or dysuria. Denies confusion. no family at bedside gen- alert, awake,appears stated age eyes- pupils equal round , eom intact cv- reg rate and rhythm, normal s1,s2,no le edema lungs- ctabl, normal resp effort abd- soft, non tender, non distended, + bs neuro- AAOx3, she is limited in her effort in neuro exam, cannot appreciate focal CN deficits or BL extremity focal deficits Facial Droop/Dysarthria, suspect TIA MRI negative for CVA Hx CVA in past -appreciate neuro input and they are considering other potential causes/work up, will await recs -echo reviewed and no PFO, MRI reviewed and no acute ischemic events, CUS remains pending -asa allergy, cont statin + plavix -cont BP control, nephro was agreeable to slight decrease in losartan, otherwise keeping meds the same at this time with normotensive goal ESRD on PD as per nephro She has remained afebrile throughout entire admit without abx vte ppx scds and ambulate dispo- pt rec is for inpt rehab <Golden Ferrell - Last Filed: 01/26/19 18:17> Hospitalist Progress Note - Encounter Date of Encounter: 01/26/19 Time of Encounter: 10:26 - Subjective Interval History: Patient feeling better than yesterday. alert and oriented X 3 in the afternoon - Exam Vitals: Temp Pulse Resp BP Pulse Ox 98.8 F 73 16 145/70 92 01/26/19 07:04 01/26/19 07:04 01/26/19 07:04 01/26/19 07:04 01/26/19 07:04 Exam: General: vitals noted. no acute distress. eyes: no icterus. moist conjunctivae. skin: good turgor cardio: RRR. 3/6 systolic murmur heard best over pulmonic and radiates to L carotid bruit. resp: CTA upper anteriorly. non-labored breathing. GI: obese. bowel sounds present. nontender to palpation. no rebound tenderness or fluid wave. no jaundice. extremities: no appreciable edema. neuro: CN 2-12 intact. struggled with acccomodation of pupils. seeing double. some trouble following commands. sensation to light touch upper and lower ext. intact grossly. strenght upper and lower ext. intact grossly. some mild facial droop on the L but this may be normal for the patient. CN VII tests showed facial droop but again this is baselin for pt.. psych: alert and orietned times 3 - Assessment and Plan (1) Altered mental status Current Visit: Yes Status: Acute Assessment and Plan: -etiology remains unknown -increased somnolence per -gluocose and electrolytes WNL -SIRS criteria not met so doubt infectious -CT and CTA as well as MRI head negative. -neurology has done stroke workup (2) TIA (transient ischemic attack) Current Visit: Yes Status: Suspected Assessment and Plan: conisder 2/2 embolus vs thromobotic -hx of CVA in 2014 and residual R sided weakness -history of HLipidemia, HTN - states increased somnolence, slurred speech, and R sided facial droop -heart was RRR so doubt afib as cause -no evidence seen on CT, CTA on 01/24/19. MRI 01/26 negative for acute. -echo showed no PFO. LVEF 60-65% -b/l carotid U/S pending -cont. plavix and statin per neuro. appreciate their recs (3) SBP (spontaneous bacterial peritonitis) Current Visit: Yes Status: Acute Assessment and Plan: -suspected 2/2 concern at last hospital visit discharged 01/17 and reports of home fever and deconditioning/AMS recently. -on nightly peritoneal dialysis -afebrile, no tachypnea or tachycardia, white count WNL -received total 6 days of treatment with ceftriaxone and cefdinir last stay and after discharge. -will continue to monitor for signs of infection (4) HTN (hypertension) Current Visit: No Status: Chronic Assessment and Plan: -chronic - states her mentation worsens when below 140-160 -afternoon readings systolic near 120's. -Losartan changed to 25 bid on 01/25/19. -continue metoprolol 50 mg bid -continue nifedipine 90mg -continue to monitor (5) Chronic anemia Current Visit: Yes Status: Acute Assessment and Plan: -likely 2/2 renal disease -ESRD on nightly Peritoneal dialysis -B12 and folate WNL -continue to monitor for signs of bleed (6) ESRD on peritoneal dialysis Current Visit: Yes Status: Acute Assessment and Plan: -chronic -continue nightly dialysis -monitoring for SBP -I/O: +465 (7) Low T4 Current Visit: Yes Status: Acute Assessment and Plan: -consider 2/2 hypothyroid syndrome (yan's vs other autoimmune disease) (hx of SLE) -would expect TSH to increase 2/2 low t4 but not appropriately compensating -proptosis on exam -TSH WNL at 2.396. -free T4 low at 0.6 -outpatient workup warranted - Time Spent with Patient Total time spent is greater than 50% in coordination of care (as documented) at patient's floor/unit and/or counseling patient: Internal Medicine: Result - Labs CBC & Chem 7: 01/26/19 03:28 01/26/19 03:28 Labs: Short CBC 01/26/19 Range/Units 03:28 WBC 11.4 H (4.3-11.1) K/mcL Hgb 7.9 L (11.5-15.4) g/dL Hct 26.0 L (35.3-44.9) % Plt Count 281 (140-400) K/mcL BMP 01/26/19 03:28 Sodium 142 Potassium 3.6 Chloride 105 Carbon Dioxide 25 BUN 45 H Creatinine 11.86 H Glucose 99 Calcium 8.1 L - ABG Interpretation ABG results: PT/INR, D-dimer PT 11.3 Seconds (9.4-12.1) 01/24/19 12:58 - Impressions Impressions Head CTA 01/24/19 13:43 IMPRESSION: 1. No high-grade stenosis or focal occlusion involving intracranial vasculature. No evidence of intracranial aneurysm. 2. Please also refer to separate report for noncontrast CT head. 3. Please note that CTA neck was not obtained. D/ / 01/24/2019 15:36:26 Abhay Thompson MD / nate Interpreting Provider: Abhay Thompson MD <Corrie Montana M - Last Filed: 01/26/19 15:47> (1) HTN (hypertension) Qualifiers: Hypertension type: essential hypertension Qualified Code(s): I10 - Essential (primary) hypertension (2) Sleep apnea Qualifiers: Sleep apnea type: obstructive Qualified Code(s): G47.33 - Obstructive sleep apnea (adult) (pediatric) (3) Anemia Qualifiers: Anemia type: due to chronic kidney disease Chronic kidney disease stage: on c hronic dialysis Qualified Code(s): N18.6 - End stage renal disease; D63.1 - Anemia in chronic kidney disease; Z99.2 - Dependence on renal dialysis (7) Pneumonia Qualifiers: Pneumonia type: due to other aerobic Gram-negative bacteria Laterality: unspecified laterality Lung location: unspecified part of lung Qualified Code(s): J15.6 - Pneumonia due to other Gram-negative bacteria <Golden Ferrell G - Last Filed: 01/26/19 18:17> (1) Altered mental status Qualifiers: Altered mental status type: unspecified Qualified Code(s): R41.82 - Altered mental status, unspecified (4) HTN (hypertension) Qualifiers: Hypertension type: essential hypertension Qualified Code(s): I10 - Essential (primary) hypertension
[2019-01-26] MEDS: Calcium Acetate 667 MG CAPSULE PO SCH ×3 (09:23→17:11)
[2019-01-26] MEDS: Famotidine 20 MG TABLET PO SCH (09:23)
[2019-01-26] MEDS: NIFEdipine XL (24 HR) 30 MG TAB.ER.24 PO SCH (09:24)
[2019-01-26] MEDS: Fluticasone Propionate Nasal 50 MCG/SPRAY BOTTLE NS SCH ×2 (09:54→20:29)
--- NOTE | 2019-01-26 11:30 | Neurology Progress Note ---
<Otilio Gomez J - Last Filed: 01/26/19 13:21> Date of Encounter: 01/26/19 Time of Encounter: 11:25 Assessment and Plan (1) CVA (cerebral vascular accident) Current Visit: No Status: Suspected The right facial droop, decreased innervation with decreased innervation of the left facial and trigeminal nerve persists as does the slurred speech and left eye diplopia. There are no new neurological deficits found on today's exam. Etiology remains unclear at this time however, I am still concerned for an ischemic etiology vs a cranial neuropathy vs neuromuscular junctional pathology. Full workup is pending. In the meantime continue with neurological assessment per acute CVA protocol, continue Plavix and Statin and all medical and suppo rtive care. Qualifiers: CVA mechanism: unspecified Qualified Code(s): I63.9 - Cerebral infarction, unspecified Subjective Principal diagnosis: right facial droop, slurred speech, left eye diplopia and RUE weakness Interval history: The chart was reviewed and the patient was seen and examined at the bedside today. She continues to have facial droop, speech slurring and left eye diplopia. She denies any additional concerns this morning. Clinically, she is stable and there are no new neurological deficits on today's exam. Objective - Constitutional Vitals: Temp Pulse Resp BP Pulse Ox 98.7 F 73 18 138/77 92 01/26/19 07:40 01/26/19 07:04 01/26/19 07:40 01/26/19 07:40 01/26/19 07:04 Exam: Examination: General Examination: *CONSTITUTIONAL: Drowsy but responds to gentle verbal stimulus, she is oriented x3, no acute distress *GENERAL APPEARANCE OF PATIENT generally ill appearing elderly obese female *EYES: pupils equal, round, reactive to light and accommodation, conjunctiva clear without masses or ulcerations, fundi normal. *CARDIOVASCULAR: RRR, no peripheral edema, distal temperature normal, dorsalis pedis pulses normal. Refer to vital signs * MUSCULOSKELETAL: *GAIT AND STATION: Deferred; falls risk *ASSESSMENT OF MUSCLE STRENGTH IN THE UPPER AND LOWER EXTREMITIES right deltoid, bicep, tricep, piano regulator strength are somewhat weaker than the left and 4/5 on a motor strength scale. The left deltoid, bicep, tricep, piano regulator strength are also 4/5 strength is greater than right. Bilateral hip flexors ,anterior tibialis, dorsoflexion of the foot 4/5 *MUSCLE TONE IN THE UPPER AND LOWER EXTREMITIES normal. No abnormal movements, fasciculations or atrophy identified. Neurological: *ORIENTATION to person, situation, time and place *LANGUAGE AND FUNCTION no significant aphasia. Continues to have slurred speech *ATTENTION AND CONCENTRATION are abnormal and she appears somewhat encephalopathic and drowsy but overall is easily arousable to gentle verbal stimulus, able to maintain a conversation with gentle redirection *LANGUAGE FUNCTION no significant aphasia. Speech slurring *FUND OF KNOWLEDGE aware of current events, past history, vocabulary *MENTAL attention span and concentration somewhat abnormal as she is drowsy and requiring some redirection. However, she will follow commands and proceed with task completion when prompted *CN II optic fundi were normal, no papilledema noted. *CN III,IV, PERRLA extraocular eye movements were full in the right eye however, she has limitations with abduction of the left eye, no nystagmus and no ptosis noted. *CN V shows normal sensation. left facial droop and asymmetrical facial movement with decreased innervation of the left face with jaw opening *CN VII shows abnormal facial movement is stated above. *CN VIII shows no significant hearing loss on exam *CN IX-Xpalate elevated symmetrically *CN XI normal strength in the sternocleidomastoid muscles, symmetrical shoulder shrugging. *CN XII tongue protruded in the midline, with normal strength and movement. *SENSORY EXAMINATION light touch intact *REFLEXES: DTRs: Right bicep, tricep, brachial radialis brisk and 4/4, left bicep, tricep, brachial radialis brisk and 4/4. Right patellar and Achilles are somewhat clonal form. Left patellar and Achilles are brisk 4/4 *CEREBELLAR TESTING abnormal finger to nose with mild dysmetria of the right hand, heel/knee/adams *PAIN LEVEL 0/10 Results - Laboratory Findings CBC and BMP: 01/26/19 03:28 01/26/19 03:28 Abnormal lab findings: Abnormal lab results WBC 11.4 K/mcL (4.3-11.1) H 01/26/19 03:28 RBC 2.54 M/mcL (3.82-4.97) L 01/26/19 03:28 Hgb 7.9 g/dL (11.5-15.4) L 01/26/19 03:28 Hct 26.0 % (35.3-44.9) L 01/26/19 03:28 MCV 102.4 fL (83.0-100.0) H 01/26/19 03:28 MCHC 30.4 g/dL (31.6-35.5) L 01/26/19 03:28 RDW 14.9 % (11.5-14.5) H 01/25/19 02:30 APTT 23.3 Seconds (26.0-36.0) L 01/24/19 12:58 Chloride 108 mEq/L (98-107) H 01/25/19 02:30 BUN 45 mg/dL (8-23) H 01/26/19 03:28 11.86 mg/dL (0.60-1.20) H 01/26/19 03:28 Est GFR ( Amer) 4 (> 60) L 01/26/19 03:28 Est GFR (Non-Af Amer) 3 (> 60) L 01/26/19 03:28 4 (6-26) L 01/26/19 03:28 Glucose 126 mg/dL (70-105) H 01/25/19 02:30 306 (280-300) H 01/26/19 03:28 Calcium 8.1 mg/dL (8.6-10.3) L 01/26/19 03:28 Magnesium 1.5 mg/dL (1.6-2.6) L 01/25/19 02:30 Free T4 0.60 ng/dl (0.70-2.00) L 01/25/19 02:30 Cloudy (Clear) A 01/24/19 14:44 100 mg/dL (Neg-Trace) H 01/24/19 14:44 Small (Negative) H 01/24/19 14:44 Ur Leukocyte Esterase Small (Negative) H 01/24/19 14:44 5-15 per hpf (0-3) H 01/24/19 14:44 Ur Squamous Epith Cells Many per lpf (None-Few) H 01/24/19 14:44 Amorphous Sediment Many (Few) H 01/24/19 14:44 Ur Culture Indicated? YES (NO) A 01/24/19 14:44 Consult Discharge Plan - Plan Referrals: Matt Dimas MD [Primary Care Provider] - 01/31/19 1:00 pm (Abi will be with Glo Love CNP) <Ignacio Austin I - Last Filed: 01/26/19 15:36> Date of Encounter: 01/26/19 Assessment and Plan (1) CVA (cerebral vascular accident) Current Visit: No Status: Suspected I have personally performed a face to face diagnostic evaluation, including H PI, EXAM, which is included in the Assesment and plan, which was discussed with Otilio Gomez CNP, I agree with the above outlined documentation. Ignacio Austin MD. NeurologyI Qualifiers: CVA mechanism: unspecified Qualified Code(s): I63.9 - Cerebral infarction, unspecified Objective - Constitutional Vitals: Temp Pulse Resp BP Pulse Ox 98.6 F 69 16 120/71 91 01/26/19 11:44 01/26/19 11:44 01/26/19 11:44 01/26/19 11:44 01/26/19 11:44 Results - Laboratory Findings CBC and BMP: 01/26/19 03:28 01/26/19 03:28 Abnormal lab findings: Abnormal lab results WBC 11.4 K/mcL (4.3-11.1) H 01/26/19 03:28 RBC 2.54 M/mcL (3.82-4.97) L 01/26/19 03:28 Hgb 7.9 g/dL (11.5-15.4) L 01/26/19 03:28 Hct 26.0 % (35.3-44.9) L 01/26/19 03:28 MCV 102.4 fL (83.0-100.0) H 01/26/19 03:28 MCHC 30.4 g/dL (31.6-35.5) L 01/26/19 03:28 RDW 14.9 % (11.5-14.5) H 01/25/19 02:30 APTT 23.3 Seconds (26.0-36.0) L 01/24/19 12:58 Chloride 108 mEq/L (98-107) H 01/25/19 02:30 BUN 45 mg/dL (8-23) H 01/26/19 03:28 11.86 mg/dL (0.60-1.20) H 01/26/19 03:28 Est GFR ( Amer) 4 (> 60) L 01/26/19 03:28 Est GFR (Non-Af Amer) 3 (> 60) L 01/26/19 03:28 4 (6-26) L 01/26/19 03:28 Glucose 126 mg/dL (70-105) H 01/25/19 02:30 306 (280-300) H 01/26/19 03:28 Calcium 8.1 mg/dL (8.6-10.3) L 01/26/19 03:28 Magnesium 1.5 mg/dL (1.6-2.6) L 01/25/19 02:30 Free T4 0.60 ng/dl (0.70-2.00) L 01/25/19 02:30 Cloudy (Clear) A 01/24/19 14:44 100 mg/dL (Neg-Trace) H 01/24/19 14:44 Small (Negative) H 01/24/19 14:44 Ur Leukocyte Esterase Small (Negative) H 01/24/19 14:44 5-15 per hpf (0-3) H 01/24/19 14:44 Ur Squamous Epith Cells Many per lpf (None-Few) H 01/24/19 14:44 Amorphous Sediment Many (Few) H 01/24/19 14:44 Ur Culture Indicated? YES (NO) A 01/24/19 14:44
--- NOTE | 2019-01-26 13:45 | Nephrology Progress Note ---
Date of Encounter: 01/26/19 Time of Encounter: 13:43 - Assessment and Plan (1) ESRD on peritoneal dialysis Current Visit: Yes Status: Acute Patient does nightly changes for approximately 8 hours. Denies any cloudy fluid exchanges or redness or drainage around insertion site. Continue PD in hospital. Strict I&O. Void nephrotoxins and renal dose all medications. (2) Chronic anemia Current Visit: Yes Status: Acute Hemoglobin is 7.9 today. Will defer transfusions to primary team. (3) Peritoneal dialysis catheter in place Current Visit: Yes Status: Acute Gentamicin ointment ordered. Cath care to be completed by [facility] dialysis nurses. (4) TIA (transient ischemic attack) Current Visit: Yes Status: Suspected Pt states her symptoms are worse with a blood pressure less than 160. Cozaar to 25 mg PO BID from 50. Pt affirms improved symptoms. Subjective Principal diagnosis: right facial droop, slurred speech, left eye diplopia and RUE weakness Interval history: Patient seen and evaluated. Denies any chest pain or shortness of breath. Denies any nausea vomiting or diarrhea. Admits to feeling overall fatigued, still complains of diplopia, and right-sided facial droop. Objective - Vital Signs Vital signs: Vital Signs Temp Pulse Resp BP Pulse Ox 01/26/19 11:44 98.6 F 69 16 120/71 91 01/26/19 07:40 98.7 F 18 138/77 01/26/19 07:04 98.8 F 73 16 145/70 92 01/26/19 03:50 98.3 F 74 16 163/89 91 01/25/19 23:48 99.2 F 80 16 168/92 91 01/25/19 20:55 98.8 F 18 124/74 01/25/19 19:49 98 F 80 16 120/76 92 01/25/19 15:48 98.9 F 77 16 114/67 93 Intake and Output 01/25/19 01/26/19 01/26/19 23:59 07:59 15:59 Intake Total 500 / 1620 Output Total 266 / 266 Balance 500 / 671 -266 / -266 Intake: IV Fluids 500 / 1500 Lactated Ringers 500 ML @ 1000 500 / 500 mls/hr IVC .Q30M ONE Rx#: [id number] Output: Peritoneal Dialysis (PD) Net 266 / 266 Fluid Removed Other: Weight 118 kg Patient Weight 01/26/19 23:59 Weight 118 kg - General Appearance General appearance: Present: well-developed, well-nourished EENT: Present: ATNC, hearing intact, vision intact Neck: Present: supple Respiratory: Present: clear Cardiology: Present: no edema, normal S1, normal S2 Additional Comments: PD cath site DRSG C/D/I. Gastrointestinal: Present: normoactive bowel sounds, no tenderness, no guarding Integumentary: Present: no rash, warm and dry Neurologic: Present: alert and oriented x3, facial droop Additional Comments: right side facial droop. Musculoskeletal: Present: no deformities, no erythema Psychiatric: Present: mood/affect appropriate, cooperative - Lab 01/26/19 03:28 01/26/19 03:28 Most recent lab results 01/26/19 03:28 Calcium 8.1 L Consult Discharge Plan - Plan Referrals: Matt Dimas MD [Primary Care Provider] - 01/31/19 1:00 pm (Abi will be with Glo Love CNP)
[2019-01-26] MEDS ORDERED: Perit. Dialysis with Dex 1.5 % 12,000 ML PERITONEAL ONE (19:00)
[2019-01-26] MEDS: Mirtazapine 15 MG TABLET PO SCH (20:26)
--- NOTE | 2019-01-27 06:21 | Electrocardiograph Report ---
[facility] Test Date: 2019-01-24 Pat Name: Maggie Orellana Department: [id number] Room: 3B36 Gender: F [employer]: : 1955 Requested By: Braydon Adames Order Number: [id number] Reading MD: Gregory Akers Measurements Intervals [place] Rate: 71 P: 55 LA: 208 QRS: 42 QRSD: 106 T: 28 QT: 455 QTc: 495 Interpretive Statements Sinus rhythm Probable left atrial enlargement Borderline prolonged QT interval Electronically Signed On 01-27-2019 6:19:58 EDT by Gregory Akers
[2019-01-27 06:22] LABS: Basophils # 0.1 K/mcL (0.0-0.2); Basophils % 0.5 %; Eosinophils # 0.5 K/mcL (0.0-0.6); Eosinophils % 4.5 %; Hematocrit 25.1 % (35.3-44.9); Hemoglobin 7.7 g/dL (11.5-15.4); Lymphocytes # 2.5 K/mcL (0.6-4.6); Lymphocytes % 24.4 %; Mean Corpuscular HGB Conc 30.7 g/dL (31.6-35.5); Mean Corpuscular Hemoglobin 31.3 pg (28.0-33.3); Monocytes # 0.7 K/mcL (0.0-1.3); Monocytes % 6.6 %; Neutrophils # 6.4 K/mcL (1.6-8.9); Platelet Count 280 K/mcL (140-400); Red Blood Count 2.46 M/mcL (3.82-4.97); Red Cell Distribution Width 14.4 % (11.5-14.5); White Blood Count 10.2 K/mcL (4.3-11.1)
--- NOTE | 2019-01-27 07:18 | Discharge Summary ---
<Corrie Montana - Last Filed: 01/27/19 15:19> Orders not resulted at time of discharge: Pending orders 01/24/19 22:00 Culture,Body Fluid [RM] Stat 01/28/19 04:00 BMP [Basic Metabolic Panel] AM 0400 Complete Blood Count w/o Diff [HEME] AM 0400 01/29/19 04:00 BMP [Basic Metabolic Panel] AM 0400 Complete Blood Count w/o Diff [HEME] AM 0400 01/30/19 04:00 BMP [Basic Metabolic Panel] AM 0400 Complete Blood Count w/o Diff [HEME] AM 0400 Date of Encounter: 01/27/19 - Discharge Diagnosis (1) HTN (hypertension) Priority: Secondary Status: Chronic Qualifiers: Hypertension type: essential hypertension Qualified Code(s): I10 - Essential (primary) hypertension (2) Sleep apnea Priority: Secondary Status: Chronic Qualifiers: Sleep apnea type: obstructive Qualified Code(s): G47.33 - Obstructive sleep apnea (adult) (pediatric) (3) Anemia Priority: Secondary Status: Chronic Qualifiers: Anemia type: due to chronic kidney disease Chronic kidney disease stage: on chronic dialysis Qualified Code(s): N18.6 - End stage renal disease; D63.1 - Anemia in chronic kidney disease; Z99.2 - Dependence on renal dialysis (4) ESRD on peritoneal dialysis Priority: Secondary Status: Chronic (5) TIA (transient ischemic attack) Priority: Primary Status: Suspected (6) Acute metabolic encephalopathy Priority: Secondary Status: Resolved (7) Pneumonia Priority: Secondary Status: Suspected Qualifiers: Pneumonia type: due to other aerobic Gram-negative bacteria Laterality: unspecified laterality Lung location: unspecified part of lung Qualified Code(s): J15.6 - Pneumonia due to other Gram-negative bacteria (8) Morbid obesity with BMI of 40.0-44.9, adult Priority: Secondary Status: Chronic Hospital course: Ms. Orellana is a 63 year old female Discharge discussed with: patient, social work, work and family life consultant - Time Spent with Patient Total time spent providing and/or coordinating discharge services: Time spent: Greater than 30 minutes (40 min) - Discharge Medications Prescriptions: New Losartan [Cozaar] 25 mg PO BID #60 tablet Famotidine [Pepcid] 10 mg PO DAILY 30 Days #30 tablet Gentamicin Oint [Garamycin] 1 appl TP BID tube Continued Atorvastatin [Lipitor] 80 mg PO DAILY Folic Acid 1 mg PO DAILY Cyanocobalamin (B-12) [Vitamin B12] 1,000 mcg PO DAILY Clopidogrel [Plavix] 75 mg PO DAILY Sodium Bicarbonate 650 mg PO BID Nebivolol HCl [Bystolic] 10 mg PO BID Fluticasone Propionate Nasal [Flonase] 2 spray NS BID Fexofenadine HCl 180 mg PO DAILY PRN PRN Reason: Allergy Symptoms Ferrous Sulfate [Iron] 325 mg PO DAILY Amitriptyline HCl 50 mg PO HS Acetaminophen [Acetaminophen ER] 650 mg PO Q6H PRN PRN Reason: Pain Calcitriol 0.5 mcg PO BID Mirtazapine [Remeron] 15 mg PO HS Calcium Acetate 667 mg PO TIDWM Artificial Tears SOLN [Akwa Tears] 1 drop BOTH EYES HS PRN PRN Reason: Dry Eye(S) Lactulose [Enulose] 10 gm PO DAILY PRN PRN Reason: unkown NIFEdipine [Nifedipine ER] 90 mg PO DAILY Melatonin [Melatin] 3 mg PO HS PRN PRN Reason: Sleep Psyllium [Metamucil Fiber Singles Packet] 1 packet PO TID PRN PRN Reason: Constipation Cinacalcet HCl [Sensipar] 60 mg PO HS Albuterol Sulfate [Proair Respiclick] 2 puff PO Q6H PRN PRN Reason: Shortness Of Breath Citalopram Hydrobromide [Citalopram HBr] 40 mg PO QPM Montelukast [Singulair] 10 mg PO QPM Pantoprazole Sodium [Protonix] 40 mg PO DAILY Sennosides/Docusate Sodium [Docusate Sodium-Sennosides Tab] 1 tab PO QPM PRN PRN Reason: Constipation Sevelamer [Renvela] 800 mg PO 1200 Triamcinolone Acetonide 1 appl TP BID Discontinued Famotidine [Pepcid] 40 mg PO BID Losartan Potassium 50 mg PO BID Home Medications: Acetaminophen [Acetaminophen ER] 650 mg PO Q6H PRN 01/29/18 [History] Amitriptyline HCl 50 mg PO HS 01/29/18 [History] Atorvastatin [Lipitor] 80 mg PO DAILY 01/29/18 [History] Clopidogrel [Plavix] 75 mg PO DAILY 01/29/18 [History] Cyanocobalamin (B-12) [Vitamin B12] 1,000 mcg PO DAILY 01/29/18 [History] Ferrous Sulfate [Iron] 325 mg PO DAILY 01/29/18 [History] Fexofenadine HCl 180 mg PO DAILY PRN 01/29/18 [History] Fluticasone Propionate Nasal [Flonase] 2 spray NS BID 01/29/18 [History] Folic Acid 1 mg PO DAILY 01/29/18 [History] Nebivolol HCl [Bystolic] 10 mg PO BID 01/29/18 [History] Sodium Bicarbonate 650 mg PO BID 01/29/18 [History] Calcitriol 0.5 mcg PO BID 09/01/18 [History] Mirtazapine [Remeron] 15 mg PO HS 09/01/18 [History] Artificial Tears SOLN [Akwa Tears] 1 drop BOTH EYES HS PRN 01/10/19 [History] Calcium Acetate 667 mg PO TIDWM 01/10/19 [History] Cinacalcet HCl [Sensipar] 60 mg PO HS 01/10/19 [History] Lactulose [Enulose] 10 gm PO DAILY PRN 01/10/19 [History] Melatonin [Melatin] 3 mg PO HS PRN 01/10/19 [History] NIFEdipine [Nifedipine ER] 90 mg PO DAILY 01/10/19 [History] Psyllium [Metamucil Fiber Singles Packet] 1 packet PO TID PRN 01/10/19 [History] Albuterol Sulfate [Proair Respiclick] 2 puff PO Q6H PRN 01/11/19 [History] Citalopram Hydrobromide [Citalopram HBr] 40 mg PO QPM 01/11/19 [History] Montelukast [Singulair] 10 mg PO QPM 01/11/19 [History] Pantoprazole Sodium [Protonix] 40 mg PO DAILY 01/11/19 [History] Sennosides/Docusate Sodium [Docusate Sodium-Sennosides Tab] 1 tab PO QPM PRN 01/11/19 [History] Sevelamer [Renvela] 800 mg PO 1200 01/11/19 [History] Triamcinolone Acetonide 1 appl TP BID 01/11/19 [History] Famotidine [Pepcid] 10 mg PO DAILY 30 Days #30 tablet 01/27/19 [Rx] Gentamicin Oint [Garamycin] 1 appl TP BID tube 01/27/19 [Rx] Losartan [Cozaar] 25 mg PO BID #60 tablet 01/27/19 [Rx] Allergies/Adverse Reactions: Allergy/AdvReac Type Severity Reaction Status Date / Time latex Allergy Rash Verified 01/24/19 10:49 Penicillins Allergy Rash Verified 01/24/19 10:49 prednisone Allergy "CRAZY" Verified 01/24/19 10:49 sulfur dioxide Allergy Rash Verified 01/24/19 10:49 aspirin AdvReac See Verified 01/24/19 10:49 Comments spironolactone AdvReac Hypertensio Verified 01/24/19 10:49 n Date of admission: 01/24/19 16:32 Primary care physician: Matt Dimas MD Consults: 01/24/19 15:44 Consult to Nephrology [CONS] Stat Consulting Provider: [facility] Reason for Consult: peritoneal dialysis patient Time Notified: 15:44 Call Completed: Yes 01/24/19 17:00 Consult to Dialysis [CONS] ONCE 01/25/19 08:19 Consult to Occupational Therapy [CONS] Routine Comment: Evaluate, develop and implement POC Reason for Consult: WEAKNESS, POSSIBLE PLACEMENT, WILL NEED INSURANCE AUTH Does patient have active BEDREST order?: No Is patient medically & hemodynamically stable?: Yes Consult to Physical Therapy [CONS] Routine Comment: Evaluate, develop and implement POC Reason for Consult: WEAKNESS, POSSIBLE PLACEMENT, WILL NEED INSURANCE AUTH Does patient have active BEDREST order?: No Is patient medically & hemodynamically stable?: Yes Consult to Experimental Worker [CONS] Routine Reason for SW Consult: POSSIBLE SNF PLACEMENT 01/25/19 08:21 Consult to Nurse Navigator [CONS] Routine Comment: ESRD 01/25/19 10:10 Consult to Neurology [CONS] Stat Consulting Provider: [facility] Reason for Consult: assess need for further CVA workup Call Completed: Yes 01/25/19 19:30 Consult to Dialysis [CONS] ONCE 01/26/19 16:30 Consult to Dialysis [CONS] ONCE Discharging clinician: Golden Ferrell - Constitutional Vitals: Temp Pulse Resp BP Pulse Ox 98.6 F 72 16 103/64 92 01/27/19 11:10 01/27/19 11:10 01/27/19 11:10 01/27/19 11:10 01/27/19 11:10 - Patient Status Disposition: Transfer SNF Condition: Fair - Discharge Instructions Follow Up With: Matt Dimas MD [Primary Care Provider] - 01/31/19 1:00 pm (Abi will be with Glo Love CNP) Additional Instructions: Follow up with your Director Operations Broadcast as scheduled and continue PD as instructed - Diet and Activity Activity: as per physical therapy, increase activity as tolerated Diet: advance to your usual diet, other (renal;) - Attending Attestation I examined this patient and my medical decision-making was reviewed with the Resident Physician Dr Ferrell. I agree with the documented findings, disposition and treatment plan as described except to the extent set forth below. Ms Orellana was being observed for dysarthria and facial droop. She was followed by Neurology and was cleared for dc to rehab. She is discharged pending placement at facility that can accommodate her peritoneal dialysis Awake, no family present, she has facial droop and some slurring to her speech but she is denying any changes. no new symptoms. no headache or dizziness. Discussed discharge planning with her and no questions She would like to go to rehab and neurology has cleared her to do so. DC to rehab when bed available gen- alert, awake,appears stated age eyes- pupils equal round , eom intact cv- reg rate and rhythm, normal s1,s2, no jvd, no le edema lungs- ctabl, normal resp effort on room air abd- soft, non tender, non distended neuro- AAOx3, she has mild left facial droop and some mild dysarthria, she is noting decreased sensation on RIGHT side of face which does not correspond to muscle findings, CN otherwise intact, No BL extremity focal deficits Facial Droop/Dysarthria, suspect that these intermittent sxs are related to large volume shifts/hypoperfusion associated with PD MRI negative for CVA Hx CVA in past Echo no PFO, MRI reviewed and no acute ischemic events, CUS unremarkable -appreciate neuro input, they have signed off and recommend no further testing and further discussion with her outpt nephro -asa allergy, cont statin + plavix -cont BP control on current regimen and outpt nephro follow up ESRD on PD as per nephro dispo- SW working to place at rehab in [place] that can accommodate PD, medically stable for dc time spent on dc 40 min <Golden Ferrell - Last Filed: 01/27/19 17:24> - NOTES TO OUTPATIENT PROVIDER Notes to Outpatient Provider: Patient presented with AMS and increased R sided facial droop/weakness/slurred speech per the . Full CVA workup with neuro consult was negative. Her mental status was waxing and waning but overall improved. Patient's home dose losartan was decreased to 25 mg bid 2/ patient reporting that she felt worse when blood pressure was lower. Also her famotidine dose was lowered to 10 mg po daily. Found to have a normal TSH and low T4. Defer to you for outpt setting. Thank you. Orders not resulted at time of discharge: Pending orders 01/24/19 22:00 Culture,Body Fluid [RM] Stat 01/28/19 04:00 BMP [Basic Metabolic Panel] AM 0400 Complete Blood Count w/o Diff [HEME] AM 0400 01/29/19 04:00 BMP [Basic Metabolic Panel] AM 0400 Complete Blood Count w/o Diff [HEME] AM 0400 01/30/19 04:00 BMP [Basic Metabolic Panel] AM 0400 Complete Blood Count w/o Diff [HEME] AM 0400 Date of Encounter: 01/27/19 Time of Encounter: 13:58 - Discharge Diagnosis (1) Altered mental status Priority: Primary Status: Acute Qualifiers: Altered mental status type: unspecified Qualified Code(s): R41.82 - Altered mental status, unspecified (2) CVA (cerebral vascular accident) Priority: Secondary Status: Ruled-out Qualifiers: CVA mechanism: unspecified Qualified Code(s): I63.9 - Cerebral infarction, unspecified (3) SBP (spontaneous bacterial peritonitis) Priority: Secondary Status: Resolved (4) HTN (hypertension) Priority: Secondary Status: Chronic Qualifiers: Hypertension type: essential hypertension Qualified Code(s): I10 - Essential (primary) hypertension (5) Chronic anemia Priority: Secondary Status: Acute (6) ESRD on peritoneal dialysis Priority: Secondary Status: Acute (7) Low T4 Priority: Secondary Status: Acute Hospital course: Ms. Orellana is a 63 year old female with PMH of ESRD on PD nightly, heart murmur, SLE, GERD, anemia, Hyperlipidemia, CVA in 2015. who presented to the ED on 01/24/19 after her noted decreased mentation, increased R facial droop and slurred speech beginning 20:00 on 01/23/19 per record. She was afebrile with no tachycardia and stable blood pressure on arrival. She was diagnosed with acute metabolic encephalopathy and CVA. A full stroke workup was performed including CT head, CTA head, MRI brain w/o contrast negative for acute process. TTE negative for PFO. carotid duplex showed multiple non-stenotic plaques and no change compared to prior study on 12/08/16. Patient's mental status and neurological signs waxed and waned throughout stay. Patient very lethargic most mornings and improved in the afternoon. Neurology suggested symptoms may be due to hypoperfusion syndrome as patient on nightly peritoneal dialysis. Patient complained of feeling more symptomatic when blood pressure was lower. We decreased her dose of losartan to 25 mg bid. Also, the dose of famotidine was lowered to 10mg daily. Patient was noted to have proptosis so a TSH was orderd and was WNL with a low free T4. This warrants outpatient followup. 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 has himoto's are possibilities. - Time Spent with Patient Total time spent providing and/or coordinating discharge services: Date of admission: 01/24/19 16:32 Primary care physician: Matt Dimas MD Consults: 01/24/19 15:44 Consult to Nephrology [CONS] Stat Consulting Provider: [facility] Reason for Consult: peritoneal dialysis patient Time Notified: 15:44 Call Completed: Yes 01/24/19 17:00 Consult to Dialysis [CONS] ONCE 01/25/19 08:19 Consult to Occupational Therapy [CONS] Routine Comment: Evaluate, develop and implement POC Reason for Consult: WEAKNESS, POSSIBLE PLACEMENT, WILL NEED INSURANCE AUTH Does patient have active BEDREST order?: No Is patient medically & hemodynamically stable?: Yes Consult to Physical Therapy [CONS] Routine Comment: Evaluate, develop and implement POC Reason for Consult: WEAKNESS, POSSIBLE PLACEMENT, WILL NEED INSURANCE AUTH Does patient have active BEDREST order?: No Is patient medically & hemodynamically stable?: Yes Consult to Experimental Worker [CONS] Routine Reason for SW Consult: POSSIBLE SNF PLACEMENT 01/25/19 08:21 Consult to Nurse Navigator [CONS] Routine Comment: ESRD 01/25/19 10:10 Consult to Neurology [CONS] Stat Consulting Provider: [facility] Reason for Consult: assess need for further CVA workup Call Completed: Yes 01/25/19 19:30 Consult to Dialysis [CONS] ONCE 01/26/19 16:30 Consult to Dialysis [CONS] ONCE - Constitutional Vitals: Temp Pulse Resp BP Pulse Ox 99.1 F 75 16 156/76 91 01/26/19 23:41 01/26/19 23:41 01/26/19 23:41 01/26/19 23:41 01/26/19 23:41 General appearance: Present: A&O X 3 (Somnolent but arouses to my questions.) Exam: General: vitals noted. no acute distress. eyes: moist conjunctivae. some proptosis and possible lid lag. has trouble keeping eyes open. neck: no goiter or thyromegaly cardio: RRR. 3/6 systolic murmur heard best over aortic resp: CTA upper anteriorly. lower anterior weems CTA but listened through gown. non-labored breathing. extremities: no appreciable edema. neuro: CN 2: pupils respond to light but hard to tell if equal 3,4.6: couldnt look up or down when looking left. accomodation of pupils difficult for her. 5,7,8,11,12 grossly intact. facial droop seems at baseline. 9,10: could not see palate. some slurred speech but seems to be sleepy baseline for her. seeing double. sensation to light touch upper and lower ext. intact grossly. strenght upper and lower ext. intact grossly. psych: coheerent answers to questions. sleepy. - Patient Status Functional capacity at discharge: independent ambulation Overall status at discharge: patient is progressing back to baseline - Diet and Activity Activity: as per physical therapy, increase activity as tolerated Diet: low fat, low cholesterol, low salt diet
--- NOTE | 2019-01-27 07:33 | Internal Med Progress Note ---
Hospitalist Progress Note - Encounter Date of Encounter: 01/27/19 Time of Encounter: 08:00 - Subjective Interval History: Patient extremely sleepy, but arouses with voice and coherent when awake. Feels better today. Last bowel movement was yesterday. - Exam Vitals: Temp Pulse Resp BP Pulse Ox 99.1 F 75 16 156/76 91 01/26/19 23:41 01/26/19 23:41 01/26/19 23:41 01/26/19 23:41 01/26/19 23:41 Exam: General: vitals noted. no acute distress. eyes: moist conjunctivae. some proptosis and possible lid lag. has trouble keeping eyes open. neck: no goiter or thyromegaly cardio: RRR. 3/6 systolic murmur heard best over aortic resp: CTA upper anteriorly. lower anterior weems CTA but listened through gown. non-labored breathing. extremities: no appreciable edema. neuro: CN 2: pupils respond to light but hard to tell if equal 3,4.6: couldnt look up or down when looking left. accomodation of pupils difficult for her. 5,7,8,11,12 grossly intact. facial droop seems at baseline. 9,10: could not see palate. some slurred speech but seems to be sleepy baseline for her. seeing double. sensation to light touch upper and lower ext. intact grossly. strenght upper and lower ext. intact grossly. psych: coheerent answers to questions. sleepy. - Assessment and Plan (1) Altered mental status Current Visit: Yes Status: Acute Assessment and Plan: -etiology remains unknown -increased somnolence on admission per -gluocose and electrolytes WNL -SIRS criteria not met so doubt infectious -CT and CTA as well as MRI head negative. -neurology has done stroke workup and suspect ischemic etiology vs a cranial neuropathy vs neuromuscular junctional pathology (2) CVA (cerebral vascular accident) Current Visit: No Status: Suspected Assessment and Plan: conisder 2/2 embolus vs thromobotic. neuro suspects ischemic etiology vs a cranial neuropathy vs neuromuscular junctional pathology -hx of CVA in 2015 and residual R sided weakness -history of HLipidemia, HTN - states increased somnolence, slurred speech, and R sided facial droop -no evidence seen on CT, CTA on 01/24/19. MRI 01/26 negative for acute. echo 01/25/19 showed no PFO. LVEF 60-65% -b/l carotid U/S pending -cont. plavix and statin per neuro. appreciate their recs (3) SBP (spontaneous bacterial peritonitis) Current Visit: Yes Status: Acute Assessment and Plan: -suspected 2/2 concern at last hospital visit discharged 01/17 and reports of home fever and deconditioning/AMS recently. -on nightly peritoneal dialysis -afebrile, no tachypnea or tachycardia, white count WNL -received total 6 days of treatment with ceftriaxone and cefdinir last stay and after discharge. -will continue to monitor for signs of infection (4) HTN (hypertension) Current Visit: No Status: Chronic Assessment and Plan: -chronic - states her mentation worsens when below 140-160 -recently stable -Losartan changed to 25 bid on 01/25/19. -continue metoprolol 50 mg bid -continue nifedipine 90mg -continue to monitor (5) Chronic anemia Current Visit: Yes Status: Acute Assessment and Plan: -likely 2/2 renal disease -ESRD on nightly Peritoneal dialysis -7.9>7.9>7.7 -B12 and folate WNL -continue to monitor for signs of bleed (6) ESRD on peritoneal dialysis Current Visit: Yes Status: Acute Assessment and Plan: -chronic -continue nightly dialysis -monitoring for SBP -I/O: +465 (7) Low T4 Current Visit: Yes Status: Acute Assessment and Plan: -fits with central hypothyroidism. also consider yan's vs other autoimmune disease -hx of SLE. -would expect TSH to increase 2/2 low t4 but not appropriately compensating -proptosis and ptosis on exam. no goiter or thyromegaly. no hx of thyroid issues. -TSH WNL at 2.396. free T4 low at 0.6. "sellar/suprasellar regions unremarkable" on MRI. -TRH stimulation test not available in the [place] -outpatient workup warranted DVT Prophylaxis: clopidogrel - Time Spent with Patient Total time spent is greater than 50% in coordination of care (as documented) at patient's floor/unit and/or counseling patient: Internal Medicine: Result - Labs CBC & Chem 7: 01/27/19 05:31 01/27/19 05:31 Labs: Short CBC 01/27/19 Range/Units 05:31 WBC 10.2 (4.3-11.1) K/mcL Hgb 7.7 L (11.5-15.4) g/dL Hct 25.1 L (35.3-44.9) % Plt Count 280 (140-400) K/mcL Neutrophils # 6.4 (1.6-8.9) K/mcL BMP 01/27/19 05:31 Sodium 145 Potassium 4.0 Chloride 104 Carbon Dioxide 25 BUN 45 H Creatinine 12.63 H Glucose 96 Calcium 8.0 L - ABG Interpretation ABG results: PT/INR, D-dimer PT 11.3 Seconds (9.4-12.1) 01/24/19 12:58 - Impressions Impressions Echocardiogram 01/25/19 16:24 Impressions: LVEF 60-65%. Normal LV chamber size, wall thickness and function. Mild left ventricular diastolic dysfunction. Normal right ventricular structure and function. No evidence of a PFO with agitated saline contrast. No evidence of pulmonary hypertension. No significant valvular dysfunction. Left Ventricular Wall Motion: Rest Echo Findings All wall segments showed normal motion. Findings: Study Quality * Technically adequate exam. ECG Findings * Normal sinus rhythm. Left Ventricle * LVEF 60-65%. * Normal LV chamber size, wall thickness and function. * Mild left ventricular diastolic dysfunction. Right Ventricle * Normal right ventricular structure and function. Left Atrium * Mildly dilated left atrium. Right Atrium * Normal right atrial size. Interatrial Septum * No evidence of a PFO with agitated saline contrast. Aortic Valve * Aortic valve not well visualized. * Grossly, the leaflets appear sclerotic. * No aortic regurgitation. * No significant aortic stenosis. Mean gradient 7 mmHg. Mitral Valve * Normal mitral valve structure and function. * No mitral stenosis. * No mitral regurgitation. Tricuspid Valve * Normal tricuspid valve structure and function. * Trace tricuspid regurgitation. * No evidence of pulmonary hypertension. Pulmonic Valve * Pulmonic valve is not well visualized. * No pulmonic regurgitation. Aorta * Normally sized aortic root. Pericardium * There is a trivial pericardial effusion present. IVC * Normal IVC dimensions and inspiratory collapse. Pulmonary Artery * Normal visualized portions of the main pulmonary artery. Brain MRI 01/26/19 16:23 IMPRESSION: No acute intracranial abnormality. No acute infarct. D/ / Swapnil Shelley MD / Swapnil Shelley MD Interpreting Provider: Swapnil Shelley MD Consult Discharge Plan - Plan Referrals: Matt Dimas MD [Primary Care Provider] - 01/31/19 1:00 pm (Abi will be with Glo Love CNP) (1) Altered mental status Qualifiers: Altered mental status type: unspecified Qualified Code(s): R41.82 - Altered mental status, unspecified (2) CVA (cerebral vascular accident) Qualifiers: CVA mechanism: unspecified Qualified Code(s): I63.9 - Cerebral infarction, unspecified (4) HTN (hypertension) Qualifiers: Hypertension type: essential hypertension Qualified Code(s): I10 - Essential (primary) hypertension
[2019-01-27] MEDS: NIFEdipine XL (24 HR) 30 MG TAB.ER.24 PO SCH (08:31)
[2019-01-27] MEDS: Famotidine 20 MG TABLET PO SCH (08:32)
[2019-01-27] MEDS: Calcium Acetate 667 MG CAPSULE PO SCH ×3 (08:33→17:42)
--- NOTE | 2019-01-27 08:48 | Neurology Progress Note ---
<Otilio Gomez - Last Filed: 01/27/19 10:58> Date of Encounter: 01/27/19 Time of Encounter: 08:48 Assessment and Plan (1) CVA (cerebral vascular accident) Current Visit: No Status: Ruled-out Suspicion for an acute CVA has been ruled out with negative neuroimaging and negative neurological workup. The MRI of the brain is negative for acute infarct, CT angiogram of the head was negative for flow-limiting stenosis, the carotid duplex scan was negative for nonstenotic plaque and the echocardiogram was grossly unremarkable. However, we are recommending that she continue her Statin and Plavix medication. The patient's symptoms have significantly improved today. She is alert and oriented 3, slurred speech has resolved but the left facial droop still persists. I suspicious as to whether or not the left facial droop is a chronic finding from previous CVA. Nonetheless I do believe that her symptoms are not of any acute neurovascular cause but are most likely caused by fluid imbalance and hyperperfusion syndrome. She is a peritoneal dialysis patient and is reporting a large volume exchanges which would lead me to believe that she is having fluid imbalances as a result and hyperperfusion syndrome. Really, this could explain her waxing and waning symptoms especially given the fact that they are more pronounced with borderline low blood pressures. The patient was informed that she should have a discussion with her alarm signaler in the outpatient setting to determine the appropriate intervention to prevent future events. Nevertheless, neurology is recommending any additional neurological workup. We will sign off at this time. Please consulted any further need arise. Qualifiers: CVA mechanism: unspecified Qualified Code(s): I63.9 - Cerebral infarction, unspecified Subjective Principal diagnosis: right facial droop, slurred speech, left eye diplopia and RUE weakness Interval history: The chart was reviewed and the patient was seen and examined at the bedside today. While the left-sided facial droop persisted has improved overnight and she is no longer having speech slurring this morning. The sixth cranial nerve palsy persists and I suspect that this may be a chronic finding. Otherwise there are no focal deficits on exam today. I discussed the neurological workup and its subsequent findings and informed the patient that she has not had an acute CVA. Further, I discussed the possibility of a hypoperfusion syndrome being responsible for her symptoms. There is no additional neurological testing being recommended and the patient is okay to discharge at the discretion of the primary team. Objective - Constitutional Vitals: Temp Pulse Resp BP Pulse Ox 98.3 F 73 16 151/82 92 01/27/19 08:28 01/27/19 08:28 01/27/19 08:28 01/27/19 08:28 01/27/19 08:28 Exam: Exam: Examination: General Examination: *CONSTITUTIONAL: Awake, alert and oriented 3 and in no acute distress *GENERAL APPEARANCE OF PATIENT generally ill appearing elderly obese female *EYES: pupils equal, round, reactive to light and accommodation, conjunctiva clear without masses or ulcerations, fundi normal. *CARDIOVASCULAR: RRR, no peripheral edema, distal temperature normal, dorsalis pedis pulses normal. Refer to vital signs * MUSCULOSKELETAL: *GAIT AND STATION: Deferred; falls risk *ASSESSMENT OF MUSCLE STRENGTH IN THE UPPER AND LOWER EXTREMITIES bilateral deltoid, bicep, tricep, sociology teacher strength, hip flexors, anterior tibialis, dorsiflexion of feet are 4/5 and equal. *MUSCLE TONE IN THE UPPER AND LOWER EXTREMITIES normal. No abnormal movements, fasciculations or atrophy identified. Neurological: *ORIENTATION to person, situation, time and place *LANGUAGE AND FUNCTION no significant aphasia. Her slurred speech has resolved *ATTENTION AND CONCENTRATION are normal and she is able to maintain focus without any distractions and does not require redirection *LANGUAGE FUNCTION no significant aphasia. Slurred speech has resolved and she is now back to baseline *FUND OF KNOWLEDGE aware of current events, past history, vocabulary *MENTAL attention span and concentration are appropriate *CN II optic fundi were normal, no papilledema noted. *CN III,IV, PERRLA extraocular eye movements were full in the right eye however, she continues to have limitations with abduction of the left eye, no nystagmus and no ptosis noted. *CN V shows normal sensation. left facial droop persists *CN VII shows abnormal facial movement is stated above. *CN VIII shows no significant hearing loss on exam *CN IX-Xpalate elevated symmetrically *CN XI normal strength in the sternocleidomastoid muscles, symmetrical shoulder shrugging. *CN XII tongue protruded in the midline, with normal strength and movement. *SENSORY EXAMINATION light touch intact *REFLEXES: DTRs: Of the bilateral biceps, triceps, brachial radialis, patella and Achilles are 4/4 and symmetrical. No pathological reflexes found. *CEREBELLAR TESTING abnormal finger to nose with mild dysmetria of the right hand which is likely a chronic finding from previous CVA, heel/knee/adams *PAIN LEVEL 0/10 Results - Laboratory Findings CBC and BMP: 01/27/19 05:31 01/27/19 05:31 Abnormal lab findings: Abnormal lab results WBC 11.4 K/mcL (4.3-11.1) H 01/26/19 03:28 RBC 2.46 M/mcL (3.82-4.97) L 01/27/19 05:31 Hgb 7.7 g/dL (11.5-15.4) L 01/27/19 05:31 Hct 25.1 % (35.3-44.9) L 01/27/19 05:31 MCV 102.0 fL (83.0-100.0) H 01/27/19 05:31 MCHC 30.7 g/dL (31.6-35.5) L 01/27/19 05:31 RDW 14.9 % (11.5-14.5) H 01/25/19 02:30 APTT 23.3 Seconds (26.0-36.0) L 01/24/19 12:58 Chloride 108 mEq/L (98-107) H 01/25/19 02:30 BUN 45 mg/dL (8-23) H 01/27/19 05:31 12.63 mg/dL (0.60-1.20) H 01/27/19 05:31 Est GFR ( Amer) 4 (> 60) L 01/27/19 05:31 Est GFR (Non-Af Amer) 3 (> 60) L 01/27/19 05:31 4 (6-26) L 01/27/19 05:31 Glucose 126 mg/dL (70-105) H 01/25/19 02:30 311 (280-300) H 01/27/19 05:31 Calcium 8.0 mg/dL (8.6-10.3) L 01/27/19 05:31 Magnesium 1.5 mg/dL (1.6-2.6) L 01/25/19 02:30 Free T4 0.60 ng/dl (0.70-2.00) L 01/25/19 02:30 Cloudy (Clear) A 01/24/19 14:44 100 mg/dL (Neg-Trace) H 01/24/19 14:44 Small (Negative) H 01/24/19 14:44 Ur Leukocyte Esterase Small (Negative) H 01/24/19 14:44 5-15 per hpf (0-3) H 01/24/19 14:44 Ur Squamous Epith Cells Many per lpf (None-Few) H 01/24/19 14:44 Amorphous Sediment Many (Few) H 01/24/19 14:44 Ur Culture Indicated? YES (NO) A 01/24/19 14:44 Consult Discharge Plan - Plan Additional Instructions: Follow up with your Clinical Trial Specialist as scheduled and continue PD as instructed Referrals: Matt Dimas MD [Primary Care Provider] - 01/31/19 1:00 pm (Abi will be with Glo Love CNP) Prescriptions: Losartan [Cozaar] 25 mg PO BID #60 tablet Famotidine [Pepcid] 10 mg PO DAILY 30 Days #30 tablet <Ignacio Austin I - Last Filed: 01/27/19 16:48> Date of Encounter: 01/27/19 Assessment and Plan (1) CVA (cerebral vascular accident) Current Visit: No Status: Ruled-out I have personally performed a face to face diagnostic evaluation, including HPI, EXAM, which is included in the Assesment and plan, which was discussed with Otilio Gomez CNP, I agree with the above outlined documentation. No evidence of acute stroke on MRI scan clinically she is improved Suggest monitoring of blood pressure continue on antiplatelet therapy other yuval tment is as per primary team Ignacio Austin MD. NeurologyI Qualifiers: Qualified Code(s): I63.9 - Cerebral infarction, unspecified Objective - Constitutional Vitals: Temp Pulse Resp BP Pulse Ox 99.6 F 79 16 132/76 94 01/27/19 16:11 01/27/19 16:11 01/27/19 16:11 01/27/19 16:11 01/27/19 16:11 Results - Laboratory Findings CBC and BMP: 01/27/19 05:31 01/27/19 05:31 Abnormal lab findings: Abnormal lab results WBC 11.4 K/mcL (4.3-11.1) H 01/26/19 03:28 RBC 2.46 M/mcL (3.82-4.97) L 01/27/19 05:31 Hgb 7.7 g/dL (11.5-15.4) L 01/27/19 05:31 Hct 25.1 % (35.3-44.9) L 01/27/19 05:31 MCV 102.0 fL (83.0-100.0) H 01/27/19 05:31 MCHC 30.7 g/dL (31.6-35.5) L 01/27/19 05:31 RDW 14.9 % (11.5-14.5) H 01/25/19 02:30 APTT 23.3 Seconds (26.0-36.0) L 01/24/19 12:58 Chloride 108 mEq/L (98-107) H 01/25/19 02:30 BUN 45 mg/dL (8-23) H 01/27/19 05:31 12.63 mg/dL (0.60-1.20) H 01/27/19 05:31 Est GFR ( Amer) 4 (> 60) L 01/27/19 05:31 Est GFR (Non-Af Amer) 3 (> 60) L 01/27/19 05:31 4 (6-26) L 01/27/19 05:31 Glucose 126 mg/dL (70-105) H 01/25/19 02:30 311 (280-300) H 01/27/19 05:31 Calcium 8.0 mg/dL (8.6-10.3) L 01/27/19 05:31 Magnesium 1.5 mg/dL (1.6-2.6) L 01/25/19 02:30 Free T4 0.60 ng/dl (0.70-2.00) L 01/25/19 02:30 Cloudy (Clear) A 01/24/19 14:44 100 mg/dL (Neg-Trace) H 01/24/19 14:44 Small (Negative) H 01/24/19 14:44 Ur Leukocyte Esterase Small (Negative) H 01/24/19 14:44 5-15 per hpf (0-3) H 01/24/19 14:44 Ur Squamous Epith Cells Many per lpf (None-Few) H 01/24/19 14:44 Amorphous Sediment Many (Few) H 01/24/19 14:44 Ur Culture Indicated? YES (NO) A 01/24/19 14:44
[2019-01-27] MEDS: Gentamicin Oint 15 GM TUBE TP SCH ×2 (08:59→20:19)
[2019-01-27] MEDS: Fluticasone Propionate Nasal 50 MCG/SPRAY BOTTLE NS SCH ×2 (09:57→20:18)
--- NOTE | 2019-01-27 11:26 | Nephrology Progress Note ---
Date of Encounter: 01/27/19 Time of Encounter: 11:25 - Assessment and Plan (1) ESRD on peritoneal dialysis Current Visit: Yes Status: Acute Patient does nightly changes for approximately 8 hours. Denies any cloudy fluid exchanges or redness or drainage around insertion site. Continue PD in hospital. Strict I&O. Avoid nephrotoxins and renal dose all medications. May go home with PT/OT or an ECF. (2) Chronic anemia Current Visit: Yes Status: Acute Hemoglobin is 7.7 today. Will defer transfusions to primary team. (3) Peritoneal dialysis catheter in place Current Visit: Yes Status: Acute Gentamicin ointment ordered. Cath care to be completed by [facility] dialysis nurses. (4) TIA (transient ischemic attack) Current Visit: Yes Status: Suspected Pt states her symptoms are worse with a blood pressure less than 160. Cozaar to 25 mg PO BID from 50. Pt affirms improved symptoms. Subjective Principal diagnosis: right facial droop, slurred speech, left eye diplopia and RUE weakness Interval history: Pt seen and examined, doing well. Son at bedside. Denies nausea, vomiting, diarrhea. Denies chest pain or shortness of breath. Admits to feeling better, would like placement in an ECF however the facilities are limited due to her PD. Objective - Vital Signs Vital signs: Vital Signs Temp Pulse Resp BP Pulse Ox 01/27/19 11:10 98.6 F 72 16 103/64 92 01/27/19 08:28 98.3 F 73 16 151/82 92 01/27/19 08:20 98.1 F 15 117/75 01/26/19 23:41 99.1 F 75 16 156/76 91 01/26/19 19:46 99.4 F 16 135/73 01/26/19 19:22 99.4 F 85 16 135/73 93 01/26/19 16:05 98.7 F 74 16 124/75 95 01/26/19 11:44 98.6 F 69 16 120/71 91 - General Appearance General appearance: Present: well-developed, well-nourished EENT: Present: ATNC, hearing intact, vision intact Neck: Present: supple Respiratory: Present: clear Cardiology: Present: no edema, normal S1, normal S2 Additional Comments: PD Cath c/d/i. Gastrointestinal: Present: normoactive bowel sounds, no tenderness, no guarding Integumentary: Present: no rash, warm and dry Neurologic: Present: alert and oriented x3, facial droop Musculoskeletal: Present: no deformities, no erythema Psychiatric: Present: mood/affect appropriate, cooperative - Lab 01/27/19 05:31 01/27/19 05:31 Most recent lab results 01/27/19 05:31 Calcium 8.0 L Consult Discharge Plan - Plan Referrals: Matt Dimas MD [Primary Care Provider] - 01/31/19 1:00 pm (Abi will be with Glo Love CNP)
--- NOTE | 2019-01-27 15:43 | Physician Discharge Referral ---
ExtendedCare Referral Info Provider in Charge after Transfer: PCP - Diagnosis (1) HTN (hypertension) Priority: Secondary Status: Chronic (2) Sleep apnea Priority: Secondary Status: Chronic (3) Anemia Priority: Secondary Status: Chronic (4) ESRD on peritoneal dialysis Priority: Secondary Status: Chronic (5) TIA (transient ischemic attack) Priority: Primary Status: Suspected (6) Acute metabolic encephalopathy Priority: Secondary Status: Resolved (7) Morbid obesity with BMI of 40.0-44.9, adult Priority: Secondary Status: Chronic Prognosis: Good - Transfer Medications Prescriptions: Losartan [Cozaar] 25 mg PO BID #60 tablet Famotidine [Pepcid] 10 mg PO DAILY 30 Days #30 tablet Home Medications: Acetaminophen [Acetaminophen ER] 650 mg PO Q6H PRN 01/29/18 [History] Amitriptyline HCl 50 mg PO HS 01/29/18 [History] Atorvastatin [Lipitor] 80 mg PO DAILY 01/29/18 [History] Clopidogrel [Plavix] 75 mg PO DAILY 01/29/18 [History] Cyanocobalamin (B-12) [Vitamin B12] 1,000 mcg PO DAILY 01/29/18 [History] Ferrous Sulfate [Iron] 325 mg PO DAILY 01/29/18 [History] Fexofenadine HCl 180 mg PO DAILY PRN 01/29/18 [History] Fluticasone Propionate Nasal [Flonase] 2 spray NS BID 01/29/18 [History] Folic Acid 1 mg PO DAILY 01/29/18 [History] Nebivolol HCl [Bystolic] 10 mg PO BID 01/29/18 [History] Sodium Bicarbonate 650 mg PO BID 01/29/18 [History] Calcitriol 0.5 mcg PO BID 09/01/18 [History] Mirtazapine [Remeron] 15 mg PO HS 09/01/18 [History] Artificial Tears SOLN [Akwa Tears] 1 drop BOTH EYES HS PRN 01/10/19 [History] Calcium Acetate 667 mg PO TIDWM 01/10/19 [History] Cinacalcet HCl [Sensipar] 60 mg PO HS 01/10/19 [History] Lactulose [Enulose] 10 gm PO DAILY PRN 01/10/19 [History] Melatonin [Melatin] 3 mg PO HS PRN 01/10/19 [History] NIFEdipine [Nifedipine ER] 90 mg PO DAILY 01/10/19 [History] Psyllium [Metamucil Fiber Singles Packet] 1 packet PO TID PRN 01/10/19 [History] Albuterol Sulfate [Proair Respiclick] 2 puff PO Q6H PRN 01/11/19 [History] Citalopram Hydrobromide [Citalopram HBr] 40 mg PO QPM 01/11/19 [History] Montelukast [Singulair] 10 mg PO QPM 01/11/19 [History] Pantoprazole Sodium [Protonix] 40 mg PO DAILY 01/11/19 [History] Sennosides/Docusate Sodium [Docusate Sodium-Sennosides Tab] 1 tab PO QPM PRN 01/11/19 [History] Sevelamer [Renvela] 800 mg PO 1200 01/11/19 [History] Triamcinolone Acetonide 1 appl TP BID 01/11/19 [History] Famotidine [Pepcid] 10 mg PO DAILY 30 Days #30 tablet 01/27/19 [Rx] Gentamicin Oint [Garamycin] 1 appl TP BID tube 01/27/19 [Rx] Losartan [Cozaar] 25 mg PO BID #60 tablet 01/27/19 [Rx] Allergies/Adverse Reactions: Allergy/AdvReac Type Severity Reaction Status Date / Time latex Allergy Rash Verified 01/24/19 10:49 Penicillins Allergy Rash Verified 01/24/19 10:49 prednisone Allergy "CRAZY" Verified 01/24/19 10:49 sulfur dioxide Allergy Rash Verified 01/24/19 10:49 aspirin AdvReac See Verified 01/24/19 10:49 Comments spironolactone AdvReac Hypertensio Verified 01/24/19 10:49 n - Respiratory Orders None Smoking Cessation: Smoking cessation has been advised. For more information, call the [place] Tobacco Quit Line at 3-702-WAKY-NOW. - Advance Directives Code Status: Full Code - Mobility Orders Ambulate - Rehabiliation Orders Rehab Potential: Good Rehab Orders: ROM Exercises, Evaluation for Physical Therapy, Evaluation for Occupational Therapy, Evaluation for Speech Therapy - Treatments List/Other: continue with her regularly scheduled peritoneal dialysis - Diet Orders Renal CERTIFICATION: I certify that the transfer of the above named patient to an Extended Care Facility is necessary for the continuing treatment of the diagnosis listed. The above information is true and accurate reflection of patient's current condition. Confidential - Redisclosure prohibited without a patient's written consent.
[2019-01-27] MEDS: Mirtazapine 15 MG TABLET PO SCH (20:17)
[2019-01-27] MEDS ORDERED: Perit. Dialysis with Dex 1.5 % 12,000 ML PERITONEAL ONE (21:18)
[2019-01-28 05:27] LABS: Hematocrit 24.9 % (35.3-44.9); Hemoglobin 7.7 g/dL (11.5-15.4); Mean Corpuscular HGB Conc 30.9 g/dL (31.6-35.5); Mean Corpuscular Hemoglobin 31.3 pg (28.0-33.3); Mean Corpuscular Volume 101.2 fL (83.0-100.0); Mean Platelet Volume 9.8 fL (9.4-12.4); Platelet Count 270 K/mcL (140-400); Red Blood Count 2.46 M/mcL (3.82-4.97); Red Cell Distribution Width 14.1 % (11.5-14.5); White Blood Count 10.1 K/mcL (4.3-11.1)
[2019-01-28 05:48] LABS: Potassium 3.8 mEq/L (3.5-5.1)
--- NOTE | 2019-01-28 06:16 | Internal Med Progress Note ---
<Corrie Montana - Last Filed: 01/28/19 18:09> Hospitalist Progress Note - Encounter Date of Encounter: 01/28/19 - Exam Vitals: Temp Pulse Resp BP Pulse Ox 98.5 F 81 16 130/66 93 01/28/19 15:29 01/28/19 15:29 01/28/19 15:29 01/28/19 15:29 01/28/19 15:29 - Assessment and Plan (1) HTN (hypertension) Current Visit: No Status: Chronic (2) Sleep apnea Current Visit: No Status: Chronic (3) Anemia Current Visit: No Status: Chronic (4) ESRD on peritoneal dialysis Current Visit: No Status: Chronic (5) TIA (transient ischemic attack) Current Visit: Yes Status: Suspected (6) Acute metabolic encephalopathy Current Visit: Yes Status: Resolved (7) Morbid obesity with BMI of 40.0-44.9, adult Current Visit: Yes Status: Chronic - Time Spent with Patient Total time spent is greater than 50% in coordination of care (as documented) at patient's floor/unit and/or counseling patient: Internal Medicine: Result - Labs CBC & Chem 7: 01/28/19 04:41 01/28/19 04:41 Labs: Short CBC 01/28/19 Range/Units 04:41 WBC 10.1 (4.3-11.1) K/mcL Hgb 7.7 L (11.5-15.4) g/dL Hct 24.9 L (35.3-44.9) % Plt Count 270 (140-400) K/mcL BMP 01/28/19 04:41 Sodium 143 Potassium 3.8 Chloride 104 Carbon Dioxide 25 BUN 46 H Creatinine 12.60 H Glucose 107 H Calcium 8.0 L - ABG Interpretation ABG results: PT/INR, D-dimer PT 11.3 Seconds (9.4-12.1) 01/24/19 12:58 Consult Discharge Plan - Plan Additional Instructions: Follow up with your Commissions Specialist as scheduled and continue PD as instructed Referrals: Matt Dimas MD [Primary Care Provider] - 01/31/19 1:00 pm (Abi will be with Glo Love CNP) Prescriptions: Losartan [Cozaar] 25 mg PO BID #60 tablet Famotidine [Pepcid] 10 mg PO DAILY 30 Days #30 tablet - Attending Attestation I examined this patient and my medical decision-making was reviewed with the Resident Physician Dr Ferrell. I agree with the documented findings, disposition and treatment plan as described except to the extent set forth below. Ms Orellana was being observed for dysarthria and facial droop. She was followed by Neurology and was cleared for dc to rehab. She is discharged pending placement at facility that can accommodate her peritoneal dialysis Awake, no family present, sno changes, overall feeling well, awaiting snf placement now thursday gen- alert, awake,appears stated age cv- reg rate and rhythm, normal s1,s2, lungs- ctabl, normal resp effort on room air abd- soft, non tender, non distended neuro- AAOx3, she has mild left facial droop and some mild dysarthria, , CN otherwise intact, No BL extremity focal deficits Facial Droop/Dysarthria, suspect that these intermittent sxs are related to large volume shifts/hypoperfusion associated with PD MRI negative for CVA Hx CVA in past Echo no PFO, MRI reviewed and no acute ischemic events, CUS unremarkable -appreciate neuro input, they have signed off and recommend no further testing and further discussion with her outpt nephro -asa allergy, cont statin + plavix -cont BP control on current regimen and outpt nephro follow up ESRD on PD as per nephro dispo- SW working to place at rehab in [place] that can accommodate PD, medically stable for dc, likely now thursday <Golden Ferrell - Last Filed: 01/28/19 21:21> Hospitalist Progress Note - Encounter Date of Encounter: 01/28/19 Time of Encounter: 10:00 - Subjective Interval History: Blood pressure max last night at 150/76. Vitals otherwise unremarkable. Ins and outs: Balance +465. Hemoglobin remains 7.7. Electrolytes remained stable other than BUN/Cr which remains at stable elevated baseline. Patient to be discharged whenever extended care facility bed opens. Patient feels good today. States she is ready to go. She is up and moving on her own. Answers questions appropriately. no somnolence. - Exam Vitals: Temp Pulse Resp BP Pulse Ox 98.2 F 77 14 143/85 92 01/28/19 04:03 01/28/19 04:03 01/28/19 04:03 01/28/19 04:03 01/28/19 04:03 Exam: General: vitals noted. no acute distress. eyes: no icterus. moist conjunctivae. cardio: RRR. 3/6 systolic murmur. resp: CTA throughout but distant at abases. non-labored breathing. extremities: no pedal edema neuro: Cranial nerves 2: Pupils reactive to light 3,4,6: trouble looking up and to the L as before. poor accomodation. 5: intact 7: some R sided facial droop as before 8:in tact 9,10: phonation in tact 11: intact 12: intact finger to nose equal b/l strength indeterminate testing. likely R side still weaker than L but cannot rule out equality. sensation: to extremities grossly intact. psych: appropriate mood and behavior. answers questions. - Assessment and Plan (1) Altered mental status Current Visit: Yes Status: Acute Assessment and Plan: -etiology remains unknown -increased somnolence per -gluocose and electrolytes WNL when checked -SIRS criteria not met so doubt infectious -CT and CTA as well as MRI head negative. -neurology has done stroke workup (2) SBP (spontaneous bacterial peritonitis) Current Visit: Yes Status: Resolved Assessment and Plan: -suspected 2/2 concern at last hospital visit discharged 01/17 and reports of home fever and deconditioning/AMS recently. -on nightly peritoneal dialysis -afebrile, no tachypnea or tachycardia, white count WNL when checked -received total 6 days of treatment with ceftriaxone and cefdinir last stay and after discharge. -will continue to monitor for signs of infection (3) HTN (hypertension) Current Visit: No Status: Chronic Assessment and Plan: -chronic - states her mentation worsens when below 140-160 -afternoon readings systolic near 150. -Losartan 50 bid. -continue metoprolol 50 mg bid -continue nifedipine 90mg -continue to monitor (4) Chronic anemia Current Visit: Yes Status: Acute Assessment and Plan: -likely 2/2 renal disease -ESRD on nightly Peritoneal dialysis -B12 and folate WNL -continue to monitor for signs of bleed (5) ESRD on peritoneal dialysis Current Visit: Yes Status: Acute Assessment and Plan: -chronic -continue nightly dialysis -monitoring for SBP -I/O: +215 (6) Low T4 Current Visit: Yes Status: Acute Assessment and Plan: -consider 2/2 central hypothyroidism vs. other hypothyroid syndrome (yan's vs other autoimmune disease) (hx of SLE) -would expect TSH to increase 2/2 low t4 but not appropriately compensating -proptosis on exam -TSH WNL at 2.396. -free T4 low at 0.6 -outpatient workup warranted (7) Vaginal itching Current Visit: Yes Status: Suspected Assessment and Plan: -patient reports vaginal discomfort to nursing staff -candidal odor smelled on exam today -ordered topical fluconazole for 7 days. DVT Prophylaxis: SCD - Time Spent with Patient Total time spent is greater than 50% in coordination of care (as documented) at patient's floor/unit and/or counseling patient: Internal Medicine: Result - Labs CBC & Chem 7: 01/28/19 04:41 01/28/19 04:41 Labs: Short CBC 01/27/19 01/28/19 Range/Units 05:31 04:41 WBC 10.2 10.1 (4.3-11.1) K/mcL Hgb 7.7 L 7.7 L (11.5-15.4) g/dL Hct 25.1 L 24.9 L (35.3-44.9) % Plt Count 280 270 (140-400) K/mcL Neutrophils # 6.4 (1.6-8.9) K/mcL BMP 01/27/19 01/28/19 05:31 04:41 Sodium 145 143 Potassium 4.0 3.8 Chloride 104 104 Carbon Dioxide 25 25 BUN 45 H 46 H Creatinine 12.63 H 12.60 H Glucose 96 107 H Calcium 8.0 L 8.0 L - ABG Interpretation ABG results: PT/INR, D-dimer PT 11.3 Seconds (9.4-12.1) 01/24/19 12:58 <Corrie Montana - Last Filed: 01/28/19 18:09> (1) HTN (hypertension) Qualifiers: Hypertension type: essential hypertension Qualified Code(s): I10 - Essential (primary) hypertension (2) Sleep apnea Qualifiers: Sleep apnea type: obstructive Qualified Code(s): G47.33 - Obstructive sleep apnea (adult) (pediatric) (3) Anemia Qualifiers: Anemia type: due to chronic kidney disease Chronic kidney disease stage: on chronic dialysis Qualified Code(s): N18.6 - End stage renal disease; D63.1 - Anemia in chronic kidney disease; Z99.2 - Dependence on renal dialysis <Golden Ferrell - Last Filed: 01/28/19 21:21> (1) Altered mental status Qualifiers: Altered mental status type: unspecified Qualified Code(s): R41.82 - Altered mental status, unspecified (3) HTN (hypertension) Qualifiers: Hypertension type: essential hypertension Qualified Code(s): I10 - Essential (primary) hypertension
[2019-01-28] MEDS: Calcium Acetate 667 MG CAPSULE PO SCH ×3 (08:44→16:53)
[2019-01-28] MEDS: NIFEdipine XL (24 HR) 30 MG TAB.ER.24 PO SCH (08:46)
[2019-01-28] MEDS: Famotidine 20 MG TABLET PO SCH (08:47)
[2019-01-28] MEDS: Gentamicin Oint 15 GM TUBE TP SCH ×2 (08:48→21:50)
[2019-01-28] MEDS: Fluticasone Propionate Nasal 50 MCG/SPRAY BOTTLE NS SCH ×2 (08:49→21:45)
--- NOTE | 2019-01-28 12:21 | Nephrology Progress Note ---
Date of Encounter: 01/28/19 Time of Encounter: 12:19 - Assessment and Plan (1) ESRD on peritoneal dialysis Current Visit: Yes Status: Acute Patient does nightly changes for approximately 8 hours. Denies any cloudy fluid exchanges or redness or drainage around insertion site. Continue PD in hospital. Strict I&O. Avoid nephrotoxins and renal dose all medications. May go home with PT/OT or an ECF. (2) Chronic anemia Current Visit: Yes Status: Acute Hemoglobin is 7.7 today. Will defer transfusions to primary team. (3) Peritoneal dialysis catheter in place Current Visit: Yes Status: Acute Gentamicin ointment ordered. Cath care to be completed by [facility] dialysis nurses. (4) TIA (transient ischemic attack) Current Visit: Yes Status: Suspected Pt states her symptoms are worse with a blood pressure less than 160. Cozaar to 25 mg PO BID from 50. Pt affirms improved symptoms. Subjective Principal diagnosis: right facial droop, slurred speech, left eye diplopia and RUE weakness Interval history: Pt seen and examined, doing well. Son at bedside. Denies nausea, vomiting, diarrhea. Denies chest pain or shortness of breath. Admits to feeling better, would like placement in an ECF however the facilities are limited due to her PD. She would like to be evaluated by PT/OT to see if she can go home with outpatient PT/OT. Objective - Vital Signs Vital signs: Vital Signs Temp Pulse Resp BP Pulse Ox 01/28/19 07:07 98.1 F 73 15 152/88 93 01/28/19 04:03 98.2 F 77 14 143/85 92 01/28/19 00:01 98.6 F 87 14 150/76 94 01/27/19 22:45 98.5 F 19 149/79 01/27/19 21:02 98.3 F 80 14 145/75 94 01/27/19 16:11 99.6 F 79 16 132/76 94 Intake and Output 01/27/19 01/28/19 01/28/19 23:59 07:59 15:59 Intake Total 200 / 200 Output Total 200 / 450 250 / 450 Balance 200 / 200 -200 / -450 -250 / -450 Intake: Oral 200 / 200 Output: Urine 200 / 450 250 / 450 Other: # Voids 1 Weight 116.5 kg Patient Weight 01/28/19 23:59 Weight 116.5 kg - General Appearance General appearance: Present: well-developed, well-nourished EENT: Present: ATNC, hearing intact, vision intact Neck: Present: supple Respiratory: Present: clear Cardiology: Present: no edema, normal S1, normal S2 Additional Comments: PD cath c/d/i Gastrointestinal: Present: no tenderness, no guarding Integumentary: Present: no rash, warm and dry Neurologic: Present: alert and oriented x3, facial droop Musculoskeletal: Present: no deformities, no erythema Psychiatric: Present: mood/affect appropriate, cooperative - Lab 01/28/19 04:41 01/28/19 04:41 Most recent lab results 01/28/19 04:41 Calcium 8.0 L Consult Discharge Plan - Plan Additional Instructions: Follow up with your Director Smb Sales as scheduled and continue PD as instructed Referrals: Matt Dimas MD [Primary Care Provider] - 01/31/19 1:00 pm (Abi will be with Glo Love CNP) Prescriptions: Losartan [Cozaar] 25 mg PO BID #60 tablet Famotidine [Pepcid] 10 mg PO DAILY 30 Days #30 tablet
[2019-01-28] MEDS ORDERED: Perit. Dialysis with Dex 1.5 % 12,000 ML PERITONEAL ONE (19:00)
[2019-01-28] MEDS: Mirtazapine 15 MG TABLET PO SCH (21:47)
[2019-01-28] MEDS: Clotrimazole Vag CRM 45 GM TUBE VG SCH (21:50)
[2019-01-29 02:55] LABS: Hematocrit 25.5 % (35.3-44.9); Hemoglobin 7.9 g/dL (11.5-15.4); Mean Corpuscular Hemoglobin 31.1 pg (28.0-33.3); Mean Corpuscular Volume 100.4 fL (83.0-100.0); Mean Platelet Volume 9.9 fL (9.4-12.4); Platelet Count 271 K/mcL (140-400); Red Blood Count 2.54 M/mcL (3.82-4.97); White Blood Count 11.7 K/mcL (4.3-11.1)
[2019-01-29 03:15] LABS: Calcium 8.3 mg/dL (8.6-10.3); Potassium 3.4 mEq/L (3.5-5.1)
--- NOTE | 2019-01-29 07:43 | Internal Med Progress Note ---
Hospitalist Progress Note - Encounter Date of Encounter: 01/29/19 Time of Encounter: 09:50 - Subjective Interval History: awake, [place], no complaints, facial droop improved today, speech unchanged, no new sxs - Exam Vitals: Temp Pulse Resp BP Pulse Ox 98.7 F 83 16 156/78 94 01/29/19 07:10 01/29/19 07:10 01/29/19 07:10 01/29/19 07:10 01/29/19 07:10 Exam: gen- alert, awake,appears stated age cv- reg rate and rhythm, normal s1,s2, lungs- ctabl, normal resp effort on room air neuro- AAOx3, she has no facial droop today and some mild dysarthria unchanged, , CN otherwise intact, No BL extremity focal deficits - Assessment and Plan (1) HTN (hypertension) Current Visit: No Status: Chronic (2) ESRD on peritoneal dialysis Current Visit: No Status: Chronic (3) Morbid obesity with BMI of 40.0-44.9, adult Current Visit: Yes Status: Chronic (4) Facial droop Current Visit: Yes Status: Acute (5) Slurred speech Current Visit: No Status: Acute - Summary of Assessment and Plan Summary of Assessment and Plan: Facial Droop/Dysarthria, suspect that these intermittent sxs are related to large volume shifts/hypoperfusion associated with PD MRI negative for CVA Hx CVA in past Echo no PFO, MRI reviewed and no acute ischemic events, CUS unremarkable -appreciate neuro input, they have signed off and recommend no further testing and further discussion with her outpt nephro -asa allergy, cont statin + plavix -cont BP control on current regimen and outpt nephro follow up ESRD on PD as per nephro dispo- SW working to place at rehab in [place] that can accommodate PD, medically stable for dc, likely now thursday She remains medically stable for dc Internal Medicine: Result - Labs CBC & Chem 7: 01/29/19 02:27 01/29/19 02:27 Labs: Short CBC 01/29/19 Range/Units 02:27 WBC 11.7 H (4.3-11.1) K/mcL Hgb 7.9 L (11.5-15.4) g/dL Hct 25.5 L (35.3-44.9) % Plt Count 271 (140-400) K/mcL [facility] 01/29/19 02:27 Sodium 143 Potassium 3.4 L Chloride 106 Carbon Dioxide 25 BUN 40 H Creatinine 12.37 H Glucose 135 H Calcium 8.3 L - ABG Interpretation ABG results: PT/INR, D-dimer PT 11.3 Seconds (9.4-12.1) 01/24/19 12:58 Consult Discharge Plan - Plan Additional Instructions: Follow up with your Filemaker Developer as scheduled and continue PD as instructed Referrals: Matt Dimas MD [Primary Care Provider] - 01/31/19 1:00 pm (Abi will be with Glo Love CNP) Prescriptions: Losartan [Cozaar] 25 mg PO BID #60 tablet Famotidine [Pepcid] 10 mg PO DAILY 30 Days #30 tablet (1) HTN (hypertension) Qualifiers: Hypertension type: essential hypertension Qualified Code(s): I10 - Essential (primary) hypertension
[2019-01-29] MEDS: Calcium Acetate 667 MG CAPSULE PO SCH ×3 (08:29→17:06)
[2019-01-29] MEDS: NIFEdipine XL (24 HR) 60 MG TAB.ER.24 PO SCH (08:29)
[2019-01-29] MEDS: Famotidine 20 MG TABLET PO SCH (08:30)
[2019-01-29] MEDS: Fluticasone Propionate Nasal 50 MCG/SPRAY BOTTLE NS SCH ×2 (08:45→22:16)
--- NOTE | 2019-01-29 09:45 | Nephrology Progress Note ---
Date of Encounter: 01/29/19 Time of Encounter: 09:45 - Assessment and Plan (1) Chronic anemia Current Visit: Yes Status: Acute (2) TIA (transient ischemic attack) Current Visit: Yes Status: Suspected (3) Peritoneal dialysis catheter in place Current Visit: Yes Status: Acute (4) ESRD on peritoneal dialysis Current Visit: Yes Status: Acute Subjective Principal diagnosis: right facial droop, slurred speech, left eye diplopia and RUE weakness Objective - Vital Signs Vital signs: Vital Signs Temp Pulse Resp BP Pulse Ox 01/29/19 09:00 98.3 F 18 150/77 01/29/19 07:10 98.7 F 83 16 156/78 94 01/29/19 03:37 98.7 F 87 14 158/78 92 01/28/19 23:35 98.4 F 84 14 158/79 93 01/28/19 20:28 98.1 F 18 147/78 01/28/19 19:50 98.1 F 82 14 147/75 93 01/28/19 15:29 98.5 F 81 16 130/66 93 01/28/19 12:39 152/88 Intake and Output 01/28/19 01/29/19 01/29/19 23:59 07:59 15:59 Output Total 400 / 850 Balance -400 / -850 Output: Urine 400 / 850 Other: Weight 117.9 kg Patient Weight 01/29/19 23:59 Weight 117.9 kg - Lab 01/29/19 02:27 01/29/19 02:27 Most recent lab results 01/29/19 02:27 Calcium 8.3 L Consult Discharge Plan - Plan Additional Instructions: Follow up with your External Grinder Tender as scheduled and continue PD as instructed Referrals: Matt Dimas MD [Primary Care Provider] - 01/31/19 1:00 pm (Abi will be with Glo Love CNP) Prescriptions: Losartan [Cozaar] 25 mg PO BID #60 tablet Famotidine [Pepcid] 10 mg PO DAILY 30 Days #30 tablet
[2019-01-29] MEDS: Gentamicin Oint 15 GM TUBE TP SCH ×2 (11:53→22:16)
[2019-01-29] MEDS: Perit. Dialysis with Dex 1.5 % 12,000 ML PERITONEAL ONE (19:37)
[2019-01-29] MEDS: Mirtazapine 15 MG TABLET PO SCH (22:14)
[2019-01-29] MEDS: Clotrimazole Vag CRM 45 GM TUBE VG SCH (22:20)
[2019-01-30] MEDS: Calcium Acetate 667 MG CAPSULE PO SCH ×2 (06:21→12:37)
[2019-01-30 06:39] LABS: Calcium 8.4 mg/dL (8.6-10.3); Potassium 3.6 mEq/L (3.5-5.1)
--- NOTE | 2019-01-30 07:54 | Internal Med Progress Note ---
Hospitalist Progress Note - Encounter Date of Encounter: 01/30/19 - Exam Vitals: Temp Pulse Resp BP Pulse Ox 98.2 F 68 16 118/76 93 01/30/19 06:44 01/30/19 06:44 01/30/19 06:44 01/30/19 06:44 01/30/19 06:44 - Assessment and Plan (1) HTN (hypertension) Current Visit: No Status: Chronic (2) ESRD on peritoneal dialysis Current Visit: No Status: Chronic (3) Morbid obesity with BMI of 40.0-44.9, adult Current Visit: Yes Status: Chronic (4) Facial droop Current Visit: Yes Status: Acute (5) Slurred speech Current Visit: No Status: Acute - Summary of Assessment and Plan Summary of Assessment and Plan: Facial Droop/Dysarthria, suspect that these intermittent sxs are related to large volume shifts/hypoperfusion associated with PD MRI negative for CVA Hx CVA in past Echo no PFO, MRI reviewed and no acute ischemic events, CUS unremarkable -appreciate neuro input, they have signed off and recommend no further testing and further discussion with her outpt nephro -asa allergy, cont statin + plavix -cont BP control on current regimen and outpt nephro follow up ESRD on PD as per nephro dispo- SW working to place at rehab in [place] that can accommodate PD, medically stable for dc, likely now thursday She remains medically stable for dc Internal Medicine: Result - Labs CBC & Chem 7: 01/29/19 02:27 01/30/19 04:37 Labs: BMP 01/30/19 04:37 Sodium 144 Potassium 3.6 Chloride 104 Carbon Dioxide 26 BUN 41 H Creatinine 12.13 H Glucose 117 H Calcium 8.4 L - ABG Interpretation ABG results: PT/INR, D-dimer PT 11.3 Seconds (9.4-12.1) 01/24/19 12:58 Consult Discharge Plan - Plan Additional Instructions: Follow up with your Mud Logger as scheduled and continue PD as instructed Referrals: Matt Dimas MD [Primary Care Provider] - 01/31/19 1:00 pm (Abi will be with Glo Love CNP) Prescriptions: Losartan [Cozaar] 25 mg PO BID #60 tablet Famotidine [Pepcid] 10 mg PO DAILY 30 Days #30 tablet (1) HTN (hypertension) Qualifiers: Hypertension type: essential hypertension Qualified Code(s): I10 - Essential (primary) hypertension
[2019-01-30] MEDS: Gentamicin Oint 15 GM TUBE TP SCH (08:57)
[2019-01-30] MEDS: NIFEdipine XL (24 HR) 60 MG TAB.ER.24 PO SCH (10:30)
[2019-01-30] MEDS: Famotidine 20 MG TABLET PO SCH (10:30)
[2019-01-30] MEDS: Fluticasone Propionate Nasal 50 MCG/SPRAY BOTTLE NS SCH (10:36)
[2019-01-30 11:40] VITALS: BP 145/75
--- NOTE | 2019-01-30 12:40 | Physician Discharge Referral ---
Home Health/Hosp Referral Info Transfer to: Home Health Provider in Charge Post Discharge: PCP - Diagnosis (1) HTN (hypertension) Priority: Secondary Status: Chronic (2) ESRD on peritoneal dialysis Priority: Secondary Status: Chronic (3) Morbid obesity with BMI of 40.0-44.9, adult Priority: Secondary Status: Chronic (4) Facial droop Priority: Primary Status: Acute (5) Slurred speech Priority: Primary Status: Acute - Respiratory Orders None Smoking Cessation: Smoking cessation has been advised. For more information, call the [place] Tobacco Quit Line at 5-218-VFIY-NOW. - Diet/Nutrition Diet/Nutrition Orders: No Added Salt (MANUEL), Renal, Cardiac - Activity Activity Orders: Up ad zafar - Services Needed Following services are medically necessary services: Nursing, Home Health Aide, Physical Therapy, Occupational Therapy, Med Social Work, Speech Therapy - Transfer Medications Prescriptions: Losartan Potassium 50 mg PO BID #60 tablet NIFEdipine XL (24 HR) [Procardia XL] 60 mg PO DAILY #30 tab.er.24 Home Medications: Acetaminophen [Acetaminophen ER] 650 mg PO Q6H PRN 01/29/18 [History] Amitriptyline HCl 50 mg PO HS 01/29/18 [History] Atorvastatin [Lipitor] 80 mg PO DAILY 01/29/18 [History] Clopidogrel [Plavix] 75 mg PO DAILY 01/29/18 [History] Cyanocobalamin (B-12) [Vitamin B12] 1,000 mcg PO DAILY 01/29/18 [History] Ferrous Sulfate [Iron] 325 mg PO DAILY 01/29/18 [History] Fexofenadine HCl 180 mg PO DAILY PRN 01/29/18 [History] Fluticasone Propionate Nasal [Flonase] 2 spray NS BID 01/29/18 [History] Folic Acid 1 mg PO DAILY 01/29/18 [History] Nebivolol HCl [Bystolic] 10 mg PO BID 01/29/18 [History] Sodium Bicarbonate 650 mg PO BID 01/29/18 [History] Calcitriol 0.5 mcg PO BID 09/01/18 [History] Mirtazapine [Remeron] 15 mg PO HS 09/01/18 [History] Artificial Tears SOLN [Akwa Tears] 1 drop BOTH EYES HS PRN 01/10/19 [History] Calcium Acetate 667 mg PO TIDWM 01/10/19 [History] Cinacalcet HCl [Sensipar] 60 mg PO HS 01/10/19 [History] Lactulose [Enulose] 10 gm PO DAILY PRN 01/10/19 [History] Melatonin [Melatin] 3 mg PO HS PRN 01/10/19 [History] Psyllium [Metamucil Fiber Singles Packet] 1 packet PO TID PRN 01/10/19 [History] Albuterol Sulfate [Proair Respiclick] 2 puff PO Q6H PRN 01/11/19 [History] Citalopram Hydrobromide [Citalopram HBr] 40 mg PO QPM 01/11/19 [History] Montelukast [Singulair] 10 mg PO QPM 01/11/19 [History] Pantoprazole Sodium [Protonix] 40 mg PO DAILY 01/11/19 [History] Sennosides/Docusate Sodium [Docusate Sodium-Sennosides Tab] 1 tab PO QPM PRN 01/11/19 [History] Sevelamer [Renvela] 800 mg PO 1200 01/11/19 [History] Triamcinolone Acetonide 1 appl TP BID 01/11/19 [History] Darbepoetin [Aranesp] 60 mcg SQ QWEEK syringe 01/30/19 [Rx] Losartan Potassium 50 mg PO BID #60 tablet 01/30/19 [Rx] NIFEdipine XL (24 HR) [Procardia XL] 60 mg PO DAILY #30 tab.er.24 01/30/19 [Rx] Allergies/Adverse Reactions: Allergy/AdvReac Type Severity Reaction Status Date / Time latex Allergy Rash Verified 01/24/19 10:49 Penicillins Allergy Rash Verified 01/24/19 10:49 prednisone Allergy "CRAZY" Verified 01/24/19 10:49 sulfur dioxide Allergy Rash Verified 01/24/19 10:49 aspirin AdvReac See Verified 01/24/19 10:49 Comments spironolactone AdvReac Hypertensio Verified 01/24/19 10:49 n Certification: Further, I certify that my clinical findings support that this patient is homebound (i.e. absences from home require considerable and taxing effort and are for medical reasons or adventism services or infrequently or short duration when for other reasons) because: Homebound Reason: Patient requires assistance of a person or device to safely leave home, Leaving home requires considerable and taxing effort due to condition Attestation: My signature below is to certify that this patient is under my care and that I, or nurse practitioner, or a physician's assistant real estate manager working with me, has a [id number] encounter with this patient.
--- NOTE | 2019-01-30 12:47 | Discharge Summary ---
- NOTES TO OUTPATIENT PROVIDER Notes to Outpatient Provider: Patient presented with AMS and increased L sided facial droop/weakness/slurred speech per the . Full CVA workup with neuro consult was negative. Neuro thinks related to hypoperfusion with PD. Nephro assisted in BP med mild changes that included Losartan 50 mg BID and decreasing Nifedipine to 60 mg daily. Found to have a normal TSH and low T4. Defer to you for outpt setting. Thank you. Date of Encounter: 01/30/19 Time of Encounter: 09:45 - Discharge Diagnosis (1) HTN (hypertension) Priority: Secondary Status: Chronic Qualifiers: Hypertension type: essential hypertension Qualified Code(s): I10 - Essential (primary) hypertension (2) ESRD on peritoneal dialysis Priority: Secondary Status: Chronic (3) Morbid obesity with BMI of 40.0-44.9, adult Priority: Secondary Status: Chronic (4) Facial droop Priority: Primary Status: Acute (5) Slurred speech Priority: Primary Status: Acute Hospital course: Ms. Orellana is a 63 year old female with PMH of ESRD on PD nightly, heart murmur, SLE, GERD, anemia, Hyperlipidemia, CVA in 2014 who presented to the ED on 01/24/19 after her noted decreased mentation, increased L facial droop and slurred speech beginning 20:00 on 01/23/19 per record. She was afebrile with no tachycardia and stable blood pressure on arrival. She was diagnosed with acute metabolic encephalopathy and worked up for possible CVA. A full stroke workup was performed including CT head, CTA head, MRI brain w/o contrast negative for acute process. TTE negative for PFO. carotid duplex showed multiple non-stenotic plaques and no change compared to prior study on 12/08/16. Patient's mental status and neurological signs waxed and waned throughout stay. Neurology suggested symptoms may be due to hypoperfusion syndrome as patient on nightly peritoneal dialysis. Bp med adjustments were made by Nephrology. On discharge Losartan is now 50 mg BID and Nifedipine lowered to 60 mg daily. She was kept in hospital awaiting rehab placement, however MIRTHA ended up not being able to find any facility that could contract for her to be transferred due to peritoneal dialysis and inability to have it preformed there. MIRTHA contacted this physician directly 01/30 to update that no placement could be achieved and she will dc to home with [facility] for nursing, aide, SW, pt/ot/technology support analyst in effort to avoid re admission. dc o home in stable condition 01/30/19 Discharge discussed with: patient, nurse, social work - Time Spent with Patient Time spent: Less than 30 minutes (25 min) - Discharge Medications Prescriptions: New Darbepoetin [Aranesp] 60 mcg SQ QWEEK syringe Losartan Potassium 50 mg PO BID #60 tablet NIFEdipine XL (24 HR) [Procardia XL] 60 mg PO DAILY #30 tab.er.24 Continued Atorvastatin [Lipitor] 80 mg PO DAILY Folic Acid 1 mg PO DAILY Cyanocobalamin (B-12) [Vitamin B12] 1,000 mcg PO DAILY Clopidogrel [Plavix] 75 mg PO DAILY Sodium Bicarbonate 650 mg PO BID Nebivolol HCl [Bystolic] 10 mg PO BID Fluticasone Propionate Nasal [Flonase] 2 spray NS BID Fexofenadine HCl 180 mg PO DAILY PRN PRN Reason: Allergy Symptoms Ferrous Sulfate [Iron] 325 mg PO DAILY Amitriptyline HCl 50 mg PO HS Acetaminophen [Acetaminophen ER] 650 mg PO Q6H PRN PRN Reason: Pain Calcitriol 0.5 mcg PO BID Mirtazapine [Remeron] 15 mg PO HS Calcium Acetate 667 mg PO TIDWM Artificial Tears SOLN [Akwa Tears] 1 drop BOTH EYES HS PRN PRN Reason: Dry Eye(S) Lactulose [Enulose] 10 gm PO DAILY PRN PRN Reason: unkown Melatonin [Melatin] 3 mg PO HS PRN PRN Reason: Sleep Psyllium [Metamucil Fiber Singles Packet] 1 packet PO TID PRN PRN Reason: Constipation Cinacalcet HCl [Sensipar] 60 mg PO HS Albuterol Sulfate [Proair Respiclick] 2 puff PO Q6H PRN PRN Reason: Shortness Of Breath Citalopram Hydrobromide [Citalopram HBr] 40 mg PO QPM Montelukast [Singulair] 10 mg PO QPM Pantoprazole Sodium [Protonix] 40 mg PO DAILY Sennosides/Docusate Sodium [Docusate Sodium-Sennosides Tab] 1 tab PO QPM PRN PRN Reason: Constipation Sevelamer [Renvela] 800 mg PO 1200 Triamcinolone Acetonide 1 appl TP BID Discontinued Famotidine [Pepcid] 40 mg PO BID NIFEdipine [Nifedipine ER] 90 mg PO DAILY Losartan Potassium 50 mg PO BID Home Medications: Acetaminophen [Acetaminophen ER] 650 mg PO Q6H PRN 01/29/18 [History] Amitriptyline HCl 50 mg PO HS 01/29/18 [History] Atorvastatin [Lipitor] 80 mg PO DAILY 01/29/18 [History] Clopidogrel [Plavix] 75 mg PO DAILY 01/29/18 [History] Cyanocobalamin (B-12) [Vitamin B12] 1,000 mcg PO DAILY 01/29/18 [History] Ferrous Sulfate [Iron] 325 mg PO DAILY 01/29/18 [History] Fexofenadine HCl 180 mg PO DAILY PRN 01/29/18 [History] Fluticasone Propionate Nasal [Flonase] 2 spray NS BID 01/29/18 [History] Folic Acid 1 mg PO DAILY 01/29/18 [History] Nebivolol HCl [Bystolic] 10 mg PO BID 01/29/18 [History] Sodium Bicarbonate 650 mg PO BID 01/29/18 [History] Calcitriol 0.5 mcg PO BID 09/01/18 [History] Mirtazapine [Remeron] 15 mg PO HS 09/01/18 [History] Artificial Tears SOLN [Akwa Tears] 1 drop BOTH EYES HS PRN 01/10/19 [History] Calcium Acetate 667 mg PO TIDWM 01/10/19 [History] Cinacalcet HCl [Sensipar] 60 mg PO HS 01/10/19 [History] Lactulose [Enulose] 10 gm PO DAILY PRN 01/10/19 [History] Melatonin [Melatin] 3 mg PO HS PRN 01/10/19 [History] Psyllium [Metamucil Fiber Singles Packet] 1 packet PO TID PRN 01/10/19 [History] Albuterol Sulfate [Proair Respiclick] 2 puff PO Q6H PRN 01/11/19 [History] Citalopram Hydrobromide [Citalopram HBr] 40 mg PO QPM 01/11/19 [History] Montelukast [Singulair] 10 mg PO QPM 01/11/19 [History] Pantoprazole Sodium [Protonix] 40 mg PO DAILY 01/11/19 [History] Sennosides/Docusate Sodium [Docusate Sodium-Sennosides Tab] 1 tab PO QPM PRN 01/11/19 [History] Sevelamer [Renvela] 800 mg PO 1200 01/11/19 [History] Triamcinolone Acetonide 1 appl TP BID 01/11/19 [History] Darbepoetin [Aranesp] 60 mcg SQ QWEEK syringe 01/30/19 [Rx] Losartan Potassium 50 mg PO BID #60 tablet 01/30/19 [Rx] NIFEdipine XL (24 HR) [Procardia XL] 60 mg PO DAILY #30 tab.er.24 01/30/19 [Rx] Allergies/Adverse Reactions: Allergy/AdvReac Type Severity Reaction Status Date / Time latex Allergy Rash Verified 01/24/19 10:49 Penicillins Allergy Rash Verified 01/24/19 10:49 prednisone Allergy "CRAZY" Verified 01/24/19 10:49 sulfur dioxide Allergy Rash Verified 01/24/19 10:49 aspirin AdvReac See Verified 01/24/19 10:49 Comments spironolactone AdvReac Hypertensio Verified 01/24/19 10:49 n Date of admission: 01/24/19 16:32 Primary care physician: Matt Dimas MD Consults: 01/24/19 15:44 Consult to Nephrology [CONS] Stat Consulting Provider: Kidney Angie/PROSPER/[place]/SELWYN Reason for Consult: peritoneal dialysis patient Time Notified: 15:44 Call Completed: Yes 01/24/19 17:00 Consult to Dialysis [CONS] ONCE 01/25/19 08:19 Consult to Occupational Therapy [CONS] Routine Comment: Evaluate, develop and implement POC Reason for Consult: WEAKNESS, POSSIBLE PLACEMENT, WILL NEED INSURANCE AUTH Does patient have active BEDREST order?: No Is patient medically & hemodynamically stable?: Yes Consult to Physical Therapy [CONS] Routine Comment: Evaluate, develop and implement POC Reason for Consult: WEAKNESS, POSSIBLE PLACEMENT, WILL NEED INSURANCE AUTH Does patient have active BEDREST order?: No Is patient medically & hemodynamically stable?: Yes Consult to Physical Fitness Trainer [CONS] Routine Reason for SW Consult: POSSIBLE SNF PLACEMENT 01/25/19 08:21 Consult to Nurse Navigator [CONS] Routine Comment: ESRD 01/25/19 10:10 Consult to Neurology [CONS] Stat Consulting Provider: Neurology [facility] Reason for Consult: assess need for further CVA workup Call Completed: Yes 01/25/19 19:30 Consult to Dialysis [CONS] ONCE 01/26/19 16:30 Consult to Dialysis [CONS] ONCE 01/27/19 21:30 Consult to Dialysis [CONS] ONCE 01/28/19 16:45 Consult to Dialysis [CONS] ONCE 01/29/19 17:30 Consult to Dialysis [CONS] ONCE Discharging clinician: Corrie [place] - Constitutional Vitals: Temp Pulse Resp BP Pulse Ox 98.9 F 70 16 145/75 91 01/30/19 11:38 01/30/19 11:38 01/30/19 11:38 01/30/19 11:38 01/30/19 11:38 General appearance: Present: A&O X 3 (Somnolent but arouses to my questions.) Exam: gen- alert, awake,appears stated age cv- reg rate and rhythm, normal s1,s2, no le edema lungs- ctabl, normal resp effort on room air neuro- AAOx3, she has mild left facial droop today and some mild dysarthria unchanged, , CN otherwise intact, No BL extremity focal deficits - Patient Status Disposition: Home Health Service Condition: Good Overall status at discharge: patient is back to baseline - Discharge Instructions Follow Up With: Matt Dimas MD [Primary Care Provider] - 01/31/19 1:00 pm (Abi will be with Glo Love CNP) Additional Instructions: Follow up with your Supervisor Metal Furniture Fabrication as scheduled and continue PD as instructed Your Nifedipine doese is decreased to 60 mg daily. Your Losartan dose is 50 mg BID. You have received printed rxs for these meds. - Diet and Activity Activity: as per physical therapy, increase activity as tolerated Diet: low fat, low cholesterol, low salt diet, other (renal)
== END 2019-01-30 14:04 | disposition home health service (06) ==
LOC: 3BNU 12:02 → EMEROOARM 12:02 → SUATTDRO 16:32 → 3BNU 17:20
PROVIDERS: ADMIT Internal Medicine; ATTEND Internal Medicine

== ENCOUNTER 2019-05-25 22:12 | Observation (INO) ==
[2019-05-25] MEDS ORDERED: 0.9 % Sodium Chloride 1,000 ML IVC ONE (23:07)
[2019-05-26 00:12] LABS: Calcium 9.2 mg/dL (8.6-10.3); Potassium 4.2 mEq/L (3.5-5.1); Troponin I 0.03 ng/mL (< 0.04)
[2019-05-26 00:14] LABS: Basophils # 0.1 K/mcL (0.0-0.2); Basophils % 0.3 %; Eosinophils # 0.2 K/mcL (0.0-0.6); Eosinophils % 1.1 %; Hematocrit 24.6 % (35.3-44.9); Hemoglobin 8.1 g/dL (11.5-15.4); Immature Granulocytes % 0.9 % (0-4); Lymphocytes # 3.4 K/mcL (0.6-4.6); Lymphocytes % 15.6 %; Mean Corpuscular HGB Conc 32.9 g/dL (31.6-35.5); Mean Corpuscular Hemoglobin 32.9 pg (28.0-33.3); Mean Platelet Volume 10.2 fL (9.4-12.4); Monocytes % 4.7 %; Neutrophils # 16.9 K/mcL (1.6-8.9); Platelet Count 329 K/mcL (140-400); Red Blood Count 2.46 M/mcL (3.82-4.97); Red Cell Distribution Width 11.9 % (11.5-14.5); Segmented Neutrophils % 77.4 %; White Blood Count 21.8 K/mcL (4.3-11.1)
[2019-05-26 00:21] LABS: INR 1.1; Prothrombin Time 12.2 Seconds (9.4-12.1)
[2019-05-26 00:24] LABS: Activated Partial Thrombo Time 31.7 Seconds (26.0-36.0)
[2019-05-26 01:24] LABS: Bilirubin,Urine Negative (Negative); Blood,Urine Trace (Negative); Clarity,Urine Clear (Clear); Color,Urine Yellow (Yellow); Glucose,Urine (UA) Normal (Normal); Ketones,Urine Negative (Negative); Leukocyte Esterase,Urine Negative (Negative); Nitrite,Urine Negative (Negative); Protein,Urine 100 mg/dL (Neg-Trace); Specific Gravity,Urine 1.015 (1.010-1.025); Urobilinogen,Urine Normal (Normal)
[2019-05-26 01:26] LABS: Bacteria,Urine None Seen per hpf (None-Few); Hyaline Casts,Urine None Seen per lpf (None-Few); RBC,Urine 0-3 per hpf (0-3); Squamous Epithelial Cell,Urine Many per lpf (None-Few); WBC,Urine 0-3 per hpf (0-3)
[2019-05-26] MEDS ORDERED: Cefepime HCl 2,000 MG in Water for inj. (sterile) 20 ML IVP STA (01:39)
[2019-05-26] MEDS ORDERED: Naloxone 0.4 MG/ML INJ IVP PRN (03:02)
[2019-05-26] MEDS ORDERED: Artificial Tears SOLN 15 ML BOTTLE BOTH EYES PRN (03:15)
[2019-05-26 04:55] LABS: Magnesium 1.9 mg/dL (1.6-2.6); Phosphorous 7.6 mg/dL (2.7-4.5)
[2019-05-26] MEDS: *HR* Heparin 5,000 UNIT/ML VIAL SQ SCH ×2 (05:33→17:05)
[2019-05-26] MEDS: Cyanocobalamin (B-12) 1,000 MCG TABLET PO SCH (08:05)
[2019-05-26] MEDS: Fluticasone Propionate Nasal 50 MCG/SPRAY BOTTLE NS SCH ×2 (08:06→21:30)
[2019-05-26] MEDS: Calcium Acetate 667 MG CAPSULE PO SCH ×3 (08:06→17:05)
[2019-05-26] MEDS: Triamcinolone Acet 0.1% CRM 15 GM TUBE TP SCH ×2 (08:07→21:30)
[2019-05-26 11:09] LABS: Hematocrit 22.5 % (35.3-44.9); Hemoglobin 7.2 g/dL (11.5-15.4); Mean Corpuscular Hemoglobin 32.9 pg (28.0-33.3); Mean Corpuscular Volume 102.7 fL (83.0-100.0); Mean Platelet Volume 9.9 fL (9.4-12.4); Platelet Count 285 K/mcL (140-400); Red Blood Count 2.19 M/mcL (3.82-4.97)
[2019-05-26 16:22] LABS: RBC,Peritoneal Fluid < 0.002 M/mcL
[2019-05-26 16:23] LABS: Appearance of Peritoneal Fl CLEAR (Clear)
[2019-05-26 18:02] LABS: Basophils,Peritoneal Fluid 0 %; Eosinophils,Peritoneal Fluid 0 %
[2019-05-26] MEDS ORDERED: Perit. Dialysis with Dex 1.5 % 12,000 ML PERITONEAL ONE (19:00)
[2019-05-26] MEDS ORDERED: Mirtazapine 15 MG TABLET PO SCH (21:00)
[2019-05-27] MEDS: *HR* Heparin 5,000 UNIT/ML VIAL SQ SCH (05:45)
[2019-05-27 05:46] LABS: Basophils % 0.2 %; Eosinophils # 0.3 K/mcL (0.0-0.6); Eosinophils % 1.7 %; Hematocrit 24.2 % (35.3-44.9); Hemoglobin 7.4 g/dL (11.5-15.4); Immature Granulocytes % 1.4 % (0-4); Lymphocytes # 3.2 K/mcL (0.6-4.6); Lymphocytes % 18.3 %; Mean Corpuscular HGB Conc 30.6 g/dL (31.6-35.5); Mean Corpuscular Hemoglobin 31.6 pg (28.0-33.3); Mean Corpuscular Volume 103.4 fL (83.0-100.0); Mean Platelet Volume 10.1 fL (9.4-12.4); Monocytes # 0.9 K/mcL (0.0-1.3); Neutrophils # 12.9 K/mcL (1.6-8.9); Nucleated Red Blood Cells 0.1 /100 WBC (0); Platelet Count 308 K/mcL (140-400); Red Blood Count 2.34 M/mcL (3.82-4.97); Red Cell Distribution Width 12.1 % (11.5-14.5); Segmented Neutrophils % 73.4 %; White Blood Count 17.6 K/mcL (4.3-11.1)
[2019-05-27 06:10] LABS: Calcium 9.1 mg/dL (8.6-10.3); Potassium 4.5 mEq/L (3.5-5.1)
[2019-05-27] MEDS ORDERED: Darbepoetin 100 MCG/0.5 ML SYRINGE SQ SCH (07:00)
[2019-05-27] MEDS ORDERED: Gentamicin Oint 15 GM TUBE TP SCH (09:00)
[2019-05-27] MEDS ORDERED: Folic Acid 1 MG TABLET PO SCH (09:00)
[2019-05-27] MEDS: Calcium Acetate 667 MG CAPSULE PO SCH ×3 (09:28→13:11)
[2019-05-27] MEDS: Cyanocobalamin (B-12) 1,000 MCG TABLET PO SCH (09:28)
[2019-05-27] MEDS: Triamcinolone Acet 0.1% CRM 15 GM TUBE TP SCH (09:29)
[2019-05-27] MEDS: Fluticasone Propionate Nasal 50 MCG/SPRAY BOTTLE NS SCH (09:32)
[2019-05-27 11:42] VITALS: BP 161/78
== END 2019-05-27 14:06 | disposition home or self-care (01) ==
LOC: EMEROOARM 22:12 → 2ANU 22:12 → SUATTDRO 05-26 02:47 → 2ANU 05-26 03:54
PROVIDERS: ADMIT Internal Medicine; ATTEND Family Medicine

== ENCOUNTER 2019-08-04 12:03 | Observation (INO) ==
[2019-08-04 13:25] LABS: Basophils # 0.1 K/mcL (0.0-0.2); Basophils % 0.5 %; Eosinophils # 0.2 K/mcL (0.0-0.6); Eosinophils % 0.9 %; Hematocrit 27.2 % (35.3-44.9); Hemoglobin 8.6 g/dL (11.5-15.4); Immature Granulocytes % 0.9 % (0-4); Lymphocytes # 2.4 K/mcL (0.6-4.6); Lymphocytes % 12.3 %; Mean Corpuscular HGB Conc 31.6 g/dL (31.6-35.5); Mean Corpuscular Hemoglobin 32.7 pg (28.0-33.3); Mean Corpuscular Volume 103.4 fL (83.0-100.0); Mean Platelet Volume 9.7 fL (9.4-12.4); Monocytes # 0.9 K/mcL (0.0-1.3); Monocytes % 4.9 %; Neutrophils # 15.6 K/mcL (1.6-8.9); Platelet Count 462 K/mcL (140-400); Red Blood Count 2.63 M/mcL (3.82-4.97); Red Cell Distribution Width 13.2 % (11.5-14.5); Segmented Neutrophils % 80.5 %; White Blood Count 19.4 K/mcL (4.3-11.1)
[2019-08-04 13:42] LABS: Albumin 3.9 g/dL (3.5-5.7); Bilirubin,Direct 0.2 mg/dL (0.0-0.2); Bilirubin,Indirect 0.4 mg/dL (0.0-1.0); Bilirubin,Total 0.6 mg/dL (0.3-1.0); Calcium 10.6 mg/dL (8.6-10.3); Globulin 4.1 g/dL (2.4-3.5); Potassium 4.5 mEq/L (3.5-5.1)
[2019-08-04 14:53] LABS: Troponin I 0.06 ng/mL (< 0.04)
[2019-08-04] MEDS ORDERED: cefTAZidime 2,000 MG in 0.9 % Sodium Chloride Mini Bag 100 ML IVPB STA (15:27)
[2019-08-04] MEDS ORDERED: Naloxone 0.4 MG/ML INJ IVP PRN (15:37)
[2019-08-04] MEDS ORDERED: Ondansetron ODT 4 MG TAB.RAPDIS SL PRN (15:37)
[2019-08-04] MEDS ORDERED: Ondansetron 4 MG/2 ML VIAL IVP PRN (15:37)
[2019-08-04 16:07] LABS: Bilirubin,Urine Negative (Negative); Blood,Urine Small (Negative); Clarity,Urine Cloudy (Clear); Color,Urine Yellow (Yellow); Glucose,Urine (UA) Normal (Normal); Hyaline Casts,Urine None Seen per lpf (None-Few); Ketones,Urine Negative (Negative); Leukocyte Esterase,Urine Trace (Negative); Nitrite,Urine Negative (Negative); PH,Urine 6.5 pH Units (5.0-8.0); Protein,Urine >=300 mg/dL (Neg-Trace); Specific Gravity,Urine 1.019 (1.010-1.025); Squamous Epithelial Cell,Urine Many per lpf (None-Few); Urobilinogen,Urine Normal (Normal)
[2019-08-04 16:34] LABS: VBG HCO3 25 mEq/L (21-27); VBG PCO2 35 mmHg (41-51); VBG PH 7.46 pH Units (7.32-7.42); VBG PO2 197 mmHg (25-50)
[2019-08-04] MEDS ORDERED: Ringers Solution, Lactated 500 ML IVC ONE (16:48)
[2019-08-04 16:58] LABS: Bacteria,Urine Few per hpf (None-Few); RBC,Urine 0-3 per hpf (0-3)
[2019-08-04] MEDS ORDERED: Perit. Dialysis with Dex 2.5 % 12,000 ML PERITONEAL ONE (21:20)
[2019-08-04] MEDS: Gentamicin Oint 15 GM TUBE TP SCH (23:24)
[2019-08-05 00:26] LABS: Appearance of Peritoneal Fl CLEAR (Clear)
[2019-08-05 00:38] LABS: RBC,Peritoneal Fluid < 0.002 M/mcL
[2019-08-05 02:09] LABS: Basophils,Peritoneal Fluid 0 %; Eosinophils,Peritoneal Fluid 0 %
[2019-08-05 04:23] LABS: Basophils # 0.1 K/mcL (0.0-0.2); Basophils % 0.4 %; Eosinophils # 0.2 K/mcL (0.0-0.6); Hematocrit 26.3 % (35.3-44.9); Hemoglobin 8.4 g/dL (11.5-15.4); Immature Granulocytes % 0.8 % (0-4); Lymphocytes # 2.5 K/mcL (0.6-4.6); Lymphocytes % 12.8 %; Mean Corpuscular HGB Conc 31.9 g/dL (31.6-35.5); Mean Corpuscular Hemoglobin 33.2 pg (28.0-33.3); Mean Platelet Volume 9.7 fL (9.4-12.4); Monocytes % 5.2 %; Neutrophils # 15.9 K/mcL (1.6-8.9); Platelet Count 466 K/mcL (140-400); Red Blood Count 2.53 M/mcL (3.82-4.97); Red Cell Distribution Width 13.2 % (11.5-14.5); Segmented Neutrophils % 79.8 %; White Blood Count 19.9 K/mcL (4.3-11.1)
[2019-08-05 04:42] LABS: Calcium 10.4 mg/dL (8.6-10.3); Potassium 4.2 mEq/L (3.5-5.1)
[2019-08-05 05:59] LABS: Bilirubin,Urine Negative (Negative); Blood,Urine Trace (Negative); Clarity,Urine Cloudy (Clear); Color,Urine Yellow (Yellow); Glucose,Urine (UA) Normal (Normal); Ketones,Urine Negative (Negative); Leukocyte Esterase,Urine Trace (Negative); Nitrite,Urine Negative (Negative); PH,Urine 6.5 pH Units (5.0-8.0); Protein,Urine >=300 mg/dL (Neg-Trace); Specific Gravity,Urine 1.019 (1.010-1.025); Urobilinogen,Urine Normal (Normal)
[2019-08-05 06:01] LABS: Bacteria,Urine None Seen per hpf (None-Few); Hyaline Casts,Urine None Seen per lpf (None-Few); Squamous Epithelial Cell,Urine Many per lpf (None-Few)
[2019-08-05] MEDS: Gentamicin Oint 15 GM TUBE TP SCH (10:52)
[2019-08-05] MEDS: cefTAZidime 1,000 MG in 0.9 % Sodium Chloride Mini Bag 100 ML IVPB SCH (11:23)
[2019-08-05 12:57] LABS: Appearance of Peritoneal Fl CLEAR (Clear)
[2019-08-05 13:03] LABS: RBC,Peritoneal Fluid < 0.002 M/mcL
[2019-08-05] MEDS ORDERED: WATER FOR INJ IVP SCH (16:00)
[2019-08-05] MEDS ORDERED: CEFTAZIDIME IVP SCH (16:00)
[2019-08-05] MEDS: Calcium Acetate 667 MG CAPSULE PO SCH (16:34)
[2019-08-05] MEDS: NIFEdipine XL (24 HR) 60 MG TAB.ER.24 PO SCH (16:34)
[2019-08-05] MEDS ORDERED: Ringers Solution, Lactated 500 ML IVC ONE (16:49)
[2019-08-05] MEDS ORDERED: Perit. Dialysis with Dex 2.5 % 12,000 ML PERITONEAL ONE (19:00)
[2019-08-05] MEDS ORDERED: Gabapentin 100 MG CAPSULE PO SCH (21:00)
[2019-08-05] MEDS ORDERED: Famotidine 20 MG TABLET PO SCH (21:00)
[2019-08-05] MEDS ORDERED: Mirtazapine 15 MG TABLET PO SCH (21:00)
[2019-08-06 05:20] LABS: Hematocrit 26.5 % (35.3-44.9); Hemoglobin 8.1 g/dL (11.5-15.4); Mean Corpuscular HGB Conc 30.6 g/dL (31.6-35.5); Mean Corpuscular Hemoglobin 32.5 pg (28.0-33.3); Mean Corpuscular Volume 106.4 fL (83.0-100.0); Platelet Count 460 K/mcL (140-400); Red Blood Count 2.49 M/mcL (3.82-4.97); Red Cell Distribution Width 13.2 % (11.5-14.5); White Blood Count 22.4 K/mcL (4.3-11.1)
[2019-08-06 05:35] LABS: Calcium 10.2 mg/dL (8.6-10.3); Potassium 4.1 mEq/L (3.5-5.1)
[2019-08-06] MEDS: NIFEdipine XL (24 HR) 60 MG TAB.ER.24 PO SCH (08:12)
[2019-08-06] MEDS: cefTAZidime 1,000 MG in 0.9 % Sodium Chloride Mini Bag 100 ML IVPB SCH (08:20)
[2019-08-06] MEDS: Gentamicin Oint 15 GM TUBE TP SCH (08:21)
[2019-08-06] MEDS ORDERED: Fluticasone Propionate Nasal 50 MCG/SPRAY BOTTLE NS SCH (09:00)
[2019-08-06] MEDS ORDERED: Triamcinolone Acet 0.1% CRM 15 GM TUBE TP SCH (09:00)
[2019-08-06] MEDS ORDERED: Folic Acid 1 MG TABLET PO SCH (09:00)
[2019-08-06] MEDS ORDERED: Cyanocobalamin (B-12) 1,000 MCG TABLET PO SCH (09:00)
[2019-08-06] MEDS: Calcium Acetate 667 MG CAPSULE PO SCH ×2 (10:50→12:34)
[2019-08-06 13:07] VITALS: BP 122/70
== END 2019-08-06 15:40 | disposition home health service (06) ==
LOC: EMEROOARM 12:03 → 2ANU 12:03
PROVIDERS: ADMIT Student in an Organized Health Care Education/Training Program; ATTEND Student in an Organized Health Care Education/Training Program

== ENCOUNTER 2019-09-26 14:58 | Inpatient (IN) ==
[2019-09-26 16:14] LABS: Basophils # 0.1 K/mcL (0.0-0.2); Basophils % 0.2 %; Eosinophils # 0.3 K/mcL (0.0-0.6); Eosinophils % 1.1 %; Hematocrit 28.2 % (35.3-44.9); Hemoglobin 8.7 g/dL (11.5-15.4); Immature Granulocytes % 1.9 % (0-4); Lymphocytes # 1.2 K/mcL (0.6-4.6); Lymphocytes % 5.1 %; Mean Corpuscular HGB Conc 30.9 g/dL (31.6-35.5); Mean Corpuscular Hemoglobin 32.7 pg (28.0-33.3); Mean Platelet Volume 9.7 fL (9.4-12.4); Monocytes # 1.5 K/mcL (0.0-1.3); Monocytes % 6.5 %; Neutrophils # 19.6 K/mcL (1.6-8.9); Platelet Count 275 K/mcL (140-400); Red Blood Count 2.66 M/mcL (3.82-4.97); Red Cell Distribution Width 15.3 % (11.5-14.5); Segmented Neutrophils % 85.2 %
[2019-09-26] MEDS ORDERED: *HR* OxyCODONE Immed Rel 5 MG TABLET PO ONE (16:21)
[2019-09-26 16:38] LABS: Troponin I 0.59 ng/mL (< 0.04)
[2019-09-26 16:43] LABS: INR 1.2; Prothrombin Time 13.6 Seconds (9.4-12.1)
[2019-09-26 17:06] LABS: Albumin 2.9 g/dL (3.5-5.7); Albumin/Globulin Ratio 0.8 (1.1-2.2); Bilirubin,Total 0.5 mg/dL (0.3-1.0); Calcium 10.1 mg/dL (8.6-10.3); Globulin 3.6 g/dL (2.4-3.5); Potassium 3.9 mEq/L (3.5-5.1); Total Protein 6.5 g/dL (6.4-8.9)
[2019-09-26] MEDS ORDERED: Mag Hydrox/Al Hydrox/Simeth 30 ML UDC PO PRN (17:21)
[2019-09-26] MEDS ORDERED: *HR* Promethazine 25 MG/ML VIAL IVP PRN (17:21)
[2019-09-26] MEDS ORDERED: Acetaminophen 325 MG TABLET PO PRN (17:21)
[2019-09-26] MEDS ORDERED: Naloxone 0.4 MG/ML INJ IVP PRN (17:21)
[2019-09-26] MEDS ORDERED: *HR* Heparin 5,000 UNIT/ML VIAL IVP PRN ×2 (17:29)
[2019-09-26] MEDS ORDERED: *HR* Heparin 5,000 UNIT/ML VIAL IVP ONE (17:29)
[2019-09-26] MEDS ORDERED: Heparin 25,000 UNIT/250 ML D5W 25,000 UNIT/250 ML IV.SOLN IVC SCH (17:30)
[2019-09-26 19:46] LABS: INR 1.2; Prothrombin Time 13.8 Seconds (9.4-12.1)
[2019-09-26 19:47] LABS: Heparin anti-factor XA UFH 0.78 IU/mL (0.30-0.70)
[2019-09-26 19:50] LABS: Hematocrit 28.5 % (35.3-44.9); Hemoglobin 8.5 g/dL (11.5-15.4); Mean Corpuscular HGB Conc 29.8 g/dL (31.6-35.5); Mean Corpuscular Hemoglobin 31.5 pg (28.0-33.3); Mean Corpuscular Volume 105.6 fL (83.0-100.0); Mean Platelet Volume 10.1 fL (9.4-12.4); Platelet Count 304 K/mcL (140-400); Red Cell Distribution Width 15.2 % (11.5-14.5); White Blood Count 23.7 K/mcL (4.3-11.1)
[2019-09-26] MEDS ORDERED: Perflutren Lipid Microsphere 1.3 ML in 0.9 % Sodium Chloride 8.7 ML IVP ONE (21:19)
[2019-09-27 01:06] LABS: Basophils # 0.1 K/mcL (0.0-0.2); Basophils % 0.2 %; Eosinophils # 0.3 K/mcL (0.0-0.6); Eosinophils % 1.5 %; Hemoglobin 7.8 g/dL (11.5-15.4); Immature Granulocytes % 1.8 % (0-4); Lymphocytes # 1.6 K/mcL (0.6-4.6); Lymphocytes % 7.4 %; Mean Corpuscular HGB Conc 31.2 g/dL (31.6-35.5); Mean Corpuscular Hemoglobin 32.5 pg (28.0-33.3); Mean Corpuscular Volume 104.2 fL (83.0-100.0); Mean Platelet Volume 9.7 fL (9.4-12.4); Monocytes # 1.4 K/mcL (0.0-1.3); Monocytes % 6.5 %; Neutrophils # 17.3 K/mcL (1.6-8.9); Platelet Count 280 K/mcL (140-400); Red Cell Distribution Width 15.3 % (11.5-14.5); Segmented Neutrophils % 82.6 %
[2019-09-27 01:24] LABS: Calcium 9.8 mg/dL (8.6-10.3); Chol/HDL Ratio 4.9 (0-4.9); Potassium 4.1 mEq/L (3.5-5.1)
[2019-09-27] MEDS ORDERED: 0.9 % Sodium Chloride 250 ML IVC PRN (07:14)
[2019-09-27] MEDS ORDERED: 0.9 % Sodium Chloride 1,000 ML PRIME SCH (07:15)
[2019-09-27] MEDS ORDERED: *HR* Heparin 5,000 UNIT/ML VIAL ONE (13:22)
[2019-09-27] MEDS ORDERED: Artificial Tears SOLN 15 ML BOTTLE BOTH EYES PRN (13:50)
[2019-09-27] MEDS ORDERED: Sennosides/Docusate Sodium TABLET PO PRN (13:50)
[2019-09-27] MEDS ORDERED: CLEAR EYES NATURAL TEARS 15 ML BOTTLE BOTH EYES PRN (14:15)
[2019-09-27] MEDS ORDERED: *HR* Heparin 10,000 UNIT/10 ML VIAL ONE (15:36)
[2019-09-27] MEDS: Ondansetron 4 MG/2 ML VIAL IVP PRN (15:38)
[2019-09-27] MEDS: Calcium Acetate 667 MG CAPSULE PO SCH (17:07)
[2019-09-27] MEDS ORDERED: *HR* Metoprolol 5 MG/5 ML VIAL IVP PRN (17:15)
[2019-09-27 17:18] LABS: Creatine Kinase 29 Units/L (30-223)
[2019-09-27 17:37] LABS: Alanine Aminotransferase 6 Units/L (7-52); Aspartate Amino Transferase 12 Units/L (13-39); Lactate Dehydrogenase 232 Units/L (140-271)
[2019-09-27] MEDS: *HR* HYDROcodone/Acet 5/325 mg TABLET PO PRN (17:54)
[2019-09-27] MEDS: Fluticasone Propionate Nasal 50 MCG/SPRAY BOTTLE NS SCH (22:24)
[2019-09-27] MEDS: *HR* Heparin 5,000 UNIT/ML VIAL SQ SCH (22:24)
[2019-09-27] MEDS: Gabapentin 100 MG CAPSULE PO SCH (22:34)
[2019-09-27] MEDS: calcitrioL 0.25 MCG CAPSULE PO SCH (22:34)
[2019-09-27] MEDS: Mirtazapine 15 MG TABLET PO SCH (22:34)
[2019-09-27] MEDS: Famotidine 20 MG TABLET PO SCH (22:34)
[2019-09-28 05:07] LABS: Basophils % 0.2 %; Eosinophils # 0.3 K/mcL (0.0-0.6); Eosinophils % 1.5 %; Hematocrit 23.5 % (35.3-44.9); Hemoglobin 7.2 g/dL (11.5-15.4); Immature Granulocytes % 2.3 % (0-4); Lymphocytes # 1.3 K/mcL (0.6-4.6); Lymphocytes % 7.2 %; Mean Corpuscular HGB Conc 30.6 g/dL (31.6-35.5); Mean Corpuscular Hemoglobin 32.6 pg (28.0-33.3); Mean Corpuscular Volume 106.3 fL (83.0-100.0); Mean Platelet Volume 9.8 fL (9.4-12.4); Monocytes # 1.2 K/mcL (0.0-1.3); Monocytes % 6.7 %; Neutrophils # 14.4 K/mcL (1.6-8.9); Platelet Count 265 K/mcL (140-400); Red Blood Count 2.21 M/mcL (3.82-4.97); Segmented Neutrophils % 82.1 %; White Blood Count 17.5 K/mcL (4.3-11.1)
[2019-09-28 05:21] LABS: Hepatitis B Surface Antibody 151.77 mIU/mL
[2019-09-28 05:26] LABS: Albumin 2.6 g/dL (3.5-5.7); Albumin/Globulin Ratio 0.7 (1.1-2.2); Bilirubin,Total 0.5 mg/dL (0.3-1.0); Calcium 9.9 mg/dL (8.6-10.3); Globulin 3.5 g/dL (2.4-3.5); Magnesium 2.2 mg/dL (1.6-2.6); Potassium 4.1 mEq/L (3.5-5.1); Total Protein 6.1 g/dL (6.4-8.9)
[2019-09-28 05:32] LABS: Hepatitis B Surface Antigen Nonreactive (Nonreactive)
[2019-09-28] MEDS: *HR* Heparin 5,000 UNIT/ML VIAL SQ SCH ×3 (06:33→21:15)
[2019-09-28] MEDS ORDERED: 0.9 % Sodium Chloride 250 ML IVC PRN (07:13)
[2019-09-28] MEDS: Calcium Acetate 667 MG CAPSULE PO SCH ×3 (08:44→17:44)
[2019-09-28] MEDS: Cyanocobalamin (B-12) 1,000 MCG TABLET PO SCH (08:44)
[2019-09-28] MEDS: Folic Acid 1 MG TABLET PO SCH (08:44)
[2019-09-28] MEDS: calcitrioL 0.25 MCG CAPSULE PO SCH ×2 (08:44→21:15)
[2019-09-28] MEDS: Famotidine 20 MG TABLET PO SCH ×2 (08:45→21:16)
[2019-09-28] MEDS: Ondansetron 4 MG/2 ML VIAL IVP PRN ×2 (09:02→21:26)
[2019-09-28] MEDS ORDERED: *HR* Heparin 10,000 UNIT/10 ML VIAL ONE (11:40)
[2019-09-28] MEDS: Fluticasone Propionate Nasal 50 MCG/SPRAY BOTTLE NS SCH ×2 (12:26→21:17)
[2019-09-28] MEDS: *HR* HYDROcodone/Acet 5/325 mg TABLET PO PRN (16:16)
[2019-09-28 19:00] LABS: Bilirubin,Urine Small (Negative); Blood,Urine Small (Negative); Clarity,Urine Turbid (Clear); Color,Urine Dark Yellow (Yellow); Glucose,Urine (UA) Normal (Normal); Ketones,Urine Negative (Negative); Leukocyte Esterase,Urine Moderate (Negative); Nitrite,Urine Negative (Negative); PH,Urine 5.5 pH Units (5.0-8.0); Protein,Urine 100 mg/dL (Neg-Trace); Specific Gravity,Urine 1.022 (1.010-1.025); Urobilinogen,Urine Normal (Normal)
[2019-09-28 19:04] LABS: Bacteria,Urine Few per hpf (None-Few); Squamous Epithelial Cell,Urine Many per lpf (None-Few); WBC,Urine 15-30 per hpf (0-3)
[2019-09-28 19:26] LABS: Waxy Casts,Urine Few per lpf (None Seen)
[2019-09-28] MEDS: Mirtazapine 15 MG TABLET PO SCH (21:16)
[2019-09-28] MEDS: Gabapentin 100 MG CAPSULE PO SCH (21:16)
[2019-09-28] MEDS: MOM Conc 10 ML UD.LIQ PO PRN (21:26)
[2019-09-29 04:20] LABS: Basophils # 0.1 K/mcL (0.0-0.2); Basophils % 0.3 %; Eosinophils # 0.2 K/mcL (0.0-0.6); Eosinophils % 1.4 %; Hematocrit 26.7 % (35.3-44.9); Hemoglobin 8.1 g/dL (11.5-15.4); Immature Granulocytes % 2.6 % (0-4); Lymphocytes # 1.7 K/mcL (0.6-4.6); Lymphocytes % 9.8 %; Mean Corpuscular HGB Conc 30.3 g/dL (31.6-35.5); Mean Corpuscular Hemoglobin 31.4 pg (28.0-33.3); Mean Corpuscular Volume 103.5 fL (83.0-100.0); Monocytes # 1.1 K/mcL (0.0-1.3); Monocytes % 6.4 %; Neutrophils # 13.3 K/mcL (1.6-8.9); Platelet Count 283 K/mcL (140-400); Red Blood Count 2.58 M/mcL (3.82-4.97); Red Cell Distribution Width 17.1 % (11.5-14.5); Retculocyte # 0.11 M/mcL (0.05-0.10); Reticulocyte % 4.1 % (1.6-2.8); Segmented Neutrophils % 79.5 %; White Blood Count 16.8 K/mcL (4.3-11.1)
[2019-09-29 04:42] LABS: % Iron Saturation 55 % (15-50); Alanine Aminotransferase 5 Units/L (7-52); Albumin 2.7 g/dL (3.5-5.7); Albumin/Globulin Ratio 0.8 (1.1-2.2); Alkaline Phosphatase 67 Units/L (34-104); Aspartate Amino Transferase 12 Units/L (13-39); BUN/Creatinine Ratio 5 (6-26); Bilirubin,Total 0.6 mg/dL (0.3-1.0); Blood Urea Nitrogen 54 mg/dL (8-23); Calcium 10.3 mg/dL (8.6-10.3); Carbon Dioxide 28 mEq/L (23-29); Chloride 101 mEq/L (98-107); Globulin 3.6 g/dL (2.4-3.5); Glucose 94 mg/dL (70-105); Iron 68 mcg/dL (50-170); Lactate Dehydrogenase 196 Units/L (140-271); Osmolality,Calculated 299 (280-300); Potassium 3.8 mEq/L (3.5-5.1); Sodium 137 mEq/L (136-145); Total Protein 6.3 g/dL (6.4-8.9); Transferrin 88 mg/dL (203-362); Uric Acid 5.6 mg/dL (2.3-7.6); eGFR For African Americans 4 (> 60); eGFR For Non-African Americans 4 (> 60)
[2019-09-29 05:09] LABS: Ferritin > 1500 ng/mL (10-120)
[2019-09-29 05:11] LABS: Folate 5.9 ng/mL (3.0-16.0)
[2019-09-29] MEDS: *HR* Heparin 5,000 UNIT/ML VIAL SQ SCH ×3 (06:26→20:59)
[2019-09-29] MEDS ORDERED: 0.9 % Sodium Chloride 250 ML IVC PRN (08:03)
[2019-09-29] MEDS ORDERED: *HR* Heparin 10,000 UNIT/10 ML VIAL IV PRN (10:05)
[2019-09-29] MEDS: Calcium Acetate 667 MG CAPSULE PO SCH ×3 (10:18→16:48)
[2019-09-29] MEDS: Cyanocobalamin (B-12) 1,000 MCG TABLET PO SCH (12:06)
[2019-09-29] MEDS: Folic Acid 1 MG TABLET PO SCH (12:06)
[2019-09-29] MEDS: Metoprolol XL (24 HR) Succ 25 MG TAB.ER.24H PO SCH (12:06)
[2019-09-29] MEDS: calcitrioL 0.25 MCG CAPSULE PO SCH ×2 (12:06→20:57)
[2019-09-29] MEDS: Famotidine 20 MG TABLET PO SCH ×2 (12:06→20:58)
[2019-09-29] MEDS: Fluticasone Propionate Nasal 50 MCG/SPRAY BOTTLE NS SCH ×2 (12:14→21:00)
[2019-09-29] MEDS: *HR* HYDROcodone/Acet 5/325 mg TABLET PO PRN (20:56)
[2019-09-29] MEDS: Gabapentin 100 MG CAPSULE PO SCH (20:57)
[2019-09-29] MEDS: MOM Conc 10 ML UD.LIQ PO PRN (20:59)
[2019-09-29] MEDS: Mirtazapine 15 MG TABLET PO SCH (20:59)
[2019-09-29] MEDS: Lactulose Oral Soln 20 GM/30 ML UDC PO SCH (20:59)
[2019-09-30 03:07] LABS: Basophils # 0.1 K/mcL (0.0-0.2); Basophils % 0.5 %; Eosinophils # 0.3 K/mcL (0.0-0.6); Eosinophils % 1.5 %; Hematocrit 27.1 % (35.3-44.9); Hemoglobin 8.3 g/dL (11.5-15.4); Immature Granulocytes % 3.2 % (0-4); Lymphocytes # 2.6 K/mcL (0.6-4.6); Lymphocytes % 14.2 %; Mean Corpuscular HGB Conc 30.6 g/dL (31.6-35.5); Mean Corpuscular Hemoglobin 32.3 pg (28.0-33.3); Mean Corpuscular Volume 105.4 fL (83.0-100.0); Mean Platelet Volume 9.8 fL (9.4-12.4); Monocytes # 1.2 K/mcL (0.0-1.3); Monocytes % 6.5 %; Neutrophils # 13.7 K/mcL (1.6-8.9); Platelet Count 317 K/mcL (140-400); Red Blood Count 2.57 M/mcL (3.82-4.97); Segmented Neutrophils % 74.1 %; White Blood Count 18.5 K/mcL (4.3-11.1)
[2019-09-30 03:28] LABS: Potassium 3.8 mEq/L (3.5-5.1)
[2019-09-30] MEDS: *HR* Heparin 5,000 UNIT/ML VIAL SQ SCH ×3 (06:23→21:50)
[2019-09-30] MEDS: calcitrioL 0.25 MCG CAPSULE PO SCH ×2 (08:50→21:49)
[2019-09-30] MEDS: Metoprolol XL (24 HR) Succ 25 MG TAB.ER.24H PO SCH (08:51)
[2019-09-30] MEDS: Folic Acid 1 MG TABLET PO SCH (08:51)
[2019-09-30] MEDS: Famotidine 20 MG TABLET PO SCH ×2 (08:51→21:49)
[2019-09-30] MEDS: Calcium Acetate 667 MG CAPSULE PO SCH ×3 (08:51→18:12)
[2019-09-30] MEDS: Lactulose Oral Soln 20 GM/30 ML UDC PO SCH ×2 (08:52→21:49)
[2019-09-30] MEDS: Cyanocobalamin (B-12) 1,000 MCG TABLET PO SCH (08:52)
[2019-09-30] MEDS: Fluticasone Propionate Nasal 50 MCG/SPRAY BOTTLE NS SCH ×2 (08:53→21:53)
[2019-09-30 16:17] LABS: Kappa Qnt Free Light Chains 279.71 mg/L (3.30-19.40); Lambda Qnt Free Light Chains 161.58 mg/L (5.71-26.30)
[2019-09-30] MEDS: Mirtazapine 15 MG TABLET PO SCH (21:49)
[2019-09-30] MEDS: Gabapentin 100 MG CAPSULE PO SCH (21:49)
[2019-10-01 04:12] LABS: Basophils # 0.1 K/mcL (0.0-0.2); Basophils % 0.3 %; Eosinophils # 0.3 K/mcL (0.0-0.6); Eosinophils % 1.5 %; Hematocrit 26.3 % (35.3-44.9); Hemoglobin 7.9 g/dL (11.5-15.4); Immature Granulocytes % 3.4 % (0-4); Lymphocytes # 2.6 K/mcL (0.6-4.6); Lymphocytes % 14.4 %; Mean Corpuscular Hemoglobin 31.7 pg (28.0-33.3); Mean Corpuscular Volume 105.6 fL (83.0-100.0); Mean Platelet Volume 9.5 fL (9.4-12.4); Monocytes # 1.1 K/mcL (0.0-1.3); Monocytes % 6.2 %; Neutrophils # 13.6 K/mcL (1.6-8.9); Platelet Count 339 K/mcL (140-400); Red Blood Count 2.49 M/mcL (3.82-4.97); Red Cell Distribution Width 15.3 % (11.5-14.5); Segmented Neutrophils % 74.2 %; White Blood Count 18.3 K/mcL (4.3-11.1)
[2019-10-01 04:29] LABS: Calcium 10.6 mg/dL (8.6-10.3); Potassium 4.5 mEq/L (3.5-5.1)
[2019-10-01] MEDS: *HR* Heparin 5,000 UNIT/ML VIAL SQ SCH ×3 (06:30→22:42)
[2019-10-01] MEDS ORDERED: 0.9 % Sodium Chloride 250 ML IVC PRN (07:02)
[2019-10-01] MEDS ORDERED: *HR* Heparin 10,000 UNIT/10 ML VIAL IV PRN (07:02)
[2019-10-01] MEDS ORDERED: Calcium Acetate 667 MG CAPSULE ONE ×2 (09:00→14:41)
[2019-10-01] MEDS ORDERED: Lactulose Oral Soln 20 GM/30 ML UDC ONE (09:00)
[2019-10-01] MEDS ORDERED: Cyanocobalamin (B-12) 1,000 MCG TABLET ONE (09:00)
[2019-10-01] MEDS ORDERED: Folic Acid 1 MG TABLET ONE (09:00)
[2019-10-01] MEDS ORDERED: Famotidine 20 MG TABLET ONE (09:00)
[2019-10-01] MEDS ORDERED: calcitrioL 0.25 MCG CAPSULE PO ONE (09:00)
[2019-10-01] MEDS ORDERED: *HR* Heparin 5,000 UNIT/ML VIAL ONE (14:41)
[2019-10-01] MEDS: Calcium Acetate 667 MG CAPSULE PO SCH ×2 (16:47→17:15)
[2019-10-01] MEDS: Lactulose Oral Soln 20 GM/30 ML UDC PO SCH ×2 (16:48→22:42)
[2019-10-01] MEDS: Folic Acid 1 MG TABLET PO SCH (16:48)
[2019-10-01] MEDS: calcitrioL 0.25 MCG CAPSULE PO SCH ×2 (16:48→22:42)
[2019-10-01] MEDS: Fluticasone Propionate Nasal 50 MCG/SPRAY BOTTLE NS SCH ×2 (16:48→22:43)
[2019-10-01] MEDS: Metoprolol XL (24 HR) Succ 25 MG TAB.ER.24H PO SCH (16:49)
[2019-10-01] MEDS: Cyanocobalamin (B-12) 1,000 MCG TABLET PO SCH (16:49)
[2019-10-01] MEDS: Famotidine 20 MG TABLET PO SCH (18:17)
[2019-10-01] MEDS: Gabapentin 100 MG CAPSULE PO SCH (22:41)
[2019-10-01] MEDS: Mirtazapine 15 MG TABLET PO SCH (22:42)
[2019-10-01] MEDS: *HR* HYDROcodone/Acet 5/325 mg TABLET PO PRN (22:48)
[2019-10-02] MEDS: *HR* Heparin 5,000 UNIT/ML VIAL SQ SCH ×3 (06:10→22:00)
[2019-10-02 06:29] LABS: Hematocrit 26.9 % (35.3-44.9); Mean Corpuscular HGB Conc 29.7 g/dL (31.6-35.5); Mean Corpuscular Hemoglobin 31.6 pg (28.0-33.3); Mean Corpuscular Volume 106.3 fL (83.0-100.0); Mean Platelet Volume 9.7 fL (9.4-12.4); Platelet Count 337 K/mcL (140-400); Red Blood Count 2.53 M/mcL (3.82-4.97); Red Cell Distribution Width 14.9 % (11.5-14.5)
[2019-10-02 06:45] LABS: Calcium 10.2 mg/dL (8.6-10.3); Potassium 4.1 mEq/L (3.5-5.1)
[2019-10-02] MEDS: Lactulose Oral Soln 20 GM/30 ML UDC PO SCH ×2 (10:48→22:00)
[2019-10-02] MEDS: Calcium Acetate 667 MG CAPSULE PO SCH ×3 (10:49→17:31)
[2019-10-02] MEDS: Metoprolol XL (24 HR) Succ 25 MG TAB.ER.24H PO SCH (10:49)
[2019-10-02] MEDS: Cyanocobalamin (B-12) 1,000 MCG TABLET PO SCH (10:49)
[2019-10-02] MEDS: Folic Acid 1 MG TABLET PO SCH (10:50)
[2019-10-02] MEDS: calcitrioL 0.25 MCG CAPSULE PO SCH ×2 (10:50→22:00)
[2019-10-02] MEDS: Fluticasone Propionate Nasal 50 MCG/SPRAY BOTTLE NS SCH ×2 (10:51→22:06)
[2019-10-02] MEDS: Famotidine 20 MG TABLET PO SCH (10:51)
[2019-10-02 17:16] LABS: Beta Globulin (PEP) 0.79 g/dL (0.48-1.10)
[2019-10-02] MEDS: Gabapentin 100 MG CAPSULE PO SCH (21:59)
[2019-10-02] MEDS: Mirtazapine 15 MG TABLET PO SCH (22:00)
[2019-10-03 04:12] LABS: Prothrombin Time 10.9 Seconds (9.4-12.1)
[2019-10-03 04:14] LABS: Basophils # 0.1 K/mcL (0.0-0.2); Basophils % 0.4 %; Eosinophils # 0.3 K/mcL (0.0-0.6); Eosinophils % 1.5 %; Hematocrit 25.5 % (35.3-44.9); Hemoglobin 7.7 g/dL (11.5-15.4); Immature Granulocytes % 4.6 % (0-4); Lymphocytes # 3.9 K/mcL (0.6-4.6); Lymphocytes % 17.6 %; Mean Corpuscular HGB Conc 30.2 g/dL (31.6-35.5); Mean Corpuscular Hemoglobin 31.7 pg (28.0-33.3); Mean Corpuscular Volume 104.9 fL (83.0-100.0); Mean Platelet Volume 9.6 fL (9.4-12.4); Monocytes # 1.1 K/mcL (0.0-1.3); Neutrophils # 15.7 K/mcL (1.6-8.9); Platelet Count 348 K/mcL (140-400); Red Blood Count 2.43 M/mcL (3.82-4.97); Red Cell Distribution Width 14.6 % (11.5-14.5); Segmented Neutrophils % 70.9 %; White Blood Count 22.2 K/mcL (4.3-11.1)
[2019-10-03 04:26] LABS: Calcium 11.2 mg/dL (8.6-10.3); Potassium 4.6 mEq/L (3.5-5.1)
[2019-10-03] MEDS: *HR* Heparin 5,000 UNIT/ML VIAL SQ SCH ×3 (05:34→23:09)
[2019-10-03] MEDS: *HR* HYDROcodone/Acet 5/325 mg TABLET PO PRN (05:38)
[2019-10-03] MEDS: Metoprolol XL (24 HR) Succ 25 MG TAB.ER.24H PO SCH (09:05)
[2019-10-03] MEDS: Lactulose Oral Soln 20 GM/30 ML UDC PO SCH ×2 (09:05→23:10)
[2019-10-03] MEDS: Famotidine 20 MG TABLET PO SCH (09:06)
[2019-10-03] MEDS: Fluticasone Propionate Nasal 50 MCG/SPRAY BOTTLE NS SCH ×2 (09:06→23:11)
[2019-10-03] MEDS: Folic Acid 1 MG TABLET PO SCH (09:06)
[2019-10-03] MEDS: Cyanocobalamin (B-12) 1,000 MCG TABLET PO SCH (09:06)
[2019-10-03] MEDS: Calcium Acetate 667 MG CAPSULE PO SCH ×3 (09:06→16:12)
[2019-10-03] MEDS: calcitrioL 0.25 MCG CAPSULE PO SCH ×2 (09:06→23:09)
[2019-10-03] MEDS ORDERED: *HR* FentaNYL (PF) 100 MCG/2 ML VIAL IVP ONE (10:00)
[2019-10-03] MEDS ORDERED: Clindamycin 600 MG/50 ML 600 MG/50 ML IV.SOLN IVPB ONE (10:01)
[2019-10-03] MEDS ORDERED: *HR* Midazolam HCl 2 MG/2 ML VIAL IVP ONE (10:01)
[2019-10-03] MEDS ORDERED: *HR* Heparin 5,000 UNIT/ML VIAL ONE (10:20)
[2019-10-03] MEDS ORDERED: 0.9 % Sodium Chloride 250 ML IVC PRN ×4 (10:22→20:48)
[2019-10-03] MEDS ORDERED: *HR* Heparin 10,000 UNIT/10 ML VIAL IV PRN ×2 (10:22→20:48)
[2019-10-03] MEDS ORDERED: Lidocaine -MPF 2% 2 ML VIAL ONE (18:18)
[2019-10-03] MEDS ORDERED: *HR* Rocuronium Bromide 50 MG/5 ML VIAL ONE (18:18)
[2019-10-03] MEDS ORDERED: *HR* FentaNYL (PF) 100 MCG/2 ML VIAL ONE (18:18)
[2019-10-03] MEDS ORDERED: Lidocaine HCL 4 ML Topical Solution (Laryng-O-Jet Kit Sterile Pak) TP ONE (18:18)
[2019-10-03] MEDS ORDERED: *HR* Propofol 200 MG/20 ML VIAL IVP ONE (18:18)
[2019-10-03] MEDS ORDERED: *HR* Succinylcholine 200 MG/10 ML VIAL IVP ONE (18:18)
[2019-10-03] MEDS ORDERED: *HR* PHENYLEPHRINE 1,000 MCG/10 ML SYRINGE IVP ONE (19:24)
[2019-10-03] MEDS ORDERED: Dexamethasone 4 MG/ML VIAL ONE (19:28)
[2019-10-03] MEDS ORDERED: Ondansetron 4 MG/2 ML VIAL ONE (19:28)
[2019-10-03] MEDS ORDERED: Sennosides/Docusate Sodium TABLET PO PRN (20:48)
[2019-10-03] MEDS ORDERED: Mag Hydrox/Al Hydrox/Simeth 30 ML UDC PO PRN (20:48)
[2019-10-03] MEDS ORDERED: MOM Conc 10 ML UD.LIQ PO PRN (20:48)
[2019-10-03] MEDS ORDERED: *HR* HYDROcodone/Acet 5/325 mg TABLET PO PRN (20:48)
[2019-10-03] MEDS ORDERED: CLEAR EYES NATURAL TEARS 15 ML BOTTLE BOTH EYES PRN (20:48)
[2019-10-03] MEDS ORDERED: 0.9 % Sodium Chloride 1,000 ML PRIME SCH (20:48)
[2019-10-03] MEDS ORDERED: *HR* Promethazine 25 MG/ML VIAL IVP PRN (20:48)
[2019-10-03] MEDS ORDERED: Acetaminophen 325 MG TABLET PO PRN (20:48)
[2019-10-03] MEDS ORDERED: Naloxone 0.4 MG/ML INJ IVP PRN (20:48)
[2019-10-03] MEDS ORDERED: Ondansetron 4 MG/2 ML VIAL IVP PRN (20:48)
[2019-10-03] MEDS ORDERED: Gabapentin 100 MG CAPSULE PO SCH (21:00)
[2019-10-03] MEDS ORDERED: Mirtazapine 15 MG TABLET PO SCH (21:00)
[2019-10-04] MEDS: *HR* Heparin 5,000 UNIT/ML VIAL SQ SCH (05:35)
[2019-10-04 05:48] LABS: Hematocrit 29.1 % (35.3-44.9); Hemoglobin 8.5 g/dL (11.5-15.4); Mean Corpuscular HGB Conc 29.2 g/dL (31.6-35.5); Mean Corpuscular Hemoglobin 32.6 pg (28.0-33.3); Mean Platelet Volume 10.1 fL (9.4-12.4); Platelet Count 319 K/mcL (140-400); Red Blood Count 2.61 M/mcL (3.82-4.97); Red Cell Distribution Width 14.7 % (11.5-14.5); White Blood Count 20.8 K/mcL (4.3-11.1)
[2019-10-04 05:53] LABS: Mean Corpuscular Volume 111.5 fL (83.0-100.0)
[2019-10-04 06:11] LABS: Calcium 10.4 mg/dL (8.6-10.3); Potassium 5.3 mEq/L (3.5-5.1)
[2019-10-04] MEDS ORDERED: *HR* Heparin 10,000 UNIT/10 ML VIAL IV PRN (07:39)
[2019-10-04] MEDS ORDERED: 0.9 % Sodium Chloride 250 ML IVC PRN (07:39)
[2019-10-04] MEDS ORDERED: 0.9 % Sodium Chloride 1,000 ML PRIME SCH (07:45)
[2019-10-04] MEDS: calcitrioL 0.25 MCG CAPSULE PO SCH (08:15)
[2019-10-04] MEDS: Calcium Acetate 667 MG CAPSULE PO SCH ×2 (08:16→12:56)
[2019-10-04] MEDS: Fluticasone Propionate Nasal 50 MCG/SPRAY BOTTLE NS SCH (08:25)
[2019-10-04] MEDS ORDERED: Famotidine 20 MG TABLET PO SCH (09:00)
[2019-10-04] MEDS ORDERED: Cyanocobalamin (B-12) 1,000 MCG TABLET PO SCH (09:00)
[2019-10-04] MEDS ORDERED: Metoprolol XL (24 HR) Succ 25 MG TAB.ER.24H PO SCH (09:00)
[2019-10-04] MEDS ORDERED: Folic Acid 1 MG TABLET PO SCH (09:00)
[2019-10-04 11:49] LABS: IFE Reflexed IFE Done; Immunoglobulin G 1200 mg/dL (768-1632); Immunoglobulin M 18 mg/dL (35-263)
[2019-10-04 11:50] LABS: Immunoglobulin A 265 mg/dL (68-408)
[2019-10-04] MEDS: Lactulose Oral Soln 20 GM/30 ML UDC PO SCH (12:39)
[2019-10-04 12:40] VITALS: BP 110/56
== END 2019-10-04 15:58 | disposition home health service (06) | DRG 981 ==
LOC: 2NENU 14:58 → EMEROOARM 14:58 → SUATTDRO 17:37 → 2NENU 18:37
PROVIDERS: ADMIT Internal Medicine; ATTEND Internal Medicine
PROC: IRPERMA (2019-10-03 12:00)

== ENCOUNTER 2020-05-02 09:32 | Inpatient (IN) ==
[2020-05-02 11:15] LABS: Basophils # 0.1 K/mcL (0.0-0.2); Basophils % 0.4 %; Eosinophils # 0.1 K/mcL (0.0-0.6); Eosinophils % 0.6 %; Hematocrit 32.8 % (35.3-44.9); Hemoglobin 9.5 g/dL (11.5-15.4); Immature Granulocytes % 0.6 % (0-4); Lymphocytes # 2.3 K/mcL (0.6-4.6); Lymphocytes % 10.7 %; Mean Corpuscular Hemoglobin 28.4 pg (28.0-33.3); Mean Corpuscular Volume 98.2 fL (83.0-100.0); Mean Platelet Volume 11.2 fL (9.4-12.4); Monocytes % 4.5 %; Neutrophils # 17.5 K/mcL (1.6-8.9); Platelet Count 544 K/mcL (140-400); Red Blood Count 3.34 M/mcL (3.82-4.97); Red Cell Distribution Width 15.2 % (11.5-14.5); Segmented Neutrophils % 83.2 %; White Blood Count 21.1 K/mcL (4.3-11.1)
[2020-05-02] MEDS ORDERED: Vancomycin 1,250 MG/262.5 ML IV.SOLN IVPB ONE (11:27)
[2020-05-02] MEDS ORDERED: Ertapenem 1,000 MG in 0.9 % Sodium Chloride Mini Bag 100 ML IVPB ONE (11:28)
[2020-05-02 11:37] LABS: Calcium 10.5 mg/dL (8.6-10.3); Potassium 3.7 mEq/L (3.5-5.1)
[2020-05-02 11:49] LABS: Troponin I 0.08 ng/mL (< 0.04)
[2020-05-02 12:41] LABS: INR 1.1; Prothrombin Time 12.5 Seconds (9.4-12.1)
[2020-05-02] MEDS ORDERED: Naloxone 0.4 MG/ML INJ IVP PRN (12:51)
[2020-05-02] MEDS ORDERED: Vancomycin 1 EACH in 0.9 % Sodium Chloride 250 ML IVPB PRN (13:00)
[2020-05-03 01:55] LABS: Hematocrit 28.4 % (35.3-44.9); Hemoglobin 8.5 g/dL (11.5-15.4); Mean Corpuscular HGB Conc 29.9 g/dL (31.6-35.5); Mean Corpuscular Hemoglobin 29.5 pg (28.0-33.3); Mean Corpuscular Volume 98.6 fL (83.0-100.0); Mean Platelet Volume 10.9 fL (9.4-12.4); Platelet Count 418 K/mcL (140-400); Red Blood Count 2.88 M/mcL (3.82-4.97); Red Cell Distribution Width 15.3 % (11.5-14.5); White Blood Count 17.6 K/mcL (4.3-11.1)
[2020-05-03 02:05] LABS: Calcium 10.2 mg/dL (8.6-10.3); Phosphorous 5.4 mg/dL (2.7-4.5); Potassium 3.9 mEq/L (3.5-5.1)
[2020-05-03] MEDS ORDERED: *HR* Heparin 5,000 UNIT/ML VIAL IVP PRN ×2 (02:37)
[2020-05-03] MEDS ORDERED: *HR* Heparin 5,000 UNIT/ML VIAL IVP ONE (02:37)
[2020-05-03] MEDS: Heparin 25,000UNIT/250ML 1/2NS 25,000 UNIT/250 ML IV.SOLN IVC SCH (05:03)
[2020-05-03 05:30] LABS: Heparin anti-factor XA UFH < 0.04 IU/mL (0.30-0.70); INR 1.1; Prothrombin Time 12.6 Seconds (9.4-12.1)
[2020-05-03] MEDS ORDERED: *HR* Heparin 10,000 UNIT/10 ML VIAL IV PRN (07:54)
[2020-05-03] MEDS ORDERED: 0.9 % Sodium Chloride 250 ML IVC PRN (07:54)
[2020-05-03] MEDS ORDERED: 0.9 % Sodium Chloride 1,000 ML PRIME SCH (08:00)
[2020-05-03] MEDS ORDERED: Perflutren Lipid Microsphere 1.3 ML in 0.9 % Sodium Chloride 8.7 ML IVP PRN (08:05)
[2020-05-03] MEDS ORDERED: Fluticasone Propionate Nasal 50 MCG/SPRAY BOTTLE NS PRN (08:21)
[2020-05-03] MEDS: NIFEdipine XL (24 HR) 60 MG TAB.ER.24 PO SCH (13:00)
[2020-05-03] MEDS: Metoprolol 100 MG TABLET PO SCH ×2 (13:00→20:14)
[2020-05-03] MEDS: Cyanocobalamin (B-12) 1,000 MCG TABLET PO SCH (13:00)
[2020-05-03] MEDS: Folic Acid 1 MG TABLET PO SCH (13:00)
[2020-05-03] MEDS: Artificial Tears SOLN 15 ML BOTTLE BOTH EYES SCH ×2 (13:01→20:15)
[2020-05-03] MEDS: Ondansetron ODT 4 MG TAB.RAPDIS SL PRN (13:22)
[2020-05-03] MEDS: cefTRIAXone 1,000 MG in Water for inj. (sterile) 10 ML IVP SCH (17:25)
[2020-05-03 19:50] LABS: Adenovirus Not Detected (Not Detect); Bordetella Pertussis Not Detected (Not Detect); Chlamydophila pneumoniae Not Detected (Not Detect); Coronavirus 229E Not Detected (Not Detect); Coronavirus HKU1 Not Detected (Not Detect); Coronavirus NL63 Not Detected (Not Detect); Coronavirus OC43 Not Detected (Not Detect); Human Metapneumovirus Not Detected (Not Detect); Human Rhinovirus/Enterovirus Not Detected (Not Detect); Influenza A Subtype 2009 H1 Not Detected (Not Detect); Influenza B Not Detected (Not Detect); Mycoplasma pneumoniae Not Detected (Not Detect); Parainfluenza Virus 1 Not Detected (Not Detect); Parainfluenza Virus 2 Not Detected (Not Detect); Parainfluenza Virus 3 Not Detected (Not Detect); Parainfluenza Virus 4 Not Detected (Not Detect); Respiratory Syncytial Virus Not Detected (Not Detect); SARS-CoV-2 Not Detected (Not Detect)
[2020-05-03] MEDS: Doxycycline 100 MG CAPSULE PO SCH (20:14)
[2020-05-03] MEDS: Gabapentin 100 MG CAPSULE PO SCH (20:14)
[2020-05-03] MEDS: Diphenoxylate/Atropine 1 TAB TABLET PO PRN (20:14)
[2020-05-04 02:01] LABS: Hematocrit 28.3 % (35.3-44.9); Hemoglobin 8.3 g/dL (11.5-15.4); Mean Corpuscular HGB Conc 29.3 g/dL (31.6-35.5); Mean Corpuscular Hemoglobin 29.3 pg (28.0-33.3); Mean Platelet Volume 11.1 fL (9.4-12.4); Platelet Count 365 K/mcL (140-400); Red Blood Count 2.83 M/mcL (3.82-4.97); Red Cell Distribution Width 15.1 % (11.5-14.5); White Blood Count 13.3 K/mcL (4.3-11.1)
[2020-05-04 02:24] LABS: Calcium 9.8 mg/dL (8.6-10.3); Phosphorous 4.8 mg/dL (2.7-4.5); Potassium 4.1 mEq/L (3.5-5.1)
[2020-05-04] MEDS: Heparin 25,000UNIT/250ML 1/2NS 25,000 UNIT/250 ML IV.SOLN IVC SCH (04:21)
[2020-05-04] MEDS: Doxycycline 100 MG CAPSULE PO SCH ×2 (08:10→22:31)
[2020-05-04] MEDS: Folic Acid 1 MG TABLET PO SCH (08:11)
[2020-05-04] MEDS: NIFEdipine XL (24 HR) 60 MG TAB.ER.24 PO SCH (08:11)
[2020-05-04] MEDS: Metoprolol 100 MG TABLET PO SCH ×2 (08:11→22:23)
[2020-05-04] MEDS: Cyanocobalamin (B-12) 1,000 MCG TABLET PO SCH (08:11)
[2020-05-04] MEDS: Artificial Tears SOLN 15 ML BOTTLE BOTH EYES SCH ×2 (08:12→22:35)
[2020-05-04] MEDS: Ondansetron ODT 4 MG TAB.RAPDIS SL PRN ×2 (08:15→22:30)
[2020-05-04] MEDS: Lactobacillus 1 EACH CAP.SPRINK PO SCH ×2 (12:11→22:32)
[2020-05-04 13:36] LABS: ABG Base Excess 3 mEq/L (-2 to 3); ABG HCO3 29 mEq/L (21-27); ABG Oxygen Saturation 91 % (95-98); ABG PCO2 53 mmHg (35-45); ABG PH 7.35 pH Units (7.32-7.45); ABG PO2 66 mmHg (85-104); ABG TCO2 31 mEq/L (20-26)
[2020-05-04 16:53] LABS: ABG Base Excess 4 mEq/L (-2 to 3); ABG HCO3 30 mEq/L (21-27); ABG Oxygen Saturation 76 % (95-98); ABG PCO2 54 mmHg (35-45); ABG PH 7.36 pH Units (7.32-7.45); ABG PO2 43 mmHg (85-104); ABG TCO2 32 mEq/L (20-26)
[2020-05-04] MEDS: cefTRIAXone 1,000 MG in Water for inj. (sterile) 10 ML IVP SCH (18:11)
[2020-05-04] MEDS: Furosemide 20 MG TABLET PO SCH (18:12)
[2020-05-04] MEDS: Gabapentin 100 MG CAPSULE PO SCH (22:33)
[2020-05-05 03:53] LABS: Calcium 9.2 mg/dL (8.6-10.3); Potassium 4.4 mEq/L (3.5-5.1)
[2020-05-05 03:54] LABS: Albumin 3.6 g/dL (3.5-5.7); Albumin/Globulin Ratio 1.1 (1.1-2.2); Bilirubin,Total 0.6 mg/dL (0.3-1.0); Calcium 9.1 mg/dL (8.6-10.3); Globulin 3.4 g/dL (2.4-3.5); Magnesium 2.2 mg/dL (1.6-2.6); Phosphorous 5.9 mg/dL (2.7-4.5); Potassium 4.4 mEq/L (3.5-5.1)
[2020-05-05 06:00] LABS: Hematocrit 28.5 % (35.3-44.9); Hemoglobin 8.1 g/dL (11.5-15.4); Mean Corpuscular HGB Conc 28.4 g/dL (31.6-35.5); Mean Corpuscular Hemoglobin 28.5 pg (28.0-33.3); Mean Corpuscular Volume 100.4 fL (83.0-100.0); Mean Platelet Volume 11.5 fL (9.4-12.4); Platelet Count 356 K/mcL (140-400); Red Blood Count 2.84 M/mcL (3.82-4.97); Red Cell Distribution Width 14.5 % (11.5-14.5)
[2020-05-05] MEDS: Ondansetron ODT 4 MG TAB.RAPDIS SL PRN (06:19)
[2020-05-05] MEDS: Heparin 25,000UNIT/250ML 1/2NS 25,000 UNIT/250 ML IV.SOLN IVC SCH (06:21)
[2020-05-05] MEDS: Artificial Tears SOLN 15 ML BOTTLE BOTH EYES SCH ×2 (09:18→20:17)
[2020-05-05] MEDS ORDERED: 0.9 % Sodium Chloride 250 ML IVC PRN (09:24)
[2020-05-05] MEDS ORDERED: Isovue-370 500 ML BOTTLE IVP ONE ×2 (13:31→13:35)
[2020-05-05] MEDS: Metoprolol 100 MG TABLET PO SCH ×2 (13:57→20:17)
[2020-05-05] MEDS: Lactobacillus 1 EACH CAP.SPRINK PO SCH ×2 (14:04→20:16)
[2020-05-05] MEDS: Doxycycline 100 MG CAPSULE PO SCH ×2 (14:04→20:17)
[2020-05-05] MEDS: Cyanocobalamin (B-12) 1,000 MCG TABLET PO SCH (14:11)
[2020-05-05] MEDS: NIFEdipine XL (24 HR) 60 MG TAB.ER.24 PO SCH (14:12)
[2020-05-05] MEDS: Furosemide 20 MG TABLET PO SCH (14:12)
[2020-05-05] MEDS: Folic Acid 1 MG TABLET PO SCH (14:12)
[2020-05-05] MEDS: cefTRIAXone 1,000 MG in Water for inj. (sterile) 10 ML IVP SCH (16:47)
[2020-05-05] MEDS: Ondansetron 4 MG/2 ML VIAL IVP PRN (16:50)
[2020-05-05] MEDS: Gabapentin 100 MG CAPSULE PO SCH (20:16)
[2020-05-06 07:18] LABS: Hematocrit 27.8 % (35.3-44.9); Hemoglobin 8.2 g/dL (11.5-15.4); Mean Corpuscular HGB Conc 29.5 g/dL (31.6-35.5); Mean Corpuscular Hemoglobin 29.7 pg (28.0-33.3); Mean Corpuscular Volume 100.7 fL (83.0-100.0); Mean Platelet Volume 11.2 fL (9.4-12.4); Platelet Count 317 K/mcL (140-400); Red Blood Count 2.76 M/mcL (3.82-4.97); Red Cell Distribution Width 14.7 % (11.5-14.5); White Blood Count 12.7 K/mcL (4.3-11.1)
[2020-05-06 07:30] LABS: Magnesium 2.1 mg/dL (1.6-2.6); Phosphorous 5.1 mg/dL (2.7-4.5)
[2020-05-06 07:31] LABS: Calcium 10.1 mg/dL (8.6-10.3)
[2020-05-06 07:33] LABS: % Iron Saturation 31 % (15-50); Iron 71 mcg/dL (50-170); Transferrin 166 mg/dL (203-362)
[2020-05-06 07:50] LABS: Ferritin 1073 ng/mL (10-120)
[2020-05-06] MEDS: Folic Acid 1 MG TABLET PO SCH (08:02)
[2020-05-06] MEDS: Artificial Tears SOLN 15 ML BOTTLE BOTH EYES SCH ×2 (08:03→21:31)
[2020-05-06] MEDS: Lactobacillus 1 EACH CAP.SPRINK PO SCH ×2 (08:03→21:27)
[2020-05-06] MEDS: Cyanocobalamin (B-12) 1,000 MCG TABLET PO SCH (08:03)
[2020-05-06] MEDS: Furosemide 20 MG TABLET PO SCH (08:03)
[2020-05-06] MEDS: Metoprolol 100 MG TABLET PO SCH ×2 (08:03→21:04)
[2020-05-06] MEDS: NIFEdipine XL (24 HR) 60 MG TAB.ER.24 PO SCH (08:03)
[2020-05-06] MEDS: Doxycycline 100 MG CAPSULE PO SCH ×2 (08:03→21:27)
[2020-05-06] MEDS: Heparin 25,000UNIT/250ML 1/2NS 25,000 UNIT/250 ML IV.SOLN IVC SCH (08:10)
[2020-05-06] MEDS: cefTRIAXone 1,000 MG in Water for inj. (sterile) 10 ML IVP SCH (16:58)
[2020-05-06] MEDS: Gabapentin 100 MG CAPSULE PO SCH (21:27)
[2020-05-07] MEDS: *HR* Heparin 5,000 UNIT/ML VIAL SQ SCH ×3 (06:11→22:14)
[2020-05-07 07:14] LABS: Hemoglobin 8.7 g/dL (11.5-15.4); Mean Platelet Volume 11.8 fL (9.4-12.4)
[2020-05-07 07:16] LABS: Hematocrit 31.7 % (35.3-44.9); Immature Platelets 8.7 % (1.1-6.1); Mean Corpuscular HGB Conc 27.4 g/dL (31.6-35.5); Mean Corpuscular Hemoglobin 29.4 pg (28.0-33.3); Mean Corpuscular Volume 107.1 fL (83.0-100.0); Red Blood Count 2.96 M/mcL (3.82-4.97); Red Cell Distribution Width 14.8 % (11.5-14.5); White Blood Count 12.4 K/mcL (4.3-11.1)
[2020-05-07 08:08] LABS: Potassium 4.8 mEq/L (3.5-5.1)
[2020-05-07 08:09] LABS: Magnesium 2.2 mg/dL (1.6-2.6); Phosphorous 5.7 mg/dL (2.7-4.5)
[2020-05-07] MEDS: Lactobacillus 1 EACH CAP.SPRINK PO SCH ×2 (09:11→22:13)
[2020-05-07] MEDS: Doxycycline 100 MG CAPSULE PO SCH ×2 (09:11→22:13)
[2020-05-07] MEDS: Furosemide 20 MG TABLET PO SCH (09:11)
[2020-05-07] MEDS: Folic Acid 1 MG TABLET PO SCH (09:12)
[2020-05-07] MEDS: Cyanocobalamin (B-12) 1,000 MCG TABLET PO SCH (09:12)
[2020-05-07] MEDS: NIFEdipine XL (24 HR) 60 MG TAB.ER.24 PO SCH (09:13)
[2020-05-07] MEDS: Metoprolol 100 MG TABLET PO SCH ×2 (09:13→22:13)
[2020-05-07] MEDS: Artificial Tears SOLN 15 ML BOTTLE BOTH EYES SCH ×2 (09:14→22:12)
[2020-05-07] MEDS: cefTRIAXone 1,000 MG in Water for inj. (sterile) 10 ML IVP SCH (18:33)
[2020-05-08 03:07] LABS: Hematocrit 27.2 % (35.3-44.9); Hemoglobin 7.9 g/dL (11.5-15.4); Mean Corpuscular Hemoglobin 29.7 pg (28.0-33.3); Mean Corpuscular Volume 102.3 fL (83.0-100.0); Mean Platelet Volume 11.4 fL (9.4-12.4); Platelet Count 301 K/mcL (140-400); Red Blood Count 2.66 M/mcL (3.82-4.97); Red Cell Distribution Width 14.7 % (11.5-14.5); White Blood Count 14.9 K/mcL (4.3-11.1)
[2020-05-08 03:22] LABS: Calcium 9.2 mg/dL (8.6-10.3); Potassium 4.4 mEq/L (3.5-5.1)
[2020-05-08] MEDS: *HR* Heparin 5,000 UNIT/ML VIAL SQ SCH ×3 (06:02→20:17)
[2020-05-08] MEDS ORDERED: 0.9 % Sodium Chloride 250 ML IVC PRN (07:27)
[2020-05-08] MEDS: NIFEdipine XL (24 HR) 60 MG TAB.ER.24 PO SCH (12:33)
[2020-05-08] MEDS: Metoprolol 100 MG TABLET PO SCH (12:33)
[2020-05-08] MEDS: Folic Acid 1 MG TABLET PO SCH (12:35)
[2020-05-08] MEDS: Doxycycline 100 MG CAPSULE PO SCH ×2 (12:35→20:16)
[2020-05-08] MEDS: Lactobacillus 1 EACH CAP.SPRINK PO SCH ×2 (12:35→20:16)
[2020-05-08] MEDS: Furosemide 20 MG TABLET PO SCH (12:35)
[2020-05-08] MEDS: Cyanocobalamin (B-12) 1,000 MCG TABLET PO SCH (12:35)
[2020-05-08] MEDS: Artificial Tears SOLN 15 ML BOTTLE BOTH EYES SCH ×2 (12:35→20:16)
[2020-05-08 14:15] LABS: Albumin 4.4 g/dL (3.5-5.7); Bilirubin,Direct 0.3 mg/dL (0.0-0.2); Bilirubin,Indirect 0.7 mg/dL (0.0-1.0); Globulin 4.2 g/dL (2.4-3.5); Phosphorous 3.8 mg/dL (2.7-4.5); Total Protein 8.6 g/dL (6.4-8.9)
[2020-05-08 14:16] LABS: INR 1.1; Prothrombin Time 12.2 Seconds (9.4-12.1)
[2020-05-08 14:19] LABS: Activated Partial Thrombo Time 25.5 Seconds (26.0-36.0)
[2020-05-08 14:28] LABS: Thyroid Stimulating Hormone 0.649 mcIU/mL (0.340-5.600)
[2020-05-08 16:06] LABS: ABG Base Excess 5 mEq/L (-2 to 3); ABG HCO3 31 mEq/L (21-27); ABG Oxygen Saturation 93 % (95-98); ABG PCO2 55 mmHg (35-45); ABG PH 7.37 pH Units (7.32-7.45); ABG PO2 69 mmHg (85-104); ABG TCO2 33 mEq/L (20-26)
[2020-05-08] MEDS: cefTRIAXone 1,000 MG in Water for inj. (sterile) 10 ML IVP SCH (17:36)
[2020-05-08 21:51] LABS: ABG Base Excess 7 mEq/L (-2 to 3); ABG HCO3 33 mEq/L (21-27); ABG Oxygen Saturation 93 % (95-98); ABG PCO2 53 mmHg (35-45); ABG PO2 70 mmHg (85-104); ABG TCO2 34 mEq/L (20-26)
[2020-05-09] MEDS: *HR* Heparin 5,000 UNIT/ML VIAL SQ SCH ×3 (05:48→20:32)
[2020-05-09 06:48] LABS: Hematocrit 29.1 % (35.3-44.9); Hemoglobin 8.6 g/dL (11.5-15.4); Mean Corpuscular HGB Conc 29.6 g/dL (31.6-35.5); Mean Corpuscular Volume 101.4 fL (83.0-100.0); Mean Platelet Volume 11.5 fL (9.4-12.4); Platelet Count 298 K/mcL (140-400); Red Blood Count 2.87 M/mcL (3.82-4.97); Red Cell Distribution Width 15.1 % (11.5-14.5); White Blood Count 17.3 K/mcL (4.3-11.1)
[2020-05-09 07:06] LABS: Phosphorous 3.7 mg/dL (2.7-4.5)
[2020-05-09 07:09] LABS: Calcium 9.9 mg/dL (8.6-10.3)
[2020-05-09] MEDS: Lactobacillus 1 EACH CAP.SPRINK PO SCH ×2 (08:51→20:32)
[2020-05-09] MEDS: Doxycycline 100 MG CAPSULE PO SCH (08:51)
[2020-05-09] MEDS: NIFEdipine XL (24 HR) 60 MG TAB.ER.24 PO SCH (08:52)
[2020-05-09] MEDS: Cyanocobalamin (B-12) 1,000 MCG TABLET PO SCH (08:52)
[2020-05-09] MEDS: Folic Acid 1 MG TABLET PO SCH (08:52)
[2020-05-09] MEDS: Ergocalciferol (VIT D2) 50,000 UNIT (1.25MG) CAP PO SCH (08:52)
[2020-05-09] MEDS: Artificial Tears SOLN 15 ML BOTTLE BOTH EYES SCH ×2 (11:25→20:33)
[2020-05-09] MEDS ORDERED: *HR* Dextrose 50 % in Water (Vial) 50 ML VIAL IVP ONE (16:56)
[2020-05-09] MEDS ORDERED: Vancomycin 1 EACH in 0.9 % Sodium Chloride 250 ML IVPB PRN (17:00)
[2020-05-09] MEDS ORDERED: Vancomycin 1,250 MG/262.5 ML IV.SOLN IVPB ONE (17:45)
[2020-05-10 05:45] LABS: VBG HCO3 24 mEq/L (21-27); VBG PCO2 30 mmHg (41-51); VBG PO2 147 mmHg (25-50)
[2020-05-10] MEDS: *HR* Heparin 5,000 UNIT/ML VIAL SQ SCH ×3 (05:49→22:10)
[2020-05-10 05:51] LABS: Basophils % 0.4 %; Hemoglobin 8.2 g/dL (11.5-15.4); Immature Granulocytes % 0.7 % (0-4); Mean Corpuscular Volume 103.2 fL (83.0-100.0)
[2020-05-10 05:53] LABS: Basophils # 0.1 K/mcL (0.0-0.2); Eosinophils # 0.5 K/mcL (0.0-0.6); Eosinophils % 2.7 %; Hematocrit 29.4 % (35.3-44.9); Immature Platelets 9.9 % (1.1-6.1); Lymphocytes # 2.4 K/mcL (0.6-4.6); Lymphocytes % 13.7 %; Mean Corpuscular HGB Conc 27.9 g/dL (31.6-35.5); Mean Corpuscular Hemoglobin 28.8 pg (28.0-33.3); Mean Platelet Volume 11.8 fL (9.4-12.4); Monocytes # 0.9 K/mcL (0.0-1.3); Neutrophils # 13.5 K/mcL (1.6-8.9); Platelet Count 245 K/mcL (140-400); Red Blood Count 2.85 M/mcL (3.82-4.97); Red Cell Distribution Width 15.3 % (11.5-14.5); Segmented Neutrophils % 77.5 %; White Blood Count 17.4 K/mcL (4.3-11.1)
[2020-05-10 06:05] LABS: Calcium 9.5 mg/dL (8.6-10.3); Potassium 4.6 mEq/L (3.5-5.1)
[2020-05-10] MEDS ORDERED: 0.9 % Sodium Chloride 250 ML IVC PRN (08:05)
[2020-05-10] MEDS: Lactobacillus 1 EACH CAP.SPRINK PO SCH ×2 (08:28→22:10)
[2020-05-10] MEDS: Folic Acid 1 MG TABLET PO SCH (08:29)
[2020-05-10] MEDS: Cyanocobalamin (B-12) 1,000 MCG TABLET PO SCH (08:30)
[2020-05-10] MEDS: Diphenoxylate/Atropine 1 TAB TABLET PO PRN (08:51)
[2020-05-10] MEDS: MetroNIDAZOLE 500 MG/100 ML 500 MG/100 ML BAG IVPB SCH ×3 (08:51→22:11)
[2020-05-10] MEDS: Artificial Tears SOLN 15 ML BOTTLE BOTH EYES SCH ×2 (10:57→22:24)
[2020-05-10] MEDS ORDERED: *HR* Dextrose 50 % in Water (Vial) 50 ML VIAL IVP ONE (12:30)
[2020-05-10] MEDS: NIFEdipine XL (24 HR) 60 MG TAB.ER.24 PO SCH (15:40)
[2020-05-11] MEDS: *HR* Heparin 5,000 UNIT/ML VIAL SQ SCH ×3 (06:22→20:28)
[2020-05-11] MEDS: Artificial Tears SOLN 15 ML BOTTLE BOTH EYES SCH ×2 (07:28→20:27)
[2020-05-11] MEDS: MetroNIDAZOLE 500 MG/100 ML 500 MG/100 ML BAG IVPB SCH ×3 (07:29→23:27)
[2020-05-11] MEDS: Lactobacillus 1 EACH CAP.SPRINK PO SCH ×2 (07:29→20:28)
[2020-05-11] MEDS: NIFEdipine XL (24 HR) 60 MG TAB.ER.24 PO SCH (07:29)
[2020-05-11] MEDS: Folic Acid 1 MG TABLET PO SCH (07:30)
[2020-05-11] MEDS: Cyanocobalamin (B-12) 1,000 MCG TABLET PO SCH (07:30)
[2020-05-11 08:54] LABS: Basophils # 0.1 K/mcL (0.0-0.2); Basophils % 0.4 %; Eosinophils # 0.4 K/mcL (0.0-0.6); Eosinophils % 2.4 %; Hematocrit 28.2 % (35.3-44.9); Hemoglobin 8.2 g/dL (11.5-15.4); Immature Granulocytes % 1.4 % (0-4); Lymphocytes # 2.5 K/mcL (0.6-4.6); Mean Corpuscular HGB Conc 29.1 g/dL (31.6-35.5); Mean Corpuscular Hemoglobin 29.4 pg (28.0-33.3); Mean Corpuscular Volume 101.1 fL (83.0-100.0); Mean Platelet Volume 11.1 fL (9.4-12.4); Monocytes # 0.8 K/mcL (0.0-1.3); Monocytes % 5.1 %; Neutrophils # 11.7 K/mcL (1.6-8.9); Platelet Count 288 K/mcL (140-400); Red Blood Count 2.79 M/mcL (3.82-4.97); Red Cell Distribution Width 15.5 % (11.5-14.5); Segmented Neutrophils % 74.7 %; White Blood Count 15.7 K/mcL (4.3-11.1)
[2020-05-11 09:13] LABS: Calcium 9.7 mg/dL (8.6-10.3); Potassium 4.1 mEq/L (3.5-5.1)
[2020-05-12 01:06] LABS: Basophils # 0.1 K/mcL (0.0-0.2); Basophils % 0.6 %; Eosinophils # 0.3 K/mcL (0.0-0.6); Eosinophils % 1.6 %; Hematocrit 27.4 % (35.3-44.9); Immature Granulocytes % 1.3 % (0-4); Lymphocytes # 2.9 K/mcL (0.6-4.6); Lymphocytes % 18.5 %; Mean Corpuscular HGB Conc 29.2 g/dL (31.6-35.5); Mean Corpuscular Hemoglobin 29.2 pg (28.0-33.3); Mean Platelet Volume 11.4 fL (9.4-12.4); Monocytes # 0.9 K/mcL (0.0-1.3); Monocytes % 5.6 %; Neutrophils # 11.3 K/mcL (1.6-8.9); Platelet Count 314 K/mcL (140-400); Red Blood Count 2.74 M/mcL (3.82-4.97); Red Cell Distribution Width 15.5 % (11.5-14.5); Segmented Neutrophils % 72.4 %; White Blood Count 15.6 K/mcL (4.3-11.1)
[2020-05-12 01:22] LABS: Magnesium 1.9 mg/dL (1.6-2.6); Phosphorous 3.3 mg/dL (2.7-4.5)
[2020-05-12 02:51] LABS: Bacteria,Urine Few per hpf (None-Few); Bilirubin,Urine Negative (Negative); Blood,Urine Trace (Negative); Clarity,Urine Turbid (Clear); Color,Urine Light-Orange (Yellow); Glucose,Urine (UA) 30 mg/dL (Normal); Ketones,Urine Negative (Negative); Leukocyte Esterase,Urine Moderate (Negative); Mucus,Urine Few per lpf (None-Few); Nitrite,Urine Negative (Negative); PH,Urine 6.5 pH Units (5.0-8.0); Protein,Urine >=300 mg/dL (Neg-Trace); Specific Gravity,Urine 1.021 (1.010-1.025); Squamous Epithelial Cell,Urine Few per hpf (None-Few); Urobilinogen,Urine Normal (Normal); WBC,Urine 15-30 per hpf (0-3)
[2020-05-12] MEDS: Acetaminophen 325 MG TABLET PO PRN ×2 (03:08→16:25)
[2020-05-12] MEDS: *HR* Heparin 5,000 UNIT/ML VIAL SQ SCH ×3 (06:05→20:52)
[2020-05-12] MEDS ORDERED: 0.9 % Sodium Chloride 250 ML IVC PRN (06:55)
[2020-05-12] MEDS ORDERED: Cyanocobalamin (B-12) 1,000 MCG/ML VIAL SQ ONE (09:00)
[2020-05-12] MEDS: NIFEdipine XL (24 HR) 60 MG TAB.ER.24 PO SCH (12:10)
[2020-05-12] MEDS: Metoprolol XL (24 HR) Succ 50 MG TAB.ER.24H PO SCH (12:10)
[2020-05-12] MEDS ORDERED: Pantoprazole 40 MG VIAL IVP ONE (13:28)
[2020-05-12] MEDS: Lactobacillus 1 EACH CAP.SPRINK PO SCH ×2 (13:33→20:52)
[2020-05-12] MEDS: Folic Acid 1 MG TABLET PO SCH (13:33)
[2020-05-12] MEDS: MetroNIDAZOLE 500 MG/100 ML 500 MG/100 ML BAG IVPB SCH ×3 (13:33→23:49)
[2020-05-12] MEDS: Artificial Tears SOLN 15 ML BOTTLE BOTH EYES SCH ×2 (13:34→20:51)
[2020-05-12] MEDS: Pantoprazole 40 MG VIAL IVP SCH ×2 (13:41→16:03)
[2020-05-12] MEDS: Famotidine 20 MG TABLET PO SCH (20:52)
[2020-05-12] MEDS: Ondansetron 4 MG/2 ML VIAL IVP PRN (21:00)
[2020-05-13 01:05] LABS: Amphetamine Screen,Urine Negative ng/mL (Cutoff=1000); Barbiturate Screen,Urine Negative ng/mL (Cutoff=200); Benzodiazepines Screen,Urine Negative ng/mL (Cutoff=200); Cannabinoid Screen,Urine Negative ng/mL (Cutoff = 50); Cocaine Screen,Urine Negative ng/mL (Cutoff= 300); Opiate Screen,Urine Negative ng/mL (Cutoff=300); Phencyclidine Screen,Urine Negative ng/mL (Cutoff=25)
[2020-05-13 03:56] LABS: Lymphocytes % 14.2 %
[2020-05-13 03:57] LABS: Basophils # 0.1 K/mcL (0.0-0.2); Basophils % 0.6 %; Eosinophils # 0.1 K/mcL (0.0-0.6); Eosinophils % 0.7 %; Hematocrit 27.4 % (35.3-44.9); Immature Granulocytes % 2.3 % (0-4); Lymphocytes # 2.7 K/mcL (0.6-4.6); Mean Corpuscular HGB Conc 29.2 g/dL (31.6-35.5); Mean Corpuscular Hemoglobin 29.9 pg (28.0-33.3); Mean Corpuscular Volume 102.2 fL (83.0-100.0); Mean Platelet Volume 11.2 fL (9.4-12.4); Monocytes # 1.2 K/mcL (0.0-1.3); Neutrophils # 14.6 K/mcL (1.6-8.9); Platelet Count 332 K/mcL (140-400); Red Blood Count 2.68 M/mcL (3.82-4.97); Red Cell Distribution Width 15.9 % (11.5-14.5); Segmented Neutrophils % 76.2 %; White Blood Count 19.2 K/mcL (4.3-11.1)
[2020-05-13 04:15] LABS: Calcium 10.2 mg/dL (8.6-10.3); Magnesium 1.9 mg/dL (1.6-2.6); Phosphorous 3.5 mg/dL (2.7-4.5); Potassium 4.3 mEq/L (3.5-5.1)
[2020-05-13] MEDS: *HR* Heparin 5,000 UNIT/ML VIAL SQ SCH ×3 (05:23→22:51)
[2020-05-13] MEDS: Folic Acid 1 MG TABLET PO SCH (07:57)
[2020-05-13] MEDS: Famotidine 20 MG TABLET PO SCH (07:57)
[2020-05-13] MEDS: Lactobacillus 1 EACH CAP.SPRINK PO SCH ×2 (07:57→19:41)
[2020-05-13] MEDS: MetroNIDAZOLE 500 MG/100 ML 500 MG/100 ML BAG IVPB SCH ×2 (07:57→15:46)
[2020-05-13] MEDS: Artificial Tears SOLN 15 ML BOTTLE BOTH EYES SCH ×2 (08:07→21:55)
[2020-05-13] MEDS: Metoprolol XL (24 HR) Succ 50 MG TAB.ER.24H PO SCH (08:08)
[2020-05-13] MEDS: NIFEdipine XL (24 HR) 60 MG TAB.ER.24 PO SCH (08:08)
[2020-05-13] MEDS: Ondansetron 4 MG/2 ML VIAL IVP PRN (09:07)
[2020-05-13] MEDS: Acetaminophen 325 MG TABLET PO PRN (10:37)
[2020-05-13] MEDS ORDERED: Melatonin 3 MG TABLET PO ONE (22:55)
[2020-05-13] MEDS: Fluconazole 200 MG/100 ML 200 MG/100 ML BAG IVPB SCH (23:04)
[2020-05-14] MEDS: MetroNIDAZOLE 500 MG/100 ML 500 MG/100 ML BAG IVPB SCH ×4 (00:47→23:36)
[2020-05-14] MEDS: *HR* Heparin 5,000 UNIT/ML VIAL SQ SCH ×3 (05:28→20:27)
[2020-05-14 06:20] LABS: Hematocrit 27.3 % (35.3-44.9); Mean Platelet Volume 11.6 fL (9.4-12.4)
[2020-05-14 06:22] LABS: Basophils # 0.1 K/mcL (0.0-0.2); Basophils % 0.7 %; Eosinophils # 0.3 K/mcL (0.0-0.6); Eosinophils % 2.3 %; Hemoglobin 7.8 g/dL (11.5-15.4); Immature Granulocytes % 2.3 % (0-4); Lymphocytes # 3.2 K/mcL (0.6-4.6); Lymphocytes % 24.4 %; Mean Corpuscular HGB Conc 28.6 g/dL (31.6-35.5); Mean Corpuscular Hemoglobin 29.5 pg (28.0-33.3); Mean Corpuscular Volume 103.4 fL (83.0-100.0); Monocytes # 0.9 K/mcL (0.0-1.3); Neutrophils # 8.2 K/mcL (1.6-8.9); Platelet Count 316 K/mcL (140-400); Red Blood Count 2.64 M/mcL (3.82-4.97); Segmented Neutrophils % 63.3 %; White Blood Count 12.9 K/mcL (4.3-11.1)
[2020-05-14 06:45] LABS: Potassium 4.3 mEq/L (3.5-5.1)
[2020-05-14 07:16] LABS: Anisocytosis 1+ (Not Present)
[2020-05-14 07:17] LABS: Hypochromasia Present (Not Present); Platelet Estimate Normal (Normal); Polychromasia 1+ (Not Present)
[2020-05-14] MEDS: Metoprolol XL (24 HR) Succ 50 MG TAB.ER.24H PO SCH (08:06)
[2020-05-14] MEDS: NIFEdipine XL (24 HR) 60 MG TAB.ER.24 PO SCH (08:20)
[2020-05-14] MEDS: Folic Acid 1 MG TABLET PO SCH (08:25)
[2020-05-14] MEDS: Lactobacillus 1 EACH CAP.SPRINK PO SCH ×2 (08:26→20:28)
[2020-05-14] MEDS: Artificial Tears SOLN 15 ML BOTTLE BOTH EYES SCH ×2 (08:27→20:29)
[2020-05-14] MEDS: Fluconazole 200 MG/100 ML 200 MG/100 ML BAG IVPB SCH (20:29)
[2020-05-14] MEDS: Famotidine 20 MG TABLET PO SCH (20:29)
[2020-05-15 05:40] LABS: Eosinophils % 2.1 %; Immature Granulocytes % 3.4 % (0-4); Red Cell Distribution Width 15.9 % (11.5-14.5)
[2020-05-15] MEDS: *HR* Heparin 5,000 UNIT/ML VIAL SQ SCH ×3 (05:40→20:36)
[2020-05-15 05:41] LABS: Basophils # 0.1 K/mcL (0.0-0.2); Basophils % 0.6 %; Eosinophils # 0.3 K/mcL (0.0-0.6); Hematocrit 26.8 % (35.3-44.9); Hemoglobin 7.8 g/dL (11.5-15.4); Lymphocytes # 3.3 K/mcL (0.6-4.6); Lymphocytes % 23.2 %; Mean Corpuscular HGB Conc 29.1 g/dL (31.6-35.5); Mean Corpuscular Hemoglobin 29.8 pg (28.0-33.3); Mean Corpuscular Volume 102.3 fL (83.0-100.0); Mean Platelet Volume 11.4 fL (9.4-12.4); Monocytes % 6.7 %; Neutrophils # 9.1 K/mcL (1.6-8.9); Platelet Count 306 K/mcL (140-400); Red Blood Count 2.62 M/mcL (3.82-4.97); White Blood Count 14.2 K/mcL (4.3-11.1)
[2020-05-15 05:58] LABS: Calcium 9.5 mg/dL (8.6-10.3); Potassium 4.3 mEq/L (3.5-5.1)
[2020-05-15] MEDS ORDERED: 0.9 % Sodium Chloride 250 ML IVC PRN (06:53)
[2020-05-15] MEDS: MetroNIDAZOLE 500 MG/100 ML 500 MG/100 ML BAG IVPB SCH ×2 (10:28→17:06)
[2020-05-15] MEDS: Folic Acid 1 MG TABLET PO SCH (13:42)
[2020-05-15] MEDS: Lactobacillus 1 EACH CAP.SPRINK PO SCH ×2 (13:42→20:36)
[2020-05-15] MEDS: Metoprolol XL (24 HR) Succ 50 MG TAB.ER.24H PO SCH (13:43)
[2020-05-15] MEDS: NIFEdipine XL (24 HR) 60 MG TAB.ER.24 PO SCH (13:43)
[2020-05-15] MEDS: Artificial Tears SOLN 15 ML BOTTLE BOTH EYES SCH ×2 (13:43→20:38)
[2020-05-15] MEDS: Famotidine 20 MG TABLET PO SCH (20:36)
[2020-05-15] MEDS: Fluconazole 200 MG/100 ML 200 MG/100 ML BAG IVPB SCH (20:38)
[2020-05-15] MEDS: Acetaminophen 325 MG TABLET PO PRN (20:42)
[2020-05-16] MEDS: MetroNIDAZOLE 500 MG/100 ML 500 MG/100 ML BAG IVPB SCH ×4 (00:15→23:44)
[2020-05-16 04:23] LABS: Basophils # 0.1 K/mcL (0.0-0.2); Basophils % 0.6 %; Eosinophils # 0.3 K/mcL (0.0-0.6); Eosinophils % 1.6 %; Hematocrit 29.1 % (35.3-44.9); Hemoglobin 8.5 g/dL (11.5-15.4); Lymphocytes # 3.8 K/mcL (0.6-4.6); Lymphocytes % 23.8 %; Mean Corpuscular HGB Conc 29.2 g/dL (31.6-35.5); Mean Corpuscular Hemoglobin 29.6 pg (28.0-33.3); Mean Corpuscular Volume 101.4 fL (83.0-100.0); Monocytes # 1.2 K/mcL (0.0-1.3); Monocytes % 7.2 %; Neutrophils # 10.1 K/mcL (1.6-8.9); Platelet Count 291 K/mcL (140-400); Red Blood Count 2.87 M/mcL (3.82-4.97); Red Cell Distribution Width 16.1 % (11.5-14.5); Segmented Neutrophils % 62.8 %
[2020-05-16 04:41] LABS: Potassium 3.9 mEq/L (3.5-5.1)
[2020-05-16 04:42] LABS: Magnesium 1.9 mg/dL (1.6-2.6); Phosphorous 3.6 mg/dL (2.7-4.5)
[2020-05-16] MEDS: *HR* Heparin 5,000 UNIT/ML VIAL SQ SCH ×3 (05:33→21:09)
[2020-05-16] MEDS: Metoprolol XL (24 HR) Succ 50 MG TAB.ER.24H PO SCH (07:28)
[2020-05-16] MEDS: NIFEdipine XL (24 HR) 60 MG TAB.ER.24 PO SCH (07:28)
[2020-05-16] MEDS: Lactobacillus 1 EACH CAP.SPRINK PO SCH ×2 (07:28→21:12)
[2020-05-16] MEDS: Folic Acid 1 MG TABLET PO SCH (07:29)
[2020-05-16] MEDS: Artificial Tears SOLN 15 ML BOTTLE BOTH EYES SCH ×2 (07:29→21:19)
[2020-05-16] MEDS: Ergocalciferol (VIT D2) 50,000 UNIT (1.25MG) CAP PO SCH (08:37)
[2020-05-16] MEDS: Ondansetron 4 MG/2 ML VIAL IVP PRN (16:00)
[2020-05-16] MEDS: Fluconazole 200 MG/100 ML 200 MG/100 ML BAG IVPB SCH (21:10)
[2020-05-16] MEDS: Famotidine 20 MG TABLET PO SCH (21:12)
[2020-05-17 00:58] LABS: Basophils # 0.1 K/mcL (0.0-0.2); Basophils % 0.4 %; Eosinophils # 0.3 K/mcL (0.0-0.6); Eosinophils % 1.8 %; Hematocrit 28.9 % (35.3-44.9); Hemoglobin 8.7 g/dL (11.5-15.4); Lymphocytes # 3.5 K/mcL (0.6-4.6); Mean Corpuscular HGB Conc 30.1 g/dL (31.6-35.5); Mean Corpuscular Hemoglobin 30.6 pg (28.0-33.3); Mean Corpuscular Volume 101.8 fL (83.0-100.0); Monocytes # 1.1 K/mcL (0.0-1.3); Monocytes % 6.7 %; Neutrophils # 11.1 K/mcL (1.6-8.9); Platelet Count 294 K/mcL (140-400); Red Blood Count 2.84 M/mcL (3.82-4.97); Red Cell Distribution Width 16.2 % (11.5-14.5); Segmented Neutrophils % 67.1 %; White Blood Count 16.5 K/mcL (4.3-11.1)
[2020-05-17 01:16] LABS: Calcium 9.4 mg/dL (8.6-10.3)
[2020-05-17] MEDS: *HR* Heparin 5,000 UNIT/ML VIAL SQ SCH ×2 (04:57→12:45)
[2020-05-17] MEDS ORDERED: 0.9 % Sodium Chloride 250 ML IVC PRN (07:04)
[2020-05-17] MEDS: NIFEdipine XL (24 HR) 60 MG TAB.ER.24 PO SCH (07:11)
[2020-05-17] MEDS: Metoprolol XL (24 HR) Succ 50 MG TAB.ER.24H PO SCH (07:11)
[2020-05-17] MEDS: MetroNIDAZOLE 500 MG/100 ML 500 MG/100 ML BAG IVPB SCH (09:10)
[2020-05-17] MEDS ORDERED: MetroNIDAZOLE 500 MG/100 ML 500 MG/100 ML BAG IVPB SCH (12:00)
[2020-05-17] MEDS: Artificial Tears SOLN 15 ML BOTTLE BOTH EYES SCH (12:43)
[2020-05-17] MEDS: Folic Acid 1 MG TABLET PO SCH (12:44)
[2020-05-17] MEDS: Lactobacillus 1 EACH CAP.SPRINK PO SCH (12:44)
[2020-05-17 15:44] VITALS: BP 149/70
== END 2020-05-17 19:41 | disposition short-term general hospital (02) | DRG 193 ==
LOC: 2ANU 09:32 → EMEROOARM 09:32 → SUATTDRO 14:53 → 2ANU 15:57 → SUATTDRO 05-04 15:55
PROVIDERS: ADMIT Internal Medicine; ATTEND Internal Medicine

== ENCOUNTER 2020-07-17 13:31 | Observation (INO) ==
[2020-07-17 14:33] LABS: Basophils # 0.1 K/mcL (0.0-0.2); Basophils % 0.5 %; Eosinophils # 0.2 K/mcL (0.0-0.6); Eosinophils % 1.3 %; Hematocrit 33.1 % (35.3-44.9); Hemoglobin 10.1 g/dL (11.5-15.4); Immature Granulocytes % 1.2 % (0-4); Lymphocytes # 2.5 K/mcL (0.6-4.6); Lymphocytes % 15.3 %; Mean Corpuscular HGB Conc 30.5 g/dL (31.6-35.5); Mean Corpuscular Hemoglobin 31.3 pg (28.0-33.3); Mean Corpuscular Volume 102.5 fL (83.0-100.0); Mean Platelet Volume 10.4 fL (9.4-12.4); Monocytes # 0.9 K/mcL (0.0-1.3); Monocytes % 5.4 %; Neutrophils # 12.6 K/mcL (1.6-8.9); Platelet Count 317 K/mcL (140-400); Red Blood Count 3.23 M/mcL (3.82-4.97); Red Cell Distribution Width 14.7 % (11.5-14.5); Segmented Neutrophils % 76.3 %; White Blood Count 16.6 K/mcL (4.3-11.1)
[2020-07-17 14:36] LABS: INR 1.1; Prothrombin Time 12.4 Seconds (9.4-12.1)
[2020-07-17 14:38] LABS: Activated Partial Thrombo Time 28.2 Seconds (26.0-36.0)
[2020-07-17 14:52] LABS: Calcium 9.6 mg/dL (8.6-10.3); Potassium 4.2 mEq/L (3.5-5.1)
[2020-07-17 14:57] LABS: Troponin I 0.04 ng/mL (< 0.04)
[2020-07-17 17:10] LABS: Adenovirus Not Detected (Not Detect); Bordetella Pertussis Not Detected (Not Detect); Chlamydophila pneumoniae Not Detected (Not Detect); Coronavirus 229E Not Detected (Not Detect); Coronavirus HKU1 Not Detected (Not Detect); Coronavirus NL63 Not Detected (Not Detect); Coronavirus OC43 Not Detected (Not Detect); Human Metapneumovirus Not Detected (Not Detect); Human Rhinovirus/Enterovirus Not Detected (Not Detect); Influenza A Subtype 2009 H1 Not Detected (Not Detect); Influenza B Not Detected (Not Detect); Mycoplasma pneumoniae Not Detected (Not Detect); Parainfluenza Virus 1 Not Detected (Not Detect); Parainfluenza Virus 2 Not Detected (Not Detect); Parainfluenza Virus 3 Not Detected (Not Detect); Parainfluenza Virus 4 Not Detected (Not Detect); Respiratory Syncytial Virus Not Detected (Not Detect); SARS-CoV-2 Not Detected (Not Detect)
[2020-07-17] MEDS ORDERED: Acetaminophen 325 MG TABLET PO PRN (19:41)
[2020-07-17] MEDS ORDERED: Ondansetron 4 MG/2 ML VIAL IVP PRN (19:41)
[2020-07-17] MEDS ORDERED: Naloxone 0.4 MG/ML INJ IVP PRN (19:41)
[2020-07-17] MEDS ORDERED: Diphenoxylate/Atropine 1 TAB TABLET PO PRN (19:44)
[2020-07-17] MEDS ORDERED: Fluticasone Propionate Nasal 50 MCG/SPRAY BOTTLE NS PRN (19:44)
[2020-07-17] MEDS: Gabapentin 100 MG CAPSULE PO SCH (21:19)
[2020-07-17] MEDS: Famotidine 20 MG TABLET PO SCH (21:19)
[2020-07-17] MEDS: Lactobacillus 1 EACH CAP.SPRINK PO SCH (21:19)
[2020-07-17] MEDS: Ammonium Lactate 30 APPL/225 GM BOTTLE TP SCH (21:27)
[2020-07-17] MEDS: Artificial Tears SOLN 15 ML BOTTLE BOTH EYES SCH (21:45)
[2020-07-18] MEDS: Cyanocobalamin (B-12) 1,000 MCG TABLET PO SCH (08:41)
[2020-07-18] MEDS: Famotidine 20 MG TABLET PO SCH (08:41)
[2020-07-18] MEDS: Lactobacillus 1 EACH CAP.SPRINK PO SCH ×2 (08:41→20:39)
[2020-07-18] MEDS: NIFEdipine XL (24 HR) 60 MG TAB.ER.24 PO SCH ×2 (08:42→12:04)
[2020-07-18] MEDS: Folic Acid 1 MG TABLET PO SCH (08:46)
[2020-07-18 08:47] LABS: INR 1.1
[2020-07-18] MEDS: Artificial Tears SOLN 15 ML BOTTLE BOTH EYES SCH ×2 (08:47→20:40)
[2020-07-18] MEDS ORDERED: 0.9 % Sodium Chloride 250 ML IVC PRN (08:51)
[2020-07-18 08:53] LABS: Basophils # 0.1 K/mcL (0.0-0.2); Basophils % 0.4 %; Eosinophils # 0.3 K/mcL (0.0-0.6); Eosinophils % 2.4 %; Hematocrit 31.8 % (35.3-44.9); Hemoglobin 9.6 g/dL (11.5-15.4); Immature Granulocytes % 0.6 % (0-4); Lymphocytes # 3.4 K/mcL (0.6-4.6); Lymphocytes % 28.9 %; Mean Corpuscular HGB Conc 30.2 g/dL (31.6-35.5); Mean Corpuscular Hemoglobin 30.8 pg (28.0-33.3); Mean Corpuscular Volume 101.9 fL (83.0-100.0); Monocytes # 0.6 K/mcL (0.0-1.3); Monocytes % 5.3 %; Neutrophils # 7.4 K/mcL (1.6-8.9); Platelet Count 316 K/mcL (140-400); Red Blood Count 3.12 M/mcL (3.82-4.97); Red Cell Distribution Width 14.6 % (11.5-14.5); Segmented Neutrophils % 62.4 %; White Blood Count 11.8 K/mcL (4.3-11.1)
[2020-07-18] MEDS ORDERED: 0.9 % Sodium Chloride 1,000 ML PRIME SCH (09:00)
[2020-07-18 09:08] LABS: Chol/HDL Ratio 4.8 (0-4.9); Potassium 5.4 mEq/L (3.5-5.1)
[2020-07-18] MEDS: Gabapentin 100 MG CAPSULE PO SCH (20:39)
[2020-07-18] MEDS: Ammonium Lactate 30 APPL/225 GM BOTTLE TP SCH (20:40)
[2020-07-19 01:13] LABS: Calcium 10.3 mg/dL (8.6-10.3); Potassium 6.1 mEq/L (3.5-5.1)
[2020-07-19] MEDS ORDERED: 0.9 % Sodium Chloride 250 ML IVC PRN (07:16)
[2020-07-19] MEDS ORDERED: 0.9 % Sodium Chloride 1,000 ML PRIME SCH (07:30)
[2020-07-19 08:53] LABS: Calcium 9.8 mg/dL (8.6-10.3); Potassium 4.9 mEq/L (3.5-5.1)
[2020-07-19] MEDS ORDERED: Famotidine 20 MG TABLET PO SCH (09:00)
[2020-07-19 12:51] VITALS: BP 113/61
[2020-07-19] MEDS: Folic Acid 1 MG TABLET PO SCH (13:16)
[2020-07-19] MEDS: Lactobacillus 1 EACH CAP.SPRINK PO SCH (13:17)
[2020-07-19] MEDS: Cyanocobalamin (B-12) 1,000 MCG TABLET PO SCH (13:17)
[2020-07-19] MEDS: NIFEdipine XL (24 HR) 60 MG TAB.ER.24 PO SCH (13:17)
[2020-07-19] MEDS: Artificial Tears SOLN 15 ML BOTTLE BOTH EYES SCH (13:18)
== END 2020-07-19 16:06 | disposition home or self-care (01) ==
LOC: EMEROOARM 13:31 → CDU 13:31 → SUATTDRO 19:22 → CDU 20:30
PROVIDERS: ADMIT Student in an Organized Health Care Education/Training Program; ATTEND Internal Medicine

== ENCOUNTER 2020-09-05 10:29 | Inpatient (IN) ==
[2020-09-05] MEDS ORDERED: Furosemide 40 MG/4 ML VIAL IVP ONE (11:02)
[2020-09-05 11:28] LABS: Basophils # 0.1 K/mcL (0.0-0.2); Basophils % 0.2 %; Eosinophils # 0.2 K/mcL (0.0-0.6); Eosinophils % 0.7 %; Hematocrit 35.3 % (35.3-44.9); Hemoglobin 10.7 g/dL (11.5-15.4); Immature Granulocytes % 0.8 % (0-4); Lymphocytes # 2.3 K/mcL (0.6-4.6); Lymphocytes % 10.9 %; Mean Corpuscular HGB Conc 30.3 g/dL (31.6-35.5); Mean Corpuscular Hemoglobin 32.1 pg (28.0-33.3); Mean Platelet Volume 10.8 fL (9.4-12.4); Monocytes # 1.1 K/mcL (0.0-1.3); Monocytes % 5.3 %; Neutrophils # 17.2 K/mcL (1.6-8.9); Platelet Count 405 K/mcL (140-400); Red Blood Count 3.33 M/mcL (3.82-4.97); Red Cell Distribution Width 15.5 % (11.5-14.5); Segmented Neutrophils % 82.1 %; White Blood Count 20.9 K/mcL (4.3-11.1)
[2020-09-05] MEDS ORDERED: Azithromycin 500 MG in 0.9 % Sodium Chloride 250 ML IVPB ONE (11:44)
[2020-09-05 11:50] LABS: Calcium 10.8 mg/dL (8.6-10.3); Potassium 5.5 mEq/L (3.5-5.1)
[2020-09-05] MEDS ORDERED: Vancomycin 1,250 MG/262.5 ML IV.SOLN IVPB ONE (12:00)
[2020-09-05] MEDS ORDERED: Cefepime HCl 1,000 MG in Water for inj. (sterile) 10 ML IVP ONE (12:00)
[2020-09-05 12:06] LABS: Troponin I 0.09 ng/mL (< 0.04)
[2020-09-05 13:00] LABS: Adenovirus Not Detected (Not Detect); Bordetella Pertussis Not Detected (Not Detect); Chlamydophila pneumoniae Not Detected (Not Detect); Coronavirus 229E Not Detected (Not Detect); Coronavirus HKU1 Not Detected (Not Detect); Coronavirus NL63 Not Detected (Not Detect); Coronavirus OC43 Not Detected (Not Detect); Human Metapneumovirus Not Detected (Not Detect); Human Rhinovirus/Enterovirus Not Detected (Not Detect); Influenza A Subtype 2009 H1 Not Detected (Not Detect); Influenza B Not Detected (Not Detect); Mycoplasma pneumoniae Not Detected (Not Detect); Parainfluenza Virus 1 Not Detected (Not Detect); Parainfluenza Virus 2 Not Detected (Not Detect); Parainfluenza Virus 3 Not Detected (Not Detect); Parainfluenza Virus 4 Not Detected (Not Detect); Respiratory Syncytial Virus Not Detected (Not Detect); SARS-CoV-2 Not Detected (Not Detect)
[2020-09-05] MEDS ORDERED: Calcium Gluconate 1gm/50mL 1 GM/50 ML BAG IVPB SCH (13:00)
[2020-09-05] MEDS ORDERED: Naloxone 0.4 MG/ML INJ IVP PRN (13:19)
[2020-09-05] MEDS ORDERED: 0.9 % Sodium Chloride 1,000 ML ONE (13:53)
[2020-09-05] MEDS ORDERED: *HR* Heparin 10,000 UNIT/10 ML VIAL IV PRN (14:06)
[2020-09-05] MEDS ORDERED: 0.9 % Sodium Chloride 250 ML IVC PRN (14:06)
[2020-09-05] MEDS ORDERED: 0.9 % Sodium Chloride 1,000 ML PRIME SCH (14:15)
[2020-09-05] MEDS ORDERED: Ipratropium/Albuterol Neb 3 ML IH PRN (14:16)
[2020-09-05 15:55] LABS: Blood Gas Pressure Support 12 cm H2O; VBG HCO3 28 mEq/L (21-27); VBG PCO2 38 mmHg (41-51); VBG PH 7.49 pH Units (7.32-7.42); VBG PO2 29 mmHg (25-50)
[2020-09-05] MEDS: Cefepime HCl 1,000 MG in Water for inj. (sterile) 10 ML IVP SCH (20:12)
[2020-09-06] MEDS ORDERED: Vancomycin 1 EACH in 0.9 % Sodium Chloride 250 ML IVPB PRN (06:00)
[2020-09-06 06:50] LABS: Basophils % 0.3 %; Eosinophils # 0.2 K/mcL (0.0-0.6); Eosinophils % 1.3 %; Hematocrit 32.1 % (35.3-44.9); Hemoglobin 9.8 g/dL (11.5-15.4); Immature Granulocytes % 0.7 % (0-4); Lymphocytes # 2.7 K/mcL (0.6-4.6); Lymphocytes % 17.6 %; Mean Corpuscular HGB Conc 30.5 g/dL (31.6-35.5); Mean Corpuscular Hemoglobin 31.3 pg (28.0-33.3); Mean Corpuscular Volume 102.6 fL (83.0-100.0); Mean Platelet Volume 10.6 fL (9.4-12.4); Monocytes # 1.2 K/mcL (0.0-1.3); Monocytes % 7.9 %; Platelet Count 345 K/mcL (140-400); Red Blood Count 3.13 M/mcL (3.82-4.97); Red Cell Distribution Width 15.6 % (11.5-14.5); Segmented Neutrophils % 72.2 %; White Blood Count 15.2 K/mcL (4.3-11.1)
[2020-09-06 07:16] LABS: Calcium 10.7 mg/dL (8.6-10.3); Magnesium 2.2 mg/dL (1.6-2.6); Phosphorous 8.3 mg/dL (2.7-4.5)
[2020-09-06] MEDS ORDERED: 0.9 % Sodium Chloride 250 ML IVC PRN (07:51)
[2020-09-06] MEDS ORDERED: 0.9 % Sodium Chloride 1,000 ML PRIME SCH (08:00)
[2020-09-06] MEDS ORDERED: Artificial Tears SOLN 15 ML BOTTLE BOTH EYES PRN (08:21)
[2020-09-06] MEDS ORDERED: Ammonium Lactate 30 APPL/225 GM BOTTLE TP PRN (08:21)
[2020-09-06] MEDS: Folic Acid 1 MG TABLET PO SCH (10:07)
[2020-09-06] MEDS: Cyanocobalamin (B-12) 1,000 MCG TABLET PO SCH (10:07)
[2020-09-06] MEDS: Fluticasone Propionate Nasal 50 MCG/SPRAY BOTTLE NS SCH (10:08)
[2020-09-06] MEDS: Lactobacillus 1 EACH CAP.SPRINK PO SCH (10:08)
[2020-09-06] MEDS: *HR* Heparin 5,000 UNIT/ML VIAL SQ SCH ×2 (14:06→20:13)
[2020-09-06] MEDS ORDERED: Ondansetron 4 MG/2 ML VIAL IVP ONE (15:55)
[2020-09-06] MEDS ORDERED: Vancomycin 1,250 MG/262.5 ML IV.SOLN IVPB ONE (16:00)
[2020-09-06] MEDS: Gabapentin 100 MG CAPSULE PO SCH (17:21)
[2020-09-06] MEDS: Cefepime HCl 1,000 MG in Water for inj. (sterile) 10 ML IVP SCH (20:13)
[2020-09-06] MEDS: Famotidine 20 MG TABLET PO SCH (20:14)
[2020-09-07 04:38] LABS: Basophils # 0.1 K/mcL (0.0-0.2); Basophils % 0.3 %; Eosinophils # 0.1 K/mcL (0.0-0.6); Eosinophils % 0.4 %; Hematocrit 34.7 % (35.3-44.9); Hemoglobin 10.6 g/dL (11.5-15.4); Immature Granulocytes % 0.6 % (0-4); Lymphocytes # 2.4 K/mcL (0.6-4.6); Lymphocytes % 15.1 %; Mean Corpuscular HGB Conc 30.5 g/dL (31.6-35.5); Mean Corpuscular Hemoglobin 31.5 pg (28.0-33.3); Mean Corpuscular Volume 103.3 fL (83.0-100.0); Mean Platelet Volume 11.3 fL (9.4-12.4); Monocytes # 1.3 K/mcL (0.0-1.3); Monocytes % 8.6 %; Neutrophils # 11.7 K/mcL (1.6-8.9); Platelet Count 309 K/mcL (140-400); Red Blood Count 3.36 M/mcL (3.82-4.97); Red Cell Distribution Width 15.2 % (11.5-14.5); White Blood Count 15.6 K/mcL (4.3-11.1)
[2020-09-07 04:57] LABS: Calcium 11.2 mg/dL (8.6-10.3); Magnesium 2.5 mg/dL (1.6-2.6); Phosphorous 10.7 mg/dL (2.7-4.5); Potassium 4.7 mEq/L (3.5-5.1)
[2020-09-07] MEDS: *HR* Heparin 5,000 UNIT/ML VIAL SQ SCH ×3 (05:07→21:32)
[2020-09-07] MEDS: Cyanocobalamin (B-12) 1,000 MCG TABLET PO SCH (08:35)
[2020-09-07] MEDS: Folic Acid 1 MG TABLET PO SCH (08:35)
[2020-09-07] MEDS: Lactobacillus 1 EACH CAP.SPRINK PO SCH (08:35)
[2020-09-07] MEDS: Fluticasone Propionate Nasal 50 MCG/SPRAY BOTTLE NS SCH (08:36)
[2020-09-07] MEDS: Ondansetron ODT 4 MG TAB.RAPDIS SL PRN ×2 (09:31→15:35)
[2020-09-07] MEDS: Gabapentin 100 MG CAPSULE PO SCH (17:13)
[2020-09-07] MEDS ORDERED: *HR* Promethazine 25 MG/ML VIAL IM ONE (17:17)
[2020-09-07] MEDS: Famotidine 20 MG TABLET PO SCH ×2 (19:45→21:31)
[2020-09-07] MEDS: Cefepime HCl 1,000 MG in Water for inj. (sterile) 10 ML IVP SCH (19:46)
[2020-09-08] MEDS: *HR* Heparin 5,000 UNIT/ML VIAL SQ SCH ×3 (05:34→19:59)
[2020-09-08 07:51] LABS: Hematocrit 33.1 % (35.3-44.9); Mean Corpuscular HGB Conc 30.2 g/dL (31.6-35.5); Mean Corpuscular Hemoglobin 31.3 pg (28.0-33.3); Mean Corpuscular Volume 103.4 fL (83.0-100.0); Mean Platelet Volume 10.9 fL (9.4-12.4); Platelet Count 321 K/mcL (140-400); Red Cell Distribution Width 14.7 % (11.5-14.5); White Blood Count 16.5 K/mcL (4.3-11.1)
[2020-09-08 08:13] LABS: Calcium 9.8 mg/dL (8.6-10.3); Potassium 5.2 mEq/L (3.5-5.1)
[2020-09-08] MEDS ORDERED: 0.9 % Sodium Chloride 250 ML IVC PRN (08:24)
[2020-09-08] MEDS: Cyanocobalamin (B-12) 1,000 MCG TABLET PO SCH (12:53)
[2020-09-08] MEDS: Folic Acid 1 MG TABLET PO SCH (12:54)
[2020-09-08] MEDS: Lactobacillus 1 EACH CAP.SPRINK PO SCH (12:54)
[2020-09-08] MEDS: Fluticasone Propionate Nasal 50 MCG/SPRAY BOTTLE NS SCH (12:54)
[2020-09-08] MEDS: Ondansetron ODT 4 MG TAB.RAPDIS SL PRN (13:00)
[2020-09-08] MEDS: Azithromycin 500 MG in 0.9 % Sodium Chloride 250 ML IVPB SCH (17:11)
[2020-09-08] MEDS: Gabapentin 100 MG CAPSULE PO SCH (19:17)
[2020-09-08] MEDS: Famotidine 20 MG TABLET PO SCH (19:58)
[2020-09-08] MEDS: Cefepime HCl 1,000 MG in Water for inj. (sterile) 10 ML IVP SCH (19:59)
[2020-09-09] MEDS: *HR* Heparin 5,000 UNIT/ML VIAL SQ SCH ×3 (05:53→20:11)
[2020-09-09] MEDS: Folic Acid 1 MG TABLET PO SCH (08:09)
[2020-09-09] MEDS: Lactobacillus 1 EACH CAP.SPRINK PO SCH (08:09)
[2020-09-09] MEDS: Cyanocobalamin (B-12) 1,000 MCG TABLET PO SCH (08:10)
[2020-09-09] MEDS: Fluticasone Propionate Nasal 50 MCG/SPRAY BOTTLE NS SCH (08:20)
[2020-09-09 09:44] LABS: Basophils # 0.1 K/mcL (0.0-0.2); Basophils % 0.5 %; Eosinophils # 0.3 K/mcL (0.0-0.6); Eosinophils % 1.6 %; Hematocrit 35.7 % (35.3-44.9); Immature Granulocytes % 0.5 % (0-4); Lymphocytes # 2.7 K/mcL (0.6-4.6); Lymphocytes % 16.4 %; Mean Corpuscular HGB Conc 30.8 g/dL (31.6-35.5); Mean Corpuscular Hemoglobin 31.7 pg (28.0-33.3); Mean Corpuscular Volume 102.9 fL (83.0-100.0); Mean Platelet Volume 11.4 fL (9.4-12.4); Monocytes # 1.1 K/mcL (0.0-1.3); Monocytes % 6.6 %; Neutrophils # 12.4 K/mcL (1.6-8.9); Platelet Count 345 K/mcL (140-400); Red Blood Count 3.47 M/mcL (3.82-4.97); Red Cell Distribution Width 14.7 % (11.5-14.5); Segmented Neutrophils % 74.4 %; White Blood Count 16.7 K/mcL (4.3-11.1)
[2020-09-09 10:02] LABS: Calcium 11.6 mg/dL (8.6-10.3); Potassium 4.7 mEq/L (3.5-5.1)
[2020-09-09] MEDS ORDERED: Pantoprazole 40 MG VIAL IVP ONE (12:26)
[2020-09-09] MEDS: Azithromycin 500 MG in 0.9 % Sodium Chloride 250 ML IVPB SCH (16:44)
[2020-09-09] MEDS: Gabapentin 100 MG CAPSULE PO SCH (16:54)
[2020-09-09] MEDS: Famotidine 20 MG TABLET PO SCH (20:00)
[2020-09-09] MEDS: Cefepime HCl 1,000 MG in Water for inj. (sterile) 10 ML IVP SCH (20:11)
[2020-09-10] MEDS: *HR* Heparin 5,000 UNIT/ML VIAL SQ SCH ×2 (05:18→14:23)
[2020-09-10] MEDS: Cyanocobalamin (B-12) 1,000 MCG TABLET PO SCH (08:13)
[2020-09-10] MEDS: Lactobacillus 1 EACH CAP.SPRINK PO SCH (08:14)
[2020-09-10] MEDS: Fluticasone Propionate Nasal 50 MCG/SPRAY BOTTLE NS SCH (08:14)
[2020-09-10] MEDS: Folic Acid 1 MG TABLET PO SCH (08:14)
[2020-09-10 08:29] LABS: Basophils # 0.1 K/mcL (0.0-0.2); Basophils % 0.3 %; Eosinophils # 0.4 K/mcL (0.0-0.6); Eosinophils % 2.2 %; Hematocrit 33.7 % (35.3-44.9); Hemoglobin 10.2 g/dL (11.5-15.4); Immature Granulocytes % 0.6 % (0-4); Lymphocytes # 2.9 K/mcL (0.6-4.6); Lymphocytes % 16.1 %; Mean Corpuscular HGB Conc 30.3 g/dL (31.6-35.5); Mean Corpuscular Hemoglobin 30.8 pg (28.0-33.3); Mean Corpuscular Volume 101.8 fL (83.0-100.0); Mean Platelet Volume 11.7 fL (9.4-12.4); Monocytes # 1.5 K/mcL (0.0-1.3); Monocytes % 8.1 %; Neutrophils # 13.2 K/mcL (1.6-8.9); Platelet Count 326 K/mcL (140-400); Red Blood Count 3.31 M/mcL (3.82-4.97); Red Cell Distribution Width 14.8 % (11.5-14.5); Segmented Neutrophils % 72.7 %; White Blood Count 18.1 K/mcL (4.3-11.1)
[2020-09-10 08:49] LABS: Calcium 11.7 mg/dL (8.6-10.3); Potassium 5.1 mEq/L (3.5-5.1)
[2020-09-10 16:00] VITALS: BP 114/66
== END 2020-09-10 18:28 | disposition home health service (06) | DRG 871 ==
LOC: EMEROOARM 10:29 → 2ANU 10:29 → SUATTDRO 17:25
PROVIDERS: ADMIT Internal Medicine; ATTEND Internal Medicine

== ENCOUNTER 2020-12-14 11:08 | Inpatient (IN) ==
[2020-12-14 12:27] LABS: Basophils # 0.1 K/mcL (0.0-0.2); Basophils % 0.4 %; Eosinophils # 0.2 K/mcL (0.0-0.6); Eosinophils % 1.2 %; Hemoglobin 8.1 g/dL (11.5-15.4); Immature Granulocytes % 0.8 % (0-4); Lymphocytes # 2.5 K/mcL (0.6-4.6); Lymphocytes % 18.7 %; Mean Corpuscular Hemoglobin 31.9 pg (28.0-33.3); Mean Corpuscular Volume 106.3 fL (83.0-100.0); Mean Platelet Volume 11.4 fL (9.4-12.4); Monocytes # 0.9 K/mcL (0.0-1.3); Monocytes % 6.4 %; Neutrophils # 9.7 K/mcL (1.6-8.9); Platelet Count 265 K/mcL (140-400); Red Blood Count 2.54 M/mcL (3.82-4.97); Red Cell Distribution Width 16.8 % (11.5-14.5); Segmented Neutrophils % 72.5 %; White Blood Count 13.4 K/mcL (4.3-11.1)
[2020-12-14 12:48] LABS: Calcium 10.3 mg/dL (8.6-10.3); Potassium 4.8 mEq/L (3.5-5.1)
[2020-12-14 12:55] LABS: Troponin I 0.17 ng/mL (< 0.04)
[2020-12-14] MEDS ORDERED: Furosemide 40 MG/4 ML VIAL IVP ONE (13:27)
[2020-12-14] MEDS ORDERED: Naloxone 0.4 MG/ML INJ IVP PRN (15:21)
[2020-12-14] MEDS ORDERED: Melatonin 3 MG TABLET PO PRN (15:21)
[2020-12-14] MEDS ORDERED: Acetaminophen 325 MG TABLET PO PRN (15:21)
[2020-12-14] MEDS ORDERED: Nitroglycerin 0.4 MG TAB.SUBL SL PRN (17:57)
[2020-12-14] MEDS ORDERED: Perflutren Lipid Microsphere 1.3 ML in 0.9 % Sodium Chloride 8.7 ML IVP PRN (17:58)
[2020-12-14] MEDS: Ondansetron 4 MG/2 ML VIAL IVP PRN (18:34)
[2020-12-14] MEDS: *HR* HYDROcodone/Acet 5/325 mg TABLET PO PRN (18:34)
[2020-12-14] MEDS: levoFLOXacin 750 MG TABLET PO SCH (20:00)
[2020-12-14] MEDS: *HR* Heparin 5,000 UNIT/ML VIAL SQ SCH (20:00)
[2020-12-14] MEDS ORDERED: Artificial Tears SOLN 15 ML BOTTLE BOTH EYES PRN (22:04)
[2020-12-14 22:22] LABS: Hepatitis B Surface Antibody 286.52 mIU/mL
[2020-12-14] MEDS ORDERED: Ammonium Lactate 30 APPL/225 GM BOTTLE TP PRN (22:23)
[2020-12-14 22:32] LABS: Hepatitis B Surface Antigen Nonreactive (Nonreactive)
[2020-12-15] MEDS: *HR* Heparin 5,000 UNIT/ML VIAL SQ SCH ×2 (05:45→16:34)
[2020-12-15 07:30] LABS: Basophils % 0.4 %; Eosinophils # 0.2 K/mcL (0.0-0.6); Eosinophils % 1.3 %; Hematocrit 23.3 % (35.3-44.9); Hemoglobin 7.2 g/dL (11.5-15.4); Immature Granulocytes % 0.8 % (0-4); Lymphocytes # 2.3 K/mcL (0.6-4.6); Lymphocytes % 20.6 %; Mean Corpuscular HGB Conc 30.9 g/dL (31.6-35.5); Mean Corpuscular Hemoglobin 32.9 pg (28.0-33.3); Mean Corpuscular Volume 106.4 fL (83.0-100.0); Mean Platelet Volume 11.2 fL (9.4-12.4); Monocytes # 0.8 K/mcL (0.0-1.3); Neutrophils # 7.9 K/mcL (1.6-8.9); Platelet Count 234 K/mcL (140-400); Red Blood Count 2.19 M/mcL (3.82-4.97); Red Cell Distribution Width 16.8 % (11.5-14.5); Segmented Neutrophils % 69.9 %; White Blood Count 11.3 K/mcL (4.3-11.1)
[2020-12-15 07:39] LABS: INR 1.3; Prothrombin Time 14.8 Seconds (9.4-12.1)
[2020-12-15 07:55] LABS: % Iron Saturation 78 % (15-50); Alanine Aminotransferase 5 Units/L (7-52); Albumin 3.4 g/dL (3.5-5.7); Alkaline Phosphatase 82 Units/L (34-104); Aspartate Amino Transferase 13 Units/L (13-39); BUN/Creatinine Ratio 5 (6-26); Bilirubin,Total 2.2 mg/dL (0.3-1.0); Blood Urea Nitrogen 47 mg/dL (8-23); Carbon Dioxide 24 mEq/L (23-29); Chloride 102 mEq/L (98-107); Chol/HDL Ratio 7.8 (0-4.9); Cholesterol 141 mg/dL (< 200); Globulin 3.3 g/dL (2.4-3.5); Glucose 73 mg/dL (70-105); HDL Cholesterol 18 mg/dL (40-59); Iron 168 mcg/dL (50-170); LDL Cholesterol,Calculated 87 mg/dL (< 100); Magnesium 2.1 mg/dL (1.6-2.6); Osmolality,Calculated 301 (280-300); Phosphorous 7.9 mg/dL (2.7-4.5); Potassium 5.3 mEq/L (3.5-5.1); Sodium 140 mEq/L (136-145); Total Protein 6.7 g/dL (6.4-8.9); Transferrin 153 mg/dL (203-362); Triglycerides 179 mg/dL (< 150); eGFR For African Americans 5 (> 60); eGFR For Non-African Americans 4 (> 60)
[2020-12-15 08:14] LABS: Folate 9.2 ng/mL (3.0-16.0)
[2020-12-15] MEDS ORDERED: 0.9 % Sodium Chloride 1,000 ML ONE (08:36)
[2020-12-15] MEDS: Ondansetron 4 MG/2 ML VIAL IVP PRN ×2 (08:53→16:22)
[2020-12-15 08:54] LABS: Ferritin > 1500 ng/mL (10-120)
[2020-12-15] MEDS ORDERED: 0.9 % Sodium Chloride 250 ML IVC PRN (08:55)
[2020-12-15] MEDS: *HR* HYDROcodone/Acet 5/325 mg TABLET PO PRN ×2 (08:56→18:13)
[2020-12-15] MEDS: levoFLOXacin 750 MG TABLET PO SCH (08:57)
[2020-12-15] MEDS: Mirtazapine 15 MG TABLET PO SCH (08:57)
[2020-12-15] MEDS: Folic Acid 1 MG TABLET PO SCH (08:57)
[2020-12-15] MEDS: Lactobacillus 1 EACH CAP.SPRINK PO SCH (08:57)
[2020-12-15] MEDS: Cyanocobalamin (B-12) 1,000 MCG TABLET PO SCH (08:57)
[2020-12-15] MEDS: Fluticasone Propionate Nasal 50 MCG/SPRAY BOTTLE NS SCH (08:58)
[2020-12-15] MEDS ORDERED: 0.9 % Sodium Chloride 1,000 ML PRIME SCH (09:00)
[2020-12-15] MEDS ORDERED: Famotidine 20 MG TABLET PO SCH (09:00)
[2020-12-15] MEDS: Budesonide/Formoterol 80/4.5 1 PUFF INH IH SCH ×2 (09:47→21:42)
[2020-12-15 13:23] LABS: Hematocrit 27.3 % (35.3-44.9); Hemoglobin 8.2 g/dL (11.5-15.4)
[2020-12-15] MEDS: Gabapentin 300 MG CAPSULE PO SCH (18:11)
[2020-12-16] MEDS: *HR* Heparin 5,000 UNIT/ML VIAL SQ SCH ×2 (06:01→17:30)
[2020-12-16 06:16] LABS: Basophils % 0.3 %; Eosinophils # 0.1 K/mcL (0.0-0.6); Eosinophils % 0.9 %; Hematocrit 26.7 % (35.3-44.9); Hemoglobin 8.3 g/dL (11.5-15.4); Immature Granulocytes % 0.9 % (0-4); Lymphocytes % 14.1 %; Mean Corpuscular HGB Conc 31.1 g/dL (31.6-35.5); Mean Corpuscular Hemoglobin 32.7 pg (28.0-33.3); Mean Corpuscular Volume 105.1 fL (83.0-100.0); Mean Platelet Volume 11.3 fL (9.4-12.4); Monocytes % 7.5 %; Neutrophils # 10.5 K/mcL (1.6-8.9); Platelet Count 247 K/mcL (140-400); Red Blood Count 2.54 M/mcL (3.82-4.97); Red Cell Distribution Width 16.8 % (11.5-14.5); Segmented Neutrophils % 76.3 %; White Blood Count 13.8 K/mcL (4.3-11.1)
[2020-12-16 06:36] LABS: Magnesium 2.1 mg/dL (1.6-2.6)
[2020-12-16 09:36] LABS: Albumin 3.9 g/dL (3.5-5.7); Albumin/Globulin Ratio 1.1 (1.1-2.2); Calcium 10.7 mg/dL (8.6-10.3); Globulin 3.7 g/dL (2.4-3.5); Potassium 4.8 mEq/L (3.5-5.1); Total Protein 7.6 g/dL (6.4-8.9)
[2020-12-16] MEDS: Folic Acid 1 MG TABLET PO SCH (10:27)
[2020-12-16] MEDS: Famotidine 20 MG TABLET PO SCH (10:27)
[2020-12-16] MEDS: Mirtazapine 15 MG TABLET PO SCH (10:27)
[2020-12-16] MEDS: Cyanocobalamin (B-12) 1,000 MCG TABLET PO SCH (10:27)
[2020-12-16] MEDS: levoFLOXacin 750 MG TABLET PO SCH (10:27)
[2020-12-16] MEDS: Lactobacillus 1 EACH CAP.SPRINK PO SCH (10:27)
[2020-12-16] MEDS: Ondansetron 4 MG/2 ML VIAL IVP PRN (10:28)
[2020-12-16] MEDS: Budesonide/Formoterol 80/4.5 1 PUFF INH IH SCH ×2 (10:58→19:35)
[2020-12-16] MEDS: Fluticasone Propionate Nasal 50 MCG/SPRAY BOTTLE NS SCH (11:51)
[2020-12-16] MEDS: *HR* HYDROcodone/Acet 5/325 mg TABLET PO PRN (13:59)
[2020-12-16] MEDS: Gabapentin 300 MG CAPSULE PO SCH (17:30)
[2020-12-17 03:30] LABS: Basophils % 0.2 %; Eosinophils # 0.1 K/mcL (0.0-0.6); Eosinophils % 0.9 %; Hematocrit 25.3 % (35.3-44.9); Hemoglobin 7.7 g/dL (11.5-15.4); Immature Granulocytes % 0.9 % (0-4); Lymphocytes # 2.1 K/mcL (0.6-4.6); Lymphocytes % 14.8 %; Mean Corpuscular HGB Conc 30.4 g/dL (31.6-35.5); Mean Corpuscular Hemoglobin 32.5 pg (28.0-33.3); Mean Corpuscular Volume 106.8 fL (83.0-100.0); Mean Platelet Volume 11.1 fL (9.4-12.4); Monocytes # 1.1 K/mcL (0.0-1.3); Monocytes % 7.8 %; Neutrophils # 10.5 K/mcL (1.6-8.9); Nucleated Red Blood Cells 0.1 /100 WBC (0); Platelet Count 242 K/mcL (140-400); Red Blood Count 2.37 M/mcL (3.82-4.97); Red Cell Distribution Width 16.9 % (11.5-14.5); Segmented Neutrophils % 75.4 %
[2020-12-17 03:50] LABS: Albumin 3.7 g/dL (3.5-5.7); Bilirubin,Total 1.4 mg/dL (0.3-1.0); Calcium 10.6 mg/dL (8.6-10.3); Globulin 3.6 g/dL (2.4-3.5); Total Protein 7.3 g/dL (6.4-8.9)
[2020-12-17 03:53] LABS: Phosphorous 8.2 mg/dL (2.7-4.5)
[2020-12-17] MEDS: *HR* Heparin 5,000 UNIT/ML VIAL SQ SCH ×2 (05:51→17:37)
[2020-12-17] MEDS ORDERED: 0.9 % Sodium Chloride 250 ML IVC PRN (07:55)
[2020-12-17] MEDS ORDERED: Ergocalciferol (VIT D2) 50,000 UNIT (1.25MG) CAP PO SCH (09:00)
[2020-12-17] MEDS: Budesonide/Formoterol 80/4.5 1 PUFF INH IH SCH ×2 (09:49→23:22)
[2020-12-17] MEDS: Famotidine 20 MG TABLET PO SCH (13:31)
[2020-12-17] MEDS: *HR* HYDROcodone/Acet 5/325 mg TABLET PO PRN (13:32)
[2020-12-17] MEDS: Mirtazapine 15 MG TABLET PO SCH (13:34)
[2020-12-17] MEDS: Fluticasone Propionate Nasal 50 MCG/SPRAY BOTTLE NS SCH (13:43)
[2020-12-17] MEDS: levoFLOXacin 750 MG TABLET PO SCH (13:43)
[2020-12-17] MEDS: Folic Acid 1 MG TABLET PO SCH (13:43)
[2020-12-17] MEDS: Lactobacillus 1 EACH CAP.SPRINK PO SCH (13:43)
[2020-12-17] MEDS: Cyanocobalamin (B-12) 1,000 MCG TABLET PO SCH (13:44)
[2020-12-17] MEDS: Gabapentin 300 MG CAPSULE PO SCH (17:37)
[2020-12-18] MEDS ORDERED: 0.9 % Sodium Chloride 250 ML IVC ONE (04:07)
[2020-12-18] MEDS: *HR* Heparin 5,000 UNIT/ML VIAL SQ SCH ×2 (04:53→17:03)
[2020-12-18 06:23] LABS: Basophils % 0.3 %; Eosinophils # 0.1 K/mcL (0.0-0.6); Eosinophils % 0.6 %; Hematocrit 27.3 % (35.3-44.9); Hemoglobin 8.3 g/dL (11.5-15.4); Immature Granulocytes % 1.3 % (0-4); Lymphocytes # 2.8 K/mcL (0.6-4.6); Lymphocytes % 17.9 %; Mean Corpuscular HGB Conc 30.4 g/dL (31.6-35.5); Mean Corpuscular Volume 105.4 fL (83.0-100.0); Mean Platelet Volume 11.5 fL (9.4-12.4); Monocytes # 1.2 K/mcL (0.0-1.3); Monocytes % 7.5 %; Neutrophils # 11.2 K/mcL (1.6-8.9); Nucleated Red Blood Cells 0.1 /100 WBC (0); Platelet Count 251 K/mcL (140-400); Red Blood Count 2.59 M/mcL (3.82-4.97); Segmented Neutrophils % 72.4 %; White Blood Count 15.5 K/mcL (4.3-11.1)
[2020-12-18 06:39] LABS: Albumin 3.9 g/dL (3.5-5.7); Bilirubin,Total 1.2 mg/dL (0.3-1.0); Calcium 11.1 mg/dL (8.6-10.3); Globulin 3.9 g/dL (2.4-3.5); Potassium 4.7 mEq/L (3.5-5.1); Total Protein 7.8 g/dL (6.4-8.9)
[2020-12-18 06:40] LABS: Magnesium 1.9 mg/dL (1.6-2.6); Phosphorous 7.8 mg/dL (2.7-4.5)
[2020-12-18] MEDS ORDERED: 0.9 % Sodium Chloride 250 ML IVC PRN (07:20)
[2020-12-18] MEDS ORDERED: Albumin 25% 25gram/100mL 25 GM/100 ML IV.SOLN IVPB PRN ×2 (07:22→21:23)
[2020-12-18] MEDS ORDERED: 0.9 % Sodium Chloride 1,000 ML PRIME SCH (07:30)
[2020-12-18] MEDS: Budesonide/Formoterol 80/4.5 1 PUFF INH IH SCH ×2 (07:38→22:40)
[2020-12-18] MEDS: Lactobacillus 1 EACH CAP.SPRINK PO SCH (12:13)
[2020-12-18] MEDS: Famotidine 20 MG TABLET PO SCH (12:14)
[2020-12-18] MEDS: Cyanocobalamin (B-12) 1,000 MCG TABLET PO SCH (12:14)
[2020-12-18] MEDS: Fluticasone Propionate Nasal 50 MCG/SPRAY BOTTLE NS SCH (12:15)
[2020-12-18] MEDS: levoFLOXacin 750 MG TABLET PO SCH (12:15)
[2020-12-18] MEDS: Mirtazapine 15 MG TABLET PO SCH (12:15)
[2020-12-18] MEDS: Folic Acid 1 MG TABLET PO SCH (12:15)
[2020-12-18] MEDS: Ondansetron 4 MG/2 ML VIAL IVP PRN (12:53)
[2020-12-18 14:57] LABS: Calcium 11.7 mg/dL (8.6-10.3); Phosphorous 6.1 mg/dL (2.7-4.5); Potassium 4.3 mEq/L (3.5-5.1)
[2020-12-18] MEDS ORDERED: Cefepime HCl 1,000 MG in 0.9 % Sodium Chloride Mini Bag 100 ML IVPB SCH (17:00)
[2020-12-18] MEDS: Gabapentin 300 MG CAPSULE PO SCH (17:03)
[2020-12-18] MEDS ORDERED: 0.9 % Sodium Chloride 500 ML IVC ONE (20:14)
[2020-12-18] MEDS ORDERED: 0.9 % Sodium Chloride 500 ML IV ONE ×2 (21:20→21:45)
[2020-12-18] MEDS ORDERED: Albumin 25% 25gram/100mL 25 GM/100 ML IV.SOLN IVPB ONE (21:44)
[2020-12-19] MEDS ORDERED: 0.9 % Sodium Chloride 1,000 ML IVC ONE (01:30)
[2020-12-19] MEDS ORDERED: Norepinephrine 4 MG/254 ML IV.SOLN IVC SCH (02:45)
[2020-12-19] MEDS ORDERED: Nitroglycerin 0.4 MG TAB.SUBL SL PRN (03:30)
[2020-12-19] MEDS ORDERED: Naloxone 0.4 MG/ML INJ IVP PRN (03:30)
[2020-12-19] MEDS ORDERED: Ammonium Lactate 30 APPL/225 GM BOTTLE TP PRN (03:30)
[2020-12-19] MEDS ORDERED: Melatonin 3 MG TABLET PO PRN (03:30)
[2020-12-19] MEDS ORDERED: Artificial Tears SOLN 15 ML BOTTLE BOTH EYES PRN (03:30)
[2020-12-19] MEDS ORDERED: Acetaminophen 325 MG TABLET PO PRN (03:30)
[2020-12-19 03:45] LABS: Basophils % 0.3 %; Eosinophils # 0.1 K/mcL (0.0-0.6); Eosinophils % 0.6 %; Hematocrit 23.8 % (35.3-44.9); Hemoglobin 7.1 g/dL (11.5-15.4); Immature Granulocytes % 1.2 % (0-4); Lymphocytes # 2.5 K/mcL (0.6-4.6); Lymphocytes % 16.2 %; Mean Corpuscular HGB Conc 29.8 g/dL (31.6-35.5); Mean Corpuscular Hemoglobin 31.7 pg (28.0-33.3); Mean Corpuscular Volume 106.3 fL (83.0-100.0); Mean Platelet Volume 11.4 fL (9.4-12.4); Monocytes # 1.1 K/mcL (0.0-1.3); Monocytes % 7.3 %; Neutrophils # 11.6 K/mcL (1.6-8.9); Platelet Count 213 K/mcL (140-400); Red Blood Count 2.24 M/mcL (3.82-4.97); Red Cell Distribution Width 16.8 % (11.5-14.5); Segmented Neutrophils % 74.4 %; White Blood Count 15.5 K/mcL (4.3-11.1)
[2020-12-19 04:02] LABS: Magnesium 1.9 mg/dL (1.6-2.6)
[2020-12-19 04:07] LABS: Albumin 4.3 g/dL (3.5-5.7); Albumin/Globulin Ratio 1.2 (1.1-2.2); Bilirubin,Total 1.8 mg/dL (0.3-1.0); Calcium 9.7 mg/dL (8.6-10.3); Globulin 3.6 g/dL (2.4-3.5); Potassium 4.7 mEq/L (3.5-5.1); Total Protein 7.9 g/dL (6.4-8.9)
[2020-12-19] MEDS: *HR* Heparin 5,000 UNIT/ML VIAL SQ SCH ×2 (05:05→17:59)
[2020-12-19] MEDS: Budesonide/Formoterol 80/4.5 1 PUFF INH IH SCH ×2 (07:58→22:08)
[2020-12-19] MEDS: Lactobacillus 1 EACH CAP.SPRINK PO SCH (08:48)
[2020-12-19] MEDS: Famotidine 20 MG TABLET PO SCH (08:49)
[2020-12-19] MEDS: Cyanocobalamin (B-12) 1,000 MCG TABLET PO SCH (08:49)
[2020-12-19] MEDS: Mirtazapine 15 MG TABLET PO SCH (08:50)
[2020-12-19] MEDS: Folic Acid 1 MG TABLET PO SCH (08:50)
[2020-12-19] MEDS: Fluticasone Propionate Nasal 50 MCG/SPRAY BOTTLE NS SCH (10:00)
[2020-12-19] MEDS: Cefepime HCl 1,000 MG in 0.9 % Sodium Chloride Mini Bag 100 ML IVPB SCH (16:36)
[2020-12-19] MEDS: Gabapentin 300 MG CAPSULE PO SCH (17:59)
[2020-12-20 04:51] LABS: Basophils % 0.1 %; Eosinophils # 0.1 K/mcL (0.0-0.6); Eosinophils % 0.8 %; Hematocrit 22.7 % (35.3-44.9); Hemoglobin 6.8 g/dL (11.5-15.4); Immature Granulocytes % 1.2 % (0-4); Lymphocytes # 1.4 K/mcL (0.6-4.6); Lymphocytes % 10.3 %; Mean Corpuscular Hemoglobin 32.1 pg (28.0-33.3); Mean Corpuscular Volume 107.1 fL (83.0-100.0); Mean Platelet Volume 11.7 fL (9.4-12.4); Monocytes # 0.9 K/mcL (0.0-1.3); Monocytes % 6.4 %; Neutrophils # 11.1 K/mcL (1.6-8.9); Platelet Count 211 K/mcL (140-400); Red Blood Count 2.12 M/mcL (3.82-4.97); Red Cell Distribution Width 16.7 % (11.5-14.5); Segmented Neutrophils % 81.2 %; White Blood Count 13.7 K/mcL (4.3-11.1)
[2020-12-20 05:18] LABS: Albumin 3.9 g/dL (3.5-5.7); Albumin/Globulin Ratio 1.1 (1.1-2.2); Bilirubin,Total 1.4 mg/dL (0.3-1.0); Calcium 8.9 mg/dL (8.6-10.3); Globulin 3.5 g/dL (2.4-3.5); Magnesium 1.8 mg/dL (1.6-2.6); Phosphorous 6.7 mg/dL (2.7-4.5); Potassium 5.2 mEq/L (3.5-5.1); Total Protein 7.4 g/dL (6.4-8.9)
[2020-12-20] MEDS ORDERED: 0.9 % Sodium Chloride 250 ML IVC SCH (06:15)
[2020-12-20] MEDS: Budesonide/Formoterol 80/4.5 1 PUFF INH IH SCH ×2 (07:29→21:40)
[2020-12-20] MEDS ORDERED: Albumin 25% 25gram/100mL 25 GM/100 ML IV.SOLN IVPB PRN (07:50)
[2020-12-20] MEDS ORDERED: 0.9 % Sodium Chloride 250 ML IVC PRN (07:50)
[2020-12-20] MEDS ORDERED: 0.9 % Sodium Chloride 1,000 ML PRIME SCH (08:00)
[2020-12-20] MEDS: Famotidine 20 MG TABLET PO SCH (08:57)
[2020-12-20] MEDS: Cyanocobalamin (B-12) 1,000 MCG TABLET PO SCH (08:59)
[2020-12-20] MEDS: Folic Acid 1 MG TABLET PO SCH (08:59)
[2020-12-20] MEDS: Mirtazapine 15 MG TABLET PO SCH (08:59)
[2020-12-20] MEDS: Lactobacillus 1 EACH CAP.SPRINK PO SCH (09:02)
[2020-12-20] MEDS: Fluticasone Propionate Nasal 50 MCG/SPRAY BOTTLE NS SCH (09:03)
[2020-12-20] MEDS: Ondansetron 4 MG/2 ML VIAL IVP PRN (09:23)
[2020-12-20] MEDS ORDERED: 0.9 % Sodium Chloride 500 ML ONE ×2 (10:27→17:18)
[2020-12-20] MEDS: *HR* Heparin 5,000 UNIT/ML VIAL SQ SCH ×2 (11:32→17:50)
[2020-12-20] MEDS: Norepinephrine 4 MG/254 ML IV.SOLN IVC SCH (15:05)
[2020-12-20] MEDS: Gabapentin 300 MG CAPSULE PO SCH (17:50)
[2020-12-20] MEDS: Cefepime HCl 1,000 MG in 0.9 % Sodium Chloride Mini Bag 100 ML IVPB SCH (19:50)
[2020-12-21 04:03] LABS: Basophils % 0.3 %; Eosinophils # 0.2 K/mcL (0.0-0.6); Hematocrit 28.2 % (35.3-44.9); Immature Granulocytes % 1.3 % (0-4); Lymphocytes # 2.1 K/mcL (0.6-4.6); Lymphocytes % 13.8 %; Mean Corpuscular HGB Conc 31.6 g/dL (31.6-35.5); Mean Corpuscular Hemoglobin 31.3 pg (28.0-33.3); Mean Platelet Volume 11.4 fL (9.4-12.4); Monocytes # 1.2 K/mcL (0.0-1.3); Monocytes % 7.9 %; Neutrophils # 11.8 K/mcL (1.6-8.9); Platelet Count 204 K/mcL (140-400); Red Blood Count 2.84 M/mcL (3.82-4.97); Red Cell Distribution Width 18.1 % (11.5-14.5); Segmented Neutrophils % 75.7 %; White Blood Count 15.5 K/mcL (4.3-11.1)
[2020-12-21 04:07] LABS: Hemoglobin 8.9 g/dL (11.5-15.4); Mean Corpuscular Volume 99.3 fL (83.0-100.0)
[2020-12-21 04:19] LABS: Albumin 3.6 g/dL (3.5-5.7); Albumin/Globulin Ratio 1.1 (1.1-2.2); Bilirubin,Total 1.8 mg/dL (0.3-1.0); Calcium 8.8 mg/dL (8.6-10.3); Globulin 3.4 g/dL (2.4-3.5); Magnesium 1.7 mg/dL (1.6-2.6); Phosphorous 5.3 mg/dL (2.7-4.5); Potassium 4.1 mEq/L (3.5-5.1)
[2020-12-21] MEDS: Norepinephrine 4 MG/254 ML IV.SOLN IVC SCH (04:38)
[2020-12-21] MEDS: *HR* Heparin 5,000 UNIT/ML VIAL SQ SCH ×2 (06:36→18:14)
[2020-12-21] MEDS: Budesonide/Formoterol 80/4.5 1 PUFF INH IH SCH ×2 (07:58→20:04)
[2020-12-21] MEDS: Mirtazapine 15 MG TABLET PO SCH (09:44)
[2020-12-21] MEDS: Cyanocobalamin (B-12) 1,000 MCG TABLET PO SCH (09:45)
[2020-12-21] MEDS: Lactobacillus 1 EACH CAP.SPRINK PO SCH (11:00)
[2020-12-21] MEDS: Folic Acid 1 MG TABLET PO SCH (11:01)
[2020-12-21] MEDS: Famotidine 20 MG TABLET PO SCH (11:47)
[2020-12-21] MEDS: Fluticasone Propionate Nasal 50 MCG/SPRAY BOTTLE NS SCH (12:48)
[2020-12-21] MEDS ORDERED: Acyclovir 200 MG CAPSULE PO ONE (15:15)
[2020-12-21] MEDS: Cefepime HCl 1,000 MG in 0.9 % Sodium Chloride Mini Bag 100 ML IVPB SCH (16:41)
[2020-12-21] MEDS: Gabapentin 300 MG CAPSULE PO SCH (18:15)
[2020-12-21] MEDS: Acyclovir 200 MG CAPSULE PO SCH (20:44)
[2020-12-22] MEDS: Norepinephrine 4 MG/254 ML IV.SOLN IVC SCH (04:30)
[2020-12-22] MEDS: *HR* Heparin 5,000 UNIT/ML VIAL SQ SCH ×2 (06:17→16:59)
[2020-12-22] MEDS: Famotidine 20 MG TABLET PO SCH (08:15)
[2020-12-22] MEDS: Folic Acid 1 MG TABLET PO SCH (08:17)
[2020-12-22] MEDS: Cyanocobalamin (B-12) 1,000 MCG TABLET PO SCH (08:17)
[2020-12-22] MEDS: Lactobacillus 1 EACH CAP.SPRINK PO SCH (08:17)
[2020-12-22] MEDS: Acyclovir 200 MG CAPSULE PO SCH ×2 (08:18→20:14)
[2020-12-22] MEDS: Mirtazapine 15 MG TABLET PO SCH (08:18)
[2020-12-22] MEDS: Fluticasone Propionate Nasal 50 MCG/SPRAY BOTTLE NS SCH (08:24)
[2020-12-22] MEDS ORDERED: 0.9 % Sodium Chloride 250 ML IVC PRN (08:55)
[2020-12-22] MEDS ORDERED: 0.9 % Sodium Chloride 1,000 ML PRIME SCH (09:00)
[2020-12-22] MEDS: Budesonide/Formoterol 80/4.5 1 PUFF INH IH SCH ×2 (09:25→19:38)
[2020-12-22 12:01] LABS: Basophils # 0.1 K/mcL (0.0-0.2); Basophils % 0.4 %; Eosinophils # 0.1 K/mcL (0.0-0.6); Eosinophils % 0.8 %; Hematocrit 27.5 % (35.3-44.9); Hemoglobin 8.5 g/dL (11.5-15.4); Immature Granulocytes % 1.2 % (0-4); Lymphocytes # 1.3 K/mcL (0.6-4.6); Mean Corpuscular HGB Conc 30.9 g/dL (31.6-35.5); Mean Corpuscular Hemoglobin 31.1 pg (28.0-33.3); Mean Corpuscular Volume 100.7 fL (83.0-100.0); Mean Platelet Volume 11.6 fL (9.4-12.4); Monocytes % 6.1 %; Neutrophils # 13.6 K/mcL (1.6-8.9); Platelet Count 201 K/mcL (140-400); Red Blood Count 2.73 M/mcL (3.82-4.97); Red Cell Distribution Width 17.3 % (11.5-14.5); Segmented Neutrophils % 83.5 %; White Blood Count 16.3 K/mcL (4.3-11.1)
[2020-12-22 12:21] LABS: Magnesium 1.7 mg/dL (1.6-2.6); Potassium 4.5 mEq/L (3.5-5.1)
[2020-12-22] MEDS ORDERED: Albumin 25% 25gram/100mL 25 GM/100 ML IV.SOLN IVPB ONE (16:03)
[2020-12-22] MEDS: Cefepime HCl 1,000 MG in 0.9 % Sodium Chloride Mini Bag 100 ML IVPB SCH (17:00)
[2020-12-22] MEDS: Gabapentin 300 MG CAPSULE PO SCH (17:02)
[2020-12-22 20:08] VITALS: BP 98/45
[2020-12-22] MEDS: Ondansetron 4 MG/2 ML VIAL IVP PRN (20:44)
[2020-12-24] MEDS ORDERED: Ergocalciferol (VIT D2) 50,000 UNIT (1.25MG) CAP PO SCH (09:00)
[2020-12-24] MEDS ORDERED: Acyclovir 200 MG CAPSULE PO SCH (21:00)
== END 2020-12-22 21:01 | disposition short-term general hospital (02) | DRG 291 ==
LOC: 2ANU 11:08 → EMEROOARM 11:08 → SUATTDRO 14:29 → 2ANU 15:49 → ICNU 12-19 03:34
PROVIDERS: ADMIT Internal Medicine; ATTEND Internal Medicine